=== PATIENT | female | born 1935 | race Caucasian/White ===

== ENCOUNTER 2016-05-13 09:21 | Emergency (ER) | payer MEDICARE ==
[~2016-05-13] VITALS: Ht 157.5 cm; Wt 62.6 kg
[~2016-05-13 09:21] MED LIST: ASP81CT PO; ASPI-906 PO; CARV3.12 PO; CARV6.252; CARV6.252 PO; CLOP75TA PO; CPR250T PO; CPR500T PO; CRV6.25T PO; ENAL10TA PO; GBPN100C PO; HYDR1TAB8 OP; LOSA100T7 PO; MULT-178 PO; OMEG1CAP51 PO; ONDA8TAB9 PO; ONDAN4ODT PO; OXYC5SOL19 PO; OXYC5TAB71 PO; PANT20TA2 PO; PHEN200T27 PO; PNT40TEC PO; TMSL.4C PO; [UNRECOGNIZED DRUG - REMARK]
--- NOTE | 2016-05-13 10:56 | ED General ---
General Chief Complaint: General Problems/Pain Stated Complaint: ABD PAIN Nursing Triage Note: pt reports congestion for several days. Pt reports malaise, lightheadedness/weakness, and abdominal pain starting this am. Pt also reports red swollen area near vagina. Pt states she has had MRSA there before. pt reports upon arrival to ed abdominal pain has resolved. Nursing Sepsis Screen: No Definite Risk Source of Information: Patient, Family Exam Limitations: No Limitations History of Present Illness Time Seen by Provider: 10:50 Initial Comments This 81-year-old female presents with cough and congestion that began last 24 hours. Patient is 1 and recommendation for a codeine containing cough syrup. Patient's had no associated shortness of breath, productive cough, chest discomfort, history of recurrent pneumonia, bronchitis, or asthma. Patient also is concerned that her urethral meatus may have MRSA. The patient has had MRSA in the right groin required an I&D in the past she fears that the urethral meatus which he has felt may have MRSA. Patient saw another physician for what sounds like atrophic vaginitis and used cream which is cause improvement in the patient's vaginal discomfort. Allergies and Home Medications Allergies Coded Allergies: duloxetine HCl (Verified Allergy, Intermediate, BLISTERS, 05/04/15) Penicillins (Verified Allergy, Mild, 04/03/11) Home Medications Carvedilol 6.25 Mg Tab, 6.25 MG PO BID, (Reported) Losartan Potassium 100 Mg Tablet, 100 MG PO DAILY, (Reported) Multivitamin 1 Each Tablet, 1 EACH PO DAILY, (Reported) Pantoprazole Sodium 20 Mg Tablet.dr, 40 MG PO DAILY, #90 Prescribed by: TERE CARVAJAL on 06/01/14 1246 Constitutional: No chills, No fever EENTM: No eye pain Respiratory: see HPI, cough, No phlegm, No short of breath Cardiovascular: No chest pain Gastrointestinal: No abdominal pain, No nausea, No vomiting Genitourinary: see HPI, No dysuria, No frequency : No Musculoskeletal: No back pain Skin: No rash Psychiatric/Neurological: No Symptoms Reported Hematologic/Lymphatic: No Symptoms Reported Immunological/Allergic: no symptoms reported Past Epfsnwn-Wkxmcr-Rbnwxq Hx Patient Social History Alcohol Use: Denies Use Recreational Drug Use: No Smoking Status: Never a Smoker Recent Foreign Travel: No Contact w/Someone Who Travel: No Recent Infectious Disease Expo: No Recent Hopitalizations: Yes Immunizations Up To Date Date of Pneumonia Vaccine: Jun 01, 2004 Surgeries HX Surgeries: Yes (KIDNEY STONE REMOVAL, ORAL SX, ANGIOPLASTY RIGHT RENAL ARTERY) Surgeries: Gallbladder, Hysterectomy, Thyroidectomy Respiratory Hx Respiratory Disorders: No Cardiovascular Hx Cardiac Disorders: Yes Neurological Hx Neurological Disorders: No Reproductive System Hx Reproductive Disorders: No Sexually Transmitted Disease: No HIV/AIDS: No 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 Genitourinary Hx Genitourinary Disorders: Yes Genitourinary Disorders: Kidney Stones Gastrointestinal Hx Gastrointestinal Disorders: Yes (HX HIATAL HERNIA) Gastrointestinal Disorders: Gastroesophageal Reflux, Diverticulosis Musculoskeletal Hx Musculoskeletal Disorders: Yes Musculoskeletal Disorders: Arthritis Endocrine Hx Endocrine Disorders: Yes (NODULE ON THYROID, BX ON 03/30/15) HEENT HX ENT Disorders: No (SMALL CATARACTS, FULL SET OF DENTURES) Hearing Impairment: Denies Cancer Hx Cancer: No Psychosocial Hx Psychiatric Problems: No Integumentary HX Skin/Integumentary Disorder: Yes (hx of mrsa) Blood Transfusions Hx Blood Disorders: No Adverse Reaction to a Blood Tr: No Reviewed Nursing Assessment Reviewed/Agree w Nursing PMH: Yes Family Medical History Family Medial History: Cardiovascular disease G8 SISTER Colon cancer G8 BROTHER FH: cancer 19 FATHER (lung) 19 MOTHER G8 SISTER (esophagus) Psychosocial problem 19 MOTHER Physical Exam Vital Signs Vital Sign - Last 12Hours 05/13/16 10:24 Temp 97.5 Pulse 63 Resp 18 B/P (MAP) 131/79 Pulse Ox 98 Capillary Refill : Less Than 3 Seconds General Appearance: No Apparent Distress, WD/WN Eyes: Bilateral Eye Normal Inspection HEENT: Normal ENT Inspection Neck: Normal Inspection Respiratory: Lungs Clear, Normal Breath Sounds Cardiovascular: No Edema Gastrointestinal: Normal Bowel Sounds, Non Tender, Soft Genital/Rectal: Normal Genital Exam, Other (the patient's urethral meatus appears to be normal and nontender. I reassured the patient.) Back: Normal Inspection Extremity: Normal Inspection, Normal Range of Motion Neurologic/Psychiatric: Alert, No Motor/Sensory Deficits, Normal Mood/Affect Skin: Normal Color, Warm/Dry Progress/Results/Core Measures Results/Orders Vital Signs/I&O Vital Sign - Last 12Hours 05/13/16 10:24 Temp 97.5 Pulse 63 Resp 18 B/P (MAP) 131/79 Pulse Ox 98 Blood Pressure Mean: 96 Progress Note : Time: 10:53 Progress Note The patient was content to be reassured that her urethral meatus was normal. She is planning on seeing a hand singer for the first time in her life and the near future. I encouraged her to follow through with this plan. I invited her to return to emergency department if any further problems or questions. 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 Departure Impression Impression: Primary Impression: Viral URI with cough Disposition: HOME, SELF-CARE Condition: Unchanged Departure-Patient Inst. Decision time for Depature: 10:55 Referrals: ARISTIDES CASTRO MD (PCP/Family) Primary Care Physician Add. Discharge Instructions: Complication with codeine of your choice. Return if you have any problems or questions. All discharge instructions reviewed with patient and/or family. Voiced understanding. VICKY RUIZ MD May 13, 2016 10:56
[2016-05-13 11:01] VITALS: BP 128/69
--- OUTSIDE RECORDS SUMMARY | 2016-06-16 05:55 | XMS REPORT | Continuity of Care Document ---
Author Author [facility] Organization [facility] Address Unknown Phone Unavailable Allergies Active Description Code Type Severity Reaction Onset Reported/Identified Relationship to Patient Clinical Status Yes Penicillins [id number] Drug Allergy Mild N/A 04/03/2011 Yes duloxetine HCl [id number] Drug Allergy Unknown N/A 06/01/2014 Yes duloxetine HCl [id number] Drug Allergy Moderate BLISTERS 05/04/2015 Medications Problems Date Dx Coded Attending Type Code Diagnosis Diagnosed By 06/07/2010 Ot 401.9 06/07/2010 Ot 780.4 06/07/2010 Ot 791.9 04/06/2011 Ot 272.4 HYPERLIPIDEMIA NEC/NOS 04/06/2011 Ot 276.8 HYPOPOTASSEMIA 04/06/2011 Ot 401.0 MALIGNANT HYPERTENSION 04/06/2011 Ot 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 [place] CORON 04/06/2011 Ot 440.0 AORTIC ATHEROSCLEROSIS 04/06/2011 Ot 440.1 RENAL ARTERY ATHEROSCLER 01/04/2012 Ot 355.8 MONONEURITIS LEG NOS 01/04/2012 Ot 729.5 PAIN IN LIMB 01/04/2012 Ot 782.0 SKIN SENSATION DISTURB 10/09/2012 RODRIGO PFEIFFER DO Ot 592.0 CALCULUS OF KIDNEY 10/09/2012 RODRIGO PFEIFFER DO Ot 796.2 ELEV BL PRES W/O HYPERTN 10/21/2012 JB MOHAMUD MD Ot 596.51 HYPERTONICITY OF BLADDER 10/21/2012 JB MOHAMUD MD Ot 618.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 10/21/2012 JB MOHAMUD MD Ot 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) 01/18/2014 EDGAR STRAUSS Ot 272.4 01/19/2014 Ot 272.4 01/19/2014 Ot 272.4 01/19/2014 Ot 397.0 01/19/2014 Ot 401.9 01/19/2014 Ot 424.0 01/19/2014 Ot 272.4 01/19/2014 Ot 401.9 01/19/2014 Ot 244.9 01/19/2014 Ot 272.4 01/19/2014 Ot 401.9 01/19/2014 Ot 272.4 01/19/2014 Ot 272.4 01/19/2014 Ot 272.4 01/19/2014 Ot 401.0 01/19/2014 Ot 440.1 01/19/2014 Ot 599.70 01/19/2014 Ot 788.30 01/19/2014 Ot 272.4 01/19/2014 Ot 553.3 01/19/2014 Ot 789.09 01/19/2014 Ot 793.19 01/19/2014 Ot 793.19 01/19/2014 Ot 793.11 01/19/2014 Ot 355.9 01/19/2014 Ot 729.5 01/19/2014 Ot 780.79 01/19/2014 Ot 272.4 01/19/2014 ROZINA HUMMEL, EDIE Knutson Ot 401.0 01/19/2014 ROZINA HUMMEL, EDIE Knutson Ot 424.0 01/19/2014 ROZINA HUMMEL, EDIE Knutson Ot 440.1 01/19/2014 ONEIDA HUMMEL, JB Horton Ot 592.0 01/19/2014 ONEIDA HUMMEL, JB Horton Ot V58.66 01/19/2014 ONEIDA HUMMEL, JB A Ot V72.63 01/19/2014 ONEIDA HUMMEL, JB A Ot 592.9 01/19/2014 EDIE HANDY MD Ot 272.4 01/19/2014 EDIE HANDY MD Ot 401.9 01/19/2014 ROZINA HUMMEL, EDIE Knutson Ot 414.00 01/19/2014 MATTHEW HUMMEL, ARISTIDES R Ot 715.31 01/19/2014 MATTHEW HUMMEL, ARISTIDES R Ot V74.8 01/19/2014 ONEIDA HUMMEL, JB Horton Ot 562.10 01/19/2014 ONEIDA HUMMEL, JB A Ot 592.0 01/19/2014 MATTHEW HUMMEL, ARISTIDES R Ot 790.99 01/19/2014 EDGAR STRAUSS Ot 396.3 01/19/2014 EDGAR STRAUSS Ot 397.0 01/19/2014 SUKH CAPPS EDGAR Lomax Ot 401.9 01/19/2014 SUKH CAPPS, EDGAR Lomax Ot 414.00 01/19/2014 SUKH CAPPS, EDGAR Lomax Ot 496 01/19/2014 SUKH CAPPS, EDGAR Lomax Ot 272.4 02/14/2014 MATTHEW HUMMEL, ARISTIDES R Ot 780.79 02/14/2014 ARISTIDES CASTRO MD R Ot 786.2 05/31/2014 TERE CARVAJAL MD, Ot V72.84 06/01/2014 TERE CARVAJAL MD Ot 455.0 INT HEMORRHOID W/O COMPL 06/01/2014 TERE CARVAJAL MD, Ot 455.3 EXT HEMORRHOID W/O COMPL 06/01/2014 TERE CARVAJAL MD Ot 530.11 REFLUX ESOPHAGITIS 06/01/2014 TERE CARVAJAL MD Ot 535.50 UNSP GASTRITIS GASTRODUODENITIS W/O ME 06/01/2014 TERE CARVAJAL MD Ot 553.3 DIAPHRAGMATIC HERNIA 06/01/2014 TERE CARVAJAL MD, Ot 562.10 DIVERTICULOSIS COLON (W/O MENT OF HEMORR 12/14/2014 ROZINA HUMMEL, EDIE Knutson Ot E78.5 12/14/2014 EDIE HANDY MD Ot I10 12/14/2014 EDIE HANDY MD Ot I25.9 12/14/2014 EDIE HANDY MD Ot J44.9 12/14/2014 EDIE HANDY MD Ot R07.9 03/29/2015 NATHANIEL CASANOVA MD Ot E04.2 03/30/2015 NATHANIEL CASANOVA MD Ot E04.2 04/07/2015 TERE CARVAJAL MD Ot I10 ESSENTIAL (PRIMARY) HYPERTENSION 04/07/2015 TERE CARVAJAL MD, Ot J44.9 CHRONIC OBSTRUCTIVE PULMONARY DISEASE, U 04/07/2015 TERE CARVAJAL MD, Ot K21.9 GASTRO-ESOPHAGEAL REFLUX DISEASE WITHOUT 04/07/2015 TERE CARVAJAL MD, Ot K44.9 DIAPHRAGMATIC HERNIA WITHOUT OBSTRUCTION 04/07/2015 TERE CARVAJAL MD, Ot Z79.899 OTHER SKILLED NURSING (CURRENT) DRUG THERAPY 04/24/2015 RITIKA CARVAJAL MDKI Ot K44.9 04/24/2015 WEI HUMMEL, TAKAAKI Ot Z01.812 05/04/2015 EDILBERTO HUMMEL, NATHANIEL P Ot E07.9 DISORDER OF THYROID, UNSPECIFIED 05/04/2015 EDILBERTO HUMMEL, NATHANIEL P Ot Z01.810 ENCOUNTER FOR PREPROCEDURAL CARDIOVASCUL 05/04/2015 EDILBERTO HUMMEL, NATHANIEL P Ot Z01.811 ENCOUNTER FOR PREPROCEDURAL RESPIRATORY 05/04/2015 EDILBERTO HUMMEL, NATHANIEL P Ot Z01.812 ENCOUNTER FOR PREPROCEDURAL LABORATORY E 05/04/2015 EDILBERTO HUMMEL, NATHANIEL P Ot Z11.2 ENCOUNTER FOR SCREENING FOR OTHER BACTER 05/04/2015 EDILBERTO HUMMEL, NATHANIEL P Ot E04.1 05/05/2015 EDILBERTO HUMMEL, NATHANIEL P Ot E07.9 05/05/2015 EDILBERTO HUMMEL, NATHANIEL P Ot Z01.810 05/05/2015 EDILBERTO HUMMEL, NATHANIEL P Ot Z01.811 05/05/2015 EDILBERTO HUMMEL, NATHANIEL P Ot Z01.812 05/05/2015 EDILBERTO HUMMEL, NATHANIEL P Ot Z11.2 05/10/2015 EDILBERTO HUMMEL, NATHANIEL P Ot E04.1 05/12/2015 EDILBERTO HUMMEL, NATHANIEL P Ot E04.2 NONTOXIC MULTINODULAR GOITER 07/20/2015 EDGAR STRAUSS Ot I25.10 ATHSCL HEART DISEASE OF [place] CORONARY 07/21/2015 EDGAR STRAUSS Ot I25.10 ATHSCL HEART DISEASE OF [place] CORONARY 07/26/2015 EDGAR STRAUSS Ot E78.2 MIXED HYPERLIPIDEMIA 07/26/2015 EDGAR STRAUSS Ot I10 ESSENTIAL (PRIMARY) HYPERTENSION 07/26/2015 EDGAR STRAUSS Ot I25.10 ATHSCL HEART DISEASE OF [place] CORONARY 07/26/2015 EDGAR STRAUSS Ot I65.23 OCCLUSION AND STENOSIS OF [place] 08/08/2015 EDGAR STRAUSS Ot E78.2 MIXED HYPERLIPIDEMIA 08/08/2015 EDGAR STRAUSS Ot I10 ESSENTIAL (PRIMARY) HYPERTENSION 08/08/2015 EDGAR STRAUSS Ot I25.10 ATHSCL HEART DISEASE OF [place] CORONARY 08/08/2015 EDGAR STRAUSS Ot I65.23 OCCLUSION AND STENOSIS OF [place]ILATERAL [place] 08/21/2015 EDGAR STRAUSS Ot E78.2 MIXED HYPERLIPIDEMIA 08/21/2015 EDGAR STRAUSS Ot I10 ESSENTIAL (PRIMARY) HYPERTENSION 08/21/2015 EDGAR STRAUSS Ot I25.10 ATHSCL HEART DISEASE OF [place] CORONARY 08/21/2015 EDGAR STRAUSS Ot I65.23 OCCLUSION AND STENOSIS OF BILATERAL [place] 05/13/2016 SARA HUMMEL, VICKY De La Paz Ot J06.9 ACUTE UPPER RESPIRATORY INFECTION, UNSPE 05/13/2016 SARA HUMMEL, VICKY De La [place]az Ot R05 COUGH 05/13/2016 SARA HUMMEL, VICKY De [place]az Ot Z79.899 OTHER SKILLED NURSING (CURRENT) DRUG THERAPY 05/15/2016 SARA HUMMEL, VICKY [place] Ot J06.9 ACUTE UPPER RESPIRATORY INFECTION, UNSPE 05/15/2016 SARA HUMMEL, VICKY De [place]az Ot R05 COUGH 05/15/2016 SARA HUMMEL, VICKY De [place]az Ot Z79.899 OTHER SKILLED NURSING (CURRENT) DRUG THERAPY 05/17/2016 Ot 272.4 HYPERLIPIDEMIA NEC/NOS 05/17/2016 Ot 401.0 MALIGNANT HYPERTENSION 05/17/2016 Ot 440.1 RENAL ARTERY ATHEROSCLER 05/17/2016 Ot 599.70 HEMATURIA, UNSPECIFIED 05/17/2016 Ot 788.30 UNSPECIFIED URINARY INCONTINENCE 05/17/2016 Ot 272.4 HYPERLIPIDEMIA NEC/NOS 05/17/2016 Ot 553.3 DIAPHRAGMATIC HERNIA 05/17/2016 Ot 789.09 ABDOMINAL PAIN, OTHER SPECIFIED SITE 05/17/2016 Ot 793.19 OTHER NONSPECIFIC ABNORMAL FINDING OF TAM[place] 05/17/2016 Ot 793.19 OTHER NONSPECIFIC ABNORMAL FINDING OF TAM[place] 05/17/2016 Ot 793.11 SOLITARY PULMONARY NODULE 05/17/2016 Ot 355.9 MONONEURITIS NOS 05/17/2016 Ot 729.5 PAIN IN LIMB 05/17/2016 Ot 780.79 OTH MALAISE FATIGUE 05/17/2016 Ot 272.4 HYPERLIPIDEMIA NEC/NOS 05/17/2016 EDIE HANDY MD Ot 401.0 MALIGNANT HYPERTENSION 05/17/2016 EDIE HANDY MD Ot 424.0 MITRAL VALVE DISORDER 05/17/2016 EDIE HANDY MD Ot 440.1 RENAL ARTERY ATHEROSCLER 05/17/2016 JB MOHAMUD MD Ot 592.0 CALCULUS OF KIDNEY 05/17/2016 JB MOHAMUD MD, Ot V58.66 LONG-TERM (CURRENT) USE OF ASPIRIN 05/17/2016 JB MOHAMUD MD, Ot V72.63 PRE-PROCEDURAL LABORATORY EXAMINATION 05/17/2016 JB MOHAMUD MD Ot 592.9 URINARY CALCULUS NOS 05/17/2016 EDIE HANDY MD Ot 272.4 HYPERLIPIDEMIA NEC/NOS 05/17/2016 EDIE HANDY MD Ot 401.9 HYPERTENSION NOS 05/17/2016 EDIE HANDY MD Ot 414.00 CORON ATHEROSCLER NOS TYPE VESSEL, NATIV 05/17/2016 ARISTIDES CASTRO MD R Ot 715.31 LOC OSTEOARTH NOS-SHLDER 05/17/2016 ARISTIDES CASTRO MD R Ot V74.8 SCREEN-BACTERIAL DIS NEC 05/17/2016 JB MOHAMUD MD Ot 562.10 DIVERTICULOSIS COLON (W/O MENT OF HEMORR 05/17/2016 JB MOHAMUD MD Ot 592.0 CALCULUS OF KIDNEY 05/17/2016 MATTHEW HUMMEL, ARISTIDES R Ot 790.99 BLOOD EXAM - OTH NONSPECIFIC FINDINGS 05/17/2016 EDGAR STRAUSS Ot 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 05/17/2016 EDGAR STRAUSS Ot 397.0 TRICUSPID VALVE DISEASE 05/17/2016 EDGAR STRAUSS Ot 401.9 HYPERTENSION NOS 05/17/2016 EDGAR STRAUSS Ot 414.00 CORON ATHEROSCLER NOS TYPE VESSEL, NATIV 05/17/2016 EDGAR STRAUSS Ot 496 CHR AIRWAY OBSTRUCT NEC 05/17/2016 EDGAR STRAUSS Ot 272.4 HYPERLIPIDEMIA NEC/NOS 05/17/2016 ARISTIDES CASTRO MD R Ot 780.79 OTH MALAISE FATIGUE 05/17/2016 ARISTIDES CASTRO MD R Ot 786.2 COUGH 05/17/2016 TERE CARVAJAL MD Ot V72.84 EXAM PRE-OPERATIVE NOS 05/17/2016 ROZINA HUMMEL, EDIE Knutsno Ot E78.5 HYPERLIPIDEMIA, UNSPECIFIED 05/17/2016 EDIE HANDY MD Ot I10 ESSENTIAL (PRIMARY) HYPERTENSION 05/17/2016 EDIE HANDY MD Ot I25.9 CHRONIC ISCHEMIC HEART DISEASE, UNSPECIF 05/17/2016 EDIE HANDY MD Ot J44.9 CHRONIC OBSTRUCTIVE PULMONARY DISEASE, U 05/17/2016 EDIE HANDY MD Ot R07.9 CHEST PAIN, UNSPECIFIED 05/17/2016 EDILBERTO HUMMEL, NATHANIEL Fan Ot E04.2 NONTOXIC MULTINODULAR GOITER 05/17/2016 NATHANIEL CASANOVA MD Ot E04.9 NONTOXIC GOITER, UNSPECIFIED 05/17/2016 TERE CARVAJAL MD, Ot K44.9 DIAPHRAGMATIC HERNIA WITHOUT OBSTRUCTION 05/17/2016 TERE CARVAJAL MD Ot Z01.812 ENCOUNTER FOR PREPROCEDURAL LABORATORY E 05/17/2016 NATHANIEL CASANOVA MD Ot E04.1 NONTOXIC SINGLE THYROID NODULE 05/17/2016 EDGAR STRAUSS Ot E78.2 MIXED HYPERLIPIDEMIA 05/17/2016 EDGAR STRAUSS Ot I10 ESSENTIAL (PRIMARY) HYPERTENSION 05/17/2016 EDGAR STRAUSS Ot I25.10 ATHSCL HEART DISEASE OF [place] CORONARY 05/17/2016 EDGAR STRAUSS Ot I65.23 OCCLUSION AND STENOSIS OF [place]ILATERAL [place] 05/17/2016 Ot 272.4 HYPERLIPIDEMIA NEC/NOS 05/17/2016 Ot 401.0 MALIGNANT HYPERTENSION 05/17/2016 Ot 440.1 RENAL ARTERY ATHEROSCLER 05/17/2016 Ot 599.70 HEMATURIA, UNSPECIFIED 05/17/2016 Ot 788.30 UNSPECIFIED URINARY INCONTINENCE 05/17/2016 Ot 272.4 HYPERLIPIDEMIA NEC/NOS 05/17/2016 Ot 553.3 DIAPHRAGMATIC HERNIA 05/17/2016 Ot 789.09 ABDOMINAL PAIN, OTHER SPECIFIED SITE 05/17/2016 Ot 793.19 OTHER NONSPECIFIC ABNORMAL FINDING OF [place] 05/17/2016 Ot 793.19 OTHER NONSPECIFIC ABNORMAL FINDING OF [place] 05/17/2016 Ot 793.11 SOLITARY PULMONARY NODULE 05/17/2016 Ot 355.9 MONONEURITIS NOS 05/17/2016 Ot 729.5 PAIN IN LIMB 05/17/2016 Ot 780.79 OTH MALAISE FATIGUE 05/17/2016 Ot 272.4 HYPERLIPIDEMIA NEC/NOS 05/17/2016 EDIE HANDY MD Ot 401.0 MALIGNANT HYPERTENSION 05/17/2016 EDIE HANDY MD Ot 424.0 MITRAL VALVE DISORDER 05/17/2016 EDIE HANDY MD Ot 440.1 RENAL ARTERY ATHEROSCLER 05/17/2016 JB MOHAMUD MD Ot 592.0 CALCULUS OF KIDNEY 05/17/2016 JB MOHAMUD MD Ot V58.66 LONG-TERM (CURRENT) USE OF ASPIRIN 05/17/2016 JB MOHAMUD MD Ot V72.63 PRE-PROCEDURAL LABORATORY EXAMINATION 05/17/2016 JB MOHAMUD MD Ot 592.9 URINARY CALCULUS NOS 05/17/2016 EDIE HANDY MD Ot 272.4 HYPERLIPIDEMIA NEC/NOS 05/17/2016 EDIE HANDY MD Ot 401.9 HYPERTENSION NOS 05/17/2016 EDIE HANDY MD Ot 414.00 CORON ATHEROSCLER NOS TYPE VESSEL, NATIV 05/17/2016 MATTHEW HUMMEL, ARISTIDES R Ot 715.31 LOC OSTEOARTH NOS-SHLDER 05/17/2016 MATTHEW HUMMEL, ARISTIDES R Ot V74.8 SCREEN-BACTERIAL DIS NEC 05/17/2016 JB MOHAMUD MD Ot 562.10 DIVERTICULOSIS COLON (W/O MENT OF HEMORR 05/17/2016 JB MOHAMUD MD Ot 592.0 CALCULUS OF KIDNEY 05/17/2016 ARISTIDES CASTRO MD R Ot 790.99 BLOOD EXAM - OTH NONSPECIFIC FINDINGS 05/17/2016 EDGAR STRAUSS Ot 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 05/17/2016 EDGAR STRAUSS Ot 397.0 TRICUSPID VALVE DISEASE 05/17/2016 EDGAR STRAUSS Ot 401.9 HYPERTENSION NOS 05/17/2016 EDGAR STRAUSS Ot 414.00 CORON ATHEROSCLER NOS TYPE VESSEL, NATIV 05/17/2016 EDGAR STRAUSS Ot 496 CHR AIRWAY OBSTRUCT NEC 05/17/2016 EDGAR STRAUSS Ot 272.4 HYPERLIPIDEMIA NEC/NOS 05/17/2016 ARISTIDES CASTRO MD Ot 780.79 OTH MALAISE FATIGUE 05/17/2016 ARISTIDES CASTRO MD Ot 786.2 COUGH 05/17/2016 TERE CARVAJAL MD, Ot V72.84 EXAM PRE-OPERATIVE NOS 05/17/2016 EDIE HANDY MD, Ot E78.5 HYPERLIPIDEMIA, UNSPECIFIED 05/17/2016 EDIE HANDY MD, Ot I10 ESSENTIAL (PRIMARY) HYPERTENSION 05/17/2016 EDIE HANDY MD Ot I25.9 CHRONIC ISCHEMIC HEART DISEASE, UNSPECIF 05/17/2016 EDIE HANDY MD, Ot J44.9 CHRONIC OBSTRUCTIVE PULMONARY DISEASE, U 05/17/2016 EDIE HANDY MD Ot R07.9 CHEST PAIN, UNSPECIFIED 05/17/2016 NATHANIEL CASANOVA MD Ot E04.2 NONTOXIC MULTINODULAR GOITER 05/17/2016 NATHANIEL CASANOVA MD Ot E04.9 NONTOXIC GOITER, UNSPECIFIED 05/17/2016 TERE CARVAJAL MD, Ot K44.9 DIAPHRAGMATIC HERNIA WITHOUT OBSTRUCTION 05/17/2016 TERE CARVAJAL MD Ot Z01.812 ENCOUNTER FOR PREPROCEDURAL LABORATORY E 05/17/2016 EDILBERTO HUMMEL, NATHANIEL Fan Ot E04.1 NONTOXIC SINGLE THYROID NODULE 05/17/2016 EDGAR STRAUSS Ot E78.2 MIXED HYPERLIPIDEMIA 05/17/2016 EDGAR STRAUSS Ot I10 ESSENTIAL (PRIMARY) HYPERTENSION 05/17/2016 EDGAR STRAUSS Ot I25.10 ATHSCL HEART DISEASE OF [place] CORONARY 05/17/2016 EDGAR STRAUSS Ot I65.23 OCCLUSION AND STENOSIS OF BILATERAL [place] 05/20/2016 ARISTIDES CASTRO MD Ot R06.02 SHORTNESS OF BREATH 05/21/2016 VICKY ROSALES MD Ot E89.0 POSTPROCEDURAL HYPOTHYROIDISM 05/21/2016 VICKY ROSALES MD Ot J20.8 ACUTE BRONCHITIS DUE TO OTHER SPECIFIED 05/21/2016 VICKY ROSALES MD, Ot J44.0 CHRONIC OBSTRUCTIVE PULMON DISEASE W ACU 05/21/2016 VICKY ROSALES MD Ot J44.1 CHRONIC OBSTRUCTIVE PULMONARY DISEASE W 05/21/2016 VICKY ROSALES MD, Ot J45.909 UNSPECIFIED ASTHMA, UNCOMPLICATED 05/21/2016 VICKY ROSALES MD, Ot K21.9 GASTRO-ESOPHAGEAL REFLUX DISEASE WITHOUT 05/21/2016 VICKY ROSALES MD, Ot M19.91 PRIMARY OSTEOARTHRITIS, UNSPECIFIED SITE 05/21/2016 VICKY ROSALES MD, Ot R09.02 HYPOXEMIA Procedures Code Description Performed By Performed On 37.22 LEFT HEART CARDIAC CATH 04/03/2011 88.42 CONTRAST AORTOGRAM 04/03/2011 88.45 CONTRAST RENAL ARTERIOGR 04/03/2011 88.53 LT HEART ANGIOCARDIOGRAM 04/03/2011 88.56 CORONAR ARTERIOGR-2 CATH 04/03/2011 00.40 PROCEDURE ON SINGLE VESSEL 04/05/2011 39.50 ANGIOPLASTY OF OTHER NON-CORONARY VESSEL 04/05/2011 Results Test Result Range Complete blood count (CBC) with automated white blood cell (WBC) differential - 05/17/16 11:35 Blood leukocytes automated count (number/volume) 3.8 10*3/ uL 4.3-11.0 Blood erythrocytes automated count (number/volume) 4.65 10*6 /uL 4.35-5.85 Venous blood hemoglobin measurement (mass/volume) 14.3 g/dL 11.5-16.0 Blood hematocrit (volume fraction) 42 % 35-52 Automated erythrocyte mean corpuscular volume 91 [foz_us] 80-99 Automated erythrocyte mean corpuscular hemoglobin (mass per erythrocyte) 31 pg 25-34 Automated erythrocyte mean corpuscular hemoglobin concentration measurement ( mass/volume) 34 g/dL 32-36 Automated erythrocyte distribution width ratio 13.9 % 10.0-14.5 Automated blood platelet count (count/volume) 169 10*3/uL 130-400 Automated blood platelet mean volume measurement 9.8 [foz_us ] 7.4-10.4 Automated blood neutrophils/100 leukocytes 51 % 42-75 Automated blood lymphocytes/100 leukocytes 28 % 12-44 Blood monocytes/100 leukocytes 20 % 0-12 Automated blood eosinophils/100 leukocytes 1 % 0-10 Automated blood basophils/100 leukocytes 0 % 0-10 Blood neutrophils automated count (number/volume) 1.9 10*3 1.8-7.8 Blood lymphocytes automated count (number/volume) 1.1 10*3 1.0-4.0 Blood monocytes automated count (number/volume) 0.7 10*3 0.0-1.0 Automated eosinophil count 0.0 10*3/uL 0.0-0.3 Automated blood basophil count (count/volume) 0.0 10*3/uL 0.0-0.1 Blood manual differential performed detection - 05/17/16 11:35 Blood monocytes/100 leukocytes 17 % NRG Manual blood segmented neutrophils/100 leukocytes 55 % NRG Blood band neutrophils/100 leukocytes 2 % NRG Manual blood lymphocytes/100 leukocytes 23 % NRG Manual eosinophils/100 leukocytes in nose 2 % NRG Manual blood basophils/100 leukocytes 0 % NRG Blood lymphocytes variant/100 leukocytes 1 % NRG Blood ovalocytes detection by light microscopy [facility] Comprehensive metabolic panel - 05/17/16 11:35 Serum or plasma sodium measurement (moles/volume) 141 mmol/ L 135-145 Serum or plasma potassium measurement (moles/volume) 3.5 mmol/L 3.6-5.0 Serum or plasma chloride measurement (moles/volume) 103 mmol /L 98-107 Carbon dioxide 28 mmol/L 21-32 Serum or plasma anion gap determination (moles/volume) 10 mmol/L 5-14 Serum or plasma urea nitrogen measurement (mass/volume) 17 mg/dL 7-18 Serum or plasma creatinine measurement (mass/volume) 0.84 mg /dL 0.60-1.30 Serum or plasma urea nitrogen/creatinine mass ratio 20 NRG Serum or plasma creatinine measurement with calculation of estimated glomerular filtration rate > NRG Serum or plasma glucose measurement (mass/volume) 95 mg/dL 70-105 Serum or plasma calcium measurement (mass/volume) 8.6 mg/dL 8.5-10.1 Serum or plasma total bilirubin measurement (mass/volume) 0.5 mg/dL 0.1-1.0 Serum or plasma alkaline phosphatase measurement (enzymatic activity/volume) 61 U/L 40-136 Serum or plasma aspartate aminotransferase measurement (enzymatic activity/ volume) 26 U/L 5-34 Serum or plasma alanine aminotransferase measurement (enzymatic activity/volume ) 17 U/L 0-55 Serum or plasma protein measurement (mass/volume) 6.3 g/dL 6.4-8.2 Serum or plasma albumin measurement (mass/volume) 3.5 g/dL 3.2-4.5 Serum or plasma troponin i.cardiac measurement (mass/volume) - 05/17/16 11:35 Serum or plasma troponin i.cardiac measurement (mass/volume) < ng/mL <0.30 Serum or plasma lithium measurement (moles/volume) - 05/17/16 11:35 BNP level 34.9 pg/mL <100.0 Sputum Gram stain - 05/17/16 14:50 GRAM STAIN SPUTUM AND MIXED BACTERIAL TAVON NRG Bacterial sputum culture - 05/17/16 14:50 FREE TEXT EXTERNAL PLUS NORMAL TAVON NRG QUANTITY OF GROWTH Moderate Growth NRG Bacterial sputum culture [id number] NR Bacterial susceptibility panel - 05/17/16 14:50 Gentamicin susceptibility test by minimum inhibitory concentration <= NRG Tobramycin susceptibility test by minimum inhibitory concentration <= NRG Piperacillin/tazobactam susceptibility test by minimum inhibitory concentration 8 NRG Ciprofloxacin susceptibility test by minimum inhibitory concentration <= NRG Meropenem susceptibility test by minimum inhibitory concentration <= NRG Cefepime susceptibility test by minimum inhibitory concentration 2 NRG Encounters ACCT No. Visit Date/Time Discharge Status Pt. Type Provider Facility Loc./Unit Complaint [id number] 05/17/2016 12:45:00 2016 17:56:00 DIS Inpatient BOBBY HUMMEL, VICKY Russell [facility] 4TH COPD EXACERBATION [id number] 05/13/2016 09:24:00 2016 11:00:00 DIS Emergency VICKY RUIZ MD [facility] ER ABD PAIN [id number] 05/04/2015 08:37:00 2015 09:39:00 DIS Outpatient NATHANIEL CASAONVA MD [facility] PREOP FNA SUSP. PAPILLARY CA THYROID [id number] 04/06/2015 06:00:00 2015 09:45:00 DIS Outpatient TERE CARVAJAL MD [facility] SDC HIATAL HERNIA [id number] 11/24/2014 07:46:00 2014 23:59:59 CLS Outpatient EDIE HANDY MD [facility] LAB HYPERLIPIDEMIA,CAD,COPD,HTN,CHEST PAIN [id number] 07/04/2014 09:59:00 2014 23:59:59 CLS Outpatient POPEYE PASCAL [facility] QUICK [id number] 06/01/2014 08:14:00 2014 13:45:00 DIS Outpatient TERE CARVAJAL MD [facility] SDC POSITIVE OCCULT BLOOD [id number] 05/30/2014 06:14:00 2014 23:59:59 CLS Outpatient TERE CARVAJAL MD [facility] PREOP POSITIVE OCCULT BLOOD [id number] 01/19/2014 16:30:00 2013 23:59:59 CLS Outpatient ARISTIDES CASTRO MD [facility] LAB INCHING,STINGING [id number] 12/03/2013 08:27:00 2013 23:59:59 CLS Outpatient EDGAR STRAUSS [facility] LAB HYPERLIPIDEMIA [id number] 11/10/2013 10:34:00 2013 23:59:59 CLS Outpatient EDGAR STRAUSS [facility] CARD CAD,COPD,CAROTID ARTERY STENOSIS,HTN [id number] 05/04/2013 08:26:00 2013 23:59:59 CLS Outpatient ARISTIDES CASTRO MD [facility] LAB HX LOW ALB,LOW PROT [id number] 03/04/2013 11:36:00 2013 23:59:59 CLS Outpatient JB MOHAMUD MD [facility] RAD RUQ PAIN,STONES,HEMATURIA [id number] 02/02/2013 10:01:00 2012 23:59:59 CLS Outpatient ARISTIDES CASTRO MD [facility] LAB MRSA [id number] 12/10/2012 10:32:00 2012 23:59:59 CLS Outpatient ARISTIDES CASTRO MD [facility] RAD PAIN IN RT SHOULDER [id number] 12/02/2012 07:51:00 2012 23:59:59 CLS Outpatient EDIE HANDY MD [facility] LAB HLP,HTN,CAD [id number] 10/21/2012 05:55:00 2012 10:38:00 DIS Outpatient JB MOHAMUD MD [facility] RIGHT RENAL STONE [id number] 10/20/2012 11:44:00 2012 23:59:59 CLS Outpatient JB MHOAMUD MD [facility] PREOP RIGHT URETERAL STONE [id number] 10/20/2012 08:34:00 2012 23:59:59 CLS Outpatient JB MOHAMUD MD [facility] RAD STONE [id number] 10/09/2012 18:03:00 2012 21:28:00 DIS Emergency MARGARETTE DO, RODRIGO Lomax [facility] ER ELEVATED BP [id number] 06/19/2012 06:50:00 2012 23:59:59 CLS Outpatient ROZINA HUMMEL, EDIE Knutson [facility] RAD RENAL ART STENOSIS,MR,MALIGNANT HTN [id number] 05/17/2016 09:28:00 ACT Outpatient MATTHEW HUMMEL, ARISTIDES Toure [facility] RAD SOB [id number] 07/20/2015 08:20:00 ACT Outpatient EDGAR SANCHEZ [facility] CARD CAD,CAROTID ARTERY STENOSIS,HTN,HLP [id number] 05/11/2015 07:30:00 PEN Outpatient NATHANIEL CASANOVA MD [facility] FINE NEEDLE CHANGES, SUSP OF PAPILLARY CA THYROID [id number] 04/13/2015 10:56:00 ACT Outpatient NATHANIEL CASANOVA MD [facility] RAD GOITER, LEFT NODULE [id number] 03/30/2015 10:25:00 ACT Outpatient NATHANIEL CASANOVA MD [facility] RAD GOITER LT NODULE [id number] 03/28/2015 12:57:00 ACT Outpatient TERE CARVAJAL MD [facility] PREOP HIATAL HERNIA [id number] 03/01/2015 07:09:00 ACT Outpatient NATHANIEL CASANOVA MD [facility] RAD GOITER [id number] 05/29/2012 07:48:00 Document Registration [id number] 01/29/2012 06:44:00 Document Registration [id number] 01/23/2012 09:23:00 Document Registration [id number] 01/23/2012 09:12:00 Document Registration [id number] 01/04/2012 09:15:00 Document Registration [id number] 12/16/2011 09:35:00 Document Registration [id number] 11/07/2011 07:43:00 Document Registration [id number] 08/28/2011 08:08:00 Document Registration [id number] 08/22/2011 08:23:00 Document Registration [id number] 04/09/2011 08:12:00 Document Registration [id number] 04/06/2011 09:00:00 Document Registration [id number] 09/21/2010 08:04:00 Document Registration [id number] 06/07/2010 10:14:00 Document Registration [id number] 04/06/2010 08:00:00 Document Registration [id number] 09/06/2009 10:31:00 Document Registration [id number] 04/25/2009 10:42:00 Document Registration [id number] 04/13/2009 08:37:00 Document Registration [id number] 01/10/2009 07:21:00 Document Registration
== END 2016-05-13 11:00 | disposition home or self-care (01) ==
LOC: EDUNIT# 09:21 → ER 09:24
DX: J06.9 Acute upper respiratory infection, unspecified (principal); Z79.899 Other long term (current) drug therapy

== ENCOUNTER 2016-05-17 10:36 | Inpatient (IN) | payer MEDICARE ==
[~2016-05-17] VITALS: Ht 157.5 cm; Wt 56.3 kg
[~2016-05-17 10:36] MED LIST changes: -ASPI-983 PO; -GUAI118L16 PO; -LEVO50TA6 PO; -OMEG-160 PO; -PANT40TA2 PO
--- NOTE | 2016-05-17 11:22 | ED Cough/URI ---
General Chief Complaint: Cough/Cold/Flu Symptoms Stated Complaint: CHEST CONGESTION/COUGH Nursing Triage Note: PT STATES SHE JUST HAD A CXR AND WAS SENT TO THE ER FROM THE [facility] WITH CC OF CHEST CONGESTION. Source: patient Exam Limitations: no limitations History of Present Illness Time seen by provider: 11:20 Initial Comments To ER from urgent care with reports of hypoxia. Patient was seen here on May 13 diagnosed with viral URI. Patient then presented to urgent care today with persistent cough that is nonproductive and shortness of breath. X-ray was done in urgent care (and is on file here) which did not show any cause and she was referred to the emergency room. She denies fevers. She states that she was diagnosed with COPD in the remote past but states "I know I don't have it tho". Timing/Duration: constant Severity/Quality: dry cough Associated Symptoms: cough, shortness of breath, wheezing Allergies and Home Medications Allergies Coded Allergies: duloxetine HCl (Verified Allergy, Intermediate, BLISTERS, 05/04/15) Penicillins (Verified Allergy, Mild, 04/03/11) Home Medications Carvedilol 6.25 Mg Tab, 6.25 MG PO BID, (Reported) Losartan Potassium 100 Mg Tablet, 100 MG PO DAILY, (Reported) Multivitamin 1 Each Tablet, 1 EACH PO DAILY, (Reported) Pantoprazole Sodium 20 Mg Tablet.dr, 40 MG PO DAILY, #90 Prescribed by: TERE CARVAJAL on 06/01/14 1246 Constitutional: see HPI, No chills, No fever Respiratory: see HPI, cough, short of breath, wheezing Cardiovascular: no symptoms reported Genitourinary: no symptoms reported Musculoskeletal: no symptoms reported Skin: no symptoms reported Psychiatric/Neurological: No Symptoms Reported Past Qmtiwyw-Dmiagm-Toijkt Hx Patient Social History Alcohol Use: Denies Use Recreational Drug Use: No Smoking Status: Never a Smoker Recent Foreign Travel: No Contact w/Someone Who Travel: No Recent Infectious Disease Expo: No Recent Hopitalizations: No Immunizations Up To Date Date of Pneumonia Vaccine: Jun 01, 2004 Seasonal Allergies Seasonal Allergies: No Surgeries HX Surgeries: Yes (KIDNEY STONE REMOVAL, ORAL SX, ANGIOPLASTY RIGHT RENAL ARTERY) Surgeries: Gallbladder, Hysterectomy, Thyroidectomy Respiratory Hx Respiratory Disorders: Yes Respiratory Disorders: Pneumonia, COPD Cardiovascular Hx Cardiac Disorders: Yes Cardiac Disorders: Hypertension Neurological Hx Neurological Disorders: No Reproductive System Hx Reproductive Disorders: No Sexually Transmitted Disease: No HIV/AIDS: No 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 Genitourinary Hx Genitourinary Disorders: Yes Genitourinary Disorders: Kidney Stones Gastrointestinal Hx Gastrointestinal Disorders: Yes (HX HIATAL HERNIA) Gastrointestinal Disorders: Gastroesophageal Reflux, Diverticulosis Musculoskeletal Hx Musculoskeletal Disorders: Yes Musculoskeletal Disorders: Arthritis Endocrine Hx Endocrine Disorders: Yes (NODULE ON THYROID, BX ON 03/30/15) HEENT HX ENT Disorders: No (SMALL CATARACTS, FULL SET OF DENTURES) Hearing Impairment: Denies Cancer Hx Cancer: No Psychosocial Hx Psychiatric Problems: No Integumentary HX Skin/Integumentary Disorder: Yes (hx of mrsa) Blood Transfusions Hx Blood Disorders: No Adverse Reaction to a Blood Tr: No Family Medical History Family Medial History: Cardiovascular disease G8 SISTER Colon cancer G8 BROTHER FH: cancer 19 FATHER (lung) 19 MOTHER G8 SISTER (esophagus) Psychosocial problem 19 MOTHER Physical Exam Vital Signs Vital Sign - Last 12Hours 05/17/16 10:57 Temp 97.6 Pulse 69 Resp 20 B/P (MAP) 133/71 Pulse Ox 96 O2 Delivery Nasal Cannula O2 Flow Rate 2.00 Capillary Refill : Less Than 3 Seconds General Appearance: WD/WN, no apparent distress Eyes: Bilateral Eye EOMI, Bilateral Eye Normal Inspection, Bilateral Eye PERRL HEENT: PERRL/EOMI, normal ENT inspection Neck: non-tender, full range of motion Respiratory: no respiratory distress, no accessory muscle use, decreased breath sounds, wheezing Cardiovascular: regular rate, rhythm, no murmur Gastrointestinal: normal bowel sounds, non tender, soft Extremities: normal range of motion, non-tender Neurologic/Psychiatric: alert, normal mood/affect, oriented x 3 Skin: normal color, warm/dry Progress/Results/Core Measures Results/Orders Lab Results Laboratory Tests Test 05/17/16 11:35 Range/Units White Blood Count 3.8 L 4.3-11.0 10^3/uL Red Blood Count 4.65 4.35-5.85 10^6/uL Hemoglobin 14.3 11.5-16.0 G/DL Hematocrit 42 35-52 % Mean Corpuscular Volume 91 80-99 FL Mean Corpuscular Hemoglobin 31 25-34 PG Mean Corpuscular Hemoglobin Concent 34 32-36 G/DL Red Cell Distribution Width 13.9 10.0-14.5 % Platelet Count 169 130-400 10^3/uL Mean Platelet Volume 9.8 7.4-10.4 FL Neutrophils (%) (Auto) 51 42-75 % Lymphocytes (%) (Auto) 28 12-44 % Monocytes (%) (Auto) 20 H 0-12 % Eosinophils (%) (Auto) 1 0-10 % Basophils (%) (Auto) 0 0-10 % Neutrophils # (Auto) 1.9 1.8-7.8 X 10^3 Lymphocytes # (Auto) 1.1 1.0-4.0 X 10^3 Monocytes # (Auto) 0.7 0.0-1.0 X 10^3 Eosinophils # (Auto) 0.0 0.0-0.3 10^3/uL Basophils # (Auto) 0.0 0.0-0.1 10^3/uL Neutrophils % (Manual) 55 % Lymphocytes % (Manual) 23 % Monocytes % (Manual) 17 % Eosinophils % (Manual) 2 % Basophils % (Manual) 0 % Band Neutrophils 2 % Reactive Lymphocytes 1 % Elliptocytes SLIGHT Sodium Level 141 135-145 MMOL/L Potassium Level 3.5 L 3.6-5.0 MMOL/L Chloride Level 103 98-107 MMOL/L Carbon Dioxide Level 28 21-32 MMOL/L Anion Gap 10 5-14 MMOL/L Blood Urea Nitrogen 17 7-18 MG/DL Creatinine 0.84 0.60-1.30 MG/DL Estimat Glomerular Filtration Rate > 60 BUN/Creatinine Ratio 20 Glucose Level 95 70-105 MG/DL Calcium Level 8.6 8.5-10.1 MG/DL Total Bilirubin 0.5 0.1-1.0 MG/DL Aspartate Amino Transf (AST/SGOT) 26 5-34 U/L Alanine Aminotransferase (ALT/SGPT) 17 0-55 U/L Alkaline Phosphatase 61 40-136 U/L Troponin I < 0.30 <0.30 NG/ML B-Type Natriuretic Peptide 34.9 <100.0 PG/ML Total Protein 6.3 L 6.4-8.2 G/DL Albumin 3.5 3.2-4.5 G/DL My Orders Orders - ROBBIE MELISSA [employer] Cbc With Automated Diff (05/17/16 11:08) BNP (05/17/16 11:08) Comprehensive Metabolic Panel (05/17/16 11:08) Ekg Tracing (05/17/16 11:08) Troponin I (05/17/16 11:08) Saline Lock/Iv-Start (05/17/16 11:19) Methylprednisolone Sod Succ (Solu-Medrol (05/17/16 11:30) Albuterol/Ipra Inhalation Soln (Duoneb I (05/17/16 11:30) Svn Sm Volume Nebulizer Rt-Rfs (05/17/16 11:19) Manual Differential (05/17/16 11:35) Medications Given in ED Current Medications Medications Dose Ordered Sig/Leif Route Start Time Stop Time Status Last Admin Dose Admin Albuterol/ Ipratropium 3 ml ONCE ONCE INH 05/17/16 11:30 05/17/16 11:31 DC 05/17/16 11:25 3 ML Methylprednisolone Sodium Succinate 125 mg ONCE ONCE IVP 05/17/16 11:30 05/17/16 11:31 DC 05/17/16 12:06 125 MG Vital Signs/I&O Vital Sign - Last 12Hours 05/17/16 05/17/16 10:57 11:26 Temp 97.6 Pulse 69 Resp 20 B/P (MAP) 133/71 Pulse Ox 96 97 O2 Delivery Nasal Cannula O2 Flow Rate 2.00 2.00 Blood Pressure Mean: 91 Departure Communication Time/Spoke to Admitting Phy: 12:43 Communication Patient is 86 percent on room air after turning the oxygen off after the breathing treatment. With this in mind we will admit the patient since she does not wear oxygen at home. Impression Impression: Primary Impression: COPD exacerbation Disposition: ADMITTED INPATIENT Condition: Stable Decision to Admit Reason: Admit from ER (General) Decision to Admit/Date: May 17, 2016 Time/Decision to Admit Time: 12:43 Departure-Patient Inst. Referrals: ARISTIDES CASTRO MD (PCP/Family) Primary Care Physician ROBBIE MELISSA APRN May 17, 2016 11:21
[2016-05-17] MEDS ORDERED: methylPREDNISolone 125 MG (Solu-MEDROL) VIAL IVP ONE (11:30)
[2016-05-17] MEDS ORDERED: RT-ALBUTEROL/IPRATROPIUM 3 ML (DUONEB) VIAL INH ONE (11:30)
[2016-05-17 11:45] LABS: BASOPHILS % (AUTO) 0 % (0-10); EOSINOPHILS % (AUTO) 1 % (0-10); LYMPHOCYTES # (AUTO) 1.1 X 10^3 (1.0-4.0); LYMPHOCYTES % (AUTO) 28 % (12-44); MEAN CORPUSCULAR HEMOGLOBIN 31 PG (25-34); MEAN CORPUSCULAR HGB CONC 34 G/DL (32-36); MEAN CORPUSCULAR VOLUME 91 FL (80-99); MEAN PLATELET VOLUME 9.8 FL (7.4-10.4); MONOCYTES # (AUTO) 0.7 X 10^3 (0.0-1.0); MONOCYTES % (AUTO) 20 % (0-12); NEUTROPHILS # (AUTO) 1.9 X 10^3 (1.8-7.8); NEUTROPHILS % (AUTO) 51 % (42-75); PLATELET COUNT 169 10^3/uL (130-400); RED BLOOD COUNT 4.65 10^6/uL (4.35-5.85); RED CELL DISTRIBUTION WIDTH 13.9 % (10.0-14.5); WHITE BLOOD COUNT 3.8 10^3/uL (4.3-11.0)
[2016-05-17 12:04] LABS: BAND NEUTROPHILS 2 %; BASOPHILS % (MANUAL) 0 %; EOSINOPHILS % (MANUAL) 2 %; LYMPHOCYTES % (MANUAL) 23 %; NEUTROPHILS % (MANUAL) 55 %; REACTIVE LYMPHOCYTES 1 %
[2016-05-17 12:08] LABS: ALANINE AMINOTRANSFERASE 17 U/L (0-55); ALBUMIN 3.5 G/DL (3.2-4.5); ANION GAP 10 MMOL/L (5-14); ASPARTATE AMINO TRANSFERASE 26 U/L (5-34); BILIRUBIN,TOTAL 0.5 MG/DL (0.1-1.0); BLOOD UREA NITROGEN 17 MG/DL (7-18); BUN/CREATININE RATIO 20; CALCIUM 8.6 MG/DL (8.5-10.1); CARBON DIOXIDE 28 MMOL/L (21-32); CHLORIDE 103 MMOL/L (98-107); CREATININE SERUM 0.84 MG/DL (0.60-1.30); GFR ESTIMATED > 60; GLUCOSE 95 MG/DL (70-105); POTASSIUM 3.5 MMOL/L (3.6-5.0); SODIUM 141 MMOL/L (135-145); TOTAL PROTEIN 6.3 G/DL (6.4-8.2)
[2016-05-17 12:14] LABS: TROPONIN I < 0.30 NG/ML (<0.30)
[2016-05-17] MEDS ORDERED: RT-ALBUTEROL/IPRATROPIUM 3 ML (DUONEB) VIAL ONE (13:34)
[2016-05-17 13:40] VITALS: BP 146/67
[2016-05-17] MEDS: RT-ALBUTEROL/IPRATROPIUM 3 ML (DUONEB) VIAL INH SCH ×2 (13:58→18:45)
[2016-05-17] MEDS ORDERED: AZITHROMYCIN 250 MG TAB (ZITHROMAX) PO NR (14:00)
[2016-05-17] MEDS ORDERED: RT-ALBUTEROL/IPRATROPIUM 3 ML (DUONEB) VIAL INH PRN (14:00)
[2016-05-17] MEDS ORDERED: CATHETER FLUSH 10 ML SYR IV PRN (14:00)
[2016-05-17] MEDS: CATHETER FLUSH 10 ML SYR IV SCH ×2 (14:53→21:47)
[2016-05-17] MEDS ORDERED: PANT40TA2 PO (15:04)
[2016-05-17] MEDS ORDERED: LEVO50TA6 PO (15:04)
[2016-05-17] MEDS ORDERED: ASPI-983 PO (15:04)
[2016-05-17] MEDS ORDERED: OMEG-160 PO (15:06)
[2016-05-17] MEDS ORDERED: GUAI118L16 PO (15:06)
[2016-05-17 15:55] VITALS: BP 144/63
[2016-05-17 19:30] VITALS: BP 132/81
[2016-05-17] MEDS: methylPREDNISolone 125 MG (Solu-MEDROL) VIAL IV SCH (21:47)
[2016-05-17 23:30] VITALS: BP 127/60
[2016-05-18 04:00] VITALS: BP 118/55
[2016-05-18] MEDS: methylPREDNISolone 125 MG (Solu-MEDROL) VIAL IV SCH ×3 (06:33→21:31)
[2016-05-18] MEDS: CATHETER FLUSH 10 ML SYR IV SCH ×3 (06:33→21:31)
[2016-05-18] MEDS: RT-ALBUTEROL/IPRATROPIUM 3 ML (DUONEB) VIAL INH SCH ×4 (07:14→18:47)
[2016-05-18 08:00] VITALS: BP 154/67
[2016-05-18] MEDS: AZITHROMYCIN 250 MG TAB (ZITHROMAX) PO SCH (08:33)
--- NOTE | 2016-05-18 10:18 | History & Physical-Hospitalist ---
HPI History of Present Illness: HPI/Chief Complaint Mrs. Mckeon is a 81-year-old white female who is feeling well up until Friday when she developed rather abrupt onset of diffuse myalgia with dry cough she presented emergency room where she was given a cough suppressant after chest x- ray revealed no evidence for pneumonia. She reported that she felt so bad that day she prayed to . Her and daughter were sick with similar illness. She continued to feel quite weak with myalgia and an intermittent chills with nonproductive cough with wheezing and shortness of breath throughout the week. She wasn't feeling any better she presented approximately' s office who sent her to the emergency room due to low oxygen level. There she was noted to have oxygen level in the mid 80s with wheezing. Chest x-ray again revealed no evidence for pneumonia she has significant wheezing which only partially improved with breathing treatment. She continued to be hypoxic and quite weak and was admitted for aggressive pulmonary toilet and anti- inflammatory therapy. She reports from either her cough is been nonproductive. She states she did not receive a flu shot this year. She reports no past smoking history. She has had several bouts of pneumonia in the past. She has had some pulmonary nodules that have been monitored with CT scanning and have been reportedly stable in [place]. She has no past history of radiation therapy. She does have a history of thyroid nodule with partial thyroidectomy which turned out to be benign. Date Seen 05/18/16 Attending Physician Vicky Rosales MD PCP Brian Andrade MD Referring Physician Date of Admission May 17, 2016 at 12:45 Home Medications & Allergies Home Medications Reviewed patient Home Medication Reconciliation Form Allergies Allergies Coded Allergies duloxetine HCl (Verified Allergy, Intermediate, BLISTERS, 05/04/15) Penicillins (Verified Allergy, Mild, 04/03/11) Past Dhmbzup-Ipvjik-Uhqsin Hx Patient Social History Alcohol Use: Denies Use Recreational Drug Use: No Smoking Status: Never a Smoker Physical Abuse Screen: No Sexual Abuse: No Recent Foreign Travel: No Contact w/other who traveled: No Recent Hopitalizations: No Recent Infectious Disease Expo: No Immunizations Up To Date Date of Pneumonia Vaccine: Jun 01, 2004 Seasonal Allergies Seasonal Allergies: No Surgeries HX Surgeries: Yes (KIDNEY STONE REMOVAL, ORAL SX, ANGIOPLASTY RIGHT RENAL ARTERY) Surgeries: Gallbladder, Hysterectomy, Thyroidectomy Respiratory Hx Respiratory Disorders: Yes Cardiovascular Hx Cardiovascular Disorders: Yes Cardiac Disorders: Hypertension Neurological Hx Neurological Disorders: No Reproductive System Hx Reproductive Disorders: No Sexually Transmitted Disease: No HIV/AIDS: No Female Reproductive Disorders: Denies Genitourinary Hx Genitourinary Disorders: Yes Genitourinary Disorders: Kidney Stones Gastrointestinal Hx Gastrointestinal Disorders: Yes (HX HIATAL HERNIA) Gastrointestinal Disorders: Gastroesophageal Reflux, Diverticulosis Musculoskeletal Hx Musculoskeletal Disorders: Yes Musculoskeletal Disorders: Arthritis Endocrine Hx Endocrine Disorders: Yes (NODULE ON THYROID, BX ON 03/30/15) HEENT HX ENT Disorders: No (SMALL CATARACTS, FULL SET OF DENTURES) Hearing Impairment: Denies Cancer Hx Cancer: No Psychosocial Hx Psychiatric Problems: No Integumentary HX Skin/Integumentary Disorder: Yes (hx of mrsa) Blood Transfusions Hx Blood Disorders: No Adverse Reaction to a Blood Tr: No Family Medical History Family Hx: Cardiovascular disease G8 SISTER Colon cancer G8 BROTHER FH: cancer 19 FATHER (lung) 19 MOTHER G8 SISTER (esophagus) Psychosocial problem 19 MOTHER Review of Systems Constitutional: chills, diaphoresis, fever, malaise, weakness Respiratory: see HPI, cough, dyspnea on exertion, No hemoptysis, No orthopnea, No phlegm, short of breath, No stridor, wheezing Cardiovascular: No chest pain, No edema, No Hx of Intervention, No palpitations , No syncope, No vascular heart diseas Physical Exam Physical Exam Vital Signs Vital Sign - Last 12Hours 05/17/16 10:57 Temp 97.6 Pulse 69 Resp 20 B/P (MAP) 133/71 Pulse Ox 96 O2 Delivery Nasal Cannula O2 Flow Rate 2.00 Capillary Refill : Less Than 3 Seconds General Appearance: Mild Distress Respiratory: No Accessory Muscle Use, No Respiratory Distress, Other ( scattered rhonchi with inspiratory squeaks noted anteriorly and posteriorly. There is expiratory wheezing with cough nonproductive.) Cardiovascular: Regular Rate, Rhythm (with occasional prematurity), No Edema, No Gallop, No JVD, No Murmur, Normal Peripheral Pulses Gastrointestinal: Normal Bowel Sounds, No Organomegaly, No Pulsatile Mass, Non Tender, Soft Extremity: Normal Capillary Refill, Normal Inspection, Normal Range of Motion, Non Tender, No Calf Tenderness, No Pedal Edema Neurologic/Psychiatric: Alert, Oriented x3, Normal Mood/Affect Skin: Warm/Dry, Other (mild pallor no rash noted. No ecchymoses or petechia noted.) Lymphatic: No Adenopathy Results Results/Procedures Lab Laboratory Tests 05/17/16 11:35 Assessment/Plan Admission Diagnosis 1. Viral syndrome with bronchitis reactive airways and secondary hypoxia. Symptoms are suspicious for influenza. I will need to see whether or not a swab was done in the emergency room. Patient is past the point of deriving benefit from antiviral therapy. We'll continue anti-inflammatory therapy and bronchodilator therapy. Expect slow recovery. Doubt at this point that she is likely to be contagious. VICKY ROSALES MD May 18, 2016 10:18
[2016-05-18] MEDS ORDERED: ACETAMINOPHEN 500 MG TAB (TYLENOL) PO PRN (10:30)
[2016-05-18] MEDS ORDERED: guaiFENesin/DM (ROBITUSSIN DM) 10 ML UDC PO PRN (10:30)
[2016-05-18] MEDS: CARVEDILOL 6.25 MG (COREG) TAB PO SCH ×2 (10:51→21:31)
[2016-05-18] MEDS: LOSARTAN 50 MG (COZAAR) TAB PO SCH (10:51)
[2016-05-18] MEDS: LEVOTHYROXINE 50 MCG (LEVOTHROID) TAB PO SCH (10:51)
[2016-05-18] MEDS: PANTOPRAZOLE 40 MG (PROTONIX) TAB PO SCH (10:51)
[2016-05-18 12:00] VITALS: BP 129/58
[2016-05-18 15:40] VITALS: BP 111/56
[2016-05-18 19:25] VITALS: BP 138/62
[2016-05-18] MEDS: ASPIRIN E.C. 81 MG (ECOTRIN) TAB PO SCH (21:31)
[2016-05-18 22:40] VITALS: BP 122/67
[2016-05-19 04:00] VITALS: BP 110/59
[2016-05-19] MEDS: PANTOPRAZOLE 40 MG (PROTONIX) TAB PO SCH (06:27)
[2016-05-19] MEDS: CATHETER FLUSH 10 ML SYR IV SCH ×3 (06:27→21:33)
[2016-05-19] MEDS: LEVOTHYROXINE 50 MCG (LEVOTHROID) TAB PO SCH (06:27)
[2016-05-19] MEDS: methylPREDNISolone 125 MG (Solu-MEDROL) VIAL IV SCH ×3 (06:27→21:32)
[2016-05-19] MEDS: RT-ALBUTEROL/IPRATROPIUM 3 ML (DUONEB) VIAL INH SCH ×4 (07:01→18:54)
[2016-05-19 07:45] VITALS: BP 141/63
[2016-05-19] MEDS: AZITHROMYCIN 250 MG TAB (ZITHROMAX) PO SCH (08:23)
[2016-05-19] MEDS: CARVEDILOL 6.25 MG (COREG) TAB PO SCH ×2 (08:24→21:32)
[2016-05-19 11:30] VITALS: BP 121/71
[2016-05-19] MEDS: LOSARTAN 50 MG (COZAAR) TAB PO SCH (11:35)
--- NOTE | 2016-05-19 12:12 | Progress Note-Hospitalist ---
Subjective HPI/CC On Admission Mrs. Mckeon is a 81-year-old white female who is feeling well up until Friday when she developed rather abrupt onset of diffuse myalgia with dry cough she presented emergency room where she was given a cough suppressant after chest x- ray revealed no evidence for pneumonia. She reported that she felt so bad that day she prayed to . Her and daughter were sick with similar illness. She continued to feel quite weak with myalgia and an intermittent chills with nonproductive cough with wheezing and shortness of breath throughout the week. She wasn't feeling any better she presented approximately' s office who sent her to the emergency room due to low oxygen level. There she was noted to have oxygen level in the mid 80s with wheezing. Chest x-ray again revealed no evidence for pneumonia she has significant wheezing which only partially improved with breathing treatment. She continued to be hypoxic and quite weak and was admitted for aggressive pulmonary toilet and anti- inflammatory therapy. She reports from either her cough is been nonproductive. She states she did not receive a flu shot this year. She reports no past smoking history. She has had several bouts of pneumonia in the past. She has had some pulmonary nodules that have been monitored with CT scanning and have been reportedly stable in [place]. She has no past history of radiation therapy. She does have a history of thyroid nodule with partial thyroidectomy which turned out to be benign. Date Seen 05/19/16 Subjective/Events-last exam Pt. reports feeling better slept well last night. She's had no chills fever or sputum production. She denies chest pain or shortness of breath at rest. Objective Exam Vital Signs Vital Sign - Last 12Hours 05/17/16 10:57 Temp 97.6 Pulse 69 Resp 20 B/P (MAP) 133/71 Pulse Ox 96 O2 Delivery Nasal Cannula O2 Flow Rate 2.00 Capillary Refill : Less Than 3 SecondsLess Than 3 Seconds General Appearance: No Apparent Distress Respiratory: Chest Non Tender, No Accessory Muscle Use, No Respiratory Distress , Other (there is increased air movement noted. Mild inspiratory wheezing is noted posteriorly of the anterior chest is clear.) Cardiovascular: Regular Rate, Rhythm, No Edema, No Gallop, No JVD, No Murmur, Normal Peripheral Pulses Gastrointestinal: Normal Bowel Sounds, No Organomegaly, No Pulsatile Mass, Non Tender, Soft Extremity: Normal Capillary Refill, Normal Inspection, Normal Range of Motion, Non Tender, No Calf Tenderness, No Pedal Edema Assessment/Plan Assessment and Plan Assess & Plan/Chief Complaint 1. While sputum cultures are growing a scant amount of probable Pseudomonas this is likely a colonization and not a true infection. There is no sputum production purulent or otherwise and white count was low with low neutrophil count and no left shift. We'll continue to monitor not treat for Pseudomonas at this time. She also is clinically responding to anti-inflammatory and bronchodilator therapy. We'll continue. VICKY ROSALES MD May 19, 2016 12:12
[2016-05-19 16:00] VITALS: BP 164/82
[2016-05-19 20:10] VITALS: BP 126/75
[2016-05-19] MEDS: ASPIRIN E.C. 81 MG (ECOTRIN) TAB PO SCH (21:32)
[2016-05-20] VITALS: BP 142/75
[2016-05-20] MEDS: CATHETER FLUSH 10 ML SYR IV SCH ×3 (06:07→21:32)
[2016-05-20] MEDS: LEVOTHYROXINE 50 MCG (LEVOTHROID) TAB PO SCH (06:07)
[2016-05-20] MEDS: methylPREDNISolone 125 MG (Solu-MEDROL) VIAL IV SCH ×3 (06:07→21:32)
[2016-05-20] MEDS: PANTOPRAZOLE 40 MG (PROTONIX) TAB PO SCH (06:07)
[2016-05-20] MEDS: RT-ALBUTEROL/IPRATROPIUM 3 ML (DUONEB) VIAL INH SCH ×4 (06:21→21:34)
[2016-05-20 08:00] VITALS: BP 133/65
[2016-05-20] MEDS: CARVEDILOL 6.25 MG (COREG) TAB PO SCH ×2 (08:23→19:57)
[2016-05-20] MEDS: AZITHROMYCIN 250 MG TAB (ZITHROMAX) PO SCH (08:23)
--- NOTE | 2016-05-20 11:32 | Progress Note-Hospitalist ---
Standard Progress Note Progress Notes/Assess & Plan Date Seen 05/20/16 Diagnosis 1. Viral syndrome with bronchitis reactive airways and secondary hypoxia. Symptoms are suspicious for influenza. I will need to see whether or not a swab was done in the emergency room. Patient is past the point of deriving benefit from antiviral therapy. We'll continue anti-inflammatory therapy and bronchodilator therapy. Expect slow recovery. Doubt at this point that she is likely to be contagious. Assess & Plan/Chief Complaint The patient is a 81-year-old white female who was admitted from the emergency room on Wednesday 05/17. She had flu shot symptoms for about 5 days at that point in time. She had been seen immediately prior to the ER by the [facility]. They had observed that she was hypoxic and sent her for chest x-ray which was negative. She was advised to check into the emergency room because of the hypoxia. This was indeed the case. She had no past history of smoking or lung disease. She appears to have responded rather nicely to pulmonary toilet and steroids. She states that she is feeling considerably better at this time. Physical exam: The patient is a slender 81-year-old white female who appears her stated age. Respiratory rate is normal. Rhonchi are noted in the right upper chest area and clear with a requested cough and throat clearing. CV was regular. Extremities showed no pedal edema Impression: Apparent viral-induced reactive airway secondary hypoxia Plan: Continue steroids and nebulizer treatment. Discontinue O2 and attempt to mobilize. KYRIE JULES MD May 20, 2016 11:32
[2016-05-20] MEDS: LOSARTAN 50 MG (COZAAR) TAB PO SCH (12:06)
[2016-05-20 16:33] VITALS: BP 127/62
[2016-05-20] MEDS: ASPIRIN E.C. 81 MG (ECOTRIN) TAB PO SCH (19:57)
[2016-05-21 00:01] VITALS: BP 130/68
[2016-05-21] MEDS: PANTOPRAZOLE 40 MG (PROTONIX) TAB PO SCH (05:39)
[2016-05-21] MEDS: methylPREDNISolone 125 MG (Solu-MEDROL) VIAL IV SCH ×2 (05:39→16:41)
[2016-05-21] MEDS: CATHETER FLUSH 10 ML SYR IV SCH ×2 (05:39→16:41)
[2016-05-21] MEDS: LEVOTHYROXINE 50 MCG (LEVOTHROID) TAB PO SCH (05:39)
[2016-05-21] MEDS: RT-ALBUTEROL/IPRATROPIUM 3 ML (DUONEB) VIAL INH SCH ×3 (07:25→14:42)
[2016-05-21 08:00] VITALS: BP_SYST 149; BP_SYST 177; BP_DIAS 69; BP_DIAS 83
[2016-05-21] MEDS: AZITHROMYCIN 250 MG TAB (ZITHROMAX) PO SCH (10:35)
[2016-05-21] MEDS: CARVEDILOL 6.25 MG (COREG) TAB PO SCH (10:35)
[2016-05-21] MEDS: LOSARTAN 50 MG (COZAAR) TAB PO SCH (12:47)
--- NOTE | 2016-05-21 14:02 | Progress Note-Hospitalist ---
Standard Progress Note Progress Notes/Assess & Plan Date Seen 05/21/16 the patient reports that she is much better. She is still coughing. The mucus is minimum and clear. She is afebrile and her vital signs are normal. She was evaluated for the need for home O2 and does not require this. Physical exam: She is alert and vivacious. Lungs still show an occasional rough sound. These are movable with cough and throat clearing. CV is regular. Abdomen is soft. Ankles show no edema. Impression: COPD/acute bronchitis Plan: Discharge today. Diagnosis 1. Viral syndrome with bronchitis reactive airways and secondary hypoxia. Symptoms are suspicious for influenza. I will need to see whether or not a swab was done in the emergency room. Patient is past the point of deriving benefit from antiviral therapy. We'll continue anti-inflammatory therapy and bronchodilator therapy. Expect slow recovery. Doubt at this point that she is likely to be contagious. KYRIE JULES MD May 21, 2016 14:02
--- NOTE | 2016-05-21 14:05 | Discharge Inst-Simple/Standard ---
Discharge Inst-Standard Patient Instructions/Follow Up Plan of Care/Instructions/FU: Medications as on discharge list. Mucinex twice daily until sputum clears Activity as Tolerated: Yes Goal: Return to previous home status Discharge Diet: No Restrictions Return to The Hospital For: Declining condition KYRIE JULES MD May 21, 2016 14:05
[2016-05-21 16:27] VITALS: BP 127/77
[2016-05-21 17:56] VITALS: BP 127/77
--- NOTE | 2016-06-12 14:15 | Discharge Summary-Hospitalist ---
Diagnosis/Chief Complaint Date of Admission May 17, 2016 at 12:45 Date of Discharge May 21, 2016 at 17:56 Discharge Date: May 21, 2016 Admission Diagnosis 1. Viral syndrome with bronchitis reactive airways and secondary hypoxia. Symptoms are suspicious for influenza. I will need to see whether or not a swab was done in the emergency room. Patient is past the point of deriving benefit from antiviral therapy. We'll continue anti-inflammatory therapy and bronchodilator therapy. Expect slow recovery. Doubt at this point that she is likely to be contagious. Discharge Diagnosis 1.viral syndrome with bronchitis, reactive airways, and secondary hypoxemia Reason Hospital Visit/Course Mrs. Mckeon is a 81-year-old white female who is feeling well up until Friday when she developed rather abrupt onset of diffuse myalgia with dry cough she presented emergency room where she was given a cough suppressant after chest x- ray revealed no evidence for pneumonia. She reported that she felt so bad that day she prayed to . Her and daughter were sick with similar illness. She continued to feel quite weak with myalgia and an intermittent chills with nonproductive cough with wheezing and shortness of breath throughout the week. She wasn't feeling any better she presented approximately' s office who sent her to the emergency room due to low oxygen level. There she was noted to have oxygen level in the mid 80s with wheezing. Chest x-ray again revealed no evidence for pneumonia she has significant wheezing which only partially improved with breathing treatment. She continued to be hypoxic and quite weak and was admitted for aggressive pulmonary toilet and anti- inflammatory therapy. She reports from either her cough is been nonproductive. She states she did not receive a flu shot this year. She reports no past smoking history. She has had several bouts of pneumonia in the past. She has had some pulmonary nodules that have been monitored with CT scanning and have been reportedly stable in [place]. She has no past history of radiation therapy. She does have a history of thyroid nodule with partial thyroidectomy which turned out to be benign. Hospital course: The patient reported that she had been well until May 11. She then had a rather abrupt onset of a symptom complex including diffuse muscle aches dry cough and general malaise. She was seen in the emergency room and given a cough suppressant after chest x-ray showed no pneumonia. She then was discharged for symptomatic therapy and continued to get worse. On reexamination she was found to have an SaO2 in the mid 80s with wheezing. Repeat chest x-ray showed no abnormalities. She was only partially relieved by a albuterol nebulizer. She was then admitted for supportive therapy. Aggressive pulmonary toilet plus IV fluids and anti-pyretics was employed. She steadily gotten better and was capable of discharge in improved condition on 05/21. Discharge Summary Discharge Physical Examination Allergies: Coded Allergies: duloxetine HCl (Verified Allergy, Intermediate, BLISTERS, 05/04/15) Penicillins (Verified Allergy, Mild, 04/03/11) Hospital Course Labs (last 24 hrs) Microbiology 05/17/16 Gram Stain - Final, Complete 05/17/16 Sputum Culture - Final, Complete Pseudomonas Aeruginosa Haemophilus Not Influenzae Discharge Home Medications: Active Scripts Active Reported Fish Oil 1,000 mg Softgel ([place]-3/Dha/Epa/Fish Oil) 1 Each Capsule 1,000 Mg PO DAILY Cheratussin AC Syrup (Guaifenesin/Codeine Phosphate) 118 Ml Liquid 5 Ml PO EVERY 4-6 HOURS PRN Aspirin EC (Aspirin) 81 Mg Tablet.dr 81 Mg PO HS Protonix (Pantoprazole Sodium) 40 Mg Tablet.dr 40 Mg PO DAILY Levothyroxine Sodium 50 Mcg Tablet 50 Mcg PO DAILY Multiple Vitamins (Multivitamin) 1 Each Tablet 1 Tab PO DAILY Coreg Tablet (Carvedilol) 6.25 Mg Tab 6.25 Mg PO BID Losartan Potassium 100 Mg Tablet 100 Mg PO 1200 Instructions to patient/family Please see electonic discharge instructions given to patient. Copy Copies To 1: ARISTIDES CASTRO MD, RODNEY K MD June 12, 2016 14:15
--- OUTSIDE RECORDS SUMMARY | 2016-06-20 21:43 | XMS REPORT | Continuity of Care Document ---
Author Author [facility] Organization [facility] Address Unknown Phone Unavailable Allergies Active Description Code Type Severity Reaction Onset Reported/Identified Relationship to Patient Clinical Status Yes Penicillins [id number] Drug Allergy Mild N/A 04/03/2011 Yes duloxetine HCl [id number] Drug Allergy Unknown N/A 06/01/2014 Yes duloxetine HCl [id number] Drug Allergy Moderate BLISTERS 05/04/2015 Medications Problems Date Dx Coded Attending Type Code Diagnosis Diagnosed By 06/07/2010 Ot 401.9 06/07/2010 Ot 780.4 06/07/2010 Ot 791.9 04/06/2011 Ot 272.4 HYPERLIPIDEMIA NEC/NOS 04/06/2011 Ot 276.8 HYPOPOTASSEMIA 04/06/2011 Ot 401.0 MALIGNANT HYPERTENSION 04/06/2011 Ot 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 [place] CORON 04/06/2011 Ot 440.0 AORTIC ATHEROSCLEROSIS 04/06/2011 [...] 04/07/2015 TERE CARVAJAL MD, Ot Z79.899 OTHER [facility] (CURRENT) DRUG THERAPY 04/24/2015 RITIKA CARVAJAL MDKI [...] STRAUSS Ot I25.10 ATHSCL HEART DISEASE OF [place] CORONARY 07/21/2015 EDGAR STRAUSS Ot I25.10 ATHSCL HEART DISEASE OF [place] CORONARY 07/26/2015 EDGAR STRAUSS Ot E78.2 MIXED HYPERLIPIDEMIA 07/26/2015 EDGAR STRAUSS Ot I10 ESSENTIAL (PRIMARY) HYPERTENSION 07/26/2015 EDGAR STRAUSS Ot I25.10 ATHSCL HEART DISEASE OF [place] CORONARY 07/26/2015 EDGAR STRAUSS Ot I65.23 OCCLUSION AND STENOSIS OF [place] 08/08/2015 EDGAR STRAUSS Ot E78.2 MIXED HYPERLIPIDEMIA 08/08/2015 EDGAR STRAUSS Ot I10 ESSENTIAL (PRIMARY) HYPERTENSION 08/08/2015 EDGAR STRAUSS Ot I25.10 ATHSCL HEART DISEASE OF [place] CORONARY 08/08/2015 EDGAR STRAUSS Ot I65.23 OCCLUSION AND STENOSIS OF [place] 08/21/2015 EDGAR STRAUSS Ot E78.2 MIXED HYPERLIPIDEMIA 08/21/2015 EDGAR STRAUSS Ot I10 ESSENTIAL (PRIMARY) HYPERTENSION 08/21/2015 EDGAR STRAUSS Ot I25.10 ATHSCL HEART DISEASE OF [place] CORONARY 08/21/2015 EDGAR STRAUSS Ot I65.23 OCCLUSION AND STENOSIS OF [place] 05/13/2016 SARA HUMMEL, VICKY De La Paz Ot J06.9 ACUTE UPPER RESPIRATORY INFECTION, UNSPE 05/13/2016 SARA HUMMEL, VICKY De La Paz Ot R05 COUGH 05/13/2016 SARA HUMMEL, VICKY De La Paz Ot Z79.899 OTHER [facility] (CURRENT) DRUG THERAPY 05/15/2016 SARA HUMMEL, VICKY De La Paz Ot J06.9 ACUTE UPPER RESPIRATORY INFECTION, UNSPE 05/15/2016 SARA HUMMEL, VICKY De La Paz Ot R05 COUGH 05/15/2016 SARA HUMMEL, VICKY De La Paz Ot Z79.899 OTHER [facility] (CURRENT) DRUG THERAPY 05/17/2016 Ot 272.4 HYPERLIPIDEMIA [...] EXAM PRE-OPERATIVE NOS 05/17/2016 ROZINA HUMMEL, EDIE Knutson Ot E78.5 HYPERLIPIDEMIA, UNSPECIFIED 05/17/2016 EDIE HANDY [...] STRAUSS Ot I25.10 ATHSCL HEART DISEASE OF [place] CORONARY 05/17/2016 EDGAR STRAUSS Ot I65.23 OCCLUSION [...] STRAUSS Ot I25.10 ATHSCL HEART DISEASE OF [place] CORONARY 05/17/2016 EDGAR STRAUSS Ot I65.23 OCCLUSION [...] PRIMARY OSTEOARTHRITIS, UNSPECIFIED SITE 05/21/2016 VICKY ROSALES MD Ot R09.02 HYPOXEMIA 06/18/2016 MATTHEW HUMMEL, ARISTIDES Toure Ot R06.02 SHORTNESS OF BREATH Procedures Code Description Performed By Performed On [...] 05/17/16 11:35 Blood monocytes/100 leukocytes 17 % NR Manual blood segmented neutrophils/100 leukocytes 55 % NRG Blood band neutrophils/100 leukocytes 2 % NRG Manual blood lymphocytes/100 leukocytes 23 % NRG Manual eosinophils/100 leukocytes in nose 2 % NR Manual blood basophils/100 leukocytes 0 % NRG Blood lymphocytes variant/100 leukocytes 1 % NR Blood ovalocytes detection by light microscopy [facility] Comprehensive metabolic panel - 05/17/16 11:35 Serum [...] GROWTH Moderate Growth NRG Bacterial sputum culture [id number] NRG Bacterial susceptibility panel - 05/17/16 14:50 Gentamicin [...] Status Pt. Type Provider Facility Loc./Unit Complaint [id number] 05/17/2016 12:45:00 2016 17:56:00 DIS Inpatient BOBBY HUMMEL, VICKY Russell [facility] 4TH COPD EXACERBATION [id number] 05/13/2016 09:24:00 2016 11:00:00 DIS Emergency VICKY RUIZ MD [facility] ER ABD PAIN [id number] 05/04/2015 08:37:00 2015 09:39:00 DIS Outpatient NATHANIEL CASANOVA MD [facility] PREOP FNA SUSP. PAPILLARY CA THYROID [id number] 04/06/2015 06:00:00 2015 09:45:00 DIS Outpatient TERE CARVAJAL MD [facility] SDC HIATAL HERNIA [id number] 11/24/2014 07:46:00 2014 23:59:59 CLS Outpatient EDIE HANDY MD [facility] LAB HYPERLIPIDEMIA,CAD,COPD,HTN,CHEST PAIN [id number] 07/04/2014 09:59:00 2014 23:59:59 CLS Outpatient POPEYE PASCAL [facility] QUICK [id number] 06/01/2014 08:14:00 2014 13:45:00 DIS Outpatient TERE CARVAJAL MD [facility] SDC POSITIVE OCCULT BLOOD [id number] 05/30/2014 06:14:00 2014 23:59:59 CLS Outpatient TERE CARVAJAL MD [facility] PREOP POSITIVE OCCULT BLOOD [id number] 01/19/2014 16:30:00 2013 23:59:59 CLS Outpatient ARISTIDES CASTRO MD [facility] LAB INCHING,STINGING [id number] 12/03/2013 08:27:00 2013 23:59:59 CLS Outpatient EDGAR STRAUSS [facility] LAB HYPERLIPIDEMIA [id number] 11/10/2013 10:34:00 2013 23:59:59 CLS Outpatient EDGAR STRAUSS [facility] CARD CAD,COPD,CAROTID ARTERY STENOSIS,HTN [id number] 05/04/2013 08:26:00 2013 23:59:59 CLS Outpatient ARISTIDES CASTRO MD [facility] LAB HX LOW ALB,LOW PROT [id number] 03/04/2013 11:36:00 2013 23:59:59 CLS Outpatient JB MOHAMUD MD [facility] RAD RUQ PAIN,STONES,HEMATURIA [id number] 02/02/2013 10:01:00 2012 23:59:59 CLS Outpatient ARISTIDES CASTRO MD [facility] LAB MRSA [id number] 12/10/2012 10:32:00 2012 23:59:59 CLS Outpatient ARISTIDES CASTRO MD [facility] RAD PAIN IN RT SHOULDER [id number] 12/02/2012 07:51:00 2012 23:59:59 CLS Outpatient EDIE HANDY MD [facility] LAB HLP,HTN,CAD [id number] 10/21/2012 05:55:00 2012 10:38:00 DIS Outpatient JB MOHAMUD MD [facility] RIGHT RENAL STONE [id number] 10/20/2012 11:44:00 2012 23:59:59 CLS Outpatient JB MOHAMUD MD [facility] PREOP RIGHT URETERAL STONE [id number] 10/20/2012 08:34:00 2012 23:59:59 CLS Outpatient JB MOHAMUD MD [facility] RAD STONE [id number] 10/09/2012 18:03:00 2012 21:28:00 DIS Emergency RODRIGO PFEIFFER DO [facility] ER ELEVATED BP [id number] 06/19/2012 06:50:00 2012 23:59:59 CLS Outpatient EDIE HANDY MD [facility] RAD RENAL ART STENOSIS,MR,MALIGNANT HTN [id number] 05/17/2016 09:28:00 ACT Outpatient MATTHEW HUMMEL, ARISTIDES Toure [facility] RAD SOB [id number] 07/20/2015 08:20:00 ACT Outpatient EDGAR SANCHEZ [facility] CARD CAD,CAROTID ARTERY STENOSIS,HTN,HLP [id number] 05/11/2015 07:30:00 PEN Outpatient NATHANIEL CASANOVA MD [facility] FINE NEEDLE CHANGES, SUSP OF PAPILLARY CA THYROID [id number] 04/13/2015 10:56:00 ACT Outpatient NATHANIEL CASANOVA MD [facility] RAD GOITER, LEFT NODULE [id number] 03/30/2015 10:25:00 ACT Outpatient NATHANIEL CASANOVA MD [facility] RAD GOITER LT NODULE [id number] 03/28/2015 12:57:00 ACT Outpatient TERE CARVAJAL MD [facility] PREOP HIATAL HERNIA [id number] 03/01/2015 07:09:00 ACT Outpatient EDILBERTO HUMMEL NATHANIEL Lopez [facility] RAD GOITER [id number] 05/29/2012 07:48:00 Document Registration [id number] 01/29/2012 06:44:00 Document Registration [id number] 01/23/2012 09:23:00 Document Registration [id number] 01/23/2012 09:12:00 Document Registration [id number] 01/04/2012 09:15:00 Document Registration [id number] 12/16/2011 09:35:00 Document Registration [id number] 11/07/2011 07:43:00 Document Registration [id number] 08/28/2011 08:08:00 Document Registration [id number] 08/22/2011 08:23:00 Document Registration [id number] 04/09/2011 08:12:00 Document Registration [id number] 04/06/2011 09:00:00 Document Registration [id number] 09/21/2010 08:04:00 Document Registration [id number] 06/07/2010 10:14:00 Document Registration [id number] 04/06/2010 08:00:00 Document Registration [id number] 09/06/2009 10:31:00 Document Registration [id number] 04/25/2009 10:42:00 Document Registration [id number] 04/13/2009 08:37:00 Document Registration [id number] 01/10/2009 07:21:00 Document Registration
--- OUTSIDE RECORDS SUMMARY | 2016-06-20 22:02 | XMS REPORT | Continuity of Care Document ---
Author Author [facility] Organization [facility] Address Unknown Phone Unavailable Allergies Active Description Code Type Severity Reaction Onset Reported/Identified Relationship to Patient Clinical Status Yes Penicillins [id number] Drug Allergy Mild N/A 04/03/2011 Yes duloxetine HCl [id number] Drug Allergy Unknown N/A 06/01/2014 Yes duloxetine HCl [id number] Drug Allergy Moderate BLISTERS 05/04/2015 Medications Problems Date Dx Coded Attending Type Code Diagnosis Diagnosed By 06/07/2010 Ot 401.9 06/07/2010 Ot 780.4 06/07/2010 Ot 791.9 04/06/2011 Ot 272.4 HYPERLIPIDEMIA NEC/NOS 04/06/2011 Ot 276.8 HYPOPOTASSEMIA 04/06/2011 Ot 401.0 MALIGNANT HYPERTENSION 04/06/2011 Ot 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 [place] CORON 04/06/2011 Ot 440.0 AORTIC ATHEROSCLEROSIS 04/06/2011 [...] EDIE Knutson Ot 424.0 01/19/2014 ROZINA HUMMEL, DEIE Knutson Ot 440.1 01/19/2014 ONEIDA HUMMEL, JB [...] 04/07/2015 TERE CARVAJAL MD, Ot Z79.899 OTHER ASSISTED (CURRENT) DRUG THERAPY 04/24/2015 RITIKA CARVAJAL MDKI [...] STRAUSS Ot I25.10 ATHSCL HEART DISEASE OF [place] CORONARY 07/21/2015 EDGAR STRAUSS Ot I25.10 ATHSCL HEART DISEASE OF [place] CORONARY 07/26/2015 EDGAR STRAUSS Ot E78.2 MIXED HYPERLIPIDEMIA 07/26/2015 EDGAR STRAUSS Ot I10 ESSENTIAL (PRIMARY) HYPERTENSION 07/26/2015 EDGAR STRAUSS Ot I25.10 ATHSCL HEART DISEASE OF [place] CORONARY 07/26/2015 EDGAR STRAUSS Ot I65.23 OCCLUSION AND STENOSIS OF [place] 08/08/2015 EDGAR STRAUSS Ot E78.2 MIXED HYPERLIPIDEMIA 08/08/2015 EDGAR STRAUSS Ot I10 ESSENTIAL (PRIMARY) HYPERTENSION 08/08/2015 EDGAR STRAUSS Ot I25.10 ATHSCL HEART DISEASE OF [place] CORONARY 08/08/2015 EDGAR STRAUSS Ot I65.23 OCCLUSION AND STENOSIS OF [place] 08/21/2015 EDGAR STRAUSS Ot E78.2 MIXED HYPERLIPIDEMIA 08/21/2015 EDGAR STRAUSS Ot I10 ESSENTIAL (PRIMARY) HYPERTENSION 08/21/2015 EDGAR STRAUSS Ot I25.10 ATHSCL HEART DISEASE OF [place] CORONARY 08/21/2015 EDGAR STRAUSS Ot I65.23 OCCLUSION AND STENOSIS OF [place] 05/13/2016 SARA HUMMEL, VICKY De La Paz Ot J06.9 ACUTE UPPER RESPIRATORY INFECTION, UNSPE 05/13/2016 SARA HUMMEL, VICKY De La Paz Ot R05 COUGH 05/13/2016 SARA HUMMEL, VICKY De La Paz Ot Z79.899 OTHER ASSISTED (CURRENT) DRUG THERAPY 05/15/2016 SARA HUMMEL, VICKY De La Paz Ot J06.9 ACUTE UPPER RESPIRATORY INFECTION, UNSPE 05/15/2016 SARA HUMMEL, VICKY De La Paz Ot R05 COUGH 05/15/2016 SARA HUMMEL, VICKY De La Paz Ot Z79.899 OTHER ASSISTED (CURRENT) DRUG THERAPY 05/17/2016 Ot 272.4 HYPERLIPIDEMIA [...] Ot V72.84 EXAM PRE-OPERATIVE NOS 05/17/2016 ROZINA HUMEML, EDIE Knutson Ot E78.5 HYPERLIPIDEMIA, UNSPECIFIED 05/17/2016 [...] STRAUSS Ot I25.10 ATHSCL HEART DISEASE OF [place] CORONARY 05/17/2016 EDGAR STRAUSS Ot I65.23 OCCLUSION AND STENOSIS OF [place] 05/17/2016 Ot 272.4 HYPERLIPIDEMIA NEC/NOS 05/17/2016 Ot [...] Ot R07.9 CHEST PAIN, UNSPECIFIED 05/17/2016 NATHANIEL CASANOAV MD Ot E04.2 NONTOXIC MULTINODULAR GOITER 05/17/2016 [...] STRAUSS Ot I25.10 ATHSCL HEART DISEASE OF [place] CORONARY 05/17/2016 EDGAR STRAUSS Ot I65.23 OCCLUSION [...] Blood ovalocytes detection by light microscopy [facility] Comprehensive metabolic panel - 05/17/16 [...] GROWTH Moderate Growth NRG Bacterial sputum culture [id number] NRG Bacterial susceptibility panel - 05/17/16 14:50 [...] Status Pt. Type Provider Facility Loc./Unit Complaint [id number] 05/17/2016 12:45:00 2016 17:56:00 DIS Inpatient BOBBY HUMMEL, VICKY Russell [facility] 4TH COPD EXACERBATION [id number] 05/13/2016 09:24:00 2016 11:00:00 DIS Emergency VICKY RUIZ MD [facility] ER ABD PAIN [id number] 05/04/2015 08:37:00 2015 09:39:00 DIS Outpatient NATHANIEL CASANOVA MD [facility] PREOP FNA SUSP. PAPILLARY CA THYROID [id number] 04/06/2015 06:00:00 2015 09:45:00 DIS Outpatient TERE CARVAJAL MD [facility] SDC HIATAL HERNIA [id number] 11/24/2014 07:46:00 2014 23:59:59 CLS Outpatient EDIE HANDY MD [facility] LAB HYPERLIPIDEMIA,CAD,COPD,HTN,CHEST PAIN [id number] 07/04/2014 09:59:00 2014 23:59:59 CLS Outpatient POPEYE PASCAL [facility] QUICK [id number] 06/01/2014 08:14:00 2014 13:45:00 DIS Outpatient TERE CARVAJAL MD [facility] SDC POSITIVE OCCULT BLOOD [id number] 05/30/2014 06:14:00 2014 23:59:59 CLS Outpatient TERE CARVAJAL MD [facility] PREOP POSITIVE OCCULT BLOOD [id number] 01/19/2014 16:30:00 2013 23:59:59 CLS Outpatient ARISTIDES CASTRO MD [facility] LAB INCHING,STINGING [id number] 12/03/2013 08:27:00 2013 23:59:59 CLS Outpatient EDGAR STRAUSS [facility] LAB HYPERLIPIDEMIA [id number] 11/10/2013 10:34:00 2013 23:59:59 CLS Outpatient EDGAR STRAUSS [facility] CARD CAD,COPD,CAROTID ARTERY STENOSIS,HTN [id number] 05/04/2013 08:26:00 2013 23:59:59 CLS Outpatient ARISTIDES CASTRO MD [facility] LAB HX LOW ALB,LOW PROT [id number] 03/04/2013 11:36:00 2013 23:59:59 CLS Outpatient JB MOHAMUD MD [facility] RAD RUQ PAIN,STONES,HEMATURIA [id number] 02/02/2013 10:01:00 2012 23:59:59 CLS Outpatient ARISTIDES CASTRO MD [facility] LAB MRSA [id number] 12/10/2012 10:32:00 2012 23:59:59 CLS Outpatient ARISTIDES CASTRO MD [facility] RAD PAIN IN RT SHOULDER [id number] 12/02/2012 07:51:00 2012 23:59:59 CLS Outpatient EDIE HANDY MD [facility] LAB HLP,HTN,CAD [id number] 10/21/2012 05:55:00 2012 10:38:00 DIS Outpatient JB MOHAMUD MD [facility] RIGHT RENAL STONE [id number] 10/20/2012 11:44:00 2012 23:59:59 CLS Outpatient JB MOHAMUD MD [facility] PREOP RIGHT URETERAL STONE [id number] 10/20/2012 08:34:00 2012 23:59:59 CLS Outpatient JB MOHAMUD MD [facility] RAD STONE [id number] 10/09/2012 18:03:00 2012 21:28:00 DIS Emergency RODRIGO PFEIFFER DO [facility] ER ELEVATED BP [id number] 06/19/2012 06:50:00 2012 23:59:59 CLS Outpatient EDIE HANDY MD [facility] RAD RENAL ART STENOSIS,MR,MALIGNANT HTN [id number] 05/17/2016 09:28:00 ACT Outpatient MATTHEW HUMMEL, ARISTIDES Toure [facility] RAD SOB [id number] 07/20/2015 08:20:00 ACT Outpatient EDGAR SANCHEZ [facility] CARD CAD,CAROTID ARTERY STENOSIS,HTN,HLP [id number] 05/11/2015 07:30:00 PEN Outpatient NATHANIEL CASANOVA MD [facility] FINE NEEDLE CHANGES, SUSP OF PAPILLARY CA THYROID [id number] 04/13/2015 10:56:00 ACT Outpatient NATHANIEL CASANOVA MD [facility] RAD GOITER, LEFT NODULE [id number] 03/30/2015 10:25:00 ACT Outpatient NATHANIEL CASANOVA MD [facility] RAD GOITER LT NODULE [id number] 03/28/2015 12:57:00 ACT Outpatient TERE CARVAJAL MD [facility] PREOP HIATAL HERNIA [id number] 03/01/2015 07:09:00 ACT Outpatient EDILBERTO HUMMEL NATHANIEL Lopez [facility] RAD GOITER [id number] 05/29/2012 07:48:00 Document Registration [id number] 01/29/2012 06:44:00 Document Registration [id number] 01/23/2012 09:23:00 Document Registration [id number] 01/23/2012 09:12:00 Document Registration [id number] 01/04/2012 09:15:00 Document Registration [id number] 12/16/2011 09:35:00 Document Registration [id number] 11/07/2011 07:43:00 Document Registration [id number] 08/28/2011 08:08:00 Document Registration [id number] 08/22/2011 08:23:00 Document Registration [id number] 04/09/2011 08:12:00 Document Registration [id number] 04/06/2011 09:00:00 Document Registration [id number] 09/21/2010 08:04:00 Document Registration [id number] 06/07/2010 10:14:00 Document Registration [id number] 04/06/2010 08:00:00 Document Registration [id number] 09/06/2009 10:31:00 Document Registration [id number] 04/25/2009 10:42:00 Document Registration [id number] 04/13/2009 08:37:00 Document Registration [id number] 01/10/2009 07:21:00 Document Registration
== END 2016-05-21 17:56 | disposition home or self-care (01) | DRG 192 ==
LOC: EDUNIT# 10:36 → ER 10:38 → 4TH 12:45
PROVIDERS: ADMIT Internal Medicine; ATTEND Internal Medicine
DX: J44.0 Chronic obstructive pulmonary disease with (acute) lower respiratory infection (principal); J20.8 Acute bronchitis due to other specified organisms; J44.1 Chronic obstructive pulmonary disease with (acute) exacerbation; J45.909 Unspecified asthma, uncomplicated; R09.02 Hypoxemia; K21.9 Gastro-esophageal reflux disease without esophagitis; M19.91 Primary osteoarthritis, unspecified site; E89.0 Postprocedural hypothyroidism
CPT/HCPCS: 36415; 71020; 80053; 83880; 84484; 85007; 85025; 85027; 87070; 87077; 87186; 87205; 93005; 94640; 94664; 94760; 94761; 96374

== ENCOUNTER → 2016-05-17 | Outpatient (CLI) | payer MEDICARE ==
[~2016-05-17] MED LIST changes: +ASPI-983 PO; +GUAI118L16 PO; +LEVO50TA6 PO; +OMEG-160 PO; +PANT40TA2 PO
--- NOTE | 2016-05-17 10:29 | Diagnostic Imaging Report ---
EXAMINATION: PA and lateral views of the chest. INDICATION: Cough and shortness of breath. COMPARISON: 05/04/15. FINDINGS: There is bibasilar opacities seen similar to 04/14/2015 exam compatible with scarring. No new infiltrates. No effusion or pneumothorax. The heart size is at the upper limits of normal. Mediastinum and didier appear unremarkable. IMPRESSION: Bibasilar scarring. No acute process. Dictated by: Dictated on workstation # [id number]
== END ==
LOC: RAD 09:28
PROVIDERS: ATTEND Family Medicine
DX: R06.02 Shortness of breath (principal)
CPT/HCPCS: 71020

== ENCOUNTER → 2016-10-10 | Outpatient (CLI) | payer MEDICARE ==
[~2016-10-10] MED LIST changes: +ASPI-983 PO; +GUAI118L16 PO; +LEVO50TA6 PO; +OMEG-160 PO; +PANT40TA2 PO
== END ==
LOC: CARD 12:42
PROVIDERS: ATTEND Internal Medicine Cardiovascular Disease
DX: I65.23 Occlusion and stenosis of bilateral carotid arteries (principal); R07.89 Other chest pain; I11.0 Hypertensive heart disease with heart failure; E78.2 Mixed hyperlipidemia; I51.7 Cardiomegaly; G47.62 Sleep related leg cramps
CPT/HCPCS: 93306

== ENCOUNTER 2016-10-15 00:25 | Observation (INO) | payer MEDICARE ==
[2016-10-15] VITALS (10 sets, daily range): BP systolic 103–170; BP diastolic 64–102
[~2016-10-15] VITALS: Ht 157.5 cm; Wt 59.0 kg
[~2016-10-15 00:25] MED LIST changes: +OXYC-529 PO; -OXYC5TAB71 PO
[2016-10-15] MEDS ORDERED: NITROGLYCERIN 2% OINT 1 GM UNIT DOSE PACKET ONE (00:36)
[2016-10-15] MEDS ORDERED: NITROGLYCERIN 2% OINT 1 GM UNIT DOSE PACKET TOP ONE (00:45)
[2016-10-15] MEDS ORDERED: RX-NITROGLYCERIN 0.4 MG TAB BTL 25'S SL PRN (00:45)
[2016-10-15] MEDS ORDERED: ASPIRIN 81 MG CHEW (CHILDREN'S ASA) PO ONE (00:45)
[2016-10-15 00:47] LABS: BASOPHILS % (AUTO) 1 % (0-10); EOSINOPHILS # (AUTO) 0.2 10^3/uL (0.0-0.3); EOSINOPHILS % (AUTO) 4 % (0-10); LYMPHOCYTES # (AUTO) 2.7 X 10^3 (1.0-4.0); LYMPHOCYTES % (AUTO) 39 % (12-44); MEAN CORPUSCULAR HEMOGLOBIN 30 PG (25-34); MEAN CORPUSCULAR HGB CONC 33 G/DL (32-36); MEAN CORPUSCULAR VOLUME 91 FL (80-99); MEAN PLATELET VOLUME 10.3 FL (7.4-10.4); MONOCYTES # (AUTO) 0.8 X 10^3 (0.0-1.0); MONOCYTES % (AUTO) 11 % (0-12); NEUTROPHILS # (AUTO) 3.1 X 10^3 (1.8-7.8); NEUTROPHILS % (AUTO) 45 % (42-75); PLATELET COUNT 217 10^3/uL (130-400); RED BLOOD COUNT 4.47 10^6/uL (4.35-5.85); RED CELL DISTRIBUTION WIDTH 14.4 % (10.0-14.5); WHITE BLOOD COUNT 6.8 10^3/uL (4.3-11.0)
[2016-10-15 01:01] LABS: PROTHROMBIN TIME PATIENT 12.9 SEC (12.2-14.7)
[2016-10-15 01:15] LABS: ALANINE AMINOTRANSFERASE 12 U/L (0-55); AMYLASE 41 U/L (25-125); ANION GAP 10 MMOL/L (5-14); ASPARTATE AMINO TRANSFERASE 20 U/L (5-34); BILIRUBIN,TOTAL 0.7 MG/DL (0.1-1.0); BLOOD UREA NITROGEN 15 MG/DL (7-18); BUN/CREATININE RATIO 19; CARBON DIOXIDE 24 MMOL/L (21-32); CHLORIDE 108 MMOL/L (98-107); CREATINE KINASE 67 U/L (29-168); CREATININE SERUM 0.81 MG/DL (0.60-1.30); GFR ESTIMATED > 60; GLUCOSE 113 MG/DL (70-105); LIPASE 30 U/L (8-78); MAGNESIUM 2.3 MG/DL (1.8-2.4); POTASSIUM 3.7 MMOL/L (3.6-5.0); SODIUM 142 MMOL/L (135-145); TOTAL PROTEIN 6.8 GM/DL (6.4-8.2)
[2016-10-15 01:26] LABS: TROPONIN I < 0.30 NG/ML (<0.30)
[2016-10-15] MEDS ORDERED: morphine INJ 10 MG/ML 1ML (SYR OR VIAL) IVP STA (02:11)
[2016-10-15] MEDS ORDERED: ENOXAPARIN 60 MG/0.6 ML (LOVENOX) SYR SC ONE (02:15)
[2016-10-15] MEDS ORDERED: meTOproloL SUCCINATE 50 MG (TOPROL XL) TAB PO SCH (02:15)
--- NOTE | 2016-10-15 02:23 | ED Chest Pain ---
General Chief Complaint: Chest Pain Stated Complaint: DIZZY,BP 141/85,SLIGHT CHEST PAIN Nursing Triage Note: PT TO ED 7 W/ C/O CHEST PAIN ET WEAKNESS ONSET 1999. ALSO REPORTS SOME INCREASED SOB W/ ONSET. NO OTHER C/O VOICED Nursing Sepsis Screen: No Definite Risk Source: patient (SOMEWHAT LIMITED HISTORIAN ABOUT PMH), old records History of Present Illness Time seen by provider: 00:30 Initial Comments PT ARRIVES VIA POV FROM HOME C/O MID CHEST PAIN SINCE 1999 TONIGHT PAIN BEGAN WHILE SITTING C/O DIZZINESS AND FELT LIKE SHE WAS GOING TO PASS OUT C/O SHORTNESS OF BREATH C/O SLIGHT NAUSEA,NO VOMITING NO SWEATS NO SWELLING IN LEGS/ FEET, BUT HAS BEEN HAVING INTERMITTENT RIGHT LEG CRAMPS FOR SOME TIME. NO HISTORY OF SIMILAR PT HAS NO HISTORY OF CARDIAC DISEASE, BUT HAS HAD RIGHT RENAL ANGIOPLASTY FOR RENAL ARTERY STENOSIS BY DR. HANDY PT HAD ECHOCARDIOGRAM DONE 10/10/16 AND IS SCHEDULED TO HAVE A STRESS TEST DONE 10/16/[address] HANDY. ECHO SHOWED EF 60-65%, WITH MILD GRADE 2 DIASTOLIC DYSFUNCTION AND MILD AORTIC AND TRICUSPID VALVE REGURG, WITH MODERATED MITRAL VALVE REGURG PCP: DR. CASTRO GENERAL SCIENCE TEACHER: DR. HANDY PAYROLL TAX ANALYST: DR. BROWNE Allergies and Home Medications Allergies Coded Allergies: duloxetine HCl (Verified Allergy, Intermediate, BLISTERS, 05/04/15) Penicillins (Verified Allergy, Mild, 04/03/11) Home Medications Aspirin 81 Mg Tablet., 81 MG PO HS, (Reported) Carvedilol 6.25 Mg Tab, 6.25 MG PO BID, (Reported) Guaifenesin/Codeine Phosphate 118 Ml Liquid, 5 ML PO EVERY 4-6 HOURS PRN for COUGH, (Reported) Levothyroxine Sodium 50 Mcg Tablet, 50 MCG PO DAILY, (Reported) Losartan Potassium 100 Mg Tablet, 100 MG PO 1200, (Reported) Multivitamin 1 Each Tablet, 1 TAB PO DAILY, (Reported) [place]-3/Dha/Epa/Fish Oil 1 Each Capsule, 1,000 MG PO DAILY, (Reported) Pantoprazole Sodium 40 Mg Tablet., 40 MG PO DAILY, (Reported) Review of Systems Constitutional: see HPI, dizziness, weakness EENTM: No Symptoms Reported Respiratory: See HPI, Shortness of Air Cardiovascular: See HPI, Chest Pain Gastrointestinal: See HPI, Denies Abdominal Pain, Nausea, Denies Vomiting Genitourinary: No Symptoms Reported Musculoskeletal: no symptoms reported, No back pain Skin: no symptoms reported Psychiatric/Neurological: No Symptoms Reported Endocrine: No Symptoms Reported Hematologic/Lymphatic: No Symptoms Reported Past Dafidmy-Gtbrbe-Mkieeu Hx Patient Social History Alcohol Use: Denies Use Recreational Drug Use: No Smoking Status: Never a Smoker Recent Foreign Travel: No Contact w/Someone Who Travel: No Recent Infectious Disease Expo: No Recent Hopitalizations: No Physical Abuse: No Sexual Abuse: No Mistreated: No Fear: No Immunizations Up To Date Tetanus Booster (TDap): Unknown PED Vaccines UTD: Yes Date of Pneumonia Vaccine: Jun 01, 2004 Seasonal Allergies Seasonal Allergies: No Surgeries History of Surgeries: Yes (KIDNEY STONE REMOVAL 1991;CYSTOSCOPY; EGD/ COLONOSCOPY;HYST/OVARIES INTACT 1971;SERGIO 2007; ORAL SX, ANGIOPLASTY RIGHT RENAL ARTERY AND CARDIAC CATH 2011; THYROIDECTOMY; LAP NISEEN FUNDOPLICATION/ HIATAL HERNIA REPAIR; LEFT WRIST FX/ ORIF) Surgeries: Abdominal, Cardiac, Gallbladder, Hysterectomy, Orthopedic, Renal, Thyroidectomy Respiratory History of Respiratory Disorde: Yes Respiratory Disorders: Pneumonia, COPD Currently Using CPAP: No Currently Using BIPAP: No Cardiovascular History of Cardiac Disorders: Yes (CAROTID DISEASE; RIGHT RENAL ARTERY STENOSIS --S/P ANGIOPLASTY 2011) Cardiac Disorders: Coronary Artery Disease, High Cholesterol, Hypertension, Irregular Heartbeat, Valvular Heart Disease Neurological History of Neurological Disord: No Reproductive System Hx Reproductive Disorders: No Sexually Transmitted Disease: No HIV/AIDS: No Female Reproductive Disorders: Denies 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 History: Hysterectomy, Menopausal Genitourinary History of Genitourinary Disor: Yes (OVERACTIVE BLADDER; INCONTINENCE) Genitourinary Disorders: Kidney Stones Gastrointestinal History of Gastrointestinal Di: Yes (S/P HIATAL HERNIA REPAIR) Gastrointestinal Disorders: Gastroesophageal Reflux, Diverticulosis, Hiatal Hernia Musculoskeletal History of Musculoskeletal Dis: Yes (CHRONIC LEG PAIN ) Musculoskeletal Disorders: Arthritis Endocrine History of Endocrine Disorders: Yes (BENIGN NODULE ON THYROID, BX ON 03/30/15; THYROIDECTOMY 05/2015--GOITER) Endocrine Disorders: Hypothyroidsim HEENT History of HEENT Disorders: Yes HEENT Disorders: Cataract Hearing Impairment: Denies Cancer History of Cancer: No Psychosocial History of Psychiatric Problem: No Suicide Risk Score: 0 Integumentary History of Skin or Integumenta: Yes (hx of mrsa) Blood Transfusions History of Blood Disorders: No Adverse Reaction to a Blood Tr: No Family Medical History Family Medial History: Cardiovascular disease G8 SISTER Colon cancer G8 BROTHER FH: cancer 19 FATHER (lung) 19 MOTHER G8 SISTER (esophagus) Psychosocial problem 19 MOTHER Physical Exam Vital Signs Vital Sign - Last 12Hours 10/15/16 00:41 Temp 97.8 Pulse 70 Resp 18 B/P (MAP) 199/109 Pulse Ox 96 O2 Delivery Room Air Capillary Refill : Less Than 3 Seconds General Appearance: No Apparent Distress, WD/WN, Anxious HEENT: PERRL/EOMI Neck: Full Range of Motion, Normal Inspection, Non Tender, Supple, No Carotid Bruit, No JVD Respiratory: Chest Non Tender, Normal Breath Sounds, No Accessory Muscle Use, No Respiratory Distress Cardiovascular: Regular Rate, Rhythm, No Edema, No JVD, Normal Peripheral Pulses, Systolic Murmur (02/15), Other (FREQUENT ECTOPY--MAJORITY BEING PAC'S WITH RARE PVC'S) Gastrointestinal: Normal Bowel Sounds, No Organomegaly, No Pulsatile Mass, Non Tender, Soft Extremity: Normal Capillary Refill, Normal Inspection, Normal Range of Motion, Non Tender, No Calf Tenderness, No Pedal Edema Neurologic/Psychiatric: Alert, Oriented x3, No Motor/Sensory Deficits, histological illustrator II- XII Norm as Tested, Other (MILDLY ANXIOUS) Skin: Normal Color Progress/Results/Core Measures Results/Orders Lab Results Laboratory Tests Test 10/15/16 00:39 Range/Units White Blood Count 6.8 4.3-11.0 10^3/uL Red Blood Count 4.47 4.35-5.85 10^6/uL Hemoglobin 13.6 11.5-16.0 G/DL Hematocrit 41 35-52 % Mean Corpuscular Volume 91 80-99 FL Mean Corpuscular Hemoglobin 30 25-34 PG Mean Corpuscular Hemoglobin Concent 33 32-36 G/DL Red Cell Distribution Width 14.4 10.0-14.5 % Platelet Count 217 130-400 10^3/uL Mean Platelet Volume 10.3 7.4-10.4 FL Neutrophils (%) (Auto) 45 42-75 % Lymphocytes (%) (Auto) 39 12-44 % Monocytes (%) (Auto) 11 0-12 % Eosinophils (%) (Auto) 4 0-10 % Basophils (%) (Auto) 1 0-10 % Neutrophils # (Auto) 3.1 1.8-7.8 X 10^3 Lymphocytes # (Auto) 2.7 1.0-4.0 X 10^3 Monocytes # (Auto) 0.8 0.0-1.0 X 10^3 Eosinophils # (Auto) 0.2 0.0-0.3 10^3/uL Basophils # (Auto) 0.0 0.0-0.1 10^3/uL Prothrombin Time 12.9 12.2-14.7 SEC INR Comment 1.0 0.8-1.4 Activated Partial Thromboplast Time 28 24-35 SEC Sodium Level 142 135-145 MMOL/L Potassium Level 3.7 3.6-5.0 MMOL/L Chloride Level 108 H 98-107 MMOL/L Carbon Dioxide Level 24 21-32 MMOL/L Anion Gap 10 5-14 MMOL/L Blood Urea Nitrogen 15 7-18 MG/DL Creatinine 0.81 0.60-1.30 MG/DL Estimat Glomerular Filtration Rate > 60 BUN/Creatinine Ratio 19 Glucose Level 113 H 70-105 MG/DL Calcium Level 9.0 8.5-10.1 MG/DL Magnesium Level 2.3 1.8-2.4 MG/DL Total Bilirubin 0.7 0.1-1.0 MG/DL Aspartate Amino Transf (AST/SGOT) 20 5-34 U/L Alanine Aminotransferase (ALT/SGPT) 12 0-55 U/L Alkaline Phosphatase 69 40-136 U/L Total Creatine Kinase 67 29-168 U/L Creatine Kinase MB 1.2 <6.6 NG/ML Troponin I < 0.30 <0.30 NG/ML B-Type Natriuretic Peptide 86.3 <100.0 PG/ML Total Protein 6.8 6.4-8.2 GM/DL Albumin 4.0 3.2-4.5 GM/DL Amylase Level 41 25-125 U/L Lipase 30 8-78 U/L My Orders Orders - RODRIGO PFEIFFER DO Amylase (10/15/16 00:32) Cbc With Automated Diff (10/15/16 00:32) Comprehensive Metabolic Panel (10/15/16 00:32) Creatine Kinase (10/15/16 00:32) Creatine Kinase Mb (10/15/16 00:32) Lipase (10/15/16 00:32) Partial Thromboplastin Time (10/15/16 00:32) Protime With Inr (10/15/16 00:32) Troponin I (10/15/16 00:32) Chest 1 View, Ap/Pa Only (10/15/16 00:32) O2 (10/15/16 00:32) Ekg Tracing (10/15/16 00:32) Aspirin Chewable Tablet (Baby Aspirin Ch (10/15/16 00:45) Rx-Nitroglycerin Sl Tabs (Rx-Nitrostat S (10/15/16 00:45) BNP (10/15/16 00:32) Monitor-Rhythm Ecg Trace Only (10/15/16 00:32) Magnesium (10/15/16 00:32) Nitroglycerin Ointment (Nitrobid Ointme (10/15/16 00:45) Nitroglycerin Ointment (Nitrobid Ointme (10/15/16 00:36) Enoxaparin Injection (Lovenox Injection) (10/15/16 02:15) Metoprolol Succinate (Xl) Tab (Toprol Xl (10/15/16 02:15) Morphine Injection (Morphine Injection (10/15/16 02:11) Medications Given in ED Current Medications Medications Dose Ordered Sig/Leif Route Start Time Stop Time Status Last Admin Dose Admin Aspirin 324 mg ONCE ONCE PO 10/15/16 00:45 10/15/16 00:46 DC 10/15/16 00:45 324 MG Nitroglycerin 0.4 mg UD PRN SL 10/15/16 00:45 10/15/16 00:46 0.4 MG Nitroglycerin 0.5 inch ONCE ONCE TOP 10/15/16 00:45 10/15/16 00:46 DC 10/15/16 00:46 0.5 INCH Vital Signs/I&O Vital Sign - Last 12Hours 10/15/16 00:41 Temp 97.8 Pulse 70 Resp 18 B/P (MAP) 199/109 Pulse Ox 96 O2 Delivery Room Air Blood Pressure Mean: 139 Progress Note : Progress Note PT HAD MODERATE RELIEF OF PAIN WITH NITROPASTE AND BP DOWN TO 140'S /90'S PAIN BRIEFLY NEAR-COMPLETELY SUBSIDED, THEN WOULD HAVE BRIEF EPISODES OF INCREASED PAIN, WITH PAIN INTO JAW AND DOWN LEFT ARM AND INTO HAND. GIVEN LOVENOX, METOPROLOL AND MORPHINE. WITH RELIEF OF SYMPTOMS ECG Initial ECG Impression Time: 00:33 Initial ECG Rate: 77 Initial ECG Rhythm: Normal Sinus (WITH MULTIPLE PAC'S ) Initial ECG Comparisson: No Previous ECG Available Diagnostic Imaging Comments CXR--NO ACUTE PROCESS, CHRONIC CHANGES IN RIGHT BASE--PENDING RADIOLOGIST REVIEW Reviewed: Reviewed by Me Departure Communication (Admissions) Progress Notes 0157--SPOKE WITH DR. JULES, ACCEPTS PT FOR ADMIT. ADVISES METOPROLOL 50 MG BID. WILL CONSULT DR. HANDY/CARDIOLOGY IN AM Impression Impression: Primary Impression: Chest pain Additional Impressions: SUSPCTED UNSTABLE ANGINA HTN (hypertension) Hx of renal artery stenosis Disposition: ADMITTED INPATIENT Condition: Improved Admissions Decision to Admit Reason: Admit from ER (General) Decision to Admit/Date: Oct 15, 2016 Time/Decision to Admit Time: 02:00 Departure-Patient Inst. Referrals: ARISTIDES CASTRO MD (PCP/Family) Primary Care Physician RODRIGO PFEIFFER DO Oct 15, 2016 02:22
[2016-10-15] MEDS ORDERED: NITROGLYCERIN SUBLINGUAL 0.4 MG TAB (NITROSTAT) SL PRN (03:30)
[2016-10-15] MEDS ORDERED: morphine INJ 4 MG/ML 1 ML (VIAL/SYRINGE) IV PRN (03:30)
[2016-10-15 06:35] LABS: CHOLESTEROL 153 MG/DL (< 200); CREATINE KINASE 63 U/L (29-168); DIRECT LDL 89 MG/DL (1-129); TRIGLYCERIDES 41 MG/DL (<150); VLDL CHOLESTEROL 8 MG/DL (5-40)
[2016-10-15 06:43] LABS: MYOGLOBIN SERUM 45.2 NG/ML (10.0-92.0); TROPONIN I < 0.30 NG/ML (<0.30)
--- NOTE | 2016-10-15 07:58 | Diagnostic Imaging Report ---
INDICATION: Chest pain and weakness. Portable upright view of the chest is obtained with comparison made study of 05/17/2016. FINDINGS: Heart size and pulmonary vascularity are within normal limits, and the lungs are clear, bilaterally. IMPRESSION: Unremarkable chest. Dictated by: Dictated on workstation # [id number]
[2016-10-15] MEDS ORDERED: ASPIRIN E.C. 325 MG (ECOTRIN) TABLET PO SCH (09:00)
[2016-10-15] MEDS ORDERED: meTOprolol TARTRATE 50 MG (LOPRESSOR) TAB PO SCH (09:00)
[2016-10-15] MEDS ORDERED: PATIENT MAY USE OWN MEDS, ALL MC SCH (11:45)
[2016-10-15] MEDS ORDERED: CATHETER FLUSH 10 ML SYR IV PRN (11:45)
--- NOTE | 2016-10-15 11:45 | Consultation-Cardiology ---
HPI-Cardiology Cardiology Consultation Date of Consultation 10/15/16 Date of Admission Time Seen by Provider: 08:20 Indication: Chest pain HPI 81 years old lady with history of hypertension, hyperlipidemia, came in for an episode of feeling lightheaded and foggy, felt some discomfort in her chest. Denied any syncope or near syncopal episodes. Denied any palpitation, upper my evaluation she was still having mild headache and feeling pressure in her head, denied any chest pain, patient was scheduled for stress test as an outpatient for tomorrow. We discussed the management plan I recommended doing the test today. Home Medications & Allergies Allergies: Coded Allergies: duloxetine HCl (Verified Allergy, Intermediate, BLISTERS, 05/04/15) Penicillins (Verified Allergy, Mild, 04/03/11) Home Medication List Reviewed: Yes YSA-Sbzxsn-Ajwqxy Hx Patient Social History Marital Status: Employed/Student: retired Alcohol Use: Denies Use Recreational Drug Use: No Smoking Status: Never a Smoker Recent Foreign Travel: No Recent Infectious Disease Expo: No Recent Hopitalizations: No Physical Abuse Screen: No Sexual Abuse: No Immunizations Up To Date Tetanus Booster (TDap): Unknown Date of Pneumonia Vaccine: Jun 01, 2004 Past Medical History past medical history as discussed below Family Medical History Family History: 19 FATHER FH: cancer (lung) 19 MOTHER FH: cancer Psychosocial problem G8 BROTHER Colon cancer G8 SISTER FH: cancer (esophagus) Cardiovascular disease Constitutional: see HPI, malaise, weakness EENTM: see HPI Respiratory: see HPI Cardiovascular: see HPI, chest pain Gastrointestinal: see HPI Genitourinary: see HPI Musculoskeletal: see HPI Skin: see HPI Psychiatric/Neurological: No Symptoms Reported, See HPI Reviewed Test Results Reviewed Test Results Lab Laboratory Tests Test 10/15/16 00:39 10/15/16 05:00 Range/Units White Blood Count 6.8 4.3-11.0 10^3/uL Red Blood Count 4.47 4.35-5.85 10^6/uL Hemoglobin 13.6 11.5-16.0 G/DL Hematocrit 41 35-52 % Mean Corpuscular Volume 91 80-99 FL Mean Corpuscular Hemoglobin 30 25-34 PG Mean Corpuscular Hemoglobin Concent 33 32-36 G/DL Red Cell Distribution Width 14.4 10.0-14.5 % Platelet Count 217 130-400 10^3/uL Mean Platelet Volume 10.3 7.4-10.4 FL Neutrophils (%) (Auto) 45 42-75 % Lymphocytes (%) (Auto) 39 12-44 % Monocytes (%) (Auto) 11 0-12 % Eosinophils (%) (Auto) 4 0-10 % Basophils (%) (Auto) 1 0-10 % Neutrophils # (Auto) 3.1 1.8-7.8 X 10^3 Lymphocytes # (Auto) 2.7 1.0-4.0 X 10^3 Monocytes # (Auto) 0.8 0.0-1.0 X 10^3 Eosinophils # (Auto) 0.2 0.0-0.3 10^3/uL Basophils # (Auto) 0.0 0.0-0.1 10^3/uL Prothrombin Time 12.9 12.2-14.7 SEC INR Comment 1.0 0.8-1.4 Activated Partial Thromboplast Time 28 24-35 SEC Sodium Level 142 135-145 MMOL/L Potassium Level 3.7 3.6-5.0 MMOL/L Chloride Level 108 H 98-107 MMOL/L Carbon Dioxide Level 24 21-32 MMOL/L Anion Gap 10 5-14 MMOL/L Blood Urea Nitrogen 15 7-18 MG/DL Creatinine 0.81 0.60-1.30 MG/DL Estimat Glomerular Filtration Rate > 60 BUN/Creatinine Ratio 19 Glucose Level 113 H 70-105 MG/DL Calcium Level 9.0 8.5-10.1 MG/DL Magnesium Level 2.3 1.8-2.4 MG/DL Total Bilirubin 0.7 0.1-1.0 MG/DL Aspartate Amino Transf (AST/SGOT) 20 5-34 U/L Alanine Aminotransferase (ALT/SGPT) 12 0-55 U/L Alkaline Phosphatase 69 40-136 U/L Total Creatine Kinase 67 63 29-168 U/L Creatine Kinase MB 1.2 <6.6 NG/ML Troponin I < 0.30 < 0.30 <0.30 NG/ML B-Type Natriuretic Peptide 86.3 <100.0 PG/ML Total Protein 6.8 6.4-8.2 GM/DL Albumin 4.0 3.2-4.5 GM/DL Amylase Level 41 25-125 U/L Lipase 30 8-78 U/L Myoglobin 45.2 10.0-92.0 NG/ML Triglycerides Level 41 <150 MG/DL Cholesterol Level 153 < 200 MG/DL LDL Cholesterol Direct 89 1-129 MG/DL VLDL Cholesterol 8 5-40 MG/DL HDL Cholesterol 64 H 40-60 MG/DL Physical Exam Vital Signs Vital Sign - Last 12Hours 10/15/16 10/15/16 00:41 02:50 Temp 97.8 Pulse 70 Resp 18 B/P (MAP) 199/109 Pulse Ox 96 O2 Delivery Room Air O2 Flow Rate 2.00 Capillary Refill : Less Than 3 Seconds General Appearance: No Apparent Distress, WD/WN Eyes: Bilateral Eye Normal Inspection, Bilateral Eye PERRL, Bilateral Eye EOMI HEENT: PERRL/EOMI, TMs Normal, Normal ENT Inspection, Pharynx Normal Neck: Full Range of Motion, Normal Inspection, Non Tender, Supple, Carotid Bruit Respiratory: Chest Non Tender, Lungs Clear, Normal Breath Sounds, No Accessory Muscle Use, No Respiratory Distress Cardiovascular: Regular Rate, Rhythm, No Edema, No Gallop, No JVD, No Murmur, Normal Peripheral Pulses Gastrointestinal: Normal Bowel Sounds, No Organomegaly, No Pulsatile Mass, Non Tender, Soft Back: Normal Inspection, No CVA Tenderness, No Vertebral Tenderness Extremity: Normal Capillary Refill, Normal Inspection, Normal Range of Motion, Non Tender, No Calf Tenderness, No Pedal Edema Neurologic/Psychiatric: Alert, Oriented x3, No Motor/Sensory Deficits, Normal Mood/Affect Skin: Normal Color, Warm/Dry Lymphatic: No Adenopathy A/P-Cardiology Admission Diagnosis Chest pain nonspecific etiology Dizziness and lightheadedness Hypertension hyperlipidemia Assessment/Plan Chest pain nonspecific etiology, atypical in presentation, EKG did not show any acute abnormality. Planning to evaluate stress test Dizziness and lightheadedness, episode of labile blood pressure, currently blood pressure is well controlled. Continue to monitor blood pressure Mild nonobstructive coronary artery disease per cardiac catheterization March 2011, increasing dyspnea on exertion, last cardiac workup was done in 2015, having chest pain, planning to evaluate stress test Hypertensive heart disease, last echocardiogram was done in last month showing left ventricular hypertrophy with diastolic dysfunction, pulmonary artery pressure of 35 mmHg. Continue to monitor Malignant hypertension, blood pressure is better controlled while in the hospital. Continue to monitor blood pressure. Hyperlipidemia, lipid profile was done in November 2015 showing total cholesterol 176 HDL 61, triglyceride 84, LDL 98. Continue current medications and monitor. Renal artery stenosis status post renal artery angioplasty March 2011, currently asymptomatic. Mild bilateral nonobstructive carotid artery stenosis per carotid duplex June 2015, I will evaluate carotid ultrasound Lower extremities cramp and pain, continue to monitor. No changes are recommended. Clinical Quality Measures AMI/AHF: ASA po Prior to arrival: No DVT/VTE Risk/Contraindication: Risk Factor Score Per Nursin RFS Level Per Nursing on Admit: 2=Moderate EDIE HANDY MD Oct 15, 2016 11:45
[2016-10-15] MEDS ORDERED: REGADENOSON 0.4 MG/5 ML SYR (LEXISCAN) IV ONE ×2 (12:01→12:15)
[2016-10-15] MEDS ORDERED: CARVEDILOL 6.25 MG (COREG) TAB ONE (14:59)
[2016-10-15] MEDS ORDERED: CARVEDILOL 6.25 MG (COREG) TAB PO NR (15:00)
[2016-10-15] MEDS ORDERED: CARV12.52 PO (15:00)
[2016-10-15] MEDS ORDERED: meTOprolol 5 MG/5 ML (LOPRESSOR) VIAL IV NR (15:00)
[2016-10-15] MEDS ORDERED: LOSARTAN 50 MG (COZAAR) TAB PO NR (15:00)
[2016-10-15] MEDS ORDERED: POTASSIUM/MAGNESIUM PO (15:08)
--- NOTE | 2016-10-15 15:41 | Short Stay Summary-Hospitalist ---
HPI History of Present Illness: HPI/Chief Complaint CC: Chest heaviness HPI: Pt is a 81yoCF with a PMH of HTN, hypothyroidism who presented to the ER for chest heaviness. Her symptoms started the evening of admission while she went from sitting to standing. She felt a heaviness in her chest and head. She felt it radiated to her left arm down in to her hand along with down in her her right knee. She tried to go to bed but the heaviness persisted so she presented to the Er for evaluation. She denies any nausea, diaphoresis, or chest pain. Her complaint today is heaviness in her head. She denies any history of heart disease or similar episodes. She does follow with Dr. Mcgraw as an outpatient and was scheduled for a stress test for tomorrow. Source: patient Exam Limitations: no limitations Date Seen 10/15/16 Time Seen by Provider: 07:45 Attending Physician Seymour Snyder MD PCP Brian Andrade MD Referring Physician Date of Admission Oct 15, 2016 at 02:00 Home Medications & Allergies Home Medications Reviewed patient Home Medication Reconciliation Form Allergies Allergies Coded Allergies duloxetine HCl (Verified Allergy, Intermediate, BLISTERS, 05/04/15) Penicillins (Verified Allergy, Mild, 04/03/11) Past Tntmdjd-Bxwhcq-Orphdt Hx Patient Social History Marrital Status: Employed/Student: retired Alcohol Use: Denies Use Recreational Drug Use: No Smoking Status: Never a Smoker Physical Abuse Screen: No Sexual Abuse: No Recent Foreign Travel: No Contact w/other who traveled: No Recent Hopitalizations: No Recent Infectious Disease Expo: No Immunizations Up To Date Tetanus Booster (TDap): Unknown Pediatric: Yes Date of Pneumonia Vaccine: Jun 01, 2004 Seasonal Allergies Seasonal Allergies: No Surgeries Yes Abdominal, Gallbladder, Hysterectomy, Orthopedic, Renal, Thyroidectomy Respiratory Yes Currently Using CPAP: No Currently Using BIPAP: No Cardiovascular Yes (CAROTID DISEASE; RIGHT RENAL ARTERY STENOSIS--S/P ANGIOPLASTY 2011) Coronary Artery Disease, High Cholesterol, Hypertension, Irregular Heartbeat, Valvular Heart Disease Neurological No Reproductive System Hx Reproductive Disorders: No Sexually Transmitted Disease: No HIV/AIDS: No Female Reproductive Disorders: Denies 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, 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 Genitourinary Yes (OVERACTIVE BLADDER; INCONTINENCE) Kidney Stones Gastrointestinal Yes (S/P HIATAL HERNIA REPAIR) Gastroesophageal Reflux, Diverticulosis, Hiatal Hernia Musculoskeletal Yes (CHRONIC LEG PAIN ) Arthritis Endocrine History of Endocrine Disorders: Yes (BENIGN NODULE ON THYROID, BX ON 03/30/15; THYROIDECTOMY 05/2015--GOITER) Endocrine Disorders: Hypothyroidsim HEENT History of HEENT Disorders: Yes HEENT Disorders: Cataract Hearing Impairment: Denies Cancer No Psychosocial History of Psychiatric Problem: No Integumentary History of Skin or Integumenta: Yes (hx of mrsa) Blood Transfusions History of Blood Disorders: No Adverse Reaction to a Blood Tr: No Family Medical History Family Hx: Cardiovascular disease G8 SISTER Colon cancer G8 BROTHER FH: cancer 19 FATHER (lung) 19 MOTHER G8 SISTER (esophagus) Psychosocial problem 19 MOTHER Review of Systems Constitutional: No chills, No fever, No weakness EENTM: No blurred vision, No double vision Respiratory: No cough, dyspnea on exertion, short of breath Cardiovascular: chest pain, No edema, No palpitations, No syncope Gastrointestinal: No abdominal pain, No constipation, No diarrhea, No nausea, No vomiting Genitourinary: No dysuria, No frequency Musculoskeletal: joint pain, No muscle pain Skin: No dryness, No rash Psychiatric/Neurological: Denies Anxiety, Denies Headache Physical Exam Physical Exam Vital Signs Vital Sign - Last 12Hours 10/15/16 10/15/16 00:41 02:50 Temp 97.8 Pulse 70 Resp 18 B/P (MAP) 199/109 Pulse Ox 96 O2 Delivery Room Air O2 Flow Rate 2.00 Capillary Refill : Less Than 3 Seconds General Appearance: No Apparent Distress, WD/WN HEENT: PERRL/EOMI, No Scleral Icterus (L), No Scleral Icterus (R) Neck: Non Tender, Supple Respiratory: Lungs Clear, Normal Breath Sounds, No Respiratory Distress Cardiovascular: Regular Rate, Rhythm, No Edema, No JVD, No Murmur Gastrointestinal: Normal Bowel Sounds, Non Tender, Soft Rectal: Deferred Extremity: Normal Capillary Refill, Non Tender, No Calf Tenderness, No Pedal Edema Neurologic/Psychiatric: Alert, Oriented x3, Normal Mood/Affect Skin: Normal Color, Warm/Dry Results Results/Procedures Lab Laboratory Tests 10/15/16 00:39 Short Stay Diagnosis Discharge Diagnosis-Short Stay Admission Diagnosis Chest pain Final Discharge Diagnosis Atypical chest pain Conclusion Plan Atypical chest pain - She was seen in consultation by Dr. Mcgraw who facilitated her getting a stress test done today which was read as low risk. I discussed plan with him and he was ok with discharge today. She is to follow up with him in 2 weeks. HTN - BP mildly elevated but having some dizziness so deferred any increase in her BP meds at this time. Dispo: Will DC home today. To follow up with Dr. Andrade and Dr. Mcgraw as an outpatient. Copy Copies To 1: BRIAN ANDRADE MD Copies To 2: EDIE MCGRAW MD Clinical Quality Measures AMI/AHF: ASA po Prior to arrival: No DVT/VTE Risk/Contraindication: Risk Factor Score Per Nursin RFS Level Per Nursing on Admit: 2=Moderate LAURI SMALLS MD Oct 15, 2016 15:41
[2016-10-15 17:24] LABS: BILIRUBIN,URINE NEGATIVE (NEGATIVE); KETONES,URINE NEGATIVE (NEGATIVE); LEUKOCYTE ESTERASE ,URINE NEGATIVE (NEGATIVE); NITRITE,URINE NEGATIVE (NEGATIVE); PH,URINE 8 (5-9); PROTEIN,URINE NEGATIVE (NEGATIVE); UROBILINOGEN,URINE NORMAL (NORMAL)
[2016-10-15 17:34] LABS: WBC,URINE RARE /HPF
--- NOTE | 2016-10-16 12:21 | STRESS TEST ---
DATE OF SERVICE: 10/15/2016 LEXISCAN MYOVIEW STRESS TEST Baseline heart rate is 62. Baseline blood pressure is 154/75. Baseline EKG is sinus rhythm with frequent APCs. In summary, the patient was injected with 10.33 mCi of Technetium-99 Myoview and the resting images were obtained. Then, the patient received 0.4 mg of Lexiscan followed by 32.4 mCi of Technetium-99 Myoview. Throughout the test, there were no EKG changes. The resting and stress images were reviewed and compared in the short axis, horizontal long axis and vertical long axis views. Review of the images showed small left ventricle with good radiotracer uptake, typical female pattern, no significant ischemia or infarction. SSS is 3, SDS 2, TID value is 1.07. On the gated images, the left ventricle appeared to be normal size with normal contractility, calculated ejection fraction of 71%. CONCLUSION: 1. The patient tolerated Lexiscan well. 2. Frequent atrial premature contractions noted throughout the test. 3. Typical female pattern with no significant ischemia or infarction on SPECT images. 4. Small left ventricle with normal contractility, calculated ejection fraction is 71%. Job ID: [id number] DocumentID: [id number] Dictated Date: 10/15/2016 15:14:18 Snack Steward Date: 10/15/2016 17:07:49 Dictated By: EDIE HANDY MD
== END 2016-10-15 16:55 | disposition home or self-care (01) ==
LOC: EDUNIT# 00:25 → ER 00:28 → ICU 02:00 → UNDOADMOB 02:00 → ICU 02:50 → UNDODISOB 17:50
PROVIDERS: ADMIT Internal Medicine; ATTEND Internal Medicine
DX: R07.89 Other chest pain (principal); I10 Essential (primary) hypertension; I25.10 Atherosclerotic heart disease of native coronary artery without angina pectoris; I34.0 Nonrheumatic mitral (valve) insufficiency; E78.5 Hyperlipidemia, unspecified; E03.9 Hypothyroidism, unspecified; K21.9 Gastro-esophageal reflux disease without esophagitis; K44.9 Diaphragmatic hernia without obstruction or gangrene; K57.30 Diverticulosis of large intestine without perforation or abscess without bleeding; Z79.82 Long term (current) use of aspirin; Z79.899 Other long term (current) drug therapy; Z87.442 Personal history of urinary calculi
CPT/HCPCS: 36415; 71010; 78452; 80053; 80061; 81000; 82150; 82550; 82553; 83690; 83735; 83874; 83880; 84484; 85025; 85610; 85730; 93005; 93017; 93041; 96372; 96374

== ENCOUNTER 2016-11-06 06:38 | Day surgery (SDC) | payer MEDICARE ==
[~2016-11-06] VITALS: Ht 157.5 cm; Wt 59.0 kg
[2016-11-06] VITALS (13 sets, daily range): BP systolic 104–167; BP diastolic 47–102
[~2016-11-06 06:38] MED LIST changes: +CARV12.52 PO; -OXYC-529 PO; +OXYC5TAB71 PO; +POTASSIUM/MAGNESIUM PO
[2016-11-06] MEDS ORDERED: NS IV 1000 ML 1,000 ML ONE (06:43)
[2016-11-06] MEDS ORDERED: HEParin (CATH LAB) 2,000 ML IV ONE (06:43)
[2016-11-06 07:12] LABS: BILIRUBIN,URINE NEGATIVE (NEGATIVE); KETONES,URINE NEGATIVE (NEGATIVE); LEUKOCYTE ESTERASE ,URINE NEGATIVE (NEGATIVE); NITRITE,URINE NEGATIVE (NEGATIVE); PH,URINE 8 (5-9); PROTEIN,URINE NEGATIVE (NEGATIVE); UROBILINOGEN,URINE NORMAL (NORMAL)
[2016-11-06 07:13] LABS: MEAN PLATELET VOLUME 9.5 FL (7.4-10.4); RED BLOOD COUNT 4.53 10^6/uL (4.35-5.85); RED CELL DISTRIBUTION WIDTH 13.8 % (10.0-14.5); WHITE BLOOD COUNT 5.7 10^3/uL (4.3-11.0)
[2016-11-06] MEDS ORDERED: AMLO10TA2 PO (07:22)
[2016-11-06 07:26] LABS: INR 0.9 (0.8-1.4); PROTHROMBIN TIME PATIENT 12.7 SEC (12.2-14.7)
[2016-11-06] MEDS ORDERED: NS IV 1000 ML 1,000 ML IV SCH ×3 (07:30→08:20)
[2016-11-06 07:34] LABS: ALANINE AMINOTRANSFERASE 14 U/L (0-55); ALBUMIN 4.1 GM/DL (3.2-4.5); ANION GAP 8 MMOL/L (5-14); ASPARTATE AMINO TRANSFERASE 21 U/L (5-34); BILIRUBIN,TOTAL 1.1 MG/DL (0.1-1.0); BLOOD UREA NITROGEN 12 MG/DL (7-18); BUN/CREATININE RATIO 16; CALCIUM 9.3 MG/DL (8.5-10.1); CARBON DIOXIDE 29 MMOL/L (21-32); CHLORIDE 106 MMOL/L (98-107); CHOLESTEROL 186 MG/DL (< 200); CREATININE SERUM 0.74 MG/DL (0.60-1.30); DIRECT LDL 108 MG/DL (1-129); GFR ESTIMATED > 60; GLUCOSE 96 MG/DL (70-105); POTASSIUM 3.6 MMOL/L (3.6-5.0); SODIUM 143 MMOL/L (135-145); TOTAL PROTEIN 7.2 GM/DL (6.4-8.2); TRIGLYCERIDES 70 MG/DL (<150); VLDL CHOLESTEROL 14 MG/DL (5-40)
[2016-11-06] MEDS ORDERED: MIDAZOLAM 5 MG/5 ML (VERSED) VIAL ONE (07:35)
[2016-11-06] MEDS ORDERED: fentaNYL INJECTION 100 MCG/2 ML AMP ONE (07:35)
[2016-11-06] MEDS ORDERED: PATIENT MAY USE OWN MEDS, ALL PO SCH (08:30)
== END 2016-11-06 13:17 | disposition home or self-care (01) ==
LOC: CATH 06:38 → SURG 08:40 → CATH 13:17
PROVIDERS: ATTEND Internal Medicine Cardiovascular Disease
DX: I11.9 Hypertensive heart disease without heart failure (principal); I70.1 Atherosclerosis of renal artery; E78.5 Hyperlipidemia, unspecified; F41.9 Anxiety disorder, unspecified; I34.0 Nonrheumatic mitral (valve) insufficiency; R07.89 Other chest pain; Z79.899 Other long term (current) drug therapy
CPT/HCPCS: 36251; 36415; 71010; 80053; 80061; 81000; 85027; 85610; 85730; 87081

== ENCOUNTER → 2017-02-12 | Outpatient (CLI) | payer MEDICARE ==
[~2017-02-12] MED LIST changes: +AMLO10TA2 PO; +OXYC-529 PO; -OXYC5TAB71 PO
[2017-02-12 10:29] LABS: BASOPHILS % (AUTO) 1 % (0-10); EOSINOPHILS # (AUTO) 0.2 10^3/uL (0.0-0.3); EOSINOPHILS % (AUTO) 4 % (0-10); HEMATOCRIT 39 % (35-52); HEMOGLOBIN 13.2 G/DL (11.5-16.0); LYMPHOCYTES # (AUTO) 1.4 X 10^3 (1.0-4.0); LYMPHOCYTES % (AUTO) 27 % (12-44); MEAN CORPUSCULAR HEMOGLOBIN 31 PG (25-34); MEAN CORPUSCULAR HGB CONC 34 G/DL (32-36); MEAN CORPUSCULAR VOLUME 92 FL (80-99); MEAN PLATELET VOLUME 9.4 FL (7.4-10.4); MONOCYTES # (AUTO) 0.5 X 10^3 (0.0-1.0); MONOCYTES % (AUTO) 9 % (0-12); NEUTROPHILS # (AUTO) 3.1 X 10^3 (1.8-7.8); NEUTROPHILS % (AUTO) 60 % (42-75); PLATELET COUNT 206 10^3/uL (130-400); RED BLOOD COUNT 4.21 10^6/uL (4.35-5.85); RED CELL DISTRIBUTION WIDTH 13.1 % (10.0-14.5); WHITE BLOOD COUNT 5.2 10^3/uL (4.3-11.0)
[2017-02-12 10:53] LABS: ALANINE AMINOTRANSFERASE 12 U/L (0-55); ALBUMIN 3.6 GM/DL (3.2-4.5); ALKALINE PHOSPHATASE 63 U/L (40-136); BILIRUBIN,TOTAL 0.6 MG/DL (0.1-1.0); BUN/CREATININE RATIO 12; CALCIUM 8.7 MG/DL (8.5-10.1); CARBON DIOXIDE 28 MMOL/L (21-32); CHLORIDE 109 MMOL/L (98-107); CREATININE SERUM 0.67 MG/DL (0.60-1.30); GFR ESTIMATED > 60; GLUCOSE 86 MG/DL (70-105); SODIUM 144 MMOL/L (135-145); TOTAL PROTEIN 6.3 GM/DL (6.4-8.2)
== END ==
LOC: LAB 10:01
PROVIDERS: ATTEND Family Medicine
DX: R06.02 Shortness of breath (principal)
CPT/HCPCS: 36415; 80053; 85025

== ENCOUNTER → 2017-02-13 | Outpatient (CLI) | payer MEDICARE ==
--- NOTE | 2017-02-13 11:23 | Diagnostic Imaging Report ---
CLINICAL INDICATION: Patient with right flank pain. EXAM: Ultrasound of both kidneys. COMPARISON: CT scan of abdomen and pelvis performed without contrast dated 03/04/2013. FINDINGS: Both kidneys are normal in size, shape, echogenicity and cortical thickness without hydronephrosis, stones, or focal lesions with the right and left kidneys measuring 11.1 cm and 11.3 cm in their craniocaudal dimensions, respectively. The bladder is partially fluid distended with no gross abnormality seen. The bilateral ureteral jets are not visualized on this exam. IMPRESSION: Unremarkable bilateral renal ultrasound. Dictated by: Dictated on workstation # [id number]
== END ==
LOC: RAD 10:29
PROVIDERS: ATTEND Nurse Practitioner Family
DX: R10.9 Unspecified abdominal pain (principal); Z98.890 Other specified postprocedural states
CPT/HCPCS: 76770

== ENCOUNTER 2017-03-07 05:34 | Outpatient (CLI) | payer MEDICARE ==
[~2017-03-07] VITALS: Ht 157.5 cm; Wt 59.0 kg
[2017-03-07] MEDS ORDERED: LOSA100T28 PO (09:35)
== END 2017-03-07 09:37 ==
LOC: PREOP 05:34
PROVIDERS: ATTEND Surgery
DX: Z01.818 Encounter for other preprocedural examination (principal); R13.10 Dysphagia, unspecified

== ENCOUNTER 2017-03-12 11:09 | Day surgery (SDC) | payer MEDICARE ==
[~2017-03-12] VITALS: Ht 157.5 cm; Wt 59.0 kg
[~2017-03-12 11:09] MED LIST changes: +LOSA100T28 PO
--- OUTSIDE RECORDS SUMMARY | 2017-03-12 11:14 | XMS REPORT | Continuity of Care Document ---
Author Author [facility] Organization [facility] Address Unknown Phone Unavailable Allergies Active Description Code Type Severity Reaction Onset Reported/Identified Relationship to Patient Clinical Status Yes Penicillins [id number] Drug Allergy Mild N/A 04/03/2011 Yes duloxetine HCl [id number] Drug Allergy Unknown N/A 06/01/2014 Yes duloxetine HCl [id number] Drug Allergy Moderate BLISTERS 05/04/2015 Medications There is no data. Problems Date Dx Coded Attending Type Code Diagnosis Diagnosed By 06/07/2010 Ot 401.9 06/07/2010 Ot 780.4 06/07/2010 Ot 791.9 04/06/2011 Ot 272.4 HYPERLIPIDEMIA NEC/NOS 04/06/2011 Ot 276.8 HYPOPOTASSEMIA 04/06/2011 Ot 401.0 MALIGNANT HYPERTENSION 04/06/2011 Ot 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 [place] CORON 04/06/2011 Ot 440.0 AORTIC ATHEROSCLEROSIS 04/06/2011 [...] 01/19/2014 EDIE HANDY MD Ot 401.9 01/19/2014 EDIE HANDY MD Ot 414.00 01/19/2014 MATTHEW HUMMEL, ARISTIDES R Ot 715.31 01/19/2014 MATTHEW HUMMEL, ARISTIDES R Ot V74.8 01/19/2014 ONEIDA HUMMEL, JB Horton Ot 562.10 01/19/2014 ONEIDA HUMMEL, JB A Ot 592.0 01/19/2014 MATTHEW HUMMEL, ARISTIDES R Ot 790.99 01/19/2014 EDGAR STRAUSS Ot 396.3 01/19/2014 EDGAR STRAUSS Ot 397.0 01/19/2014 SUKH CAPPS, EDGAR Lomax Ot 401.9 01/19/2014 SUKH CAPPS, EDGAR Lomax Ot 414.00 01/19/2014 SUKH CAPPS, EDGAR Lomax Ot 496 01/19/2014 SUKH CAPPS, EDGAR Lomax Ot 272.4 02/14/2014 MATTHEW HUMMEL, ARISTIDES R Ot 780.79 02/14/2014 ARISTIDES CASTRO MD R Ot 786.2 05/31/2014 TERE CARVAJAL MD, Ot V72.84 06/01/2014 TERE CARVAJAL MD Ot 455.0 INT HEMORRHOID W/O COMPL 06/01/2014 TERE CARVAJAL MD Ot 455.3 EXT HEMORRHOID W/O COMPL 06/01/2014 TERE CARVAJAL MD Ot 530.11 REFLUX ESOPHAGITIS 06/01/2014 TERE CARVAJAL MD Ot 535.50 UNSP GASTRITIS GASTRODUODENITIS W/O ME 06/01/2014 TERE CARVAJAL MD Ot 553.3 DIAPHRAGMATIC HERNIA 06/01/2014 TERE CARVAJAL MD Ot 562.10 DIVERTICULOSIS COLON (W/O MENT OF HEMORR 12/14/2014 ROZINA HUMMEL, EDIE Knutson Ot E78.5 12/14/2014 EDIE HANDY MD Ot I10 12/14/2014 EDIE HANDY MD Ot I25.9 12/14/2014 EDIE HANDY MD Ot J44.9 12/14/2014 EDIE HANDY MD Ot R07.9 03/29/2015 NATHANIEL CASANOVA MD Ot E04.2 03/30/2015 NATHANIEL CASANOVA MD Ot E04.2 04/07/2015 TERE CARVAAJL MD Ot I10 ESSENTIAL (PRIMARY) HYPERTENSION 04/07/2015 TERE CARVAJAL MD, Ot J44.9 CHRONIC OBSTRUCTIVE PULMONARY DISEASE, U 04/07/2015 TERE CARVAJAL MD, Ot K21.9 GASTRO-ESOPHAGEAL REFLUX DISEASE WITHOUT 04/07/2015 TERE CARVAJAL MD Ot K44.9 DIAPHRAGMATIC HERNIA WITHOUT OBSTRUCTION 04/07/2015 TERE CARVAJAL MD, Ot Z79.899 OTHER HELMET HAT BRIM CUTTER (CURRENT) DRUG THERAPY 04/24/2015 WEI HUMMEL, TERE Ot K44.9 04/24/2015 WEI HUMMEL, TAKAAJERONIMO Ot Z01.812 05/04/2015 EDILBERTO HUMMEL, NATHANIEL P [...] STRAUSS Ot I25.10 ATHSCL HEART DISEASE OF [place] CORONARY 07/21/2015 EDGAR STRAUSS Ot I25.10 ATHSCL HEART DISEASE OF [place] CORONARY 07/26/2015 EDGAR STRAUSS Ot E78.2 MIXED HYPERLIPIDEMIA 07/26/2015 EDGAR STRAUSS Ot I10 ESSENTIAL (PRIMARY) HYPERTENSION 07/26/2015 EDGAR STRAUSS Ot I25.10 ATHSCL HEART DISEASE OF [place] CORONARY 07/26/2015 EDGAR STRAUSS Ot I65.23 OCCLUSION AND STENOSIS OF BILATERAL ORTIZ 08/08/2015 EDGAR STRAUSS Ot E78.2 MIXED HYPERLIPIDEMIA 08/08/2015 EDGAR STRAUSS Ot I10 ESSENTIAL (PRIMARY) HYPERTENSION 08/08/2015 EDGAR STRAUSS Ot I25.10 ATHSCL HEART DISEASE OF [place] CORONARY 08/08/2015 EDGAR STRAUSS Ot I65.23 OCCLUSION AND STENOSIS OF BILATERAL ORTIZ 08/21/2015 EDGAR STRAUSS Ot E78.2 MIXED HYPERLIPIDEMIA 08/21/2015 EDGAR STRAUSS Ot I10 ESSENTIAL (PRIMARY) HYPERTENSION 08/21/2015 EDGAR STRAUSS Ot I25.10 ATHSCL HEART DISEASE OF [place] CORONARY 08/21/2015 EDGAR STRAUSS Ot I65.23 OCCLUSION AND STENOSIS OF BILATERAL ORTIZ 05/13/2016 SARA HUMMEL, VICKY De La Paz Ot J06.9 ACUTE UPPER RESPIRATORY INFECTION, UNSPE 05/13/2016 SARA HUMMEL, VICKY De La Paz Ot R05 COUGH 05/13/2016 SARA HUMMEL, VICKY De La Paz Ot Z79.899 OTHER PENITENTIARY (CURRENT) DRUG THERAPY 05/15/2016 SARA HUMMEL, VICKY De La Paz Ot J06.9 ACUTE UPPER RESPIRATORY INFECTION, UNSPE 05/15/2016 SARA HUMMEL, VICKY De La Paz Ot R05 COUGH 05/15/2016 SARA HUMMEL, VICKY De La Paz Ot Z79.899 OTHER HELMET HAT BRIM CUTTER (CURRENT) DRUG THERAPY 05/17/2016 Ot 272.4 HYPERLIPIDEMIA [...] TYPE VESSEL, NATIV 05/17/2016 ARISTIDES CASTRO MD Ot 715.31 LOC OSTEOARTH NOS-SHLDER 05/17/2016 ARISTIDES CASTRO MD Ot V74.8 SCREEN-BACTERIAL DIS NEC 05/17/2016 JB MOHAMUD MD Ot 562.10 DIVERTICULOSIS COLON (W/O MENT OF HEMORR 05/17/2016 JB MOHAMUD MD Ot 592.0 CALCULUS OF KIDNEY 05/17/2016 ARISTIDES CASTRO MD Ot 790.99 BLOOD EXAM - OTH NONSPECIFIC FINDINGS 05/17/2016 EDGAR STRAUSS Ot 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 05/17/2016 EDGAR STRAUSS Ot 397.0 TRICUSPID VALVE DISEASE 05/17/2016 EDGAR STRAUSS Ot 401.9 HYPERTENSION NOS 05/17/2016 EDGAR STRAUSS Ot 414.00 CORON ATHEROSCLER NOS TYPE VESSEL, NATIV 05/17/2016 EGDAR STRAUSS Ot 496 CHR AIRWAY OBSTRUCT NEC 05/17/2016 EDGAR STRAUSS Ot 272.4 HYPERLIPIDEMIA NEC/NOS 05/17/2016 ARISTIDES CASTRO MD Ot 780.79 OTH MALAISE FATIGUE 05/17/2016 ARISTIDES CASTRO MD R Ot 786.2 COUGH 05/17/2016 TERE CARVAJAL MD Ot V72.84 EXAM PRE-OPERATIVE NOS 05/17/2016 EDIE HANDY MD Ot E78.5 HYPERLIPIDEMIA, UNSPECIFIED 05/17/2016 EDIE HANDY [...] DIAPHRAGMATIC HERNIA WITHOUT OBSTRUCTION 05/17/2016 TERE CARVAJAL MD, Ot Z01.812 ENCOUNTER FOR PREPROCEDURAL LABORATORY E 05/17/2016 NATHANIEL CASANOVA MD, Ot E04.1 NONTOXIC SINGLE THYROID NODULE 05/17/2016 EDGAR STRAUSS Ot E78.2 MIXED HYPERLIPIDEMIA 05/17/2016 EDGAR STRAUSS Ot I10 ESSENTIAL (PRIMARY) HYPERTENSION 05/17/2016 EDGAR STRAUSS Ot I25.10 ATHSCL HEART DISEASE OF [place] CORONARY 05/17/2016 EDGAR STRAUSS Ot I65.23 OCCLUSION [...] Ot 592.9 URINARY CALCULUS NOS 05/17/2016 EDIE HANYD MD Ot 272.4 HYPERLIPIDEMIA NEC/NOS 05/17/2016 EDIE [...] V72.84 EXAM PRE-OPERATIVE NOS 05/17/2016 EDIE HANDY MD Ot E78.5 HYPERLIPIDEMIA, UNSPECIFIED 05/17/2016 EDIE HANDY [...] E04.9 NONTOXIC GOITER, UNSPECIFIED 05/17/2016 TERE CARVAJAL MD Ot K44.9 DIAPHRAGMATIC HERNIA WITHOUT OBSTRUCTION 05/17/2016 TERE CARVAJAL MD Ot Z01.812 ENCOUNTER FOR PREPROCEDURAL LABORATORY E 05/17/2016 EDILBERTO HUMMEL, NATHANIEL Fan Ot E04.1 NONTOXIC SINGLE THYROID NODULE 05/17/2016 EDGAR STRAUSS Ot E78.2 MIXED HYPERLIPIDEMIA 05/17/2016 EDGAR STRAUSS Ot I10 ESSENTIAL (PRIMARY) HYPERTENSION 05/17/2016 EDGAR STRAUSS Ot I25.10 ATHSCL HEART DISEASE OF [place] CORONARY 05/17/2016 EDGAR STRAUSS Ot I65.23 OCCLUSION AND STENOSIS OF BILATERAL [place]TIZ 05/20/2016 ARISTIDES CASTRO MD Ot R06.02 SHORTNESS OF BREATH 05/21/2016 VICKY ROSALES MD Ot E89.0 POSTPROCEDURAL HYPOTHYROIDISM 05/21/2016 VICKY ROSALES MD Ot J20.8 ACUTE BRONCHITIS DUE TO OTHER SPECIFIED 05/21/2016 VICKY ROSALES MD Ot J44.0 CHRONIC OBSTRUCTIVE PULMON DISEASE W ACU 05/21/2016 VICKY ROSALES MD, Ot J44.1 CHRONIC OBSTRUCTIVE PULMONARY DISEASE W 05/21/2016 BOBBY HUMMEL, VICKY Russell Ot J45.909 UNSPECIFIED ASTHMA, UNCOMPLICATED 05/21/2016 VICKY ROSALES MD Ot K21.9 GASTRO-ESOPHAGEAL REFLUX DISEASE WITHOUT 05/21/2016 VICKY ROSALES MD Ot M19.91 PRIMARY OSTEOARTHRITIS, UNSPECIFIED SITE 05/21/2016 BOBBY HUMMEL, VICKY Russell Ot R09.02 HYPOXEMIA 06/18/2016 ARISTIDES CASTRO MD Ot R06.02 SHORTNESS OF BREATH 06/27/2016 ARISTIDES CASTRO MD Ot R06.02 SHORTNESS OF BREATH 10/12/2016 EDIE HANDY MD Ot E78.2 MIXED HYPERLIPIDEMIA 10/12/2016 EDIE HANDY MD Ot G47.62 SLEEP RELATED LEG CRAMPS 10/12/2016 EDIE HANDY MD Ot I11.0 HYPERTENSIVE HEART DISEASE WITH HEART FA 10/12/2016 EDIE HANDY MD Ot 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 10/12/2016 EDIE HANDY MD Ot I65.23 OCCLUSION AND STENOSIS OF BILATERAL [place]TI[place] 10/12/2016 EDIE HANDY MD Ot R07.89 OTHER CHEST PAIN 10/15/2016 KYRIE JULES MD Ot E03.9 HYPOTHYROIDISM, UNSPECIFIED 10/15/2016 KYRIE JULES MD, Ot E78.5 HYPERLIPIDEMIA, UNSPECIFIED 10/15/2016 KYRIE JULES MD Ot I10 ESSENTIAL (PRIMARY) HYPERTENSION 10/15/2016 KYRIE JULES MD Ot I25.10 ATHSCL HEART DISEASE OF [place] CORONARY 10/15/2016 KYRIE JULES MD Ot I34.0 NONRHEUMATIC MITRAL (VALVE) INSUFFICIENC 10/15/2016 KYRIE JULES MD, Ot K21.9 GASTRO-ESOPHAGEAL REFLUX DISEASE WITHOUT 10/15/2016 KYRIE JULES MD Ot K44.9 DIAPHRAGMATIC HERNIA WITHOUT OBSTRUCTION 10/15/2016 KYRIE JULES MD Ot K57.30 DVRTCLOS OF LG INT W/O PERFORATION OR AB 10/15/2016 KYRIE JULES MD Ot R07.89 OTHER CHEST PAIN 10/15/2016 KYRIE JULES MD Ot Z79.82 PENITENTIARY (CURRENT) USE OF ASPIRIN 10/15/2016 KYRIE JULES MD Ot Z79.899 OTHER PENITENTIARY (CURRENT) DRUG THERAPY 10/15/2016 KYRIE JULES MD Ot Z87.442 PERSONAL HISTORY OF URINARY CALCULI 10/15/2016 KYRIE JULES MD Ot E03.9 HYPOTHYROIDISM, UNSPECIFIED 10/15/2016 KYRIE JULES MD Ot E78.5 HYPERLIPIDEMIA, UNSPECIFIED 10/15/2016 KYRIE JULES MD Ot I10 ESSENTIAL (PRIMARY) HYPERTENSION 10/15/2016 KYRIE JULES MD Ot I25.10 ATHSCL HEART DISEASE OF [place] CORONARY 10/15/2016 KYRIE JULES MD Ot I34.0 NONRHEUMATIC MITRAL (VALVE) INSUFFICIENC 10/15/2016 KYRIE JULES MD Ot K21.9 GASTRO-ESOPHAGEAL REFLUX DISEASE WITHOUT 10/15/2016 KYRIE JULES MD Ot K44.9 DIAPHRAGMATIC HERNIA WITHOUT OBSTRUCTION 10/15/2016 KYRIE JULES MD Ot K57.30 DVRTCLOS OF LG INT W/O PERFORATION OR AB 10/15/2016 KYRIE JULES MD Ot R07.89 OTHER CHEST PAIN 10/15/2016 KYRIE JULES MD Ot Z79.82 PENITENTIARY (CURRENT) USE OF ASPIRIN 10/15/2016 KYRIE JULES MD Ot Z79.899 OTHER PENITENTIARY (CURRENT) DRUG THERAPY 10/15/2016 KYRIE JULES MD Ot Z87.442 PERSONAL HISTORY OF URINARY CALCULI 10/16/2016 EDIE HANDY MD Ot E78.2 MIXED HYPERLIPIDEMIA 10/16/2016 EDIE HANDY MD Ot G47.62 SLEEP RELATED LEG CRAMPS 10/16/2016 EDIE HANDY MD Ot I11.0 HYPERTENSIVE HEART DISEASE WITH HEART FA 10/16/2016 EDIE HANDY MD Ot 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 10/16/2016 EDIE HANDY MD Ot I65.23 OCCLUSION AND STENOSIS OF BILATERAL [place]TI[place] 10/16/2016 EDIE HANDY MD Ot R07.89 OTHER CHEST PAIN 10/16/2016 KYRIE JULES MD Ot E03.9 HYPOTHYROIDISM, UNSPECIFIED 10/16/2016 KYRIE JULES MD Ot E78.5 HYPERLIPIDEMIA, UNSPECIFIED 10/16/2016 KYRIE JULES MD Ot I10 ESSENTIAL (PRIMARY) HYPERTENSION 10/16/2016 KYRIE JULES MD, Ot I25.10 ATHSCL HEART DISEASE OF [place] CORONARY 10/16/2016 KYRIE JULES MD, Ot I34.0 NONRHEUMATIC MITRAL (VALVE) INSUFFICIENC 10/16/2016 KYRIE JULES MD Ot K21.9 GASTRO-ESOPHAGEAL REFLUX DISEASE WITHOUT 10/16/2016 KYRIE JULES MD Ot K44.9 DIAPHRAGMATIC HERNIA WITHOUT OBSTRUCTION 10/16/2016 KYRIE JULES MD, Ot K57.30 DVRTCLOS OF LG INT W/O PERFORATION OR AB 10/16/2016 KYRIE JULES MD, Ot R07.89 OTHER CHEST PAIN 10/16/2016 KYRIE JULES MD Ot Z79.82 PENITENTIARY (CURRENT) USE OF ASPIRIN 10/16/2016 KYRIE JULES MD, Ot Z79.899 OTHER HELMET HAT BRIM CUTTER (CURRENT) DRUG THERAPY 10/16/2016 KYRIE JULES MD, Ot Z87.442 PERSONAL HISTORY OF URINARY CALCULI 11/01/2016 EDIE HANDY MD Ot E78.2 MIXED HYPERLIPIDEMIA 11/01/2016 EDIE HANDY MD Ot G47.62 SLEEP RELATED LEG CRAMPS 11/01/2016 EDIE HANDY MD Ot I11.0 HYPERTENSIVE HEART DISEASE WITH HEART FA 11/01/2016 EDIE HANDY MD Ot 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 11/01/2016 EDIE HANDY MD Ot I65.23 OCCLUSION AND STENOSIS OF BILATERAL [place]TI[place] 11/01/2016 EDIE HANDY MD Ot R07.89 OTHER CHEST PAIN 11/06/2016 EDIE HANDY MD Ot E78.5 HYPERLIPIDEMIA, UNSPECIFIED 11/06/2016 EDIE HANDY MD Ot F41.9 ANXIETY DISORDER, UNSPECIFIED 11/06/2016 EDIE HANDY MD Ot I11.9 HYPERTENSIVE HEART DISEASE WITHOUT HEART 11/06/2016 EDIE HANDY MD Ot I34.0 NONRHEUMATIC MITRAL (VALVE) INSUFFICIENC 11/06/2016 EDIE HANDY MD Ot I70.1 ATHEROSCLEROSIS OF RENAL ARTERY 11/06/2016 EDIE HANDY MD Ot R07.89 OTHER CHEST PAIN 11/06/2016 EDIE HANDY MD, Ot Z79.899 OTHER HELMET HAT BRIM CUTTER (CURRENT) DRUG THERAPY 11/06/2016 EDIE HANDY MD Ot E78.2 MIXED HYPERLIPIDEMIA 11/06/2016 EDIE HANDY MD, Ot G47.62 SLEEP RELATED LEG CRAMPS 11/06/2016 EDIE HANDY MD Ot I11.0 HYPERTENSIVE HEART DISEASE WITH HEART FA 11/06/2016 EDIE HANDY MD Ot 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 11/06/2016 EDIE HANDY MD, Ot I65.23 OCCLUSION AND STENOSIS OF BILATERAL [place]TIZ 11/06/2016 EDIE HANDY MD, Ot R07.89 OTHER CHEST PAIN 02/13/2017 MATTHEW HUMMEL, ARISTIDES Toure Ot R06.02 SHORTNESS OF BREATH Procedures Code Description Performed By Performed On 37.22 LEFT HEART CARDIAC CATH 04/03/2011 88.42 CONTRAST AORTOGRAM 04/03/2011 88.45 CONTRAST RENAL ARTERIOGR 04/03/2011 88.53 LT HEART ANGIOCARDIOGRAM 04/03/2011 88.56 CORONAR ARTERIOGR-2 CATH 04/03/2011 00.40 PROCEDURE ON SINGLE VESSEL 04/05/2011 39.50 ANGIOPLASTY OF OTHER NON- CORONARY VESSEL 04/05/2011 Results Test Result Range Complete blood count (CBC) with automated white blood cell (WBC) differential - 05/17/16 11:35 Blood leukocytes automated count (number/volume) 3.8 10*3/uL 4.3-11.0 Blood erythrocytes automated count (number/volume) 4.65 10*6/uL 4.35-5.85 Venous blood hemoglobin measurement (mass/volume) 14.3 [...] Automated blood platelet mean volume measurement 9.8 [foz_us] 7.4-10.4 Automated blood neutrophils/100 leukocytes 51 % [...] Serum or plasma sodium measurement (moles/volume) 141 mmol/L 135-145 Serum or plasma potassium measurement (moles/volume) 3.5 mmol/L 3.6-5.0 Serum or plasma chloride measurement (moles/volume) 103 mmol/L 98-107 Carbon dioxide 28 mmol/L 21-32 Serum or plasma anion gap determination (moles/volume) 10 mmol/L 5-14 Serum or plasma urea nitrogen measurement (mass/volume) 17 mg/dL 7-18 Serum or plasma creatinine measurement (mass/volume) 0.84 mg/dL 0.60-1.30 Serum or plasma urea nitrogen/creatinine mass [...] or plasma troponin i.cardiac measurement (mass/volume) < ng/ mL <0.30 Serum or plasma lithium measurement (moles/volume) - 05/17/16 11:35 BNP level 34.9 pg/mL <100.0 Sputum Gram stain - 05/17/16 14:50 GRAM STAIN SPUTUM AND MIXED BACTERIAL TAVON NRG Bacterial sputum culture - 05/17/16 14:50 FREE TEXT EXTERNAL PLUS NORMAL TAVON NRG QUANTITY OF GROWTH Moderate Growth NR Bacterial sputum culture [id number] [facility] Bacterial susceptibility panel - 05/17/16 14:50 Gentamicin susceptibility test by minimum inhibitory concentration < = NRG Tobramycin susceptibility test by minimum inhibitory concentration < = NRG Piperacillin/tazobactam susceptibility test by minimum inhibitory concentration 8 NRG Ciprofloxacin susceptibility test by minimum inhibitory concentration <= NRG Meropenem susceptibility test by minimum inhibitory concentration < = NRG Cefepime susceptibility test by minimum inhibitory concentration 2 NRG Complete blood count (CBC) with automated white blood cell (WBC) differential - 10/15/16 00:39 Blood leukocytes automated count (number/volume) 6.8 10*3/uL 4.3-11.0 Blood erythrocytes automated count (number/volume) 4.47 10*6/uL 4.35-5.85 Venous blood hemoglobin measurement (mass/volume) 13.6 g/dL 11.5-16.0 Blood hematocrit (volume fraction) 41 % 35-52 Automated erythrocyte mean corpuscular volume 91 [foz_us] 80-99 Automated erythrocyte mean corpuscular hemoglobin (mass per erythrocyte) 30 pg 25-34 Automated erythrocyte mean corpuscular hemoglobin concentration measurement ( mass/volume) 33 g/dL 32-36 Automated erythrocyte distribution width ratio 14.4 % 10.0-14.5 Automated blood platelet count (count/volume) 217 10*3/uL 130-400 Automated blood platelet mean volume measurement 10.3 [foz_us] 7.4-10.4 Automated blood neutrophils/100 leukocytes 45 % 42-75 Automated blood lymphocytes/100 leukocytes 39 % 12-44 Blood monocytes/100 leukocytes 11 % 0-12 Automated blood eosinophils/100 leukocytes 4 % 0-10 Automated blood basophils/100 leukocytes 1 % 0-10 Blood neutrophils automated count (number/volume) 3.1 10*3 1.8-7.8 Blood lymphocytes automated count (number/volume) 2.7 10*3 1.0-4.0 Blood monocytes automated count (number/volume) 0.8 10*3 0.0-1.0 Automated eosinophil count 0.2 10*3/uL 0.0-0.3 Automated blood basophil count (count/volume) 0.0 10*3/uL 0.0-0.1 PT panel in platelet poor plasma by coagulation assay - 10/15/16 00:39 Prothrombin time (PT) in platelet poor plasma by coagulation assay 12.9 s 12.2-14.7 INR in platelet poor plasma or blood by coagulation assay 1.0 0.8-1.4 Activated partial thromboplastin time (aPTT) in platelet poor plasma bycoagulation assay - 10/15/16 00:39 Activated partial thromboplastin time (aPTT) in platelet poor plasma bycoagulation assay 28 s 24-35 Comprehensive metabolic panel - 10/15/16 00:39 Serum or plasma sodium measurement (moles/volume) 142 mmol/L 135-145 Serum or plasma potassium measurement (moles/volume) 3.7 mmol/L 3.6-5.0 Serum or plasma chloride measurement (moles/volume) 108 mmol/L 98-107 Carbon dioxide 24 mmol/L 21-32 Serum or plasma anion gap determination (moles/volume) 10 mmol/L 5-14 Serum or plasma urea nitrogen measurement (mass/volume) 15 mg/dL 7-18 Serum or plasma creatinine measurement (mass/volume) 0.81 mg/dL 0.60-1.30 Serum or plasma urea nitrogen/creatinine mass ratio 19 NRG Serum or plasma creatinine measurement with calculation of estimated glomerular filtration rate > NRG Serum or plasma glucose measurement (mass/volume) 113 mg/dL 70-105 Serum or plasma calcium measurement (mass/volume) 9.0 mg/dL 8.5-10.1 Serum or plasma total bilirubin measurement (mass/volume) 0.7 mg/dL 0.1-1.0 Serum or plasma alkaline phosphatase measurement (enzymatic activity/volume) 69 U/L 40-136 Serum or plasma aspartate aminotransferase measurement (enzymatic activity/ volume) 20 U/L 5-34 Serum or plasma alanine aminotransferase measurement (enzymatic activity/volume ) 12 U/L 0-55 Serum or plasma protein measurement (mass/volume) 6.8 g/dL 6.4-8.2 Serum or plasma albumin measurement (mass/volume) 4.0 g/dL 3.2-4.5 Magnesium - 10/15/16 00:39 Magnesium 2.3 mg/dL 1.8-2.4 Serum or plasma creatine kinase measurement (enzymatic activity/volume) - 10/15 00:39 Serum or plasma creatine kinase measurement (enzymatic activity/volume) 67 U/L 29-168 Serum or plasma creatine kinase MB measurement (enzymatic activity/volume) - 00:39 Serum or plasma creatine kinase MB measurement (enzymatic activity/volume) 1.2 ng/mL <6.6 Serum or plasma troponin i.cardiac measurement (mass/volume) - 10/15/16 00:39 Serum or plasma troponin i.cardiac measurement (mass/volume) < ng/ mL <0.30 Serum or plasma lithium measurement (moles/volume) - 10/15/16 00:39 BNP level 86.3 pg/mL <100.0 Serum or plasma amylase measurement (enzymatic activity/volume) - 10/15/16 00: 39 Serum or plasma amylase measurement (enzymatic activity/volume) 41 U /L 25-125 Lipase - 10/15/16 00:39 Lipase 30 U/L 8-78 Serum or plasma creatine kinase measurement (enzymatic activity/volume) - 10/15 05:00 Serum or plasma creatine kinase measurement (enzymatic activity/volume) 63 U/L 29-168 Serum or plasma troponin i.cardiac measurement (mass/volume) - 10/15/16 05:00 Serum or plasma troponin i.cardiac measurement (mass/volume) < ng/ mL <0.30 Myoglobin, serum - 10/15/16 05:00 Myoglobin, serum 45.2 ng/mL 10.0-92.0 Lipid 1996 panel - 10/15/16 05:00 Serum or plasma triglyceride measurement (mass/volume) 41 mg/dL <150 Serum or plasma cholesterol measurement (mass/volume) 153 mg/dL < 200 Serum or plasma cholesterol in HDL measurement (mass/volume) 64 mg/ dL 40-60 Cholesterol in LDL [mass/volume] in serum or plasma by direct assay 89 mg/dL 1-129 Serum or plasma cholesterol in VLDL measurement (mass/volume) 8 mg/ dL 5-40 Complete urinalysis with reflex to culture - 10/15/16 16:40 Urine color determination YELLOW NRG Urine clarity determination CLEAR NRG Urine pH measurement by test strip 8 5-9 Specific gravity of urine by test strip 1.015 1.016- 1.022 Urine protein assay by test strip, semi-quantitative NEGATIVE NEGATIVE Urine glucose detection by automated test strip NEGATIVE NEGATIVE Erythrocytes detection in urine sediment by light microscopy 2+ NEGATIVE Urine ketones detection by automated test strip NEGATIVE NEGATIVE Urine nitrite detection by test strip NEGATIVE NEGATIVE Urine total bilirubin detection by test strip NEGATIVE NEGATIVE Urine urobilinogen measurement by automated test strip (mass/volume) NORMAL NORMAL Urine leukocyte esterase detection by dipstick NEGATIVE NEGATIVE Automated urine sediment erythrocyte count by microscopy (number/high power field) [HPF] NRG Automated urine sediment leukocyte count by microscopy (number/high power field ) RARE NRG Bacteria detection in urine sediment by light microscopy NEGATIVE NRG Squamous epithelial cells detection in urine sediment by light microscopy 5-10 NRG Crystals detection in urine sediment by light microscopy NONE NRG Casts detection in urine sediment by light microscopy NONE NRG Mucus detection in urine sediment by light microscopy NEGATIVE NRG Complete urinalysis with reflex to culture NO NRG Automated blood complete blood count (hemogram) panel - 11/06/16 07:04 Blood leukocytes automated count (number/volume) 5.7 10*3/uL 4.3-11.0 Blood erythrocytes automated count (number/volume) 4.53 10*6/uL 4.35-5.85 Venous blood hemoglobin measurement (mass/volume) 14.0 g/dL 11.5-16.0 Blood hematocrit (volume fraction) 42 % 35-52 Automated erythrocyte mean corpuscular volume 93 [foz_us] 80-99 Automated erythrocyte mean corpuscular hemoglobin (mass per erythrocyte) 31 pg 25-34 Automated erythrocyte mean corpuscular hemoglobin concentration measurement ( mass/volume) 33 g/dL 32-36 Automated erythrocyte distribution width ratio 13.8 % 10.0-14.5 Automated blood platelet count (count/volume) 228 10*3/uL 130-400 Automated blood platelet mean volume measurement 9.5 [foz_us] 7.4-10.4 Complete urinalysis with reflex to culture - 11/06/16 07:04 Urine color determination YELLOW NRG Urine clarity determination CLEAR NRG Urine pH measurement by test strip 8 5-9 Specific gravity of urine by test strip 1.010 1.016- 1.022 Urine protein assay by test strip, semi-quantitative NEGATIVE NEGATIVE Urine glucose detection by automated test strip NEGATIVE NEGATIVE Erythrocytes detection in urine sediment by light microscopy 2+ NEGATIVE Urine ketones detection by automated test strip NEGATIVE NEGATIVE Urine nitrite detection by test strip NEGATIVE NEGATIVE Urine total bilirubin detection by test strip NEGATIVE NEGATIVE Urine urobilinogen measurement by automated test strip (mass/volume) NORMAL NORMAL Urine leukocyte esterase detection by dipstick NEGATIVE NEGATIVE Automated urine sediment erythrocyte count by microscopy (number/high power field) [HPF] NRG Automated urine sediment leukocyte count by microscopy (number/high power field ) NONE NRG Bacteria detection in urine sediment by light microscopy NEGATIVE NRG Squamous epithelial cells detection in urine sediment by light microscopy 5-10 NRG Crystals detection in urine sediment by light microscopy NONE NRG Casts detection in urine sediment by light microscopy NONE NRG Mucus detection in urine sediment by light microscopy NEGATIVE NRG Complete urinalysis with reflex to culture NO NRG PT panel in platelet poor plasma by coagulation assay - 11/06/16 07:04 Prothrombin time (PT) in platelet poor plasma by coagulation assay 12.7 s 12.2-14.7 INR in platelet poor plasma or blood by coagulation assay 0.9 0.8-1.4 Activated partial thromboplastin time (aPTT) in platelet poor plasma bycoagulation assay - 11/06/16 07:04 Activated partial thromboplastin time (aPTT) in platelet poor plasma bycoagulation assay 29 s 24-35 Comprehensive metabolic panel - 11/06/16 07:04 Serum or plasma sodium measurement (moles/volume) 143 mmol/L 135-145 Serum or plasma potassium measurement (moles/volume) 3.6 mmol/L 3.6-5.0 Serum or plasma chloride measurement (moles/volume) 106 mmol/L 98-107 Carbon dioxide 29 mmol/L 21-32 Serum or plasma anion gap determination (moles/volume) 8 mmol/L 5-14 Serum or plasma urea nitrogen measurement (mass/volume) 12 mg/dL 7-18 Serum or plasma creatinine measurement (mass/volume) 0.74 mg/dL 0.60-1.30 Serum or plasma urea nitrogen/creatinine mass ratio 16 NRG Serum or plasma creatinine measurement with calculation of estimated glomerular filtration rate > NRG Serum or plasma glucose measurement (mass/volume) 96 mg/dL 70-105 Serum or plasma calcium measurement (mass/volume) 9.3 mg/dL 8.5-10.1 Serum or plasma total bilirubin measurement (mass/volume) 1.1 mg/dL 0.1-1.0 Serum or plasma alkaline phosphatase measurement (enzymatic activity/volume) 72 U/L 40-136 Serum or plasma aspartate aminotransferase measurement (enzymatic activity/ volume) 21 U/L 5-34 Serum or plasma alanine aminotransferase measurement (enzymatic activity/volume ) 14 U/L 0-55 Serum or plasma protein measurement (mass/volume) 7.2 g/dL 6.4-8.2 Serum or plasma albumin measurement (mass/volume) 4.1 g/dL 3.2-4.5 Lipid 1996 panel - 11/06/16 07:04 Serum or plasma triglyceride measurement (mass/volume) 70 mg/dL <150 Serum or plasma cholesterol measurement (mass/volume) 186 mg/dL < 200 Serum or plasma cholesterol in HDL measurement (mass/volume) 74 mg/ dL 40-60 Cholesterol in LDL [mass/volume] in serum or plasma by direct assay 108 mg/dL 1-129 Serum or plasma cholesterol in VLDL measurement (mass/volume) 14 mg/ dL 5-40 Methicillin resistant Staphylococcus aureus (MRSA) screening culture - 07:04 Methicillin resistant Staphylococcus aureus (MRSA) screening culture NEG NRG Complete blood count (CBC) with automated white blood cell (WBC) differential - 02/12/17 10:20 Blood leukocytes automated count (number/volume) 5.2 10*3/uL 4.3-11.0 Blood erythrocytes automated count (number/volume) 4.21 10*6/uL 4.35-5.85 Venous blood hemoglobin measurement (mass/volume) 13.2 g/dL 11.5-16.0 Blood hematocrit (volume fraction) 39 % 35-52 Automated erythrocyte mean corpuscular volume 92 [foz_us] 80-99 Automated erythrocyte mean corpuscular hemoglobin (mass per erythrocyte) 31 pg 25-34 Automated erythrocyte mean corpuscular hemoglobin concentration measurement ( mass/volume) 34 g/dL 32-36 Automated erythrocyte distribution width ratio 13.1 % 10.0-14.5 Automated blood platelet count (count/volume) 206 10*3/uL 130-400 Automated blood platelet mean volume measurement 9.4 [foz_us] 7.4-10.4 Automated blood neutrophils/100 leukocytes 60 % 42-75 Automated blood lymphocytes/100 leukocytes 27 % 12-44 Blood monocytes/100 leukocytes 9 % 0-12 Automated blood eosinophils/100 leukocytes 4 % 0-10 Automated blood basophils/100 leukocytes 1 % 0-10 Blood neutrophils automated count (number/volume) 3.1 10*3 1.8-7.8 Blood lymphocytes automated count (number/volume) 1.4 10*3 1.0-4.0 Blood monocytes automated count (number/volume) 0.5 10*3 0.0-1.0 Automated eosinophil count 0.2 10*3/uL 0.0-0.3 Automated blood basophil count (count/volume) 0.0 10*3/uL 0.0-0.1 Comprehensive metabolic panel - 02/12/17 10:20 Serum or plasma sodium measurement (moles/volume) 144 mmol/L 135-145 Serum or plasma potassium measurement (moles/volume) 4.0 mmol/L 3.6-5.0 Serum or plasma chloride measurement (moles/volume) 109 mmol/L 98-107 Carbon dioxide 28 mmol/L 21-32 Serum or plasma anion gap determination (moles/volume) 7 mmol/L 5-14 Serum or plasma urea nitrogen measurement (mass/volume) 8 mg/dL 7-18 Serum or plasma creatinine measurement (mass/volume) 0.67 mg/dL 0.60-1.30 Serum or plasma urea nitrogen/creatinine mass ratio 12 NRG Serum or plasma creatinine measurement with calculation of estimated glomerular filtration rate > NRG Serum or plasma glucose measurement (mass/volume) 86 mg/dL 70-105 Serum or plasma calcium measurement (mass/volume) 8.7 mg/dL 8.5-10.1 Serum or plasma total bilirubin measurement (mass/volume) 0.6 mg/dL 0.1-1.0 Serum or plasma alkaline phosphatase measurement (enzymatic activity/volume) 63 U/L 40-136 Serum or plasma aspartate aminotransferase measurement (enzymatic activity/ volume) 17 U/L 5-34 Serum or plasma alanine aminotransferase measurement (enzymatic activity/volume ) 12 U/L 0-55 Serum or plasma protein measurement (mass/volume) 6.3 g/dL 6.4-8.2 Serum or plasma albumin measurement (mass/volume) 3.6 g/dL 3.2-4.5 Encounters ACCT No. Visit Date/Time Discharge Status Pt. Type Provider Facility Loc./Unit Complaint [id number] 03/07/2017 05:34:00 03/07/2017 09:37:00 DIS Outpatient TERE CARVAJAL MD [facility] PREOP EGD [id number] 02/13/2017 10:29:00 02/13/2017 23:59:59 CLS Outpatient FRANCISCO DAMON APRN [facility] RAD R10.9 [id number] 02/12/2017 10:01:00 02/12/2017 23:59:59 CLS Outpatient MATTHEW HUMMEL, ARISTIDES Toure [facility] LAB R06.02 [id number] 11/06/2016 06:38:00 11/06/2016 13:17:00 DIS Outpatient EDIE HANDY MD [facility] CATH HTN,RENAL ATERY STENOSIS ,HLP [id number] 10/15/2016 02:50:00 10/15/2016 17:50:00 DIS Inpatient KYRIE JULES MD [facility] ICU CHEST PAIN;HTN [id number] 10/10/2016 12:42:00 10/10/2016 23:59:59 CLS Outpatient EDIE HANDY MD [facility] CARD CHEST PAIN SYNDROME R07.89 [id number] 09/26/2016 12:23:00 09/26/2016 23:59:59 CLS Preadmit EDIE HANDY MD [facility] CARD CHEST PAIN SYNDROME R07.89 [id number] 05/17/2016 12:45:00 05/21/2016 17:56:00 DIS Inpatient BOBBY HUMMEL, VICKY Russell [facility] 4TH COPD EXACERBATION [id number] 05/17/2016 09:28:00 05/17/2016 23:59:59 CLS Outpatient ARISTIDES CASTRO MD [facility] RAD SOB [id number] 05/13/2016 09:24:00 05/13/2016 11:00:00 DIS Emergency VICKY RUIZ MD [facility] ER ABD PAIN [id number] 07/20/2015 08:20:00 07/20/2015 23:59:59 CLS Outpatient EDGAR STRAUSS [facility] CARD CAD,CAROTID ARTERY STENOSIS,HTN,HLP [id number] 05/11/2015 07:30:00 05/11/2015 23:59:59 CLS Outpatient NATHANIEL CASANOVA MD [facility] FINE NEEDLE CHANGES, SUSP OF PAPILLARY CA THYROID [id number] 05/04/2015 08:37:00 05/04/2015 09:39:00 DIS Outpatient NATHANIEL CASANOVA MD [facility] PREOP FNA SUSP. PAPILLARY CA THYROID [id number] 04/13/2015 10:56:00 04/13/2015 23:59:59 CLS Outpatient NATHANIEL CASANOVA MD [facility] RAD GOITER, LEFT NODULE [id number] 04/06/2015 06:00:00 04/07/2015 09:45:00 DIS Out[facility] [id number] 03/30/2015 10:25:00 03/30/2015 23:59:59 CLS Outpatient NATHANIEL CASANOVA MD [facility] RAD GOITER LT NODULE [id number] 03/28/2015 12:57:00 03/28/2015 23:59:59 CLS Outpatient TERE CARVAJAL MD [facility] PREOP HIATAL HERNIA [id number] 03/01/2015 07:09:00 03/01/2015 23:59:59 CLS Outpatient NATHANIEL CASANOVA MD [facility] RAD GOITER [id number] 11/24/2014 07:46:00 11/24/2014 23:59:59 CLS Outpatient ROZINA HUMMEL, EDIE Knutson [facility] LAB HYPERLIPIDEMIA,CAD,COPD, HTN,CHEST PAIN [id number] 07/04/2014 09:59:00 07/04/2014 23:59:59 CLS Outpatient POPEYE PASCAL [facility] QUICK [id number] 06/01/2014 08:14:00 06/01/2014 13:45:00 DIS Outpatient TERE CARVAJAL MD [facility] SDC POSITIVE OCCULT BLOOD [id number] 05/30/2014 06:14:00 05/30/2014 23:59:59 CLS Outpatient TERE CARVAJAL MD [facility] PREOP POSITIVE OCCULT BLOOD [id number] 01/19/2014 16:30:00 01/19/2014 23:59:59 CLS Outpatient ARISTIDES CASTRO MD [facility] LAB INCHING,STINGING [id number] 12/03/2013 08:27:00 12/03/2013 23:59:59 CLS Outpatient EDGAR STRAUSS [facility] LAB HYPERLIPIDEMIA [id number] 11/10/2013 10:34:00 11/10/2013 23:59:59 CLS Outpatient EDGAR STRAUSS [facility] CARD CAD,COPD, CAROTID ARTERY STENOSIS,HTN [id number] 05/04/2013 08:26:00 05/04/2013 23:59:59 CLS Outpatient ARISTIDES CASTRO MD [facility] LAB HX LOW ALB,LOW PROT [id number] 03/04/2013 11:36:00 03/04/2013 23:59:59 CLS Outpatient JB MOHAMUD MD [facility] RAD RUQ PAIN,STONES, HEMATURIA [id number] 02/02/2013 10:01:00 02/02/2013 23:59:59 CLS Outpatient ARISTIDES CASTRO MD [facility] LAB MRSA [id number] 12/10/2012 10:32:00 12/10/2012 23:59:59 CLS Outpatient ARISTIDES CASTRO MD [facility] RAD PAIN IN RT SHOULDER [id number] 12/02/2012 07:51:00 12/02/2012 23:59:59 CLS Outpatient EDIE HANDY MD [facility] LAB HLP,HTN,CAD [id number] 10/21/2012 05:55:00 10/21/2012 10:38:00 DIS Outpatient JB MOHAMUD MD [facility] SDC RIGHT RENAL STONE [id number] 10/20/2012 11:44:00 10/20/2012 23:59:59 CLS Outpatient JB MOHAMUD MD [facility] PREOP RIGHT URETERAL STONE [id number] 10/20/2012 08:34:00 10/20/2012 23:59:59 CLS Outpatient JB MOHAMUD MD [facility] RAD STONE [id number] 10/09/2012 18:03:00 10/09/2012 21:28:00 DIS Emergency MARGARETTE DO, RODRIGO K [facility] ER ELEVATED BP [id number] 06/19/2012 06:50:00 06/19/2012 23:59:59 CLS Outpatient EDIE HANDY MD [facility] RAD RENAL ART STENOSIS,MR, MALIGNANT HTN [id number] 03/12/2017 12:30:00 PEN Preadmit TERE CARVAJAL MD [facility] ENDO DYSPHAGIA [id number] 05/29/2012 07:48:00 Document Registration [id number] 01/29/2012 06:44:00 Document Registration [id number] 01/23/2012 09:23:00 Document Registration [id number] 01/23/2012 09:12:00 Document Registration [id number] 01/04/2012 09:15:00 Document Registration [id number] 12/16/2011 09:35:00 Document Registration [id number] 11/07/2011 07:43:00 Document Registration [id number] 08/28/2011 08:08:00 Document Registration [id number] 08/22/2011 08:23:00 Document Registration [id number] 04/09/2011 08:12:00 Document Registration [id number] 04/06/2011 09:00:00 Document Registration [id number] 09/21/2010 08:04:00 Document Registration [id number] 06/07/2010 10:14:00 Document Registration [id number] 04/06/2010 08:00:00 Document Registration [id number] 09/06/2009 10:31:00 Document Registration [id number] 04/25/2009 10:42:00 Document Registration [id number] 04/13/2009 08:37:00 Document Registration [id number] 01/10/2009 07:21:00 Document Registration
[2017-03-12 11:25] VITALS: BP 137/85
--- NOTE | 2017-03-12 11:32 | Conscious Sedation/ASA ---
Conscious Sedation Pre-Proced Time Reviewed: 11:30 ASA Class: 2 Airway Mallampati Classification: ([place] appropriate class) I. II. III, IV Lungs Heart ASA score ASA 1: a normal healthy patient ASA 2: a patient with a mild systemic disease (mid diabetes, controlled hypertension, obesity ASA 3: a patient with a severe systemic disease that limits activity (angina , COPD, prior Myocardial infarction) ASA 4: a patient with an incapacitating disease that is a constant threat to life (CHF, renal failure) ASA 5: a moribund patient not expected to survive 24 hrs. (ruptured aneurysm) ASA 6: a declared brain patient whose organs are being harvested. For emergent operations, add the letter E after the classification Grade 2 Sedation Plan: Analgesia, Amnesia, Plan communicated to team members, Discussed options with patient/fam, Discussed risks with patient/fam Note The patient is an appropriate candidate to undergo the planned procedure, sedation, and anesthesia. The patient immediately re-assessed prior to indication. TERE CARVAJAL MD Mar 12, 2017 11:32 am
--- NOTE | 2017-03-12 11:33 | Progress Note-Pre Operative ---
Pre-Operative Progress Note H&P Reviewed The H&P was reviewed, patient examined and no changes noted. Date Seen by Provider: Mar 12, 2017 Time Seen by Provider: 11:30 Date H&P Reviewed: Mar 12, 2017 Time H&P Reviewed: :30 Pre-Operative Diagnosis: dysphagia TERE CARVAJAL MD Mar 12, 2017 11:33 am
[2017-03-12] MEDS ORDERED: NS IV 500 ML 500 ML IV PRN (11:45)
[2017-03-12] MEDS ORDERED: ONDANSETRON 4 MG/2 ML (SDV) Z0FRAN IV PRN (11:45)
[2017-03-12] MEDS ORDERED: ACETAMINOPHEN 325 MG TABLET/CAPLET (TYLENOL) PO PRN (11:45)
[2017-03-12] MEDS ORDERED: HYDROcodone/APAP 5 MG/325 MG (LORTAB) TAB PO PRN (11:45)
[2017-03-12] MEDS ORDERED: LIDOCAINE JELLY 2% (XYLOCAINE) 5 ML TUBE MM PRN (11:45)
[2017-03-12] MEDS ORDERED: HURRICAINE EXT TUBE (BENZOCAINE) XX PRN (11:45)
[2017-03-12] MEDS ORDERED: morphine INJ 10 MG/ML 1ML (SYR OR VIAL) IV PRN (11:45)
[2017-03-12] MEDS ORDERED: NS IV 500 ML 500 ML ONE (12:10)
[2017-03-12] MEDS ORDERED: fentaNYL INJECTION 100 MCG/2 ML AMP ONE (13:22)
[2017-03-12] MEDS ORDERED: LIDOCAINE JELLY 2% (XYLOCAINE) 5 ML TUBE ONE (13:22)
[2017-03-12] MEDS ORDERED: HURRICAINE EXT TUBE (BENZOCAINE) ONE (13:22)
[2017-03-12] MEDS ORDERED: MIDAZOLAM 2 MG/2 ML (VERSED) VIAL ONE ×2 (13:22)
[2017-03-12] MEDS: fentaNYL INJECTION 100 MCG/2 ML AMP IVP PRN ×4 (13:40→14:05)
[2017-03-12] MEDS: MIDAZOLAM 2 MG/2 ML (VERSED) VIAL IVP PRN ×4 (13:42→14:07)
--- NOTE | 2017-03-12 14:24 | Progress Note-Post Operative ---
Post-Operative Progess Note Surgeon (s)/Radar Signal Processing Engineer (s) Surgeon TERE CARVAJAL MD Radar Signal Processing Engineer: none Pre-Operative Diagnosis dysphagia Post-Operative Diagnosis reflux esophagitis(class B), mild distal esophageal stricture, mild gastritis. Procedure & Operative Findings Date of Procedure 03/12/17 Procedure Performed/Findings EGD with bx and balloon dilatation. Anesthesia Type CS Estimated Blood Loss Estimated blood loss (mL): minimal Specimens/Packing Specimens Removed GE jxn, antrum. TERE CARVAJAL MD Mar 12, 2017 2:24 pm
--- NOTE | 2017-03-12 14:26 | Discharge Inst-Surgical ---
D/C Lap Instructions-WEI Follow Up PRN Activity as tolerated soft foods next few days then advance as tolerated. Avoid Alcohol, Caffeine, Spicy [place] and Acid foods. Drink 64 fluid oz or more of fluids per day. Symptoms to Report: Fever over 101 degree F, Nausea/Vomiting If any problems/questions: Contact your physician or go to Emergency Room TERE CARVAJAL MD Mar 12, 2017 2:26 pm
[2017-03-12 14:55] VITALS: BP 141/69
[2017-03-12 15:15] VITALS: BP 137/70
[2017-03-12 15:20] VITALS: BP 137/70
--- NOTE | 2017-03-13 00:07 | OPERATIVE REPORT ---
DATE OF SERVICE: 03/12/2017 ATTENDING PRIMARY CARE PHYSICIAN: Dr. Maycol Andrade. PREOPERATIVE DIAGNOSIS: Dysphagia. POSTOPERATIVE DIAGNOSES: Intact previous hiatal hernia repair and Emeka fundoplication with a mild distal esophageal stricture. Mild gastritis. PROCEDURE: EGD with biopsy and dilatation. SURGEON: Dr. Carvajal. ANESTHESIA: Conscious sedation. ESTIMATED BLOOD LOSS: Minimal. FINDINGS: Intact hiatal hernia repair and Emeka fundoplication with a mild distal esophageal stricture secondary to scar tissue formation. Mild gastritis. Pylorus and duodenum appeared normal with no distal obstructions. DISPOSITION: The patient tolerated the procedure well. INDICATIONS: The patient is a 81-year-old female with a longstanding history of gastroesophageal reflux disease. She was having severe reflux and regurgitation and did undergo an EGD and was found to have a significant sized hiatal hernia approximately 3 cm in size. Despite maximum medical therapy, she continued to have symptoms and underwent a hiatal hernia repair as well as a Emeka fundoplication. She states that she did well for the past few years; however, the past two months has had dysphagia with a feeling of epigastric pressure sensation while trying take in a food bolus. DESCRIPTION OF PROCEDURE: The patient was brought to the endoscopy suite, laid in the left lateral decubitus position. After adequate IV pain and sedative medications and conscious sedation anesthesia, the mouthpiece was applied. The endoscope was then gently intubated in the esophageal opening and esophagus insufflated. The endoscope was then advanced to the first, second and third portions of the esophagus. At the level of the GE junction, reflux esophagitis class B identified. There were no ulcerations identified in this region. A biopsy was taken with forceps with visualization of good hemostasis. Air pressure was left in place and the wrap appeared to be intact with a mild stricture from her previous Emeka fundoplication as well as scar tissue formation identified. The endoscope was then advanced in the stomach and the endoscope retroflexed again visualizing an intact previous hiatal hernia repair as well as Emeka fundoplication. There was mild severity of gastritis. There were no ulcers, polyps or any neoplasms identified. The endoscope was then advanced to the pylorus and the first and second portions of the duodenum with no distal obstructions. A biopsy was also taken of the antrum for H. pylori. We then proceeded with dilatation of the distal esophageal stricture. A CRE fixed guidewire balloon was placed into the stomach and pulled back to the area of the stricture. The balloon was then dilated first with 3 atmospheres of pressure with mild resistance. We then proceeded to 4.5 atmospheres of pressure or 19 mm circumferential diameter with moderate resistance and left this in place for approximately 60 seconds. The balloon was then desufflated and removed. There were no mucosal tears identified as well as no bleeding. The endoscope was slowly withdrawn taking a second look and suctioning residual air with no additional findings. The patient tolerated the procedure well. We will have her start a soft diet and advance as tolerated. If she has recurrent symptoms, she will need a repeat esophageal dilatation. Job ID: [id number] DocumentID: [id number] Dictated Date: 03/12/2017 14:21:46 General Utility Maintenance Repairer Date: 03/13/2017 00:06:17 Dictated By: TERE CARVAJAL MD
== END 2017-03-12 15:25 | disposition home or self-care (01) ==
LOC: ENDO 11:09
PROVIDERS: ATTEND Surgery
DX: K22.2 Esophageal obstruction (principal); K29.70 Gastritis, unspecified, without bleeding; K21.9 Gastro-esophageal reflux disease without esophagitis; I10 Essential (primary) hypertension; E78.00 Pure hypercholesterolemia, unspecified; I73.9 Peripheral vascular disease, unspecified; J44.9 Chronic obstructive pulmonary disease, unspecified; Z79.82 Long term (current) use of aspirin; Z79.899 Other long term (current) drug therapy

== ENCOUNTER 2017-11-24 10:44 | Outpatient (RCR) | payer MEDICARE ==
[~2017-11-24 10:44] MED LIST changes: -AMLO10TA2 PO; +AMLO10TA6 PO; -LOSA100T28 PO; +LOSA100T8 PO
== END 2018-02-22 | disposition home or self-care (01) ==
LOC: CARD 10:44
PROVIDERS: ATTEND Physician Assistant
DX: I25.10 Atherosclerotic heart disease of native coronary artery without angina pectoris (principal); R07.89 Other chest pain; I10 Essential (primary) hypertension; E78.5 Hyperlipidemia, unspecified; I08.3 Combined rheumatic disorders of mitral, aortic and tricuspid valves
CPT/HCPCS: 93225; 93226; 93306

== ENCOUNTER → 2018-01-29 | Outpatient (CLI) | payer MEDICARE ==
[2018-01-29 11:56] LABS: ALANINE AMINOTRANSFERASE 15 U/L (0-55); ALKALINE PHOSPHATASE 63 U/L (40-136); BILIRUBIN,TOTAL 0.6 MG/DL (0.1-1.0); BUN/CREATININE RATIO 17; CARBON DIOXIDE 27 MMOL/L (21-32); CHLORIDE 108 MMOL/L (98-107); CREATININE SERUM 0.78 MG/DL (0.60-1.30); GFR ESTIMATED > 60; GLUCOSE 76 MG/DL (70-105); POTASSIUM 4.4 MMOL/L (3.6-5.0); SODIUM 143 MMOL/L (135-145)
== END ==
LOC: LAB 11:21
PROVIDERS: ATTEND Internal Medicine Cardiovascular Disease
DX: I65.29 Occlusion and stenosis of unspecified carotid artery (principal); R07.89 Other chest pain; J44.9 Chronic obstructive pulmonary disease, unspecified; I25.10 Atherosclerotic heart disease of native coronary artery without angina pectoris; I10 Essential (primary) hypertension; E78.5 Hyperlipidemia, unspecified; I27.20 Pulmonary hypertension, unspecified
CPT/HCPCS: 36415; 80053

== ENCOUNTER 2018-03-04 13:18 | Emergency (ER) | payer MEDICARE ==
[~2018-03-04] VITALS: Ht 157.5 cm; Wt 58.1 kg
[~2018-03-04 13:18] MED LIST changes: -AMLO10TA6 PO; +AMLO10TA7 PO; +LOSA100T57 PO; -LOSA100T8 PO
[2018-03-04 13:56] LABS: BASOPHILS % (AUTO) 0 % (0-10); EOSINOPHILS # (AUTO) 0.2 10^3/uL (0.0-0.3); EOSINOPHILS % (AUTO) 3 % (0-10); HEMATOCRIT 36 % (35-52); HEMOGLOBIN 11.6 G/DL (11.5-16.0); LYMPHOCYTES # (AUTO) 1.1 X 10^3 (1.0-4.0); LYMPHOCYTES % (AUTO) 17 % (12-44); MEAN CORPUSCULAR HEMOGLOBIN 31 PG (25-34); MEAN CORPUSCULAR HGB CONC 33 G/DL (32-36); MEAN CORPUSCULAR VOLUME 94 FL (80-99); MEAN PLATELET VOLUME 9.7 FL (7.4-10.4); MONOCYTES # (AUTO) 0.9 X 10^3 (0.0-1.0); MONOCYTES % (AUTO) 14 % (0-12); NEUTROPHILS # (AUTO) 4.1 X 10^3 (1.8-7.8); NEUTROPHILS % (AUTO) 66 % (42-75); PLATELET COUNT 190 10^3/uL (130-400); RED BLOOD COUNT 3.78 10^6/uL (4.35-5.85); RED CELL DISTRIBUTION WIDTH 13.8 % (10.0-14.5); WHITE BLOOD COUNT 6.2 10^3/uL (4.3-11.0)
--- NOTE | 2018-03-04 14:04 | ED General ---
General Chief Complaint: General Problems/Pain Stated Complaint: LIGHT HEADED Nursing Triage Note: PT REPORTS NOT FEELING WELL AND BEING VERY TIRED. PT WENT TO WALK IN CLINIC ON FRIDAY FOR CONGESTION AND WAS GIVEN ANTIBIOTICS. Nursing Sepsis Screen: No Definite Risk Source of Information: Patient Exam Limitations: No Limitations History of Present Illness Date Seen by Provider: Mar 04, 2018 Time Seen by Provider: 14:02 Initial Comments To ER per EMS from home with reports of general malaise and a productive cough. She states that she was unusually fatigued the last week and spent most of the day sleeping and reading she went to an urgent care yesterday and was prescribed an antibiotic or cough. She awakened this morning feeling even worse and warned down yesterday. She still has a productive cough, maybe slightly improved but not significantly. She does have nasal congestion. No fevers. No pain. Timing/Duration: 1 Week, Getting Worse Severity: Moderate Associated Systoms: Cough, Malaise, Weakness Allergies and Home Medications Allergies Coded Allergies: duloxetine HCl (Verified Allergy, Intermediate, BLISTERS, 05/04/15) Penicillins (Verified Allergy, Mild, 04/03/11) Home Medications Aspirin 81 Mg Tablet.dr, 81 MG PO HS, (Reported) Carvedilol 12.5 Mg Tablet, 12.5 MG PO BID, (Reported) Levothyroxine Sodium 50 Mcg Tablet, 50 MCG PO DAILY, (Reported) Losartan Potassium 100 Mg Tablet, 100 MG PO DAILY, (Reported) Multivitamin 1 Each Tablet, 1 TAB PO DAILY, (Reported) Brooker-3/Dha/Epa/Fish Oil 1 Each Capsule, 1,000 MG PO 0800,1200, (Reported) Pantoprazole Sodium 40 Mg Tablet.dr, 40 MG PO DAILY, (Reported) Patient Home Medication List Home Medication List Reviewed: Yes Review of Systems Review of Systems Constitutional: see HPI, malaise, weakness EENTM: see HPI Respiratory: see HPI, cough Cardiovascular: no symptoms reported Genitourinary: no symptoms reported Musculoskeletal: no symptoms reported Skin: no symptoms reported Psychiatric/Neurological: No Symptoms Reported Hematologic/Lymphatic: No Symptoms Reported Past Qvnrecv-Ppdnkf-Sjhcfo Hx Patient Social History Alcohol Use: Denies Use Recreational Drug Use: No Smoking Status: Never a Smoker Recent Foreign Travel: No Contact w/Someone Who Travel: No Recent Infectious Disease Expo: No Recent Hopitalizations: No Physical Abuse: No Sexual Abuse: No Immunizations Up To Date Tetanus Booster (TDap): Unknown PED Vaccines UTD: Yes Date of Pneumonia Vaccine: Jun 01, 2004 Seasonal Allergies Seasonal Allergies: No Past Medical History Surgeries: Yes (KIDNEY STONE REMOVAL, ORAL SX, ANGIOPLASTY RIGHT RENAL ARTERY) Abdominal, Gallbladder, Hysterectomy, Orthopedic, Renal, Thyroidectomy Respiratory: Yes (lung nodules) COPD Currently Using CPAP: No Currently Using BIPAP: No Cardiac: Yes (CAROTID DISEASE; RIGHT RENAL ARTERY STENOSIS--S/P ANGIOPLASTY 2011) Coronary Artery Disease, High Cholesterol, Hypertension, Irregular Heartbeat, Valvular Heart Disease Neurological: No Reproductive Disorders: No 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, 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 Sexually Transmitted Disease: No HIV/AIDS: No Genitourinary: Yes (OVERACTIVE BLADDER; INCONTINENCE) Kidney Stones Gastrointestinal: Yes (S/P HIATAL HERNIA REPAIR, DYSPHAGIA) Gastroesophageal Reflux, Diverticulosis, Hiatal Hernia Musculoskeletal: Yes (CHRONIC LEG PAIN ) Arthritis Endocrine: Yes (BENIGN NODULE ON THYROID, BX ON 03/30/15; THYROIDECTOMY 05/2015- -GOITER) Hypothyroidsim HEENT: Yes Cataract Hearing Impairment: Denies Cancer: No Psychosocial: No Integumentary: Yes (hx of mrsa) Blood Disorders: No Adverse Reaction/Blood Tranf: No Family Medical History Cardiovascular disease G8 SISTER Colon cancer G8 BROTHER FH: cancer 19 FATHER (lung) 19 MOTHER G8 SISTER (esophagus) Psychosocial problem 19 MOTHER Physical Exam Vital Signs Vital Signs - First Documented 03/04/18 13:19 Temp 97.9 Pulse 63 Resp 28 B/P (MAP) 139/92 (108) Pulse Ox 97 Capillary Refill : Less Than 3 Seconds Height, Weight, BMI Height: 5'2.00" Weight: 128lbs. 0.0oz. [id number]; 23.8 BMI Method:Stated General Appearance: No Apparent Distress, WD/WN Eyes: Bilateral Eye Normal Inspection, Bilateral Eye PERRL, Bilateral Eye EOMI HEENT: PERRL/EOMI, TMs Normal Neck: Full Range of Motion, Normal Inspection Respiratory: Lungs Clear, Normal Breath Sounds, No Accessory Muscle Use, No Respiratory Distress Cardiovascular: Regular Rate, Rhythm, Normal Peripheral Pulses Gastrointestinal: Normal Bowel Sounds, Non Tender, Soft Extremity: Normal Capillary Refill, Normal Inspection Neurologic/Psychiatric: Alert, Oriented x3, No Motor/Sensory Deficits Skin: Normal Color, Warm/Dry Progress/Results/Core Measures Suspected Sepsis Recent Fever Within 48 Hours: No Infection Criteria Present: None New/Unexplained Altered Menta: No Sepsis Screen: No Definite Risk SIRS Temperature:97.9 Pulse: 63 Respiratory Rate: 28 Laboratory Tests 03/04/18 13:31: White Blood Count 6.2 Blood Pressure 139 /92 Mean: 108 Laboratory Tests 03/04/18 13:31: Creatinine 0.72, Platelet Count 190, Total Bilirubin 0.4 Results/Orders Lab Results Laboratory Tests Test 03/04/18 13:31 Range/Units White Blood Count 6.2 4.3-11.0 10^3/uL Red Blood Count 3.78 L 4.35-5.85 10^6/uL Hemoglobin 11.6 11.5-16.0 G/DL Hematocrit 36 35-52 % Mean Corpuscular Volume 94 80-99 FL Mean Corpuscular Hemoglobin 31 25-34 PG Mean Corpuscular Hemoglobin Concent 33 32-36 G/DL Red Cell Distribution Width 13.8 10.0-14.5 % Platelet Count 190 130-400 10^3/uL Mean Platelet Volume 9.7 7.4-10.4 FL Neutrophils (%) (Auto) 66 42-75 % Lymphocytes (%) (Auto) 17 12-44 % Monocytes (%) (Auto) 14 H 0-12 % Eosinophils (%) (Auto) 3 0-10 % Basophils (%) (Auto) 0 0-10 % Neutrophils # (Auto) 4.1 1.8-7.8 X 10^3 Lymphocytes # (Auto) 1.1 1.0-4.0 X 10^3 Monocytes # (Auto) 0.9 0.0-1.0 X 10^3 Eosinophils # (Auto) 0.2 0.0-0.3 10^3/uL Basophils # (Auto) 0.0 0.0-0.1 10^3/uL Sodium Level 140 135-145 MMOL/L Potassium Level 4.2 3.6-5.0 MMOL/L Chloride Level 108 H 98-107 MMOL/L Carbon Dioxide Level 27 21-32 MMOL/L Anion Gap 5 5-14 MMOL/L Blood Urea Nitrogen 20 H 7-18 MG/DL Creatinine 0.72 0.60-1.30 MG/DL Estimat Glomerular Filtration Rate > 60 BUN/Creatinine Ratio 28 Glucose Level 73 70-105 MG/DL Calcium Level 8.3 L 8.5-10.1 MG/DL Corrected Calcium 8.8 8.5-10.1 MG/DL Magnesium Level 2.3 1.8-2.4 MG/DL Total Bilirubin 0.4 0.1-1.0 MG/DL Aspartate Amino Transf (AST/SGOT) 24 5-34 U/L Alanine Aminotransferase (ALT/SGPT) 12 0-55 U/L Alkaline Phosphatase 59 40-136 U/L Troponin I < 0.028 <0.028 NG/ML B-Type Natriuretic Peptide 158.6 H <100.0 PG/ML Total Protein 6.2 L 6.4-8.2 GM/DL Albumin 3.4 3.2-4.5 GM/DL Thyroid Stimulating Hormone (TSH) 2.47 0.35-4.94 UIU/ML My Orders Orders - ROBBIE MELISSA APRN Cbc With Automated Diff (03/04/18 13:48) Comprehensive Metabolic Panel (03/04/18 13:48) Ua Culture If Indicated (03/04/18 13:48) Influenza A And B Antigens (03/04/18 13:48) BNP (03/04/18 13:49) Troponin I (03/04/18 13:49) Thyroid Stimulating Hormone (03/04/18 13:49) Magnesium (03/04/18 13:49) Ekg Tracing (03/04/18 13:49) Chest Pa/Lat (2 View) (03/04/18 13:52) General/Regular (03/04/18 Lunch) Vital Signs/I&O 03/04/18 13:19 Temp 97.9 Pulse 63 Resp 28 B/P (MAP) 139/92 (108) Pulse Ox 97 Capillary Refill : Less Than 3 Seconds Blood Pressure Mean: 108 Diagnostic Imaging Diagonstic Imaging: Xray Plain Films/CT/US/NM/MRI: chest Comments NAME: LEONA IRVINClifford Moulton MED REC#: [id number] PT STATUS: REG ER : 1935 PHYSICIAN: ROBBIE MELISSA APRN ADMIT DATE: 03/04/18/ER Draft Date of Exam:03/04/18 CHEST PA/LAT (2 VIEW) CLINICAL INDICATION: Patient reports not feeling well and being very tired. Patient has congestion. EXAM: Chest x-ray, PA and lateral views. COMPARISONS: Chest x-ray dated 11/06/2016. FINDINGS: Lungs/pleura: Stable mild increased lung markings throughout both lungs which may represent atelectasis versus scarring. There is no interval lung infiltrate. There is no pneumothorax. There is no pleural effusion. Mediastinum: Unremarkable. Pulmonary vasculature: Unremarkable. Heart: Stable mild cardiomegaly Bones/extrathoracic soft tissue: There are mildly hypertrophic spurs involving the thoracic spine. Again seen dextroscoliosis of the thoracolumbar spine. Surgical clips are seen overlying the right upper quadrant which could be related to cholecystectomy changes. IMPRESSION: Stable chest x-ray exam with no interval radiographic evidence of acute cardiopulmonary process. Dictated on workstation # [id number] Dict: 03/04/18 1412 Trans: 03/04/18 1425 [id number] Interpreted by: WADE FRANK MD Electronically signed by: Departure Communication (Admissions) Patient states she would like to try some cough medication with codeine to quell her cough, as this has worked well for her in the past. Impression Primary Impression: Bronchitis Additional Impression: Weakness generalized Disposition: 01 HOME, SELF-CARE Condition: Stable Departure-Patient Inst. Decision time for Depature: 14:28 Referrals: ARISTIDES CASTRO MD (PCP/Family) Primary Care Physician Patient Instructions: Acute Bronchitis in Adults, Generalized Weakness Add. Discharge Instructions: 1. Continue the antibiotics 2. Cough medication as directed 3. Return to ER for any concerns. Follow-up with her doctor within 48 hours for recheck. All discharge instructions reviewed with patient and/or family. Voiced understanding. Scripts Acetaminophen with Codeine (Tylenol with Codeine #3 Tablet) 1 Each Tablet 1 EACH PO Q6H PRN for COUGH, #10 TAB Prov: ROBBIE MELISSA BAR TURNER 03/04/18 ROBBIE MELISSA APRN Mar 04, 2018 14:04
[2018-03-04 14:08] LABS: ALANINE AMINOTRANSFERASE 12 U/L (0-55); ALBUMIN 3.4 GM/DL (3.2-4.5); ALKALINE PHOSPHATASE 59 U/L (40-136); BILIRUBIN,TOTAL 0.4 MG/DL (0.1-1.0); BUN/CREATININE RATIO 28; CALCIUM 8.3 MG/DL (8.5-10.1); CARBON DIOXIDE 27 MMOL/L (21-32); CHLORIDE 108 MMOL/L (98-107); CREATININE SERUM 0.72 MG/DL (0.60-1.30); GFR ESTIMATED > 60; GLUCOSE 73 MG/DL (70-105); MAGNESIUM 2.3 MG/DL (1.8-2.4); POTASSIUM 4.2 MMOL/L (3.6-5.0); SODIUM 140 MMOL/L (135-145); TOTAL PROTEIN 6.2 GM/DL (6.4-8.2)
--- NOTE | 2018-03-04 14:25 | Diagnostic Imaging Report ---
CLINICAL INDICATION: Patient reports not feeling well and being very tired. Patient has congestion. EXAM: Chest x-ray, PA and lateral views. COMPARISONS: Chest x-ray dated 11/06/2016. FINDINGS: Lungs/pleura: Stable mild increased lung markings throughout both lungs which may represent atelectasis versus scarring. There is no interval lung infiltrate. There is no pneumothorax. There is no pleural effusion. Mediastinum: Unremarkable. Pulmonary vasculature: Unremarkable. Heart: Stable mild cardiomegaly Bones/extrathoracic soft tissue: There are mildly hypertrophic spurs involving the thoracic spine. Again seen dextroscoliosis of the thoracolumbar spine. Surgical clips are seen overlying the right upper quadrant which could be related to cholecystectomy changes. IMPRESSION: Stable chest x-ray exam with no interval radiographic evidence of acute cardiopulmonary process. Dictated by: Dictated on workstation # [id number]
[2018-03-04] MEDS ORDERED: ACET-789 PO (14:32)
[2018-03-04 15:30] LABS: BILIRUBIN,URINE NEGATIVE (NEGATIVE); CLARITY,URINE CLEAR; COLOR,URINE YELLOW; GLUCOSE, URINE (UA) NEGATIVE (NEGATIVE); KETONES,URINE NEGATIVE (NEGATIVE); LEUKOCYTE ESTERASE ,URINE 1+ (NEGATIVE); NITRITE,URINE NEGATIVE (NEGATIVE); PH,URINE 6.5 (5-9); PROTEIN,URINE NEGATIVE (NEGATIVE); UROBILINOGEN,URINE 1 MG/DL (NORMAL)
[2018-03-04 15:38] LABS: BACTERIA,URINE TRACE /HPF; WBC,URINE 0-2 /HPF
[2018-03-04 16:15] VITALS: BP 153/77
--- OUTSIDE RECORDS SUMMARY | 2018-03-04 17:30 | XMS REPORT | Continuity of Care Document ---
Author Author [facility] Organization [facility] Address Unknown Phone Unavailable Allergies Active Description Code Type Severity Reaction Onset Reported/Identified Relationship to Patient Clinical Status Yes Penicillins [id number] Drug Allergy Mild N/A 04/03/2011 Yes duloxetine HCl [id number] Drug Allergy Unknown N/A 06/01/2014 Yes duloxetine HCl [id number] Drug Allergy Moderate BLISTERS 05/04/2015 Medications There is no data. Problems Date Dx Coded Attending Type Code Diagnosis Diagnosed By 06/07/2010 Ot 401.9 06/07/2010 Ot 780.4 06/07/2010 Ot 791.9 04/06/2011 Ot 272.4 HYPERLIPIDEMIA NEC/NOS 04/06/2011 Ot 276.8 HYPOPOTASSEMIA 04/06/2011 Ot 401.0 MALIGNANT HYPERTENSION 04/06/2011 Ot 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 [place] CORON 04/06/2011 Ot 440.0 AORTIC ATHEROSCLEROSIS 04/06/2011 [...] Ot 780.79 01/19/2014 Ot 272.4 01/19/2014 ROZINA HUMMLE, EDIE Knutson Ot 401.0 01/19/2014 ROZINA HUMMEL, [...] 04/07/2015 TERE CARVAJAL MD, Ot Z79.899 OTHER BILINGUAL MEDICAL RECEPTIONIST (CURRENT) DRUG THERAPY 04/24/2015 WEI HUMMEL, TERE [...] STRAUSS Ot I25.10 ATHSCL HEART DISEASE OF [place] CORONARY 07/21/2015 EDGAR STRAUSS Ot I25.10 ATHSCL HEART DISEASE OF [place] CORONARY 07/26/2015 EDGAR STRAUSS Ot E78.2 MIXED HYPERLIPIDEMIA 07/26/2015 EDGAR STRAUSS Ot I10 ESSENTIAL (PRIMARY) HYPERTENSION 07/26/2015 EDGAR STRAUSS Ot I25.10 ATHSCL HEART DISEASE OF [place] CORONARY 07/26/2015 EDGAR STRAUSS Ot I65.23 OCCLUSION AND STENOSIS OF BILATERAL [place] 08/08/2015 EDGAR STRAUSS Ot E78.2 MIXED HYPERLIPIDEMIA 08/08/2015 EDGAR STRAUSS Ot I10 ESSENTIAL (PRIMARY) HYPERTENSION 08/08/2015 EDGAR STRAUSS Ot I25.10 ATHSCL HEART DISEASE OF [place] CORONARY 08/08/2015 EDGAR STRAUSS Ot I65.23 OCCLUSION AND STENOSIS OF BILATERAL [place] 08/21/2015 EDGAR STRAUSS Ot E78.2 MIXED HYPERLIPIDEMIA 08/21/2015 EDGAR STRAUSS Ot I10 ESSENTIAL (PRIMARY) HYPERTENSION 08/21/2015 EDGAR STRAUSS Ot I25.10 ATHSCL HEART DISEASE OF [place] CORONARY 08/21/2015 EDGAR STRAUSS Ot I65.23 OCCLUSION AND STENOSIS OF BILATERAL [place] 05/13/2016 SARA HUMMEL, VICKY De La Paz Ot J06.9 ACUTE UPPER RESPIRATORY INFECTION, UNSPE 05/13/2016 SARA HUMMEL, VICKY De La Paz Ot R05 COUGH 05/13/2016 SARA HUMMEL, VICKY De La Paz Ot Z79.899 OTHER PRISON (CURRENT) DRUG THERAPY 05/15/2016 SARA HUMMEL, VICKY De La Paz Ot J06.9 ACUTE UPPER RESPIRATORY INFECTION, UNSPE 05/15/2016 SARA HUMMEL, VICKY De La Paz Ot R05 COUGH 05/15/2016 SARA HUMMEL, VICKY De La Paz Ot Z79.899 OTHER BILINGUAL MEDICAL RECEPTIONIST (CURRENT) DRUG THERAPY 05/17/2016 Ot 272.4 HYPERLIPIDEMIA [...] STRAUSS Ot I25.10 ATHSCL HEART DISEASE OF [place] CORONARY 05/17/2016 EDGAR STRAUSS Ot I65.23 OCCLUSION [...] STRAUSS Ot I25.10 ATHSCL HEART DISEASE OF [place] CORONARY 05/17/2016 EDGAR STRAUSS Ot I65.23 OCCLUSION [...] MD Ot I25.10 ATHSCL HEART DISEASE OF [place] CORONARY 10/15/2016 KYRIE JULES MD Ot I34.0 NONRHEUMATIC MITRAL (VALVE) INSUFFICIENC 10/15/2016 KYRIE JULES MD, Ot K21.9 GASTRO-ESOPHAGEAL REFLUX DISEASE WITHOUT 10/15/2016 KYRIE JULES MD Ot K44.9 DIAPHRAGMATIC HERNIA WITHOUT OBSTRUCTION 10/15/2016 KYRIE JULES MD Ot K57.30 DVRTCLOS OF LG INT W/O PERFORATION OR AB 10/15/2016 KYRIE JULES MD Ot R07.89 OTHER CHEST PAIN 10/15/2016 KYRIE JULES MD Ot Z79.82 PRISON (CURRENT) USE OF ASPIRIN 10/15/2016 KYRIE JULES MD Ot Z79.899 OTHER PRISON (CURRENT) DRUG THERAPY 10/15/2016 KYRIE JULES MD Ot Z87.442 PERSONAL HISTORY OF URINARY CALCULI 10/15/2016 KYRIE JULES MD Ot E03.9 HYPOTHYROIDISM, UNSPECIFIED 10/15/2016 KYRIE JULES MD Ot E78.5 HYPERLIPIDEMIA, UNSPECIFIED 10/15/2016 KYRIE JULES MD Ot I10 ESSENTIAL (PRIMARY) HYPERTENSION 10/15/2016 KYRIE JULES MD Ot I25.10 ATHSCL HEART DISEASE OF [place] CORONARY 10/15/2016 KYRIE JULES MD Ot I34.0 NONRHEUMATIC MITRAL (VALVE) INSUFFICIENC 10/15/2016 KYRIE JULES MD Ot K21.9 GASTRO-ESOPHAGEAL REFLUX DISEASE WITHOUT 10/15/2016 KYRIE JULES MD Ot K44.9 DIAPHRAGMATIC HERNIA WITHOUT OBSTRUCTION 10/15/2016 KYRIE JULES MD Ot K57.30 DVRTCLOS OF LG INT W/O PERFORATION OR AB 10/15/2016 KYRIE JULES MD Ot R07.89 OTHER CHEST PAIN 10/15/2016 KYRIE JULES MD Ot Z79.82 PRISON (CURRENT) USE OF ASPIRIN 10/15/2016 KYRIE JULES MD Ot Z79.899 OTHER PRISON (CURRENT) DRUG THERAPY 10/15/2016 KYRIE JULES MD [...] MD, Ot I25.10 ATHSCL HEART DISEASE OF [place] CORONARY 10/16/2016 KYRIE JULES MD, Ot I34.0 NONRHEUMATIC MITRAL (VALVE) INSUFFICIENC 10/16/2016 KYRIE JULES MD Ot K21.9 GASTRO-ESOPHAGEAL REFLUX DISEASE WITHOUT 10/16/2016 KYRIE JULES MD Ot K44.9 DIAPHRAGMATIC HERNIA WITHOUT OBSTRUCTION 10/16/2016 KYRIE JULES MD, Ot K57.30 DVRTCLOS OF LG INT W/O PERFORATION OR AB 10/16/2016 KYRIE JULES MD, Ot R07.89 OTHER CHEST PAIN 10/16/2016 KYRIE JULES MD Ot Z79.82 PRISON (CURRENT) USE OF ASPIRIN 10/16/2016 KYRIE JULES MD, Ot Z79.899 OTHER BILINGUAL MEDICAL RECEPTIONIST (CURRENT) DRUG THERAPY 10/16/2016 KYRIE JULES MD, [...] Ot R07.89 OTHER CHEST PAIN 11/06/2016 EDIE HADNY MD Ot Z79.899 OTHER BILINGUAL MEDICAL RECEPTIONIST (CURRENT) DRUG THERAPY 11/06/2016 EDIE HANDY MD Ot E78.2 MIXED HYPERLIPIDEMIA 11/06/2016 EDIE HANDY MD Ot G47.62 SLEEP RELATED LEG CRAMPS 11/06/2016 EDIE HANDY MD Ot I11.0 HYPERTENSIVE HEART DISEASE WITH HEART FA 11/06/2016 EDIE HANDY MD Ot 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 11/06/2016 EDIE HANDY MD, Ot I65.23 OCCLUSION AND STENOSIS OF BILATERAL [place]TI[place] 11/06/2016 EDIE HANDY MD Ot R07.89 OTHER CHEST PAIN 02/13/2017 MATTHEW HUMMEL, ARISTIDES R Ot R06.02 SHORTNESS OF BREATH 03/07/2017 TERE CARVAJAL MD Ot R13.10 DYSPHAGIA, UNSPECIFIED 03/07/2017 TERE CARVAJAL MD Ot Z01.818 ENCOUNTER FOR OTHER PREPROCEDURAL EXAMIN 03/10/2017 ARISTIDES CASTRO MD R Ot R06.02 SHORTNESS OF BREATH 03/10/2017 TERE CARVAJAL MD Ot R13.10 DYSPHAGIA, UNSPECIFIED 03/10/2017 TERE CARVAJAL MD Ot Z01.818 ENCOUNTER FOR OTHER PREPROCEDURAL EXAMIN 03/10/2017 TERE CARVAJAL MD Ot R13.10 DYSPHAGIA, UNSPECIFIED 03/10/2017 TERE CARVAJAL MD Ot Z01.818 ENCOUNTER FOR OTHER PREPROCEDURAL EXAMIN 03/12/2017 TERE CARVAJAL MD Ot E78.00 PURE HYPERCHOLESTEROLEMIA, UNSPECIFIED 03/12/2017 TERE CARVAJAL MD Ot I10 ESSENTIAL (PRIMARY) HYPERTENSION 03/12/2017 TERE CARVAJAL MD Ot I73.9 PERIPHERAL VASCULAR DISEASE, UNSPECIFIED 03/12/2017 TERE CARVAJAL MD, Ot J44.9 CHRONIC OBSTRUCTIVE PULMONARY DISEASE, U 03/12/2017 TERE CARVAJAL MD, Ot K21.9 GASTRO-ESOPHAGEAL REFLUX DISEASE WITHOUT 03/12/2017 TERE CARVAJAL MD Ot K22.2 ESOPHAGEAL OBSTRUCTION 03/12/2017 TERE CARVAJAL MD Ot K29.70 GASTRITIS, UNSPECIFIED, WITHOUT BLEEDING 03/12/2017 TERE CARVAJAL MD Ot Z79.82 BILINGUAL MEDICAL RECEPTIONIST (CURRENT) USE OF ASPIRIN 03/12/2017 TERE CARVAJAL MD Ot Z79.899 OTHER BILINGUAL MEDICAL RECEPTIONIST (CURRENT) DRUG THERAPY 03/13/2017 TERE CARVAJAL MD, Ot R13.10 DYSPHAGIA, UNSPECIFIED 03/13/2017 TERE CARVAJAL MD, Ot Z01.818 ENCOUNTER FOR OTHER PREPROCEDURAL EXAMIN 03/13/2017 TERE CARVAJAL MD Ot E78.00 PURE HYPERCHOLESTEROLEMIA, UNSPECIFIED 03/13/2017 TERE CARVAJAL MD Ot I10 ESSENTIAL (PRIMARY) HYPERTENSION 03/13/2017 TERE CARVAJAL MD Ot I73.9 PERIPHERAL VASCULAR DISEASE, UNSPECIFIED 03/13/2017 TERE CARVAJAL MD, Ot J44.9 CHRONIC OBSTRUCTIVE PULMONARY DISEASE, U 03/13/2017 TERE CARVAJAL MD Ot K21.9 GASTRO-ESOPHAGEAL REFLUX DISEASE WITHOUT 03/13/2017 TERE CARVAJAL MD Ot K22.2 ESOPHAGEAL OBSTRUCTION 03/13/2017 TERE CARVAJAL MD Ot K29.70 GASTRITIS, UNSPECIFIED, WITHOUT BLEEDING 03/13/2017 TERE CARVAJAL MD Ot Z79.82 PRISON (CURRENT) USE OF ASPIRIN 03/13/2017 TERE CARVAJAL MD Ot Z79.899 OTHER PRISON (CURRENT) DRUG THERAPY 03/14/2017 TERE CARVAJAL MD, Ot E78.00 PURE HYPERCHOLESTEROLEMIA, UNSPECIFIED 03/14/2017 TERE CARVAJAL MD Ot I10 ESSENTIAL (PRIMARY) HYPERTENSION 03/14/2017 TERE CARVAJAL MD Ot I73.9 PERIPHERAL VASCULAR DISEASE, UNSPECIFIED 03/14/2017 TERE CARVAJAL MD Ot J44.9 CHRONIC OBSTRUCTIVE PULMONARY DISEASE, U 03/14/2017 TERE CARVAJAL MD Ot K21.9 GASTRO-ESOPHAGEAL REFLUX DISEASE WITHOUT 03/14/2017 TERE CARVAJAL MD Ot K22.2 ESOPHAGEAL OBSTRUCTION 03/14/2017 TERE CARVAJAL MD Ot K29.70 GASTRITIS, UNSPECIFIED, WITHOUT BLEEDING 03/14/2017 TERE CARVAJAL MD Ot Z79.82 PRISON (CURRENT) USE OF ASPIRIN 03/14/2017 TERE CARVAJAL MD Ot Z79.899 OTHER BILINGUAL MEDICAL RECEPTIONIST (CURRENT) DRUG THERAPY 03/14/2017 FRANCISCO DAMON VICE PRESIDENT OF CONTRACTS Ot R10.9 UNSPECIFIED ABDOMINAL PAIN 03/14/2017 FRANCISCO DAMON VICE PRESIDENT OF CONTRACTS Ot Z98.890 OTHER SPECIFIED POSTPROCEDURAL STATES 03/18/2017 TERE CARVAJAL MD, Ot E78.00 PURE HYPERCHOLESTEROLEMIA, UNSPECIFIED 03/18/2017 TERE CARVAJAL MD Ot I10 ESSENTIAL (PRIMARY) HYPERTENSION 03/18/2017 TERE CARVAJAL MD Ot I73.9 PERIPHERAL VASCULAR DISEASE, UNSPECIFIED 03/18/2017 TERE CARVAJAL MD, Ot J44.9 CHRONIC OBSTRUCTIVE PULMONARY DISEASE, U 03/18/2017 TERE CARVAJAL MD, Ot K21.9 GASTRO-ESOPHAGEAL REFLUX DISEASE WITHOUT 03/18/2017 TERE CARVAJAL MD, Ot K22.2 ESOPHAGEAL OBSTRUCTION 03/18/2017 TERE CARVAJAL MD, Ot K29.70 GASTRITIS, UNSPECIFIED, WITHOUT BLEEDING 03/18/2017 TERE CARVAJAL MD Ot Z79.82 BILINGUAL MEDICAL RECEPTIONIST (CURRENT) USE OF ASPIRIN 03/18/2017 TERE CARVAJAL MD Ot Z79.899 OTHER PRISON (CURRENT) DRUG THERAPY 2017 FRANCISCO DAMON APRN Ot R10.9 UNSPECIFIED ABDOMINAL PAIN 2017 FRANCISCO DAMON VICE PRESIDENT OF CONTRACTS Ot Z98.890 OTHER SPECIFIED POSTPROCEDURAL STATES 08/08/2017 MAE TAFOYA MD Ot R91.8 OTHER NONSPECIFIC ABNORMAL FINDING OF TAM[place] 08/08/2017 MAE TAFOYA MD Ot Z79.2 BILINGUAL MEDICAL RECEPTIONIST (CURRENT) USE OF ANTIBIOTICS 08/13/2017 MAE TAFOYA MD Ot R91.8 OTHER NONSPECIFIC ABNORMAL FINDING OF [place]AM[place] 08/13/2017 MAE TAFOYA MD Ot Z79.2 PRISON (CURRENT) USE OF ANTIBIOTICS 08/28/2017 MAE TAFOYA MD Ot R91.8 OTHER NONSPECIFIC ABNORMAL FINDING OF [place]AM[place] 08/28/2017 MAE TAFOYA MD Ot Z79.2 BILINGUAL MEDICAL RECEPTIONIST (CURRENT) USE OF ANTIBIOTICS 09/03/2017 MAE TAFOYA MD Ot R91.8 OTHER NONSPECIFIC ABNORMAL FINDING OF [place]AM[place] 09/03/2017 MAE TAFOYA MD Ot Z79.2 BILINGUAL MEDICAL RECEPTIONIST (CURRENT) USE OF ANTIBIOTICS 11/19/2017 EDIE HANDY MD Ot 401.0 MALIGNANT HYPERTENSION 11/19/2017 EDIE HANDY MD Ot 424.0 MITRAL VALVE DISORDER 11/19/2017 EDIE HANDY MD Ot 440.1 RENAL ARTERY ATHEROSCLER 11/19/2017 JB MOHAMUD MD Ot 592.0 CALCULUS OF KIDNEY 11/19/2017 JB MOHAMUD MD Ot V58.66 LONG-TERM (CURRENT) USE OF ASPIRIN 11/19/2017 JB MOHAMUD MD Ot V72.63 PRE-PROCEDURAL LABORATORY EXAMINATION 11/19/2017 JB MOHAMUD MD Ot 592.9 URINARY CALCULUS NOS 11/19/2017 EDIE HANDY MD Ot 272.4 HYPERLIPIDEMIA NEC/NOS 11/19/2017 EDIE HANDY MD Ot 401.9 HYPERTENSION NOS 11/19/2017 EDIE HANDY MD Ot 414.00 CORON ATHEROSCLER NOS TYPE VESSEL, NATIV 11/19/2017 ARISTIDES CASTRO MD R Ot 715.31 LOC OSTEOARTH NOS-SHLDER 11/19/2017 MATTHEW HUMMEL ARISTIDES R Ot V74.8 SCREEN-BACTERIAL DIS NEC 11/19/2017 JB MOHAMUD MD Ot 562.10 DIVERTICULOSIS COLON (W/O MENT OF HEMORR 11/19/2017 JB MOHAMUD MD Ot 592.0 CALCULUS OF KIDNEY 11/19/2017 MATTHEW HUMMEL ARISTIDES R Ot 790.99 BLOOD EXAM - OTH NONSPECIFIC FINDINGS 11/19/2017 EDGAR STRAUSS Ot 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 11/19/2017 EDGAR STRAUSS Ot 397.0 TRICUSPID VALVE DISEASE 11/19/2017 EDGAR STRAUSS Ot 401.9 HYPERTENSION NOS 11/19/2017 EDGAR STRAUSS Ot 414.00 CORON ATHEROSCLER NOS TYPE VESSEL, NATIV 11/19/2017 EDGAR STRAUSS Ot 496 CHR AIRWAY OBSTRUCT NEC 11/19/2017 EDGAR STRAUSS Ot 272.4 HYPERLIPIDEMIA NEC/NOS 11/19/2017 MATTHEW HUMMEL ARISTIDES R Ot 780.79 OTH MALAISE FATIGUE 11/19/2017 MATTHEW HUMMEL, ARISTIDES R Ot 786.2 COUGH 11/19/2017 TERE CARVAJAL MD Ot V72.84 EXAM PRE-OPERATIVE NOS 11/19/2017 EDIE HANDY MD Ot E78.5 HYPERLIPIDEMIA, UNSPECIFIED 11/19/2017 EDIE HANDY MD Ot I10 ESSENTIAL (PRIMARY) HYPERTENSION 11/19/2017 EDIE HANDY MD, Ot I25.9 CHRONIC ISCHEMIC HEART DISEASE, UNSPECIF 11/19/2017 EDIE HANDY MD, Ot J44.9 CHRONIC OBSTRUCTIVE PULMONARY DISEASE, U 11/19/2017 EDIE HANDY MD Ot R07.9 CHEST PAIN, UNSPECIFIED 11/19/2017 NATHANIEL CASANOVA MD Ot E04.2 NONTOXIC MULTINODULAR GOITER 11/19/2017 NATHANIEL CASANOVA MD Ot E04.9 NONTOXIC GOITER, UNSPECIFIED 11/19/2017 TERE CARVAJAL MD Ot K44.9 DIAPHRAGMATIC HERNIA WITHOUT OBSTRUCTION 11/19/2017 TERE CARVAJAL MD Ot Z01.812 ENCOUNTER FOR PREPROCEDURAL LABORATORY E 11/19/2017 NATHANIEL CASANOVA MD Ot E04.1 NONTOXIC SINGLE THYROID NODULE 11/19/2017 EDGAR STRAUSS Ot E78.2 MIXED HYPERLIPIDEMIA 11/19/2017 EDGAR STRAUSS Ot I10 ESSENTIAL (PRIMARY) HYPERTENSION 11/19/2017 EDGAR STRAUSS Ot I25.10 ATHSCL HEART DISEASE OF [place] CORONARY 11/19/2017 EDGAR STRAUSS Ot I65.23 OCCLUSION AND STENOSIS OF BILATERAL [place] 11/19/2017 ARISTIDES CASTRO MD Ot R06.02 SHORTNESS OF BREATH 11/19/2017 EDIE HANDY MD Ot E78.2 MIXED HYPERLIPIDEMIA 11/19/2017 EDIE HANDY MD Ot G47.62 SLEEP RELATED LEG CRAMPS 11/19/2017 EDIE HANDY MD Ot I11.0 HYPERTENSIVE HEART DISEASE WITH HEART FA 11/19/2017 EDIE HANDY MD Ot 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 11/19/2017 EDIE HANDY MD Ot I65.23 OCCLUSION AND STENOSIS OF BILATERAL [place] 11/19/2017 ROZINA HUMMEL, EDIE Knutson Ot R07.89 OTHER CHEST PAIN 11/19/2017 MATTHEW HUMMEL, ARISTIDES Toure Ot R06.02 SHORTNESS OF BREATH 11/19/2017 FRANCISCO DAMON APRN Ot R10.9 UNSPECIFIED ABDOMINAL PAIN 11/19/2017 FRANCISCO DAMON APRN Ot Z98.890 OTHER SPECIFIED POSTPROCEDURAL STATES 11/19/2017 MAE TAFOYA MD Ot R91.8 OTHER NONSPECIFIC ABNORMAL FINDING OF TAM[place] 11/19/2017 MAE TAFOYA MD Ot Z79.2 BILINGUAL MEDICAL RECEPTIONIST (CURRENT) USE OF ANTIBIOTICS 01/05/2018 EDGAR STRASUS Ot E78.5 HYPERLIPIDEMIA, UNSPECIFIED 01/05/2018 EDGAR STRAUSS Ot I08.3 COMB RHEUMATIC DISORD OF MITRAL, AORTIC 01/05/2018 EDGAR STRAUSS Ot I10 ESSENTIAL (PRIMARY) HYPERTENSION 01/05/2018 EDGAR STRAUSS Ot I25.10 ATHSCL HEART DISEASE OF [place] CORONARY 01/05/2018 EDGAR STRAUSS Ot R07.89 OTHER CHEST PAIN 01/29/2018 JB MOHAMUD MD Ot 592.0 CALCULUS OF KIDNEY 01/29/2018 JB MOHAMUD MD Ot V58.66 LONG-TERM (CURRENT) USE OF ASPIRIN 01/29/2018 JB MOHAMUD MD Ot V72.63 PRE-PROCEDURAL LABORATORY EXAMINATION 01/29/2018 JB MOHAMUD MD Ot 592.9 URINARY CALCULUS NOS 01/29/2018 EDIE HANDY MD Ot 272.4 HYPERLIPIDEMIA NEC/NOS 01/29/2018 EDIE HANDY MD Ot 401.9 HYPERTENSION NOS 01/29/2018 EDIE HANDY MD Ot 414.00 CORON ATHEROSCLER NOS TYPE VESSEL, NATIV 01/29/2018 ARISTIDES CASTRO MD Ot 715.31 LOC OSTEOARTH NOS-SHLDER 01/29/2018 ARISTIDES CASTRO MD Ot V74.8 SCREEN-BACTERIAL DIS NEC 01/29/2018 JB MOHAMUD MD Ot 562.10 DIVERTICULOSIS COLON (W/O MENT OF HEMORR 01/29/2018 ONEIDA HUMMEL, JB Horton Ot 592.0 CALCULUS OF KIDNEY 01/29/2018 MATTHEW HUMMEL, ARISTIDES R Ot 790.99 BLOOD EXAM - OTH NONSPECIFIC FINDINGS 01/29/2018 EDGAR STRAUSS Ot 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 01/29/2018 EDGAR STRAUSS Ot 397.0 TRICUSPID VALVE DISEASE 01/29/2018 EDGAR STRAUSS Ot 401.9 HYPERTENSION NOS 01/29/2018 EDGAR STRAUSS Ot 414.00 CORON ATHEROSCLER NOS TYPE VESSEL, NATIV 01/29/2018 EDGAR STRAUSS Ot 496 CHR AIRWAY OBSTRUCT NEC 01/29/2018 EDGAR STRAUSS Ot 272.4 HYPERLIPIDEMIA NEC/NOS 01/29/2018 MATTHEW HUMMEL, ARISTIDES R Ot 780.79 OTH MALAISE FATIGUE 01/29/2018 MATTHEW HUMMEL, ARISTIDES R Ot 786.2 COUGH 01/29/2018 TERE CARVAJAL MD Ot V72.84 EXAM PRE-OPERATIVE NOS 01/29/2018 ROZINA HUMMEL, EDIE Knutson Ot E78.5 HYPERLIPIDEMIA, UNSPECIFIED 01/29/2018 ROZINA HUMMEL, EDIE Knutson Ot I10 ESSENTIAL (PRIMARY) HYPERTENSION 01/29/2018 EDIE HADNY MD Ot I25.9 CHRONIC ISCHEMIC HEART DISEASE, UNSPECIF 01/29/2018 EDIE HANDY MD Ot J44.9 CHRONIC OBSTRUCTIVE PULMONARY DISEASE, U 01/29/2018 EDIE HANDY MD Ot R07.9 CHEST PAIN, UNSPECIFIED 01/29/2018 NATHANIEL CASANOVA MD Ot E04.2 NONTOXIC MULTINODULAR GOITER 01/29/2018 NATHANIEL CASANOVA MD Ot E04.9 NONTOXIC GOITER, UNSPECIFIED 01/29/2018 TERE CARVAJAL MD Ot K44.9 DIAPHRAGMATIC HERNIA WITHOUT OBSTRUCTION 01/29/2018 TERE CARVAJAL MD Ot Z01.812 ENCOUNTER FOR PREPROCEDURAL LABORATORY E 01/29/2018 NATHANIEL CASANOVA MD Ot E04.1 NONTOXIC SINGLE THYROID NODULE 01/29/2018 EDGAR STRAUSS Ot E78.2 MIXED HYPERLIPIDEMIA 01/29/2018 EDGAR STRAUSS Ot I10 ESSENTIAL (PRIMARY) HYPERTENSION 01/29/2018 EDGAR STRAUSS Ot I25.10 ATHSCL HEART DISEASE OF [place] CORONARY 01/29/2018 EDGAR STRAUSS Ot I65.23 OCCLUSION AND STENOSIS OF BILATERAL [place]TI[place] 01/29/2018 MATTHEW HUMMEL, ARISTIDES R Ot R06.02 SHORTNESS OF BREATH 01/29/2018 EDIE HANDY MD Ot E78.2 MIXED HYPERLIPIDEMIA 01/29/2018 EDIE HANDY MD Ot G47.62 SLEEP RELATED LEG CRAMPS 01/29/2018 EDIE HANDY MD Ot I11.0 HYPERTENSIVE HEART DISEASE WITH HEART FA 01/29/2018 EDIE HANDY MD Ot 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 01/29/2018 EDIE HANDY MD, Ot I65.23 OCCLUSION AND STENOSIS OF BILATERAL [place]TI[place] 01/29/2018 EDIE HANDY MD Ot R07.89 OTHER CHEST PAIN 01/29/2018 MATTHEW HUMMEL, ARISTIDES R Ot R06.02 SHORTNESS OF BREATH 01/29/2018 FRANCISCO DAMON VICE PRESIDENT OF CONTRACTS Ot R10.9 UNSPECIFIED ABDOMINAL PAIN 01/29/2018 FRANCISCO DAMON VICE PRESIDENT OF CONTRACTS Ot Z98.890 OTHER SPECIFIED POSTPROCEDURAL STATES 01/29/2018 MAE TAFOYA MD Ot R91.8 OTHER NONSPECIFIC ABNORMAL FINDING OF TAMMY 01/29/2018 MAE TAFOYA MD Ot Z79.2 BILINGUAL MEDICAL RECEPTIONIST (CURRENT) USE OF ANTIBIOTICS 01/29/2018 EDGAR STRAUSS Ot E78.5 HYPERLIPIDEMIA, UNSPECIFIED 01/29/2018 EDGAR STRAUSS Ot I08.3 COMB RHEUMATIC DISORD OF MITRAL, AORTIC 01/29/2018 EDGAR STRAUSS Ot I10 ESSENTIAL (PRIMARY) HYPERTENSION 01/29/2018 EDGAR STRAUSS Ot I25.10 ATHSCL HEART DISEASE OF [place] CORONARY 01/29/2018 EDGAR STRAUSS Ot R07.89 OTHER CHEST PAIN 02/04/2018 EDIE HANDY MD Ot E78.5 HYPERLIPIDEMIA, UNSPECIFIED 02/04/2018 ROZINA MD, BASHAR J Ot I10 ESSENTIAL (PRIMARY) HYPERTENSION 02/04/2018 EDIE HANDY MD Ot I25.10 ATHSCL HEART DISEASE OF [place] CORONARY 02/04/2018 EDIE HANDY MD Ot I27.20 PULMONARY HYPERTENSION, UNSPECIFIED 02/04/2018 EDIE HANDY MD Ot I65.29 OCCLUSION AND STENOSIS OF UNSPECIFIED CA 02/04/2018 EDIE HANDY MD Ot J44.9 CHRONIC OBSTRUCTIVE PULMONARY DISEASE, U 02/04/2018 EDIE HANDY MD Ot R07.89 OTHER CHEST PAIN 02/22/2018 SUKH CAPPS, EDGAR K Ot E78.5 HYPERLIPIDEMIA, UNSPECIFIED 02/22/2018 SUKH CAPPS, EDGAR K Ot I08.3 COMB RHEUMATIC DISORD OF MITRAL, AORTIC 02/22/2018 SUKH CAPPS, EDGAR K Ot I10 ESSENTIAL (PRIMARY) HYPERTENSION 02/22/2018 SUKH CAPPS, EDGAR K Ot I25.10 ATHSCL HEART DISEASE OF [place] CORONARY 02/22/2018 SUKH CAPPS, EDGAR K Ot R07.89 OTHER CHEST PAIN 02/23/2018 SUKH CAPPS, EDGAR K Ot E78.5 HYPERLIPIDEMIA, UNSPECIFIED 02/23/2018 SUKH CAPPS, EGDAR K Ot I08.3 COMB RHEUMATIC DISORD OF MITRAL, AORTIC 02/23/2018 SUKH CAPPS, EDGAR K Ot I10 ESSENTIAL (PRIMARY) HYPERTENSION 02/23/2018 SUKH CAPPS, EDGAR K Ot I25.10 ATHSCL HEART DISEASE OF [place] CORONARY 02/23/2018 SUKH CAPPS, EDGAR K Ot R07.89 OTHER CHEST PAIN 02/26/2018 EDIE HANDY MD Ot E78.5 HYPERLIPIDEMIA, UNSPECIFIED 02/26/2018 EDIE HANDY MD Ot I10 ESSENTIAL (PRIMARY) HYPERTENSION 02/26/2018 EDIE HANDY MD Ot I25.10 ATHSCL HEART DISEASE OF [place] CORONARY 02/26/2018 EDIE HANDY MD Ot I27.20 PULMONARY HYPERTENSION, UNSPECIFIED 02/26/2018 EDIE HANDY MD Ot I65.29 OCCLUSION AND STENOSIS OF UNSPECIFIED CA 02/26/2018 EDIE HANDY MD Ot J44.9 CHRONIC OBSTRUCTIVE PULMONARY DISEASE, U 02/26/2018 ROZINA HUMMEL, EDIE Knutson Ot R07.89 OTHER CHEST PAIN Procedures Code Description Performed By Performed On [...] Blood ovalocytes detection by light microscopy SLIGHT NRG Comprehensive metabolic panel - 05/17/16 11:35 Serum [...] GROWTH Moderate Growth NRG Bacterial sputum culture [id number] [facility] [place] Bacterial susceptibility panel - 05/17/16 14:50 Gentamicin [...] plasma albumin measurement (mass/volume) 3.6 g/dL 3.2-4.5 Comprehensive metabolic panel - 01/29/18 11:30 Serum or plasma sodium measurement (moles/volume) 143 mmol/L 135-145 Serum or plasma potassium measurement (moles/volume) 4.4 mmol/L 3.6-5.0 Serum or plasma chloride measurement (moles/volume) 108 mmol/L 98-107 Carbon dioxide 27 mmol/L 21-32 Serum or plasma anion gap determination (moles/volume) 8 mmol/L 5-14 Serum or plasma urea nitrogen measurement (mass/volume) 13 mg/dL 7-18 Serum or plasma creatinine measurement (mass/volume) 0.78 mg/dL 0.60-1.30 Serum or plasma urea nitrogen/creatinine mass ratio 17 NRG Serum or plasma creatinine measurement with calculation of estimated glomerular filtration rate > NRG Serum or plasma glucose measurement (mass/volume) 76 mg/dL 70-105 Serum or plasma calcium measurement (mass/volume) 9.0 mg/dL 8.5-10.1 Serum or plasma total bilirubin measurement (mass/volume) 0.6 mg/dL 0.1-1.0 Serum or plasma alkaline phosphatase measurement (enzymatic activity/volume) 63 U/L 40-136 Serum or plasma aspartate aminotransferase measurement (enzymatic activity/ volume) 21 U/L 5-34 Serum or plasma alanine aminotransferase measurement (enzymatic activity/volume ) 15 U/L 0-55 Serum or plasma protein measurement (mass/volume) 7.0 g/dL 6.4-8.2 Serum or plasma albumin measurement (mass/volume) 4.0 g/dL 3.2-4.5 CALCIUM CORRECTED 9.0 mg/dL 8.5-10.1 Encounters ACCT No. Visit Date/Time Discharge Status Pt. Type Provider Facility Loc./Unit Complaint [id number] 02/23/2018 00:12:00 02/23/2018 23:59:59 CLS Preadmit EDGAR STRAUSS Via [facility] CARD CAD [id number] 11/24/2017 10:44:00 02/22/2018 00:01:00 DIS Outpatient EDGAR STRAUSS [facility] CARD CAD [id number] 01/29/2018 11:21:00 01/29/2018 23:59:59 CLS Outpatient EDIE HANDY MD [facility] LAB CAD,HTN [id number] 10/28/2017 14:16:00 10/28/2017 23:59:59 CLS Preadmit EDGAR STRAUSS [facility] CARD CAD [id number] 08/07/2017 13:08:00 08/07/2017 23:59:59 CLS Outpatient MAE TAFOYA MD [facility] CARD PULMONARY GOOD, PULMONARY NODULES [id number] 03/12/2017 11:09:00 03/12/2017 15:25:00 DIS Outpatient TERE CARVAJAL MD [facility] ENDO DYSPHAGIA [id number] 03/07/2017 05:34:00 03/07/2017 09:37:00 DIS Outpatient TERE CARVAJAL MD [facility] PREOP EGD [id number] 02/13/2017 10:29:00 02/13/2017 23:59:59 CLS Outpatient FRANCISCO DAMON APRN [facility] RAD R10.9 [id number] 02/12/2017 10:01:00 02/12/2017 23:59:59 CLS Outpatient ARISTIDES CASTRO MD [facility] LAB R06.02 [id number] 11/06/2016 06:38:00 11/06/2016 13:17:00 DIS Outpatient EDIE HANDY MD [facility] CATH HTN,RENAL ATERY STENOSIS ,HLP [id number] 10/15/2016 02:50:00 10/15/2016 17:50:00 DIS Inpatient KYRIE JULES MD [facility] ICU CHEST PAIN;HTN [id number] 10/10/2016 12:42:00 10/10/2016 23:59:59 CLS Outpatient EDIE HANDY MD [facility] CARD CHEST PAIN SYNDROME R07.89 [id number] 09/26/2016 12:23:00 09/26/2016 23:59:59 CLS Preadmit EDIE HANDY MD [facility] CARD CHEST PAIN SYNDROME R07.89 [id number] 05/17/2016 12:45:00 05/21/2016 17:56:00 DIS Inpatient BOBBY HUMMEL, VICKY Russell [facility] 4TH COPD EXACERBATION [id number] 05/17/2016 09:28:00 05/17/2016 23:59:59 CLS Outpatient MATTEHW HUMMEL, ARISTIDES Toure [facility] RAD SOB [id number] 05/13/2016 09:24:00 05/13/2016 11:00:00 DIS Emergency SARA HUMMEL, VICKY De La Paz [facility] ER ABD PAIN [id number] 07/20/2015 08:20:00 07/20/2015 23:59:59 CLS Outpatient EDGAR STRAUSS [facility] CARD CAD,CAROTID ARTERY STENOSIS,HTN,HLP [id number] 05/11/2015 07:30:00 05/11/2015 23:59:59 CLS Outpatient NATHANIEL CASANOVA MD [facility] FINE NEEDLE CHANGES, SUSP OF PAPILLARY CA THYROID [id number] 05/04/2015 08:37:00 05/04/2015 09:39:00 DIS Outpatient NATHANIEL CASANOVA MD [facility] PREOP FNA SUSP. PAPILLARY CA THYROID [id number] 04/13/2015 10:56:00 04/13/2015 23:59:59 CLS Outpatient NATHANIEL CASANOVA MD [facility] RAD GOITER, LEFT NODULE [id number] 04/06/2015 06:00:00 04/07/2015 09:45:00 DIS Outpatient TERE CARVAJAL MD [facility] HIATAL HERNIA [id number] 03/30/2015 10:25:00 03/30/2015 23:59:59 CLS Outpatient NATHANIEL CASANOVA MD [facility] RAD GOITER LT NODULE [id number] 03/28/2015 12:57:00 03/28/2015 23:59:59 CLS Outpatient TERE CARVAJAL MD [facility] [facility] PREOP HIATAL HERNIA [id number] 03/01/2015 07:09:00 03/01/2015 23:59:59 CLS Outpatient NATHANIEL CASANOVA MD Via [facility] RAD GOITER [id number] 11/24/2014 07:46:00 11/24/2014 23:59:59 CLS Outpatient EDIE HANDY MD [facility] LAB HYPERLIPIDEMIA,CAD,COPD, HTN,CHEST PAIN [id number] 07/04/2014 09:59:00 07/04/2014 23:59:59 CLS Outpatient POPEYE PASCAL [facility] QUICK [id number] 06/01/2014 08:14:00 06/01/2014 13:45:00 DIS Outpatient TERE CARVAJAL MD [facility] SDC POSITIVE OCCULT BLOOD [id number] 05/30/2014 06:14:00 05/30/2014 23:59:59 CLS Outpatient TERE CARVAJAL MD [facility] PREOP POSITIVE OCCULT BLOOD [id number] 01/19/2014 16:30:00 01/19/2014 23:59:59 CLS Outpatient ARISTIDES CASTRO MD [facility] LAB INCHING,STINGING [id number] 12/03/2013 08:27:00 12/03/2013 23:59:59 CLS Outpatient EDGAR STRAUSS [facility] LAB HYPERLIPIDEMIA [id number] 11/10/2013 10:34:00 11/10/2013 23:59:59 CLS Outpatient EDGAR STRAUSS [facility] CARD CAD,COPD, CAROTID ARTERY STENOSIS,HTN [id number] 05/04/2013 08:26:00 05/04/2013 23:59:59 CLS Outpatient ARISTIDES CASTRO MD [facility] LAB HX LOW ALB,LOW PROT [id number] 03/04/2013 11:36:00 03/04/2013 23:59:59 CLS Outpatient JB MOHAMUD MD [facility] RAD RUQ PAIN,STONES, HEMATURIA [id number] 02/02/2013 10:01:00 02/02/2013 23:59:59 CLS Outpatient ARISTIDES CASTRO MD [facility] LAB MRSA [id number] 12/10/2012 10:32:00 12/10/2012 23:59:59 CLS Outpatient ARISTIDES CASTRO MD [facility] RAD PAIN IN RT SHOULDER [id number] 12/02/2012 07:51:00 12/02/2012 23:59:59 CLS Outpatient EDIE HANDY MD [facility] LAB HLP,HTN,CAD [id number] 10/21/2012 05:55:00 10/21/2012 10:38:00 DIS Outpatient JB MOHAMUD MD [facility] SDC RIGHT RENAL STONE [id number] 10/20/2012 11:44:00 10/20/2012 23:59:59 CLS Outpatient JB MOHAMUD MD [facility] PREOP RIGHT URETERAL STONE [id number] 10/20/2012 08:34:00 10/20/2012 23:59:59 CLS Outpatient JB MOHAMUD MD [facility] RAD STONE [id number] 10/09/2012 18:03:00 10/09/2012 21:28:00 DIS Emergency MARGARETTE DORODRIGO [facility] ER ELEVATED BP [id number] 06/19/2012 06:50:00 06/19/2012 23:59:59 CLS Outpatient EDIE HANDY MD [facility] RAD RENAL ART STENOSIS,MR, MALIGNANT HTN [id number] 05/29/2012 07:48:00 Document Registration [id number] 01/29/2012 06:44:00 Document Registration [id number] 01/23/2012 09:23:00 Document Registration [id number] 01/23/2012 09:12:00 Document Registration [id number] 01/04/2012 09:15:00 Document Registration [id number] 12/16/2011 09:35:00 Document Registration [id number] 11/07/2011 07:43:00 Document Registration [id number] 08/28/2011 08:08:00 Document Registration [id number] 08/22/2011 08:23:00 Document Registration [id number] 04/09/2011 08:12:00 Document Registration [id number] 04/06/2011 09:00:00 Document Registration [id number] 09/21/2010 08:04:00 Document Registration [id number] 06/07/2010 10:14:00 Document Registration [id number] 04/06/2010 08:00:00 Document Registration [id number] 09/06/2009 10:31:00 Document Registration [id number] 04/25/2009 10:42:00 Document Registration [id number] 04/13/2009 08:37:00 Document Registration [id number] 01/10/2009 07:21:00 Document Registration
== END 2018-03-04 16:08 | disposition home or self-care (01) ==
LOC: EDUNIT# 13:18 → ER 13:19
DX: J44.9 Chronic obstructive pulmonary disease, unspecified (principal); R53.1 Weakness; K21.9 Gastro-esophageal reflux disease without esophagitis; E03.9 Hypothyroidism, unspecified; I25.10 Atherosclerotic heart disease of native coronary artery without angina pectoris; E78.00 Pure hypercholesterolemia, unspecified; I10 Essential (primary) hypertension; Z90.710 Acquired absence of both cervix and uterus; Z90.89 Acquired absence of other organs; Z86.14 Personal history of Methicillin resistant Staphylococcus aureus infection; Z80.1 Family history of malignant neoplasm of trachea, bronchus and lung; Z80.0 Family history of malignant neoplasm of digestive organs; Z82.49 Family history of ischemic heart disease and other diseases of the circulatory system; Z87.448 Personal history of other diseases of urinary system; Z98.61 Coronary angioplasty status; Z88.2 Allergy status to sulfonamides; Z88.8 Allergy status to other drugs, medicaments and biological substances; Z79.82 Long term (current) use of aspirin; Z87.442 Personal history of urinary calculi; Z98.890 Other specified postprocedural states
CPT/HCPCS: 36415; 71046; 80053; 81000; 83735; 83880; 84443; 84484; 85025; 87804; 93005

== ENCOUNTER 2018-08-08 08:19 | Emergency (ER) | payer MEDICARE ==
[~2018-08-08] VITALS: Ht 157.5 cm; Wt 55.3 kg
[~2018-08-08 08:19] MED LIST changes: +ACET-789 PO
--- OUTSIDE RECORDS SUMMARY | 2018-08-08 08:26 | XMS REPORT | Continuity of Care Document ---
Author Organization Unknown Address Unknown Allergies Active Description Code Type Severity Reaction Onset Reported/Identified Relationship to Patient Clinical Status Yes Penicillins [id number] Drug Allergy Mild N/A 04/03/2011 Yes duloxetine HCl [id number] Drug Allergy Unknown N/A 06/01/2014 Yes duloxetine HCl [id number] Drug Allergy Moderate BLISTERS 05/04/2015 Medications There is no data. Problems Date Dx Coded Attending Type Code Diagnosis Diagnosed By 06/07/2010 Ot 401.9 06/07/2010 Ot 780.4 06/07/2010 Ot 791.9 04/06/2011 Ot 272.4 HYPERLIPIDEMIA NEC/NOS 04/06/2011 Ot 276.8 HYPOPOTASSEMIA 04/06/2011 Ot 401.0 MALIGNANT HYPERTENSION 04/06/2011 Ot 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 [place] CORON 04/06/2011 Ot 440.0 AORTIC ATHEROSCLEROSIS 04/06/2011 [...] ONEIDA HUMMEL, JB A Ot 592.9 01/19/2014 ROZINA HUMMEL, EDIE Knutson Ot 272.4 01/19/2014 ROZINA HUMMEL, EDIE Knutson Ot 401.9 01/19/2014 ROZINA HUMMEL, EDIE Knutson Ot 414.00 01/19/2014 MATTHEW HUMMEL, ARISTIDES R Ot 715.31 01/19/2014 MATTHEW HUMMEL, ARISTIDES R Ot V74.8 01/19/2014 JB MOHAMUD MD Ot 562.10 01/19/2014 ONEIDA HUMMEL, JB A Ot 592.0 01/19/2014 MATTHEW HUMMEL, ARISTIDES R Ot 790.99 01/19/2014 EDGAR STRAUSS Ot 396.3 01/19/2014 EDGAR STRAUSS Ot 397.0 01/19/2014 SUKH CAPPS EDGAR K Ot 401.9 01/19/2014 SUKH CAPPS EDGAR K Ot 414.00 01/19/2014 SUKH CAPPS EDGAR K Ot 496 01/19/2014 SUKH CAPPS EDGAR K Ot 272.4 02/14/2014 MATTHEW HUMMEL, ARISTIDES R Ot 780.79 02/14/2014 MATTHEW HUMMEL, ARISTIDES R Ot 786.2 05/31/2014 TERE CARVAJAL MD, Ot V72.84 06/01/2014 TERE CARVAJAL MD, Ot 455.0 INT HEMORRHOID W/O COMPL 06/01/2014 [...] 04/07/2015 TERE CARVAJAL MD, Ot Z79.899 OTHER MANAGER WEB (CURRENT) DRUG THERAPY 04/24/2015 TERE CARVAJAL MD, Ot K44.9 04/24/2015 WEI HUMMEL, TAKAAKI Ot [...] STRAUSS Ot I25.10 ATHSCL HEART DISEASE OF [place] CORONARY 07/21/2015 EDGAR STRAUSS Ot I25.10 ATHSCL HEART DISEASE OF [place] CORONARY 07/26/2015 EDGAR STRAUSS Ot E78.2 MIXED HYPERLIPIDEMIA 07/26/2015 EDGAR STRAUSS Ot I10 ESSENTIAL (PRIMARY) HYPERTENSION 07/26/2015 EDGAR STRAUSS Ot I25.10 ATHSCL HEART DISEASE OF [place] CORONARY 07/26/2015 EDGAR STRAUSS Ot I65.23 OCCLUSION AND STENOSIS OF [place]ILATERAL [place] 08/08/2015 EDGAR STRAUSS Ot E78.2 MIXED HYPERLIPIDEMIA 08/08/2015 EDGAR STRAUSS Ot I10 ESSENTIAL (PRIMARY) HYPERTENSION 08/08/2015 EDGAR STRAUSS Ot I25.10 ATHSCL HEART DISEASE OF [place] CORONARY 08/08/2015 EDGAR STRAUSS Ot I65.23 OCCLUSION AND STENOSIS OF [place] 08/21/2015 EDGAR STRAUSS Ot E78.2 MIXED HYPERLIPIDEMIA 08/21/2015 EDGAR STRAUSS Ot I10 ESSENTIAL (PRIMARY) HYPERTENSION 08/21/2015 EDGAR STRAUSS Ot I25.10 ATHSCL HEART DISEASE OF [place] CORONARY 08/21/2015 EDGAR STRAUSS Ot I65.23 OCCLUSION AND STENOSIS OF [place] 05/13/2016 SARA HUMMEL, VICKY De La Paz Ot J06.9 ACUTE UPPER RESPIRATORY INFECTION, UNSPE 05/13/2016 SARA HUMMEL, VICKY De La Paz Ot R05 COUGH 05/13/2016 SARA HUMMEL, VICKY De La Paz Ot Z79.899 OTHER MANAGER WEB (CURRENT) DRUG THERAPY 05/15/2016 SARA HUMMEL, VICKY De La Paz Ot J06.9 ACUTE UPPER RESPIRATORY INFECTION, UNSPE 05/15/2016 SARA HUMMEL, VICKY De La Paz Ot R05 COUGH 05/15/2016 SARA HUMMEL, VICKY De La Paz Ot Z79.899 OTHER RETIREMENT (CURRENT) DRUG THERAPY 05/17/2016 Ot 272.4 HYPERLIPIDEMIA [...] STRAUSS Ot I25.10 ATHSCL HEART DISEASE OF [place] CORONARY 05/17/2016 EDGAR STRAUSS Ot I65.23 OCCLUSION [...] EDGAR STRAUSS Ot 272.4 HYPERLIPIDEMIA NEC/NOS 05/17/2016 MATTHEW HUMMEL, ARISTIDES R Ot 780.79 OTH MALAISE FATIGUE 05/17/2016 MATTHEW HUMMEL, ARISTIDES Toure Ot 786.2 COUGH 05/17/2016 TERE CARVAJAL MD, Ot V72.84 EXAM PRE-OPERATIVE NOS 05/17/2016 EDIE HANDY MD, Ot E78.5 HYPERLIPIDEMIA, UNSPECIFIED 05/17/2016 EDIE HANDY MD, Ot I10 ESSENTIAL (PRIMARY) HYPERTENSION 05/17/2016 EDIE HANDY MD, Ot I25.9 CHRONIC ISCHEMIC HEART DISEASE, UNSPECIF 05/17/2016 EDIE HANDY MD, Ot J44.9 CHRONIC OBSTRUCTIVE PULMONARY DISEASE, U 05/17/2016 EDIE HANDY MD, Ot R07.9 CHEST PAIN, UNSPECIFIED 05/17/2016 EDILBERTO [...] STRAUSS Ot I25.10 ATHSCL HEART DISEASE OF [place] CORONARY 05/17/2016 EDGAR STRAUSS Ot I65.23 OCCLUSION AND STENOSIS OF [place]ATERAL [place] 05/20/2016 MATTHEW HUMMEL, ARISTIDES Toure Ot R06.02 SHORTNESS OF BREATH 05/21/2016 VICKY ROSALES MD Ot E89.0 POSTPROCEDURAL HYPOTHYROIDISM 05/21/2016 VICKY ROSALES MD Ot J20.8 ACUTE BRONCHITIS DUE TO OTHER SPECIFIED 05/21/2016 VICKY ROSALES MD, Ot J44.0 CHRONIC OBSTRUCTIVE PULMON DISEASE W ACU 05/21/2016 VICKY ROSALES MD, Ot J44.1 CHRONIC OBSTRUCTIVE PULMONARY DISEASE W 05/21/2016 VICKY ROSALES MD Ot J45.909 UNSPECIFIED ASTHMA, UNCOMPLICATED 05/21/2016 VICKY ROSALES MD Ot K21.9 GASTRO-ESOPHAGEAL REFLUX DISEASE WITHOUT 05/21/2016 VICKY ROSALES MD Ot M19.91 PRIMARY OSTEOARTHRITIS, UNSPECIFIED SITE 05/21/2016 VICKY ROSALES MD Ot R09.02 HYPOXEMIA 06/18/2016 ARISTIDES CASTRO MD [...] MD Ot I25.10 ATHSCL HEART DISEASE OF [place] CORONARY 10/15/2016 KYRIE JULES MD Ot I34.0 NONRHEUMATIC MITRAL (VALVE) INSUFFICIENC 10/15/2016 KYRIE JULES MD, Ot K21.9 GASTRO-ESOPHAGEAL REFLUX DISEASE WITHOUT 10/15/2016 KYRIE JULES MD Ot K44.9 DIAPHRAGMATIC HERNIA WITHOUT OBSTRUCTION 10/15/2016 KYRIE JULES MD Ot K57.30 DVRTCLOS OF LG INT W/O PERFORATION OR AB 10/15/2016 KYRIE JULES MD Ot R07.89 OTHER CHEST PAIN 10/15/2016 KYRIE JULES MD Ot Z79.82 RETIREMENT (CURRENT) USE OF ASPIRIN 10/15/2016 KYRIE JULES MD, Ot Z79.899 OTHER RETIREMENT (CURRENT) DRUG THERAPY 10/15/2016 KYRIE JULES MD Ot Z87.442 PERSONAL HISTORY OF URINARY CALCULI 10/15/2016 KYRIE JULES MD Ot E03.9 HYPOTHYROIDISM, UNSPECIFIED 10/15/2016 KYRIE JULES MD Ot E78.5 HYPERLIPIDEMIA, UNSPECIFIED 10/15/2016 KYRIE JULES MD Ot I10 ESSENTIAL (PRIMARY) HYPERTENSION 10/15/2016 KYRIE JULES MD Ot I25.10 ATHSCL HEART DISEASE OF [place] CORONARY 10/15/2016 KYRIE JULES MD Ot I34.0 NONRHEUMATIC MITRAL (VALVE) INSUFFICIENC 10/15/2016 KYRIE JULES MD Ot K21.9 GASTRO-ESOPHAGEAL REFLUX DISEASE WITHOUT 10/15/2016 KYRIE JULES MD Ot K44.9 DIAPHRAGMATIC HERNIA WITHOUT OBSTRUCTION 10/15/2016 KYRIE JULES MD Ot K57.30 DVRTCLOS OF LG INT W/O PERFORATION OR AB 10/15/2016 KYRIE JULES MD Ot R07.89 OTHER CHEST PAIN 10/15/2016 KYRIE JULES MD Ot Z79.82 MANAGER WEB (CURRENT) USE OF ASPIRIN 10/15/2016 KYRIE JULES MD, Ot Z79.899 OTHER RETIREMENT (CURRENT) DRUG THERAPY 10/15/2016 KYRIE JULES MD [...] I10 ESSENTIAL (PRIMARY) HYPERTENSION 10/16/2016 KYRIE JULES MD Ot I25.10 ATHSCL HEART DISEASE OF [place] CORONARY 10/16/2016 KYRIE JULES MD Ot I34.0 NONRHEUMATIC MITRAL (VALVE) INSUFFICIENC 10/16/2016 KYRIE JULES MD Ot K21.9 GASTRO-ESOPHAGEAL REFLUX DISEASE WITHOUT 10/16/2016 KYRIE JULES MD Ot K44.9 DIAPHRAGMATIC HERNIA WITHOUT OBSTRUCTION 10/16/2016 KYRIE JULES MD Ot K57.30 DVRTCLOS OF LG INT W/O PERFORATION OR AB 10/16/2016 KYRIE JULES MD Ot R07.89 OTHER CHEST PAIN 10/16/2016 KYRIE JULES MD Ot Z79.82 MANAGER WEB (CURRENT) USE OF ASPIRIN 10/16/2016 KYRIE JULES MD, Ot Z79.899 OTHER RETIREMENT (CURRENT) DRUG THERAPY 10/16/2016 KYRIE JULES MD, [...] CHEST PAIN 11/06/2016 EDIE HANDY MD Ot Z79.899 OTHER MANAGER WEB (CURRENT) DRUG THERAPY 11/06/2016 EDIE HANDY MD [...] OBSTRUCTIVE PULMONARY DISEASE, U 03/12/2017 TERE CARVAJAL MD Ot K21.9 GASTRO-ESOPHAGEAL REFLUX DISEASE WITHOUT 03/12/2017 TERE CARVAJAL MD Ot K22.2 ESOPHAGEAL OBSTRUCTION 03/12/2017 TERE CARVAJAL MD Ot K29.70 GASTRITIS, UNSPECIFIED, WITHOUT BLEEDING 03/12/2017 TERE CARVAJAL MD, Ot Z79.82 RETIREMENT (CURRENT) USE OF ASPIRIN 03/12/2017 TERE CARVAJAL MD Ot Z79.899 OTHER RETIREMENT (CURRENT) DRUG THERAPY 03/13/2017 TERE CARVAJAL MD, Ot R13.10 DYSPHAGIA, UNSPECIFIED 03/13/2017 TERE CARVAJAL MD, Ot Z01.818 ENCOUNTER FOR OTHER PREPROCEDURAL EXAMIN 03/13/2017 TERE CARVAJAL MD, Ot E78.00 PURE HYPERCHOLESTEROLEMIA, UNSPECIFIED 03/13/2017 TERE [...] BLEEDING 03/13/2017 TERE CARVAJAL MD Ot Z79.82 RETIREMENT (CURRENT) USE OF ASPIRIN 03/13/2017 TERE CARVAJAL MD Ot Z79.899 OTHER MANAGER WEB (CURRENT) DRUG THERAPY 03/14/2017 TERE CARVAJAL MD Ot E78.00 PURE HYPERCHOLESTEROLEMIA, UNSPECIFIED 03/14/2017 TERE CARVAJAL MD Ot I10 ESSENTIAL (PRIMARY) HYPERTENSION 03/14/2017 TERE CARVAJAL MD Ot I73.9 PERIPHERAL VASCULAR DISEASE, UNSPECIFIED 03/14/2017 TERE CARVAJAL MD, Ot J44.9 CHRONIC OBSTRUCTIVE PULMONARY DISEASE, U 03/14/2017 TERE CARVAJAL MD Ot K21.9 GASTRO-ESOPHAGEAL REFLUX DISEASE WITHOUT 03/14/2017 TERE CARVAJAL MD Ot K22.2 ESOPHAGEAL OBSTRUCTION 03/14/2017 TERE CARVAJAL MD Ot K29.70 GASTRITIS, UNSPECIFIED, WITHOUT BLEEDING 03/14/2017 TERE CARVAJAL MD Ot Z79.82 MANAGER WEB (CURRENT) USE OF ASPIRIN 03/14/2017 TERE CARVAJAL MD Ot Z79.899 OTHER RETIREMENT (CURRENT) DRUG THERAPY 03/14/2017 FRANCISCO DAMON DIRECTOR OF CARDIAC REHABILITATION Ot R10.9 UNSPECIFIED ABDOMINAL PAIN 03/14/2017 FRANCISCO DAMON DIRECTOR OF CARDIAC REHABILITATION Ot Z98.890 OTHER SPECIFIED POSTPROCEDURAL STATES 03/18/2017 TERE CARVAJAL MD Ot E78.00 PURE HYPERCHOLESTEROLEMIA, UNSPECIFIED 03/18/2017 TERE CARVAJAL MD Ot I10 ESSENTIAL (PRIMARY) HYPERTENSION 03/18/2017 TERE CARVAJAL MD, Ot I73.9 PERIPHERAL VASCULAR DISEASE, UNSPECIFIED 03/18/2017 TERE CARVAJAL MD, Ot J44.9 CHRONIC OBSTRUCTIVE PULMONARY DISEASE, U 03/18/2017 TERE CARVAJAL MD, Ot K21.9 GASTRO-ESOPHAGEAL REFLUX DISEASE WITHOUT 03/18/2017 TERE CARVAJAL MD, Ot K22.2 ESOPHAGEAL OBSTRUCTION 03/18/2017 TERE CARVAJAL MD, Ot K29.70 GASTRITIS, UNSPECIFIED, WITHOUT BLEEDING 03/18/2017 TERE CARVAJAL MD Ot Z79.82 MANAGER WEB (CURRENT) USE OF ASPIRIN 03/18/2017 TERE CARVAJAL MD Ot Z79.899 OTHER MANAGER WEB (CURRENT) DRUG THERAPY 2017 FRANCISCO DAMON DIRECTOR OF CARDIAC REHABILITATION Ot R10.9 UNSPECIFIED ABDOMINAL PAIN 2017 FRANCISCO DAMON DIRECTOR OF CARDIAC REHABILITATION Ot Z98.890 OTHER SPECIFIED POSTPROCEDURAL STATES 08/08/2017 MAE TAFOYA MD Ot R91.8 OTHER NONSPECIFIC ABNORMAL FINDING OF TAMMY 08/08/2017 MAE TAFOYA MD, Ot Z79.2 RETIREMENT (CURRENT) USE OF ANTIBIOTICS 08/13/2017 MAE TAFOYA MD Ot R91.8 OTHER NONSPECIFIC ABNORMAL FINDING OF [place]AM[place] 08/13/2017 MAE TAFOYA MD Ot Z79.2 RETIREMENT (CURRENT) USE OF ANTIBIOTICS 08/28/2017 MAE TAFOYA MD Ot R91.8 OTHER NONSPECIFIC ABNORMAL FINDING OF [place] 08/28/2017 MAE TAFOYA MD Ot Z79.2 RETIREMENT (CURRENT) USE OF ANTIBIOTICS 09/03/2017 MAE TAFOYA MD Ot R91.8 OTHER NONSPECIFIC ABNORMAL FINDING OF [place]AM[place] 09/03/2017 MAE TAFOYA MD, Ot Z79.2 RETIREMENT (CURRENT) USE OF ANTIBIOTICS 11/19/2017 EDIE HANDY [...] CORON ATHEROSCLER NOS TYPE VESSEL, NATIV 11/19/2017 MATTHEW HUMMEL, ARISTIDES R Ot 715.31 LOC OSTEOARTH NOS-SHLDER 11/19/2017 MATTHEW HUMMEL ARISTIDES R Ot V74.8 SCREEN-BACTERIAL DIS NEC 11/19/2017 JB MOHAMUD MD Ot 562.10 DIVERTICULOSIS COLON (W/O MENT OF HEMORR 11/19/2017 JB MOHAMUD MD Ot 592.0 CALCULUS OF KIDNEY 11/19/2017 MATTHEW HUMMEL, ARISTIDES R Ot 790.99 BLOOD [...] HUMMEL, ARISTIDES R Ot 786.2 COUGH 11/19/2017 WEI HUMMEL, TERE Ot V72.84 EXAM PRE-OPERATIVE NOS 11/19/2017 EDIE HANDY MD Ot E78.5 HYPERLIPIDEMIA, UNSPECIFIED 11/19/2017 EDIE HANDY MD Ot I10 ESSENTIAL (PRIMARY) HYPERTENSION 11/19/2017 EDIE HANDY MD Ot I25.9 CHRONIC ISCHEMIC HEART DISEASE, UNSPECIF 11/19/2017 EDIE HANDY MD, Ot J44.9 CHRONIC OBSTRUCTIVE PULMONARY DISEASE, U 11/19/2017 EDIE HANDY MD Ot R07.9 CHEST PAIN, UNSPECIFIED 11/19/2017 EDILBERTO HUMMEL, NATHANIEL Fna Ot E04.2 NONTOXIC MULTINODULAR GOITER 11/19/2017 NATHANIEL [...] STRAUSS Ot I25.10 ATHSCL HEART DISEASE OF [place] CORONARY 11/19/2017 EDGAR STRAUSS Ot I65.23 OCCLUSION AND STENOSIS OF [place] 11/19/2017 MATTHEW HUMMEL, ARISTIDES Toure Ot R06.02 SHORTNESS OF BREATH 11/19/2017 EDIE HANDY MD Ot E78.2 MIXED HYPERLIPIDEMIA 11/19/2017 EDIE HANDY MD Ot G47.62 SLEEP RELATED LEG CRAMPS 11/19/2017 EDIE HANDY MD Ot I11.0 HYPERTENSIVE HEART DISEASE WITH HEART FA 11/19/2017 EDIE HANDY MD Ot 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 11/19/2017 EDIE HANDY MD Ot I65.23 OCCLUSION AND STENOSIS OF [place] 11/19/2017 EDIE HANDY MD Ot R07.89 OTHER CHEST PAIN 11/19/2017 MATTHEW HUMMEL, ARISTIDES R Ot R06.02 SHORTNESS OF BREATH 11/19/2017 FRANCISCO DAMON DIRECTOR OF CARDIAC REHABILITATION Ot R10.9 UNSPECIFIED ABDOMINAL PAIN 11/19/2017 FRANCISCO DAMON DIRECTOR OF CARDIAC REHABILITATION Ot Z98.890 OTHER SPECIFIED POSTPROCEDURAL STATES 11/19/2017 MAE TAFOYA MD Ot R91.8 OTHER NONSPECIFIC ABNORMAL FINDING OF TAMMY 11/19/2017 MAE TAFOYA MD Ot Z79.2 RETIREMENT (CURRENT) USE OF ANTIBIOTICS 01/05/2018 EDGAR STRAUSS Ot E78.5 HYPERLIPIDEMIA, UNSPECIFIED 01/05/2018 EDGAR STRAUSS Ot I08.3 COMB RHEUMATIC DISORD OF MITRAL, AORTIC 01/05/2018 EDGAR STRAUSS Ot I10 ESSENTIAL (PRIMARY) HYPERTENSION 01/05/2018 EDGAR STRAUSS Ot I25.10 ATHSCL HEART DISEASE OF [place] CORONARY 01/05/2018 EDGAR STRAUSS Ot R07.89 OTHER [...] TYPE VESSEL, NATIV 01/29/2018 ARISTIDES CASTRO MD R Ot 715.31 LOC OSTEOARTH NOS-SHLDER 01/29/2018 ARISTIDES CASTRO MD R Ot V74.8 SCREEN-BACTERIAL DIS NEC 01/29/2018 JB MOHAMUD MD Ot 562.10 DIVERTICULOSIS COLON (W/O MENT OF HEMORR 01/29/2018 ONEIDA MD, JB A Ot 592.0 CALCULUS OF KIDNEY 01/29/2018 MATTHEW [...] MD Ot V72.84 EXAM PRE-OPERATIVE NOS 01/29/2018 EDIE HANDY MD Ot E78.5 HYPERLIPIDEMIA, UNSPECIFIED 01/29/2018 EDIE HANDY MD Ot I10 ESSENTIAL (PRIMARY) HYPERTENSION 01/29/2018 EDIE HANDY MD Ot I25.9 CHRONIC ISCHEMIC [...] STRAUSS Ot I25.10 ATHSCL HEART DISEASE OF [place] CORONARY 01/29/2018 EDGAR STRAUSS Ot I65.23 OCCLUSION AND STENOSIS OF [place] 01/29/2018 MATTHEW HUMMEL, ARISTIDES R Ot R06.02 SHORTNESS OF BREATH 01/29/2018 EDIE HANDY MD Ot E78.2 MIXED HYPERLIPIDEMIA 01/29/2018 EDIE HANDY MD Ot G47.62 SLEEP RELATED LEG CRAMPS 01/29/2018 EDIE HANDY MD Ot I11.0 HYPERTENSIVE HEART DISEASE WITH HEART FA 01/29/2018 EDIE HANDY MD Ot 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 01/29/2018 EDIE HANDY MD Ot I65.23 OCCLUSION AND STENOSIS OF [place] 01/29/2018 EDIE HANDY MD Ot R07.89 OTHER CHEST PAIN 01/29/2018 MATTHEW HUMMEL, ARISTIDES R Ot R06.02 SHORTNESS OF BREATH 01/29/2018 FRANCISCO DAMON DIRECTOR OF CARDIAC REHABILITATION Ot R10.9 UNSPECIFIED ABDOMINAL PAIN 01/29/2018 FRANCISCO DAMON DIRECTOR OF CARDIAC REHABILITATION Ot Z98.890 OTHER SPECIFIED POSTPROCEDURAL STATES 01/29/2018 MAE TAFOYA MD Ot R91.8 OTHER NONSPECIFIC ABNORMAL FINDING OF TAMMY 01/29/2018 MAE TAFOYA MD Ot Z79.2 MANAGER WEB (CURRENT) USE OF ANTIBIOTICS 01/29/2018 EDGAR STRAUSS Ot E78.5 HYPERLIPIDEMIA, UNSPECIFIED 01/29/2018 EDGAR STRAUSS Ot I08.3 COMB RHEUMATIC DISORD OF MITRAL, AORTIC 01/29/2018 EDGAR STRAUSS Ot I10 ESSENTIAL (PRIMARY) HYPERTENSION 01/29/2018 EDGAR STRAUSS Ot I25.10 ATHSCL HEART DISEASE OF [place] CORONARY 01/29/2018 EDGAR STRAUSS Ot R07.89 OTHER CHEST PAIN 02/04/2018 EDIE HANDY MD Ot E78.5 HYPERLIPIDEMIA, UNSPECIFIED 02/04/2018 EDIE HANDY MD Ot I10 ESSENTIAL (PRIMARY) HYPERTENSION 02/04/2018 EDIE HANDY MD Ot I25.10 ATHSCL HEART DISEASE OF [place] CORONARY 02/04/2018 EDIE HANDY MD Ot I27.20 [...] RHEUMATIC DISORD OF MITRAL, AORTIC 02/22/2018 SUKH CAPPS EDGAR K Ot I10 ESSENTIAL (PRIMARY) HYPERTENSION 02/22/2018 SUKH CAPPS, EDGAR K Ot I25.10 ATHSCL HEART DISEASE OF [place] CORONARY 02/22/2018 SUKH CAPPS, EDGAR K Ot R07.89 OTHER CHEST PAIN 02/23/2018 SUKH CAPPS, EDGAR K Ot E78.5 HYPERLIPIDEMIA, UNSPECIFIED 02/23/2018 SUKH CAPPS, EDGAR K Ot I08.3 COMB RHEUMATIC DISORD OF MITRAL, AORTIC 02/23/2018 SUKH CAPPS, EDGAR K Ot I10 ESSENTIAL (PRIMARY) HYPERTENSION 02/23/2018 SUKH CAPPS, EDGAR K Ot I25.10 ATHSCL HEART DISEASE OF [place] CORONARY 02/23/2018 SUKH CAPPS EDGAR K Ot R07.89 OTHER CHEST PAIN 02/26/2018 EDIE HANDY MD Ot E78.5 HYPERLIPIDEMIA, UNSPECIFIED 02/26/2018 EDIE HANDY MD Ot I10 ESSENTIAL (PRIMARY) HYPERTENSION 02/26/2018 EDIE HANDY MD Ot I25.10 ATHSCL HEART DISEASE OF [place] CORONARY 02/26/2018 EDIE HANDY MD Ot I27.20 PULMONARY HYPERTENSION, UNSPECIFIED 02/26/2018 EDIE HANDY MD Ot I65.29 OCCLUSION AND STENOSIS OF UNSPECIFIED CA 02/26/2018 EDIE HANDY MD Ot J44.9 CHRONIC OBSTRUCTIVE PULMONARY DISEASE, U 02/26/2018 ROZINA HUMMEL, EDIE Knutson Ot R07.89 OTHER CHEST PAIN 03/04/2018 ROBBIE MELISSA APRN Ot E03.9 HYPOTHYROIDISM, UNSPECIFIED 03/04/2018 ROBBIE MELISSA APRN Ot E78.00 PURE HYPERCHOLESTEROLEMIA, UNSPECIFIED 03/04/2018 ROBBIE MELISSA APRN Ot I10 ESSENTIAL (PRIMARY) HYPERTENSION 03/04/2018 ROBBIE MELISSA APRN Ot I25.10 ATHSCL HEART DISEASE OF [place] CORONARY 03/04/2018 ROBBIE MELISSA APRN Ot J44.9 CHRONIC OBSTRUCTIVE PULMONARY DISEASE, U 03/04/2018 ROBBIE MELISSA APRN Ot K21.9 GASTRO-ESOPHAGEAL REFLUX DISEASE WITHOUT 03/04/2018 ROBBIE MELISSA APRN Ot R42 DIZZINESS AND GIDDINESS 03/04/2018 ROBBIE MELISSA APRN Ot R53.1 WEAKNESS 03/04/2018 ROBBIE MELISSA APRN Ot Z79.82 MANAGER WEB (CURRENT) USE OF ASPIRIN 03/04/2018 ROBBIE MELISSA APRN Ot Z80.0 FAMILY HISTORY OF MALIGNANT NEOPLASM OF 03/04/2018 ROBBIE MELISSA APRN Ot Z80.1 FAMILY HISTORY OF MALIG NEOPLASM OF TRAC 03/04/2018 ROBBIE MELISSA APRN Ot Z82.49 FAMILY HX OF ISCHEM HEART DIS AND OTH DI 03/04/2018 ROBBIE MELISSA APRN Ot Z86.14 PERSONAL HISTORY OF METHICILLIN RESIS ST 03/04/2018 ROBBIE MELISSA APRN Ot Z87.442 PERSONAL HISTORY OF URINARY CALCULI 03/04/2018 ROBBIE MELISSA APRN Ot Z87.448 PERSONAL HISTORY OF OTHER DISEASES OF UR 03/04/2018 ROBBIE MELISSA APRN Ot Z88.2 ALLERGY STATUS TO SULFONAMIDES STATUS 03/04/2018 ROBBIE MELISSA APRN Ot Z88.8 ALLERGY STATUS TO OTH DRUG/MEDS/BIOL SUB 03/04/2018 ROBBIE MELISSA APRN Ot Z90.710 ACQUIRED ABSENCE OF BOTH CERVIX AND UTER 03/04/2018 ROBBIE MELISSA APRN Ot Z90.89 ACQUIRED ABSENCE OF OTHER ORGANS 03/04/2018 ROBBIE MELISSA APRN Ot Z98.61 CORONARY ANGIOPLASTY STATUS 03/04/2018 ROBBIE MELISSA APRN Ot Z98.890 OTHER SPECIFIED POSTPROCEDURAL STATES Procedures Code Description Performed By Performed On [...] Automated erythrocyte mean corpuscular hemoglobin concentration measurement (mass/volume) 34 g/dL 32-36 Automated erythrocyte distribution width ratio 13.9 % 10.0- 14.5 Automated blood platelet count (count/volume) 169 10*3/uL [...] Blood monocytes automated count (number/volume) 0.7 10*3 0.0- 1.0 Automated eosinophil count 0.0 10*3/uL 0.0-0.3 Automated [...] Serum or plasma aspartate aminotransferase measurement (enzymatic activity/volume) 26 U/L 5-34 Serum or plasma alanine aminotransferase measurement (enzymatic activity/volume) 17 U/L 0-55 Serum or plasma protein [...] GROWTH Moderate Growth NR Bacterial sputum culture [id number] [facility] Bacterial susceptibility panel - 05/17/16 [...] Automated erythrocyte mean corpuscular hemoglobin concentration measurement (mass/volume) 33 g/dL 32-36 Automated erythrocyte distribution width ratio 14.4 % 10.0- 14.5 Automated blood platelet count (count/volume) 217 10*3/uL [...] Blood monocytes automated count (number/volume) 0.8 10*3 0.0- 1.0 Automated eosinophil count 0.2 10*3/uL 0.0-0.3 Automated [...] Serum or plasma aspartate aminotransferase measurement (enzymatic activity/volume) 20 U/L 5-34 Serum or plasma alanine aminotransferase measurement (enzymatic activity/volume) 12 U/L 0-55 Serum or plasma protein measurement (mass/volume) 6.8 g/dL 6.4-8.2 Serum or plasma albumin measurement (mass/volume) 4.0 g/dL 3.2-4.5 Magnesium - 10/15/16 00:39 Magnesium 2.3 mg/dL 1.8-2.4 Serum or plasma creatine kinase measurement (enzymatic activity/volume) - 10/15/16 00:39 Serum or plasma creatine kinase measurement (enzymatic activity/volume) 67 U/L 29-168 Serum or plasma creatine kinase MB measurement (enzymatic activity/volume) - 10/15/16 00:39 Serum or plasma creatine kinase MB measurement (enzymatic activity/volume) 1.2 ng/mL <6.6 Serum or plasma troponin i.cardiac measurement (mass/volume) - 10/15/16 00:39 Serum or plasma troponin i.cardiac measurement (mass/volume) < ng/mL <0.30 Serum or plasma lithium measurement (moles/volume) - 10/15/16 00:39 BNP level 86.3 pg/mL <100.0 Serum or plasma amylase measurement (enzymatic activity/volume) - 10/15/16 00:39 Serum or plasma amylase measurement (enzymatic activity/volume) 41 U/L 25-125 Lipase - 10/15/16 00:39 Lipase 30 U/L 8-78 Serum or plasma creatine kinase measurement (enzymatic activity/volume) - 10/15/16 05:00 Serum or plasma creatine kinase measurement (enzymatic activity/volume) 63 U/L 29-168 Serum or plasma troponin i.cardiac measurement (mass/volume) - 10/15/16 05:00 Serum or plasma troponin i.cardiac measurement (mass/volume) < ng/mL <0.30 Myoglobin, serum - 10/15/16 05:00 Myoglobin, serum 45.2 ng/mL 10.0-92.0 Lipid 1996 panel - 10/15/16 05:00 Serum or plasma triglyceride measurement (mass/volume) 41 mg/dL <150 Serum or plasma cholesterol measurement (mass/volume) 153 mg/dL < 200 Serum or plasma cholesterol in HDL measurement (mass/volume) 64 mg/dL 40-60 Cholesterol in LDL [mass/volume] in serum or plasma by direct assay 89 mg/dL 1-129 Serum or plasma cholesterol in VLDL measurement (mass/volume) 8 mg/dL 5-40 Complete urinalysis with reflex to culture - 10/15/16 16:40 Urine color determination YELLOW NRG Urine clarity determination CLEAR NRG Urine pH measurement by test strip 8 5-9 Specific gravity of urine by test strip 1.015 1.016-1.022 Urine protein assay by test strip, semi-quantitative [...] sediment leukocyte count by microscopy (number/high power field) RARE NRG Bacteria detection in urine sediment [...] Automated erythrocyte mean corpuscular hemoglobin concentration measurement (mass/volume) 33 g/dL 32-36 Automated erythrocyte distribution width ratio 13.8 % 10.0- 14.5 Automated blood platelet count (count/volume) 228 10*3/uL 130-400 Automated blood platelet mean volume measurement 9.5 [foz_us] 7.4-10.4 Complete urinalysis with reflex to culture - 11/06/16 07:04 Urine color determination YELLOW NRG Urine clarity determination CLEAR NRG Urine pH measurement by test strip 8 5-9 Specific gravity of urine by test strip 1.010 1.016-1.022 Urine protein assay by test strip, semi-quantitative [...] sediment leukocyte count by microscopy (number/high power field) NONE NRG Bacteria detection in urine sediment [...] Serum or plasma aspartate aminotransferase measurement (enzymatic activity/volume) 21 U/L 5-34 Serum or plasma alanine aminotransferase measurement (enzymatic activity/volume) 14 U/L 0-55 Serum or plasma protein measurement (mass/volume) 7.2 g/dL 6.4-8.2 Serum or plasma albumin measurement (mass/volume) 4.1 g/dL 3.2-4.5 Lipid 1996 panel - 11/06/16 07:04 Serum or plasma triglyceride measurement (mass/volume) 70 mg/dL <150 Serum or plasma cholesterol measurement (mass/volume) 186 mg/dL < 200 Serum or plasma cholesterol in HDL measurement (mass/volume) 74 mg/dL 40-60 Cholesterol in LDL [mass/volume] in serum or plasma by direct assay 108 mg/dL 1-129 Serum or plasma cholesterol in VLDL measurement (mass/volume) 14 mg/dL 5-40 Methicillin resistant Staphylococcus aureus (MRSA) screening culture - 11/06/16 07:04 Methicillin resistant Staphylococcus aureus (MRSA) screening [...] Automated erythrocyte mean corpuscular hemoglobin concentration measurement (mass/volume) 34 g/dL 32-36 Automated erythrocyte distribution width ratio 13.1 % 10.0- 14.5 Automated blood platelet count (count/volume) 206 10*3/uL [...] Blood monocytes automated count (number/volume) 0.5 10*3 0.0- 1.0 Automated eosinophil count 0.2 10*3/uL 0.0-0.3 Automated [...] Serum or plasma aspartate aminotransferase measurement (enzymatic activity/volume) 17 U/L 5-34 Serum or plasma alanine aminotransferase measurement (enzymatic activity/volume) 12 U/L 0-55 Serum or plasma protein [...] Serum or plasma aspartate aminotransferase measurement (enzymatic activity/volume) 21 U/L 5-34 Serum or plasma alanine aminotransferase measurement (enzymatic activity/volume) 15 U/L 0-55 Serum or plasma protein measurement (mass/volume) 7.0 g/dL 6.4-8.2 Serum or plasma albumin measurement (mass/volume) 4.0 g/dL 3.2-4.5 CALCIUM CORRECTED 9.0 mg/dL 8.5-10.1 Complete blood count (CBC) with automated white blood cell (WBC) differential - 03/04/18 13:31 Blood leukocytes automated count (number/volume) 6.2 10*3/uL 4.3-11.0 Blood erythrocytes automated count (number/volume) 3.78 10*6/uL 4.35-5.85 Venous blood hemoglobin measurement (mass/volume) 11.6 g/dL 11.5-16.0 Blood hematocrit (volume fraction) 36 % 35-52 Automated erythrocyte mean corpuscular volume 94 [foz_us] 80-99 Automated erythrocyte mean corpuscular hemoglobin (mass per erythrocyte) 31 pg 25-34 Automated erythrocyte mean corpuscular hemoglobin concentration measurement (mass/volume) 33 g/dL 32-36 Automated erythrocyte distribution width ratio 13.8 % 10.0- 14.5 Automated blood platelet count (count/volume) 190 10*3/uL 130-400 Automated blood platelet mean volume measurement 9.7 [foz_us] 7.4-10.4 Automated blood neutrophils/100 leukocytes 66 % 42-75 Automated blood lymphocytes/100 leukocytes 17 % 12-44 Blood monocytes/100 leukocytes 14 % 0-12 Automated blood eosinophils/100 leukocytes 3 % 0-10 Automated blood basophils/100 leukocytes 0 % 0-10 Blood neutrophils automated count (number/volume) 4.1 10*3 1.8-7.8 Blood lymphocytes automated count (number/volume) 1.1 10*3 1.0-4.0 Blood monocytes automated count (number/volume) 0.9 10*3 0.0- 1.0 Automated eosinophil count 0.2 10*3/uL 0.0-0.3 Automated blood basophil count (count/volume) 0.0 10*3/uL 0.0-0.1 Comprehensive metabolic panel - 03/04/18 13:31 Serum or plasma sodium measurement (moles/volume) 140 mmol/L 135-145 Serum or plasma potassium measurement (moles/volume) 4.2 mmol/L 3.6-5.0 Serum or plasma chloride measurement (moles/volume) 108 mmol/L 98-107 Carbon dioxide 27 mmol/L 21-32 Serum or plasma anion gap determination (moles/volume) 5 mmol/L 5-14 Serum or plasma urea nitrogen measurement (mass/volume) 20 mg/dL 7-18 Serum or plasma creatinine measurement (mass/volume) 0.72 mg/dL 0.60-1.30 Serum or plasma urea nitrogen/creatinine mass ratio 28 NRG Serum or plasma creatinine measurement with calculation of estimated glomerular filtration rate > NRG Serum or plasma glucose measurement (mass/volume) 73 mg/dL 70-105 Serum or plasma calcium measurement (mass/volume) 8.3 mg/dL 8.5-10.1 Serum or plasma total bilirubin measurement (mass/volume) 0.4 mg/dL 0.1-1.0 Serum or plasma alkaline phosphatase measurement (enzymatic activity/volume) 59 U/L 40-136 Serum or plasma aspartate aminotransferase measurement (enzymatic activity/volume) 24 U/L 5-34 Serum or plasma alanine aminotransferase measurement (enzymatic activity/volume) 12 U/L 0-55 Serum or plasma protein measurement (mass/volume) 6.2 g/dL 6.4-8.2 Serum or plasma albumin measurement (mass/volume) 3.4 g/dL 3.2-4.5 CALCIUM CORRECTED 8.8 mg/dL 8.5-10.1 Magnesium - 03/04/18 13:31 Magnesium 2.3 mg/dL 1.8-2.4 Serum or plasma troponin i.cardiac measurement (mass/volume) - 03/04/18 13:31 Serum or plasma troponin i.cardiac measurement (mass/volume) < ng/mL <0.028 THYROID STIMULATING HORMONE - 03/04/18 13:31 THYROID STIMULATING HORMONE 2.47 u[iU]/mL 0.35-4.94 Serum or plasma lithium measurement (moles/volume) - 03/04/18 13:31 BNP level 158.6 pg/mL <100.0 Influenza virus A and B antigen detection - 03/04/18 14:00 FLU RESULT NEGATIVE FOR INFLUENZA A AND B ANTIGENS BY IA NRG Complete urinalysis with reflex to culture - 03/04/18 15:21 Urine color determination YELLOW NRG Urine clarity determination CLEAR NRG Urine pH measurement by test strip 6.5 5-9 Specific gravity of urine by test strip 1.015 1.016-1.022 Urine protein assay by test strip, semi-quantitative NEGATIVE NEGATIVE Urine glucose detection by automated test strip NEGATIVE NEGATIVE Erythrocytes detection in urine sediment by light microscopy 4+ NEGATIVE Urine ketones detection by automated test strip NEGATIVE NEGATIVE Urine nitrite detection by test strip NEGATIVE NEGATIVE Urine total bilirubin detection by test strip NEGATIVE NEGATIVE Urine urobilinogen measurement by automated test strip (mass/volume) 1 mg/dL NORMAL Urine leukocyte esterase detection by dipstick 1+ NEGATIVE Automated urine sediment erythrocyte count by microscopy (number/high power field) [HPF] NRG Automated urine sediment leukocyte count by microscopy (number/high power field) [HPF] NRG Bacteria detection in urine sediment by light microscopy TRACE NRG Squamous epithelial cells detection in urine sediment by light microscopy 2-5 NRG Crystals detection in urine sediment by light microscopy NONE NRG Casts detection in urine sediment by light microscopy NONE NRG Mucus detection in urine sediment by light microscopy SMALL NRG Complete urinalysis with reflex to culture NO NRG Encounters ACCT No. Visit Date/Time Discharge Status Pt. Type Provider Facility Loc./Unit Complaint [id number] 03/04/2018 13:19:00 03/04/2018 16:08:00 DIS Emergency ROBBIE MELISSA APRN [facility] ER LIGHT HEADED [id number] 02/23/2018 00:12:00 02/23/2018 23:59:59 CLS Preadmit EDGAR STRAUSS [facility] CARD CAD [id number] 11/24/2017 10:44:00 02/22/2018 00:01:00 DIS Outpatient EDGAR STRAUSS [facility] CARD CAD [id number] 01/29/2018 11:21:00 01/29/2018 23:59:59 CLS Outpatient EDIE HANDY MD [facility] LAB CAD,HTN [id number] 10/28/2017 14:16:00 10/28/2017 23:59:59 CLS Preadmit EDGAR STRAUSS [facility] CARD CAD [id number] 08/07/2017 13:08:00 08/07/2017 23:59:59 CLS Outpatient MAE TAFOYA MD [facility] CARD PULMONARY GOOD,PULMONARY NODULES [id number] 03/12/2017 11:09:00 03/12/2017 15:25:00 DIS Outpatient TERE CARVAJAL MD [facility] ENDO DYSPHAGIA [id number] 03/07/2017 05:34:00 03/07/2017 09:37:00 DIS Outpatient TERE CARVAJAL MD [facility] PREOP EGD [id number] 02/13/2017 10:29:00 02/13/2017 23:59:59 CLS Outpatient FRANCISCO DAMON APRN [facility] RAD R10.9 [id number] 02/12/2017 10:01:00 02/12/2017 23:59:59 CLS Outpatient MATTHEW HUMMEL, ARISTIDES Toure [facility] LAB R06.02 [id number] 11/06/2016 06:38:00 11/06/2016 13:17:00 DIS Outpatient EDIE HANDY MD [facility] CATH HTN,RENAL ATERY STENOSIS,HLP [id number] 10/15/2016 02:50:00 10/15/2016 17:50:00 DIS Inpatient KYRIE JULES MD [facility] ICU CHEST PAIN;HTN [id number] 10/10/2016 12:42:00 10/10/2016 23:59:59 CLS Outpatient EDIE HANDY MD [facility] CARD CHEST PAIN SYNDROME R07.89 [id number] 09/26/2016 12:23:00 09/26/2016 23:59:59 CLS Preadmit EDIE HANDY MD [facility] CARD CHEST PAIN SYNDROME R07.89 [id number] 05/17/2016 12:45:00 05/21/2016 17:56:00 DIS Inpatient BOBBY HUMMEL, VICKY Russell [facility] 4TH COPD EXACERBATION [id number] 05/17/2016 09:28:00 05/17/2016 23:59:59 CLS Outpatient MATTHEW HUMMEL, ARISTIDES Toure [facility] RAD SOB [id number] 05/13/2016 09:24:00 05/13/2016 11:00:00 DIS Emergency SARA HUMMEL, VICKY De La Paz [facility] ER ABD PAIN [id number] 07/20/2015 08:20:00 07/20/2015 23:59:59 CLS Outpatient EDGAR STRAUSS [facility] CARD CAD,CAROTID ARTERY STENOSIS,HTN,HLP [id number] 05/11/2015 07:30:00 05/11/2015 23:59:59 CLS Outpatient NATHANIEL CASANOVA MD [facility] FINE NEEDLE CHANGES, SUSP OF PAPILLARY CA THYROID [id number] 05/04/2015 08:37:00 05/04/2015 09:39:00 DIS Outpatient NATHANIEL CASANOVA MD [facility] PREOP FNA SUSP. PAPILLARY CA THYROID [id number] 04/13/2015 10:56:00 04/13/2015 23:59:59 CLS Outpatient NATHANIEL CASANOVA MD [facility] RAD GOITER, LEFT NODULE [id number] 04/06/2015 06:00:00 04/07/2015 09:45:00 DIS Outpatient TERE CARVAJAL MD [facility] HIATAL HERNIA [id number] 03/30/2015 10:25:00 03/30/2015 23:59:59 CLS Outpatient NATHANIEL CASANOVA MD [facility] RAD GOITER LT NODULE [id number] 03/28/2015 12:57:00 03/28/2015 23:59:59 CLS Outpatient TERE CARVAJAL MD [facility] PREOP HIATAL HERNIA [id number] 03/01/2015 07:09:00 03/01/2015 23:59:59 CLS Outpatient NATHANIEL CASANOVA MD [facility] RAD GOITER [id number] 11/24/2014 07:46:00 11/24/2014 23:59:59 CLS Outpatient EDIE HANDY MD [facility] LAB HYPERLIPIDEMIA,CAD,COPD,HTN,CHEST PAIN [id number] 07/04/2014 09:59:00 07/04/2014 23:59:59 CLS Outpatient POPEYE PASCAL [facility] QUICK [id number] 06/01/2014 08:14:00 06/01/2014 13:45:00 DIS Outpatient TERE CARVAJAL MD [facility] SDC POSITIVE OCCULT BLOOD [id number] 05/30/2014 06:14:00 05/30/2014 23:59:59 CLS Outpatient TERE CARVAJAL MD [facility] PREOP POSITIVE OCCULT BLOOD [id number] 01/19/2014 16:30:00 01/19/2014 23:59:59 CLS Outpatient ARISTIDES CASTRO MD [facility] LAB INCHING,STINGING [id number] 12/03/2013 08:27:00 12/03/2013 23:59:59 CLS Outpatient EDGAR STRAUSS [facility] LAB HYPERLIPIDEMIA [id number] 11/10/2013 10:34:00 11/10/2013 23:59:59 CLS Outpatient EDGAR STRAUSS [facility] CARD CAD,COPD,CAROTID ARTERY STENOSIS,HTN [id number] 05/04/2013 08:26:00 05/04/2013 23:59:59 CLS Outpatient ARISTIDES CASTRO MD [facility] LAB HX LOW ALB,LOW PROT [id number] 03/04/2013 11:36:00 03/04/2013 23:59:59 CLS Outpatient JB MOHAMUD MD [facility] RAD RUQ PAIN,STONES,HEMATURIA [id number] 02/02/2013 10:01:00 02/02/2013 23:59:59 CLS Outpatient ARISTIDES CASTRO MD [facility] LAB MRSA [id number] 12/10/2012 10:32:00 12/10/2012 23:59:59 CLS Outpatient ARISTIDES CASTRO MD [facility] RAD PAIN IN RT SHOULDER [id number] 12/02/2012 07:51:00 12/02/2012 23:59:59 CLS Outpatient EDIE HANDY MD [facility] LAB HLP,HTN,CAD [id number] 10/21/2012 05:55:00 10/21/2012 10:38:00 DIS Outpatient JB MOHAMUD MD [facility] SDC RIGHT RENAL STONE [id number] 10/20/2012 11:44:00 10/20/2012 23:59:59 CLS Outpatient JB MOHAMUD MD [facility] PREOP RIGHT URETERAL STONE [id number] 10/20/2012 08:34:00 10/20/2012 23:59:59 CLS Outpatient JB MOHAMUD MD [facility] RAD STONE [id number] 10/09/2012 18:03:00 10/09/2012 21:28:00 DIS Emergency MARGARETTE DO, RODRIGO K [facility] ER ELEVATED BP [id number] 06/19/2012 06:50:00 06/19/2012 23:59:59 CLS Outpatient EDIE HANDY MD [facility] RAD RENAL ART STENOSIS,MR,MALIGNANT HTN [id number] 05/29/2012 07:48:00 Document Registration [id number] 01/29/2012 06:44:00 Document Registration [id number] 01/23/2012 09:23:00 Document Registration [id number] 01/23/2012 09:12:00 Document Registration [id number] 01/04/2012 09:15:00 Document Registration [id number] 12/16/2011 09:35:00 Document Registration [id number] 11/07/2011 07:43:00 Document Registration [id number] 08/28/2011 08:08:00 Document Registration [id number] 08/22/2011 08:23:00 Document Registration [id number] 04/09/2011 08:12:00 Document Registration [id number] 04/06/2011 09:00:00 Document Registration [id number] 09/21/2010 08:04:00 Document Registration [id number] 06/07/2010 10:14:00 Document Registration [id number] 04/06/2010 08:00:00 Document Registration [id number] 09/06/2009 10:31:00 Document Registration [id number] 04/25/2009 10:42:00 Document Registration [id number] 04/13/2009 08:37:00 Document Registration [id number] 01/10/2009 07:21:00 Document Registration
[2018-08-08] MEDS ORDERED: KETOROLAC 30 MG/ML VIAL IVP ONE (09:00)
--- NOTE | 2018-08-08 09:24 | Diagnostic Imaging Report ---
INDICATION: Left-sided chest pain and numbness. COMPARISON: 03/04/2018. FINDINGS: Frontal and lateral views of the chest demonstrate stable cardiac enlargement. Lungs are clear. There is no pneumothorax. Osseous structures are normal. IMPRESSION: Stable cardiac enlargement without pulmonary edema or infiltrate. Dictated by: Dictated on workstation # [id number]
[2018-08-08] MEDS ORDERED: Prednisone PO (09:38)
[2018-08-08] MEDS ORDERED: PRD20T PO (09:41)
--- NOTE | 2018-08-08 09:44 | ED Lower Extremity ---
General Chief Complaint: Lower Extremity Stated Complaint: R FOOT NUMBNESS Nursing Triage Note: PT AMB TO RM 8 WITH COMPLAINT OF RIGHT FOOT NUMBNESS. PT STATES WOKE UP THIS MORNING WITH NUMBNESS. PT STATES SHE ALSO HAD LEFT SIDED CHEST PAIN A FEW DAYS AGO. Nursing Sepsis Screen: No Definite Risk Source: patient, family Exam Limitations: no limitations History of Present Illness Date Seen by Provider: Aug 08, 2018 Time Seen by Provider: 08:35 Initial Comments Here with report of numbness to the right foot anterior portion as well as some pain and tingling to the lateral aspect of the right thigh. Noted that she was climbing a ladder yesterday and that's what her foot started hurting but has been moving multiple boxes over the last several days and that's what started the pain on the upper leg. Has had sciatica previously. Pain is a little better this morning. She was concerned because of the tingling. She has feeling but states that it's a little tingly. Onset: yesterday Severity: mild Pain/Injury Location: right other Method of Injury: other Modifying Factors: Improves With Movement Allergies and Home Medications Allergies Coded Allergies: duloxetine HCl (Verified Allergy, Intermediate, BLISTERS, 05/04/15) Penicillins (Verified Allergy, Mild, 04/03/11) Home Medications Acetaminophen with Codeine 1 Each Tablet, 1 EACH PO Q6H PRN for COUGH Prescribed by: ROBBIE MELISSA on 03/04/18 1432 Aspirin 81 Mg Tablet., 81 MG PO HS, (Reported) Carvedilol 12.5 Mg Tablet, 12.5 MG PO BID, (Reported) Levothyroxine Sodium 50 Mcg Tablet, 50 MCG PO DAILY, (Reported) Losartan Potassium 100 Mg Tablet, 100 MG PO DAILY, (Reported) Multivitamin 1 Each Tablet, 1 TAB PO DAILY, (Reported) [place]-3/Dha/Epa/Fish Oil 1 Each Capsule, 1,000 MG PO 0800,1200, (Reported) Pantoprazole Sodium 40 Mg Tablet., 40 MG PO DAILY, (Reported) Prednisone 20 Mg Tab, 40 MG PO DAILY Prescribed by: MALINDA NIETO on 08/08/18 0971 Patient Home Medication List Home Medication List Reviewed: Yes Review of Systems Constitutional: No chills, No fever, No weakness Respiratory: No cough, No dyspnea on exertion, No short of breath; other (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 No sequela from that currently per the patient.) Cardiovascular: chest pain (reports it is intermittent and lasting a few seconds over the last few days but none today. States that it was sharp and central.); No edema, No palpitations Gastrointestinal: No abdominal pain, No diarrhea, No heartburn Genitourinary: No dysuria, No hematuria Musculoskeletal: other (right buttock pain radiating down right leg) All Other Systems Reviewed Negative Unless Noted: Yes Past Tukapct-Fxhdtf-Pbaavb Hx Past Med/Social Hx: Reviewed Nursing Past Med/Soc Hx Patient Social History Alcohol Use: Denies Use Recreational Drug Use: No Smoking Status: Never a Smoker Recent Foreign Travel: No Contact w/Someone Who Travel: No Recent Infectious Disease Expo: No Recent Hopitalizations: No Immunizations Up To Date Tetanus Booster (TDap): Unknown PED Vaccines UTD: Yes Date of Pneumonia Vaccine: Jun 01, 2004 Seasonal Allergies Seasonal Allergies: No Past Medical History Surgeries: Yes (KIDNEY STONE REMOVAL, ORAL SX, ANGIOPLASTY RIGHT RENAL ARTERY) Abdominal, Gallbladder, Hysterectomy, Orthopedic, Renal, Thyroidectomy Respiratory: Yes (lung nodules, INFECTIOUS DISEASE DR FOR LUNG) COPD Currently Using CPAP: No Currently Using BIPAP: No Cardiac: Yes (CAROTID DISEASE; RIGHT RENAL ARTERY STENOSIS--S/P ANGIOPLASTY 2011) Coronary Artery Disease, High Cholesterol, Hypertension, Irregular Heartbeat, Valvular Heart Disease Neurological: No Reproductive Disorders: No Female Reproductive Disorders: Denies 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, 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 Sexually Transmitted Disease: No HIV/AIDS: No Genitourinary: Yes (OVERACTIVE BLADDER; INCONTINENCE) Kidney Stones Gastrointestinal: Yes (S/P HIATAL HERNIA REPAIR, DYSPHAGIA) Gastroesophageal Reflux, Diverticulosis, Hiatal Hernia Musculoskeletal: Yes (CHRONIC LEG PAIN ) Arthritis Endocrine: Yes (BENIGN NODULE ON THYROID, BX ON 03/30/15; THYROIDECTOMY 05/2015--GOITER) Hypothyroidsim HEENT: Yes Cataract Hearing Impairment: Denies Cancer: No Psychosocial: No Integumentary: Yes (hx of mrsa) Blood Disorders: No Adverse Reaction/Blood Tranf: No Family Medical History Reviewed Nursing Family Hx Cardiovascular disease G8 SISTER Colon cancer G8 BROTHER FH: cancer 19 FATHER (lung) 19 MOTHER G8 SISTER (esophagus) Psychosocial problem 19 MOTHER Physical Exam Vital Signs Vital Signs - First Documented 08/08/18 08:20 Temp 97.3 Pulse 73 Resp 20 B/P (MAP) 168/81 (110) Pulse Ox 95 O2 Delivery Room Air Capillary Refill : Less Than 3 Seconds Height, Weight, BMI Height: 5'2.00" Weight: 122lbs. 0.0oz. 55.980947qx; 23.8 BMI Method:Stated General Appearance: WD/WN, no apparent distress, mild distress HEENT: PERRL/EOMI Neck: full range of motion Cardiovascular: normal peripheral pulses, systolic murmur Respiratory: chest non-tender, lungs clear, normal breath sounds Gastrointestinal: non tender, soft Back: normal inspection, no CVA tenderness, no vertebral tenderness Hips: left hip non-tender, left hip normal inspection, left hip normal range of motion, left hip no evidence of injury; right hip pain (right buttock), right hip soft tissue tenderness (right buttock) Legs: bilateral leg non-tender, bilateral leg normal inspection, bilateral leg normal range of motion, bilateral leg no evidence of injury Ankles: bilateral ankle non-tender, bilateral ankle normal inspection, bilateral ankle normal range of motion, bilateral ankle no evidence of injury, bilateral ankle abrasions/lacerations; right ankle other (tingling) Feet: bilateral foot non-tender, bilateral foot normal inspection, bilateral foot normal range of motion, bilateral foot no evidence of injury, bilateral foot abrasions/lacerations, bilateral foot bone tenderness, bilateral foot deformity; right foot other (tingling) Neurologic/Tendon: normal sensation, normal motor functions, normal tendon functions, responds to pain Skin: normal color, warm/dry Lymphatic: no adenopathy Progress/Results/Core Measures Results/Orders Lab Results Laboratory Tests Test 08/08/18 08:34 Range/Units Troponin I < 0.028 <0.028 NG/ML My Orders Orders - MALINDA NIETO MD Ketorolac Injection (Toradol Injection) (08/08/18 09:00) Ekg-Prn For Chest Pain Or Rhyt (08/08/18 08:47) Chest Pa/Lat (2 View) (08/08/18 08:47) Troponin I (08/08/18 08:47) Medications Given in ED Current Medications Medications Dose Ordered Sig/Leif Route Start Time Stop Time Status Last Admin Dose Admin Ketorolac Tromethamine 15 mg ONCE ONCE IVP 08/08/18 09:00 08/08/18 09:01 DC 08/08/18 09:29 15 MG Vital Signs/I&O 08/08/18 08/08/18 08:20 09:57 Temp 97.3 Pulse 73 67 Resp 20 22 B/P (MAP) 168/81 (110) 131/57 (81) Pulse Ox 95 96 O2 Delivery Room Air Room Air Blood Pressure Mean: 110 Progress Progress Note : Progress Note Seen and evaluated the patient. Patient complained of chest pain over the last couple days that is been intermittent and very brief. Due to that we will check EKG, chest x-ray and troponin. Main complaint deals with the leg and foot. Toradol 15 mg IV given. Monitor patient. Overall improved. No acute findings on chest x-ray or EKG. Discharged home with return precautions. Patient verbalize understanding instructions and agreement with plan. Initial ECG Impression Date: Aug 08, 2018 Initial ECG Impression Time: 08:35 Initial ECG Rate: 69 Initial ECG Rhythm: Normal Sinus Comment Sinus rhythm with left atrial abnormality. Normal axis. No evidence of ST elevation [place]. Similar to previous of 03/04/18. Interpreted by me. Diagnostic Imaging Diagonstic Imaging: Xray Plain Films/CT/US/NM/MRI: chest Comments normal Time of Consult: 09:58 Departure Impression Primary Impression: Sciatica Qualified Codes: M54.31 - Sciatica, right side Disposition: 01 HOME, SELF-CARE Condition: Stable Departure-Patient Inst. Decision time for Depature: 09:43 Patient Instructions: Sciatica, Sciatica Exercises Add. Discharge Instructions: All discharge instructions reviewed with patient and/or family. Voiced understanding. Take medications as directed. Follow-up with your DrSuzanne in a few days for recheck. You may take ibuprofen 400 mg every 8 hours as needed for pain. You may take Tylenol/acetaminophen 650 mg every 8 hours as needed for pain. You may use bqeg-euo-plushia Icy Hot with lidocaine patches, Aspercreme with lidocaine patches, Salonpas with lidocaine patches for similar items to area of concern per package directions. Return for worse pain, swelling, weakness, numbness, rubs walking or going to the bathroom or other concerns as needed. Scripts Prednisone (Prednisone) 20 Mg Tab 40 MG PO DAILY for 5 Days, #10 TAB Prov: [place],MALINDA D MD 08/08/18 MALINDA NIETO MD Aug 08, 2018 09:44
[2018-08-08 09:57] VITALS: BP 131/57
== END 2018-08-08 09:57 | disposition home or self-care (01) ==
LOC: EDUNIT# 08:19 → ER 08:20
DX: M54.31 Sciatica, right side (principal); J44.9 Chronic obstructive pulmonary disease, unspecified; I10 Essential (primary) hypertension; E78.00 Pure hypercholesterolemia, unspecified; I25.10 Atherosclerotic heart disease of native coronary artery without angina pectoris; K21.9 Gastro-esophageal reflux disease without esophagitis; E89.0 Postprocedural hypothyroidism; Z80.0 Family history of malignant neoplasm of digestive organs; Z82.49 Family history of ischemic heart disease and other diseases of the circulatory system; Z87.442 Personal history of urinary calculi; Z88.0 Allergy status to penicillin; Z88.8 Allergy status to other drugs, medicaments and biological substances; Z79.82 Long term (current) use of aspirin; Z90.710 Acquired absence of both cervix and uterus
CPT/HCPCS: 36415; 71046; 84484

== ENCOUNTER → 2018-11-30 | Outpatient (CLI) | payer MEDICARE ==
[~2018-11-30] MED LIST changes: +PRD20T PO; +Prednisone PO
== END ==
LOC: CARD 13:40
PROVIDERS: ATTEND Internal Medicine Cardiovascular Disease
DX: I08.0 Rheumatic disorders of both mitral and aortic valves (principal); I49.3 Ventricular premature depolarization; I10 Essential (primary) hypertension; I25.10 Atherosclerotic heart disease of native coronary artery without angina pectoris; I65.23 Occlusion and stenosis of bilateral carotid arteries
CPT/HCPCS: 93306

== ENCOUNTER 2019-02-10 20:10 | Emergency (ER) | payer MEDICARE ==
[~2019-02-10] VITALS: Ht 157 cm; Wt 58.4 kg
[2019-02-10 21:47] LABS: BASOPHILS % (AUTO) 0 % (0-10); EOSINOPHILS # (AUTO) 0.2 10^3/uL (0.0-0.3); EOSINOPHILS % (AUTO) 2 % (0-10); HEMATOCRIT 38 % (35-52); HEMOGLOBIN 12.7 G/DL (11.5-16.0); LYMPHOCYTES # (AUTO) 1.3 X 10^3 (1.0-4.0); LYMPHOCYTES % (AUTO) 18 % (12-44); MEAN CORPUSCULAR HEMOGLOBIN 31 PG (25-34); MEAN CORPUSCULAR HGB CONC 33 G/DL (32-36); MEAN CORPUSCULAR VOLUME 94 FL (80-99); MEAN PLATELET VOLUME 9.5 FL (7.4-10.4); MONOCYTES # (AUTO) 0.7 X 10^3 (0.0-1.0); MONOCYTES % (AUTO) 9 % (0-12); NEUTROPHILS # (AUTO) 5.1 X 10^3 (1.8-7.8); NEUTROPHILS % (AUTO) 70 % (42-75); PLATELET COUNT 211 10^3/uL (130-400); RED CELL DISTRIBUTION WIDTH 14.2 % (10.0-14.5); WHITE BLOOD COUNT 7.3 10^3/uL (4.3-11.0)
[2019-02-10 22:01] LABS: ALANINE AMINOTRANSFERASE 14 U/L (0-55); ALBUMIN 4.1 GM/DL (3.2-4.5); ALKALINE PHOSPHATASE 78 U/L (40-136); BILIRUBIN,TOTAL 0.3 MG/DL (0.1-1.0); BUN/CREATININE RATIO 28; CALCIUM 8.9 MG/DL (8.5-10.1); CARBON DIOXIDE 20 MMOL/L (21-32); CHLORIDE 111 MMOL/L (98-107); CREATININE SERUM 0.81 MG/DL (0.60-1.30); GFR ESTIMATED > 60; GLUCOSE 75 MG/DL (70-105); SODIUM 143 MMOL/L (135-145); TOTAL PROTEIN 6.8 GM/DL (6.4-8.2)
--- NOTE | 2019-02-10 22:08 | ED General ---
General Chief Complaint: General Problems/Pain Stated Complaint: CRAMPING LEGS Nursing Triage Note: PATIENT STATES THAT SHE HAS BEEN HAVING TROUBLE WITH MUSCLE CRAMPS FOR A COUPLE WEEKS BUT TODAY HER LEGS SEEM TO BE CRAMPING MUCH WORSE. Nursing Sepsis Screen: No Definite Risk Source of Information: Patient, Spouse Exam Limitations: No Limitations History of Present Illness Date Seen by Provider: Feb 10, 2019 Time Seen by Provider: 22:08 Initial Comments 83-year-old female patient presents with complaints of bilateral lower extremity muscle cramping for the last 2 weeks. Reports today cramping has been much worse. Denies any numbness or tingling. Denies muscle weakness. Location Injury Occurred: denies known injury Timing/Duration: Intermittent, Other (reports today) Modifying Factors: worse with Movement (reports movement sets off the cramping) Allergies and Home Medications Allergies Coded Allergies: duloxetine HCl (Verified Allergy, Intermediate, BLISTERS, 05/04/15) Penicillins (Verified Allergy, Mild, 04/03/11) Home Medications Baclofen 10 Mg Tablet, 10 MG PO Q8H PRN for SPASMS Prescribed by: JIMMIE MORFIN on 02/10/19 2300 Carvedilol 12.5 Mg Tablet, 12.5 MG PO BID, (Reported) Levothyroxine Sodium 50 Mcg Tablet, 50 MCG PO DAILY, (Reported) Losartan Potassium 100 Mg Tablet, 100 MG PO DAILY, (Reported) Multivitamin 1 Each Tablet, 1 TAB PO DAILY, (Reported) Patient Home Medication List Home Medication List Reviewed: Yes Review of Systems Review of Systems Constitutional: No chills, No diaphoresis, No dizziness, No fever, No malaise, No weakness EENTM: no symptoms reported Respiratory: No cough, No dyspnea on exertion, No orthopnea, No short of breath, No stridor, No wheezing, No other (denies claudication) Cardiovascular: No chest pain, No edema, No palpitations, No syncope Gastrointestinal: no symptoms reported Genitourinary: no symptoms reported Musculoskeletal: No back pain, No joint pain, No joint swelling; muscle pain; No muscle stiffness; muscle cramps; No muscle weakness, No neck pain Skin: no symptoms reported Psychiatric/Neurological: Denies Headache, Denies Numbness, Denies Paresthesia, Denies Tingling, Denies Tremors, Denies Weakness All Other Systems Reviewed Negative Unless Noted: Yes (Negative excepted noted.) Past Uoxtalt-Cqkuuo-Juhjxk Hx Past Med/Social Hx: Reviewed Nursing Past Med/Soc Hx Patient Social History Alcohol Use: Denies Use Recreational Drug Use: No Smoking Status: Never a Smoker 2nd Hand Smoke Exposure: No Recent Foreign Travel: No Contact w/Someone Who Travel: No Recent Infectious Disease Expo: No Recent Hopitalizations: No Immunizations Up To Date Tetanus Booster (TDap): Unknown PED Vaccines UTD: Yes Date of Pneumonia Vaccine: Jun 01, 2004 Seasonal Allergies Seasonal Allergies: No Past Medical History Surgeries: Yes (KIDNEY STONE REMOVAL, ORAL SX, ANGIOPLASTY RIGHT RENAL ARTERY) Abdominal, Gallbladder, Hysterectomy, Orthopedic, Renal, Thyroidectomy Respiratory: Yes (lung nodules, INFECTIOUS DISEASE DR FOR LUNG) COPD Currently Using CPAP: No Currently Using BIPAP: No Cardiac: Yes (CAROTID DISEASE; RIGHT RENAL ARTERY STENOSIS--S/P ANGIOPLASTY 2011) Coronary Artery Disease, High Cholesterol, Hypertension, Irregular Heartbeat, Valvular Heart Disease Neurological: No Reproductive Disorders: No Female Reproductive Disorders: Denies 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, 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 Sexually Transmitted Disease: No HIV/AIDS: No Genitourinary: Yes (OVERACTIVE BLADDER; INCONTINENCE) Kidney Stones Gastrointestinal: Yes (S/P HIATAL HERNIA REPAIR, DYSPHAGIA) Gastroesophageal Reflux, Diverticulosis, Hiatal Hernia Musculoskeletal: Yes (CHRONIC LEG PAIN ) Arthritis Endocrine: Yes (BENIGN NODULE ON THYROID, BX ON 03/30/15; THYROIDECTOMY 05/2015--GOITER) Hypothyroidsim HEENT: Yes Cataract Hearing Impairment: Denies Cancer: No Psychosocial: No Integumentary: Yes (hx of mrsa) Blood Disorders: No Adverse Reaction/Blood Tranf: No Family Medical History Reviewed Nursing Family Hx Cardiovascular disease G8 SISTER Colon cancer G8 BROTHER FH: cancer 19 FATHER (lung) 19 MOTHER G8 SISTER (esophagus) Psychosocial problem 19 MOTHER No Pertinent Family Hx Physical Exam Vital Signs Vital Signs - First Documented 02/10/19 20:37 Temp 37.3 Pulse 85 Resp 18 B/P (MAP) 151/81 (104) Pulse Ox 94 Capillary Refill : Less Than 3 Seconds Height, Weight, BMI Height: 5'2.00" Weight: 122lbs. 0.0oz. [id number]; 23.00 BMI Method:Stated General Appearance: No Apparent Distress, WD/WN HEENT: PERRL/EOMI, Pharynx Normal Neck: Normal Inspection, Supple Respiratory: Lungs Clear, Normal Breath Sounds, No Accessory Muscle Use, No Respiratory Distress Cardiovascular: Regular Rate, Rhythm, No Edema, No Gallop, No JVD, No Murmur, Normal Peripheral Pulses Gastrointestinal: Normal Bowel Sounds, Non Tender, Soft Back: Normal Inspection; No Decreased Range of Motion Extremity: Normal Capillary Refill, Normal Inspection, Normal Range of Motion, No Calf Tenderness, No Pedal Edema, Other (patient noted to have cramping to the rt anterior thigh with active flexion of the hips. rt thight ttp at the time of the muscle spasm.) Neurologic/Psychiatric: Alert, Oriented x3, No Motor/Sensory Deficits, Normal Mood/Affect Skin: Normal Color, Warm/Dry Progress/Results/Core Measures Suspected Sepsis Recent Fever Within 48 Hours: No Infection Criteria Present: None New/Unexplained Altered Menta: No Sepsis Screen: No Definite Risk SIRS Temperature: Pulse: 85 Respiratory Rate: 18 Laboratory Tests 02/10/19 21:14: White Blood Count 7.3 Blood Pressure 151 /81 Mean: 104 Laboratory Tests 02/10/19 21:14: Creatinine 0.81, Platelet Count 211, Total Bilirubin 0.3 Results/Orders Lab Results Laboratory Tests Test 02/10/19 21:14 Range/Units White Blood Count 7.3 4.3-11.0 10^3/uL Red Blood Count 4.09 L 4.35-5.85 10^6/uL Hemoglobin 12.7 11.5-16.0 G/DL Hematocrit 38 35-52 % Mean Corpuscular Volume 94 80-99 FL Mean Corpuscular Hemoglobin 31 25-34 PG Mean Corpuscular Hemoglobin Concent 33 32-36 G/DL Red Cell Distribution Width 14.2 10.0-14.5 % Platelet Count 211 130-400 10^3/uL Mean Platelet Volume 9.5 7.4-10.4 FL Neutrophils (%) (Auto) 70 42-75 % Lymphocytes (%) (Auto) 18 12-44 % Monocytes (%) (Auto) 9 0-12 % Eosinophils (%) (Auto) 2 0-10 % Basophils (%) (Auto) 0 0-10 % Neutrophils # (Auto) 5.1 1.8-7.8 X 10^3 Lymphocytes # (Auto) 1.3 1.0-4.0 X 10^3 Monocytes # (Auto) 0.7 0.0-1.0 X 10^3 Eosinophils # (Auto) 0.2 0.0-0.3 10^3/uL Basophils # (Auto) 0.0 0.0-0.1 10^3/uL Sodium Level 143 135-145 MMOL/L Potassium Level 4.0 3.6-5.0 MMOL/L Chloride Level 111 H 98-107 MMOL/L Carbon Dioxide Level 20 L 21-32 MMOL/L Anion Gap 12 5-14 MMOL/L Blood Urea Nitrogen 23 H 7-18 MG/DL Creatinine 0.81 0.60-1.30 MG/DL Estimat Glomerular Filtration Rate > 60 BUN/Creatinine Ratio 28 Glucose Level 75 70-105 MG/DL Calcium Level 8.9 8.5-10.1 MG/DL Corrected Calcium 8.8 8.5-10.1 MG/DL Magnesium Level 2.0 1.6-2.4 MG/DL Total Bilirubin 0.3 0.1-1.0 MG/DL Aspartate Amino Transf (AST/SGOT) 20 5-34 U/L Alanine Aminotransferase (ALT/SGPT) 14 0-55 U/L Alkaline Phosphatase 78 40-136 U/L Total Protein 6.8 6.4-8.2 GM/DL Albumin 4.1 3.2-4.5 GM/DL My Orders Orders - JIMMIE MORFIN Ed Iv/Invasive Line Start (02/10/19 22:44) Ns Iv 500 Ml (Sodium Chloride 0.9%) (02/10/19 22:44) Baclofen Tablet (Lioresal Tablet) (02/10/19 22:45) Magnesium (02/10/19 23:01) Thyroid Analyzer (02/10/19 23:01) Creatine Kinase (02/10/19 23:02) Vital Signs/I&O 02/10/19 20:37 Temp 37.3 Pulse 85 Resp 18 B/P (MAP) 151/81 (104) Pulse Ox 94 Capillary Refill : Less Than 3 Seconds Blood Pressure Mean: 104 Departure Impression Primary Impression: Muscle cramping Disposition: 01 HOME, SELF-CARE Condition: Improved Departure-Patient Inst. Decision time for Depature: 22:58 Referrals: IVETT MONTANO MD Patient Instructions: Nocturnal (Nighttime) Leg Cramps (DC) Add. Discharge Instructions: All discharge instructions reviewed with patient and/or family. Voiced understanding. Medications as instructed. Vitamin B complex over the counter (containing vitamin B6) as directed by the fireworks inspector. Follow-up with Dr. Montano as an outpatient for recheck. Discuss medications that you're taking with him to see if any of these medications (ex: losartan) could be causing the muscle cramping. Call his office for appointment time. Return to the emergency department for worsened symptoms or any other concerns. Scripts Baclofen (Baclofen) 10 Mg Tablet 10 MG PO Q8H PRN for SPASMS, #14 TAB 0 Refills Prov: JIMMIE MORFIN 02/10/19 Copy Copies To 1: IVETT MONTANO MD Copies To 2: EDIE HANDY MD, GRETCHEN L PA Feb 10, 2019 22:08
[2019-02-10] MEDS ORDERED: NS IV 500 ML 500 ML IV ONE (22:44)
[2019-02-10] MEDS ORDERED: BACLOFEN 10 MG (LIORESAL) TAB PO ONE (22:45)
[2019-02-10] MEDS ORDERED: BACL10TA PO (23:00)
[2019-02-10 23:38] LABS: TSH (THYROID ANALYZER) 0.57 UIU/ML (0.35-4.94)
[2019-02-11 00:34] VITALS: BP 155/73
== END 2019-02-11 00:38 | disposition home or self-care (01) ==
LOC: EDUNIT# 20:10 → ER 20:11
DX: R25.2 Cramp and spasm (principal); J44.9 Chronic obstructive pulmonary disease, unspecified; I10 Essential (primary) hypertension; E78.00 Pure hypercholesterolemia, unspecified; I25.10 Atherosclerotic heart disease of native coronary artery without angina pectoris; K21.9 Gastro-esophageal reflux disease without esophagitis; E03.9 Hypothyroidism, unspecified; Z87.442 Personal history of urinary calculi; Z88.0 Allergy status to penicillin; Z88.8 Allergy status to other drugs, medicaments and biological substances; Z90.710 Acquired absence of both cervix and uterus; Z80.0 Family history of malignant neoplasm of digestive organs
CPT/HCPCS: 36415; 80053; 82550; 83735; 84443; 85025; 96360

== ENCOUNTER → 2020-04-24 | Outpatient (CLI) | payer MEDICARE ==
[~2020-04-24] MED LIST changes: +AMLO-251 PO; -AMLO10TA7 PO; +ASPI-1238 PO; -ASPI-983 PO; +BACL10TA PO; +OXC5T PO; -OXYC-529 PO
--- NOTE | 2020-04-24 15:21 | Diagnostic Imaging Report ---
PROCEDURE: CT abdomen without contrast. TECHNIQUE: Multiple contiguous axial images were obtained through the abdomen without the use of intravenous contrast. Auto Exposure Controls were utilized during the CT exam to meet ALARA standards for radiation dose reduction. INDICATION: Right abdominal pain. FINDINGS: There are several foci of interstitial lung disease in the lung bases which may reflect areas of chronic pneumonitis or scarring. Unenhanced images of the liver reveal no focal abnormality. There are surgical clips in the gallbladder fossa. There is no significant biliary ductal dilatation. No pancreatic or adrenal gland lesion is identified. There is mild hiatal hernia. No splenic abnormality is detected. There is no evidence of adrenal gland lesion. Unenhanced images of the kidneys are unremarkable. There is moderate amount of stool in the colon. There is right convexity curvature of the lumbar spine with moderate diffuse lumbar spondylosis. IMPRESSION: No definite acute abnormalities identified. There is mild hiatal hernia with basilar pneumonitis or scarring. Patient is post cholecystectomy without evidence of ductal ectasia or focal inflammation within the abdomen. Dictated by: Dictated on workstation # [id number]
== END ==
LOC: RAD 13:42
PROVIDERS: ATTEND Family Medicine
DX: K44.9 Diaphragmatic hernia without obstruction or gangrene (principal); Z90.49 Acquired absence of other specified parts of digestive tract
CPT/HCPCS: 74150

== ENCOUNTER → 2020-04-24 | Outpatient (CLI) | payer MEDICARE | LOC: CARD 13:43 | PROVIDERS: ATTEND Physician Assistant | DX: I25.10 Atherosclerotic heart disease of native coronary artery without angina pectoris (principal); I10 Essential (primary) hypertension; I08.3 Combined rheumatic disorders of mitral, aortic and tricuspid valves | CPT/HCPCS: 93306 ==

== ENCOUNTER 2020-05-15 05:32 | Outpatient (RCR) | payer MEDICARE ==
[~2020-05-15] VITALS: Ht 157.5 cm; Wt 58.1 kg
[2020-05-17] MEDS ORDERED: PANT40TA2 PO (10:09)
== END 2020-05-15 10:15 | disposition home or self-care (01) ==
LOC: PREOP 05:32
PROVIDERS: ATTEND Surgery
DX: Z01.812 Encounter for preprocedural laboratory examination (principal); Z12.11 Encounter for screening for malignant neoplasm of colon; R10.13 Epigastric pain; Z80.0 Family history of malignant neoplasm of digestive organs; Z20.822 Contact with and (suspected) exposure to COVID-19

== ENCOUNTER → 2020-05-15 | Outpatient (CLI) | payer MEDICARE ==
[~2020-05-15] MED LIST changes: +LEVO75CA5 PO
== END ==
LOC: LABNPT 07:09
PROVIDERS: ATTEND Internal Medicine
DX: Z20.822 Contact with and (suspected) exposure to COVID-19 (principal)
CPT/HCPCS: 87635

== ENCOUNTER 2020-05-17 08:09 | Day surgery (SDC) | payer MEDICARE ==
[2020-05-17] VITALS (18 sets, daily range): BP systolic 106–199; BP diastolic 55–91
[~2020-05-17] VITALS: Ht 157.5 cm; Wt 58.1 kg
[2020-05-17] MEDS ORDERED: NS IV 500 ML 500 ML ONE (08:18)
[2020-05-17] MEDS ORDERED: NS IV 500 ML 500 ML IV PRN (08:45)
[2020-05-17] MEDS ORDERED: MIDAZOLAM 5 MG/5 ML (VERSED) VIAL IV ONE (08:45)
[2020-05-17] MEDS ORDERED: LIDOCAINE JELLY 2% 6 ML SYRINGE MM PRN (08:45)
[2020-05-17] MEDS ORDERED: HURRICAINE EXT TUBE (BENZOCAINE) XX PRN (08:45)
[2020-05-17] MEDS ORDERED: fentaNYL INJ 100 MCG/2 ML AMP IVP ONE (08:45)
[2020-05-17] MEDS ORDERED: LIDOCAINE JELLY 2% 6 ML SYRINGE ONE (09:55)
[2020-05-17] MEDS ORDERED: fentaNYL INJ 100 MCG/2 ML AMP ONE ×2 (09:55→09:56)
[2020-05-17] MEDS ORDERED: MIDAZOLAM 5 MG/5 ML (VERSED) VIAL ONE ×2 (09:56)
[2020-05-17] MEDS ORDERED: HURRICAINE EXT TUBE (BENZOCAINE) ONE (09:56)
--- NOTE | 2020-05-17 10:06 | Conscious Sedation/ASA ---
Conscious Sedation Pre-Proced Time 09:30 ASA Score 2 For ASA 3 and 4: Consider anesthesia and medical clearance. Also, for patients with a history of failed moderate sedation consider anesthesia. Airway Lungs Heart ASA score ASA 1: a normal healthy patient ASA 2: a patient with a mild systemic disease (mid diabetes, controlled hypertension, obesity ASA 3: a patient with a severe systemic disease that limits activity (angina, COPD, prior Myocardial infarction) ASA 4: a patient with an incapacitating disease that is a constant threat to life (CHF, renal failure) ASA 5: a moribund patient not expected to survive 24 hrs. (ruptured aneurysm) ASA 6: a declared brain- patient whose organs are being harvested. For emergent operations, add the letter E after the classification Mallampati Classification Grade 2 Sedation Plan Analgesia, Amnesia, Plan communicated to team members, Discussed options with patient/fam, Discussed risks with patient/fam The patient is an appropriate candidate to undergo the planned procedure, sedation, and anesthesia. The patient immediately re-assessed prior to indication. TERE CARVAJAL MD May 17, 2020 10:06
--- NOTE | 2020-05-17 10:07 | Progress Note-Pre Operative ---
Pre-Operative Progress Note H&P Reviewed The H&P was reviewed, patient examined and no changes noted. Date Seen by Provider: May 17, 2020 Time Seen by Provider: : Date H&P Reviewed: May 17, 2020 Time H&P Reviewed: :30 Pre-Operative Diagnosis: GERD, dyshagia, family hx colon ca TERE CARVAJAL MD May 17, 2020 10:07
[2020-05-17] MEDS ORDERED: PANT40TA2 PO (10:09)
--- NOTE | 2020-05-17 10:09 | Discharge Inst-Surgical ---
D/C Lap Instructions-KIDO New, Converted, or Re-Newed RX: RX on Chart Follow Up Activity as tolerated High Fiber Diet 25g or more per day Avoid Alcohol, Caffeine, Spicy [place] and Acid foods. Drink 64 fluid oz or more of fluids per day. Symptoms to Report: Fever over 101 degree F, Nausea/Vomiting If any problems/questions: Contact your physician or go to Emergency Room TERE CARVAJAL MD May 17, 2020 10:09
[2020-05-17] MEDS ORDERED: HYDROcodone/APAP 5 MG/325 MG (LORTAB) TAB PO PRN (10:15)
[2020-05-17] MEDS ORDERED: ACETAMINOPHEN 325 MG TABLET PO PRN (10:15)
[2020-05-17] MEDS ORDERED: morphine INJ 10 MG/ML 1ML (SYR OR VIAL) IVP PRN ×2 (10:15)
[2020-05-17] MEDS ORDERED: ONDANSETRON 4 MG/2 ML (SDV) Z0FRAN IVP PRN (10:15)
--- NOTE | 2020-05-17 12:04 | Progress Note-Post Operative ---
Post-Operative Progess Note Surgeon (s)/Gin Feeder (s) Surgeon TERE CARVAJAL MD Gin Feeder: none Pre-Operative Diagnosis GERD, dyshagia, family hx colon ca Post-Operative Diagnosis reflux esophagitis(stage 2) with mild distal esophageal stricture, moderate gastritis. chronic stage 2 ext and int hemorrhoids, severe sigmoid diverticulosis. Procedure & Operative Findings Date of Procedure 05/17/20 Procedure Performed/Findings EGD with bx and balloon dilatation. Colonoscopy. Anesthesia Type cs Estimated Blood Loss Estimated blood loss (mL): minimal Specimens/Packing Specimens Removed ge jxn, antrum TERE CARVAJAL MD May 17, 2020 12:04
--- NOTE | 2020-05-17 18:47 | OPERATIVE REPORT ---
DATE OF SERVICE: 05/17/2020 ATTENDING PRIMARY CARE PHYSICIAN: Dr. Wilton Wu. PREOPERATIVE DIAGNOSES: Dysphagia, gastroesophageal reflux disease, screening colonoscopy with family history of colon cancer. POSTOPERATIVE DIAGNOSES: Reflux esophagitis stage II with a mild distal esophageal stricture, intact previous hiatal hernia repair and Emeka fundoplication, moderate gastritis. No distal obstructions. Mild chronic stage II external and internal hemorrhoids, severe sigmoid diverticulosis. PROCEDURE PERFORMED: EGD with biopsy and balloon dilatation, colonoscopy. SURGEON: Tere Carvajal MD ANESTHESIA: Conscious sedation. ESTIMATED BLOOD LOSS: Minimal. FINDINGS: Reflux esophagitis stage II with a mild distal esophageal stricture, intact previous hiatal hernia repair and Emeka fundoplication, moderate gastritis. No distal obstructions. Mild chronic stage II external and internal hemorrhoids, severe sigmoid diverticulosis. DISPOSITION: The patient tolerated the procedure well. INDICATIONS: The patient is an 85-year-old female who has had some intermittent episodes of abdominal pain. A CT scan was performed, which did not show any abnormalities. She also does have a history of gastroesophageal reflux disease and underwent a Emeka fundoplication; however, has had some issues with esophageal stricture and dysphagia, which has reoccurred. She also does have a family history of colon cancer with her sister having the disease. DESCRIPTION OF PROCEDURE: The patient was brought to the endoscopy suite, laid in the left lateral decubitus position with the head slightly elevated. After adequate IV pain and sedative medications and conscious sedation anesthesia, the mouthpiece was applied. The endoscope was placed in the mouth, visualizing the pharynx to the hypopharyngeal region. Vocal cords, epiglottis and vallecula identified and appeared to be normal. The endoscope was then gently intubated the esophageal opening. The esophagus was insufflated. The endoscope was then advanced into the first, second, third portion of the esophagus at the level of the GE junction. A reflux esophagitis stage II identified. There was a mild distal esophageal stricture identified as well. Biopsy was taken of the GE junction with visualization of good hemostasis. The endoscope was then advanced in the stomach. An endoscope was retroflexed visualizing an intact previous hiatal hernia repair as well as a Emeka fundoplication. There was a moderate gastritis more towards the stomach antrum. No formal ulcerations, polyps or neoplasms. A biopsy was taken to the antrum to rule out H. pylori with visualization of good hemostasis. The endoscope was then advanced through the pylorus and the first and second portions of the duodenum, which appeared normal with no distal obstructions. The endoscope was then slowly withdrawn while taking a second look and suctioning of residual air. We then proceeded with balloon dilatation of the distal esophageal stricture and the balloon was placed in the stomach and pulled back to the area of the stricture. We then proceeded to 2, then 4, then 6 atmospheres of pressure or 20 mm in luminal diameter with moderate resistance and left this in place for 60 seconds. The balloon was then desufflated and removed with visualization and good hemostasis as well as no mucosal tears. The endoscope was slowly withdrawn while taking a second look and suctioned residual air with no additional findings. We then proceeded with a colonoscopy portion of the procedure. A digital rectal examination was performed, which revealed chronic stage II external and internal hemorrhoids, not actively edematous, no inflamed and no bleeding. Normal sphincter tone was felt and there were no palpable masses. The endoscope was then intubated and the anus and rectum gently insufflated. The endoscope was then advanced through the valves of Joe of the rectum with no polyps or neoplasms identified. In the sigmoid colon, a severe sigmoid diverticulosis was identified with some impacted stool. However, there were no mucosal inflammatory changes to indicate any active diverticulitis. The endoscope was then advanced through the remainder of the descending, transverse and ascending colon to the cecum, which were normal. No other lesions identified. The endoscope was then slowly withdrawn while taking a second look and suctioned residual air with no additional findings. The patient tolerated the procedure well. We will recommend the necessary lifestyle and accommodation for her reflux and stricture with small and more frequent meals, avoidance of eating at night as well as head elevation while lying supine. She also needs to avoid caffeinated beverages, spicy, greasy and acidic foods. We will also start her on Protonix 40 mg daily. From a standpoint of her diverticulosis in her colon, we will recommend the incorporation of a fiber supplement, which should equal of 30 grams daily as well as significant amounts of water to promote soft stools on a daily basis and prevent constipation or harder stools and prevent further propagation of diverticulosis or the complications related to them. We will recommend a followup colonoscopy in 5 years due to family history of colon cancer. Job ID: [id number] DocumentID: [id number] Dictated Date: 05/17/2020 11:14:09 Mold Stripper Date: 05/17/2020 18:46:17 Dictated By: TERE CARVAJAL MD MTDD
== END 2020-05-17 11:48 | disposition home or self-care (01) ==
LOC: ENDO 08:09
PROVIDERS: ATTEND Surgery
DX: Z12.11 Encounter for screening for malignant neoplasm of colon (principal); K21.9 Gastro-esophageal reflux disease without esophagitis; K21.00 Gastro-esophageal reflux disease with esophagitis, without bleeding; K22.2 Esophageal obstruction; K29.50 Unspecified chronic gastritis without bleeding; K64.4 Residual hemorrhoidal skin tags; K64.1 Second degree hemorrhoids; K57.30 Diverticulosis of large intestine without perforation or abscess without bleeding; K44.9 Diaphragmatic hernia without obstruction or gangrene; I10 Essential (primary) hypertension; E78.5 Hyperlipidemia, unspecified; I49.3 Ventricular premature depolarization; J44.9 Chronic obstructive pulmonary disease, unspecified; Z79.890 Hormone replacement therapy; Z79.899 Other long term (current) drug therapy; Z98.890 Other specified postprocedural states; Z85.038 Personal history of other malignant neoplasm of large intestine; Z88.0 Allergy status to penicillin; Z88.8 Allergy status to other drugs, medicaments and biological substances; Z80.1 Family history of malignant neoplasm of trachea, bronchus and lung; Z80.0 Family history of malignant neoplasm of digestive organs; Z80.49 Family history of malignant neoplasm of other genital organs
CPT/HCPCS: 43239; 43249; G0105; 88305

== ENCOUNTER → 2020-05-24 | Outpatient (CLI) | payer MEDICARE ==
[~2020-05-24] VITALS: Ht 157 cm; Wt 58.0 kg
[~2020-05-24] MED LIST changes: +CATHETER FLUSH 10 ML SYR IV PRN; +REGADENOSON 0.4 MG/5 ML SYR (LEXISCAN) IV ONE
[2020-05-24 09:21] VITALS: BP 171/74
--- NOTE | 2020-05-24 14:18 | Cardiology Stress Test Report ---
Stress Test Report Date of Procedure/Referring: Date of Procedure: May 24, 2020 [facility] [facility] Admitting Physician Wilton uW MD Indications: CAD Baseline Heart Rate: 54 Baseline Blood Pressure: Blood Pressure Systolic: 171 Blood Pressure Diastolic: 74 Baseline Vitals Vital Signs Date Time Temp Pulse Resp B/P (MAP) Pulse Ox O2 Delivery O2 Flow Rate FiO2 05/24/20 09:21 84 171/74 (106) Baseline EKG: Baseline EKG: NSR Summary After explaining the procedure to the patient, she signed a consent and then brought to the stress nuclear laboratory. Patient received 0.4 mg Lexiscan for stress test, ECG, heart rate and blood pressure were monitored continuously. Resting and stress dose of radio tracer were injected, imaging was acquired and reviewed in short axis, horizontal long axis and vertical long axis views. TID: 1.07 SSS: 0 SDS: 0 EF: 80 1. Patient tolerated Lexiscan well 2. Baseline sinus bradycardia with occasional PVCs noted during test 3. No significant ischemia or infarction on SPECT images 4. Normal left ventricular size, EF 80% EDIE HANDY MD May 24, 2020 14:18
== END ==
LOC: CARD 08:00
PROVIDERS: ATTEND Physician Assistant
DX: I25.10 Atherosclerotic heart disease of native coronary artery without angina pectoris (principal); I10 Essential (primary) hypertension
CPT/HCPCS: 78452; 93017; A9502

== ENCOUNTER 2020-06-13 09:36 | Observation (INO) | payer MEDICARE ==
[~2020-06-13] VITALS: Ht 158.8 cm; Wt 56.9 kg
[~2020-06-13 09:36] MED LIST changes: -CATHETER FLUSH 10 ML SYR IV PRN; -REGADENOSON 0.4 MG/5 ML SYR (LEXISCAN) IV ONE
[2020-06-13] MEDS ORDERED: fentaNYL INJ 100 MCG/2 ML AMP IVP ONE ×3 (10:15→14:30)
--- NOTE | 2020-06-13 10:19 | ED Fall/Injury ---
General Stated Complaint: FALL, PUI Source: patient Exam Limitations: no limitations History of Present Illness Date Seen by Provider: June 13, 2020 Time Seen by Provider: 09:45 Initial Comments Patient to the ER by EMS from home with chief complaint that she lost her balance fell backwards striking her low back and coccyx. She denies striking her head or being on blood thinners. She is not having any loss of consciousness. She has significant pain 10 out of 10 in her midline low back and sacrum. No numbness or tingling. Allergies and Home Medications Allergies Coded Allergies: duloxetine HCl (Verified Allergy, Intermediate, BLISTERS, 05/04/15) Penicillins (Verified Allergy, Mild, 04/03/11) Home Medications Carvedilol 12.5 Mg Tablet, 12.5 MG PO BID, (Reported) Levothyroxine Sodium 75 Mcg Capsule, 75 MCG PO DAILY, (Reported) Losartan Potassium 100 Mg Tablet, 100 MG PO DAILY, (Reported) Multivitamin 1 Each Tablet, 1 TAB PO DAILY, (Reported) Pantoprazole Sodium 40 Mg Tablet., 40 MG PO DAILY Prescribed by: TERE CARVAJAL on 05/17/20 1009 Patient Home Medication List Home Medication List Reviewed: Yes Review of Systems Review of Systems Constitutional: No chills, No diaphoresis Eyes: Denies Blindness, Denies Drainage Ears, Nose, Mouth, Throat: denies ear pain, denies ear discharge Respiratory: No cough, No short of breath Cardiovascular: No edema, No Hx of Intervention, No palpitations Gastrointestinal: No abdominal pain, No constipation, No diarrhea Genitourinary: No discharge, No dysuria Musculoskeletal: see HPI, back pain; No joint pain Past Ofyrzda-Nwfesd-Hrbjnb Hx Patient Social History Alcohol Use: Denies Use 2nd Hand Smoke Exposure: No Recent Hopitalizations: No Immunizations Up To Date Tetanus Booster (TDap): Unknown PED Vaccines UTD: Yes Date of Pneumonia Vaccine: Jun 01, 2004 Seasonal Allergies Seasonal Allergies: No Past Medical History Surgeries: Yes (KIDNEY STONE REMOVAL, ORAL SX, ANGIOPLASTY RIGHT RENAL ARTERY) Abdominal, Gallbladder, Hysterectomy, Orthopedic, Renal, Thyroidectomy Respiratory: Yes (lung nodules, INFECTIOUS DISEASE FOR LUNG) COPD Currently Using CPAP: No Currently Using BIPAP: No Cardiac: Yes (CAROTID DISEASE; RIGHT RENAL ARTERY STENOSIS--S/P ANGIOPLASTY 2011) Coronary Artery Disease, High Cholesterol, Hypertension, Irregular Heartbeat, Valvular Heart Disease Neurological: No Reproductive Disorders: No Female Reproductive Disorders: Denies [employer]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, 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 Sexually Transmitted Disease: No HIV/AIDS: No Genitourinary: Yes (OVERACTIVE BLADDER; INCONTINENCE) Kidney Stones Gastrointestinal: Yes (S/P HIATAL HERNIA REPAIR, DYSPHAGIA) Gastroesophageal Reflux, Diverticulosis, Hiatal Hernia Musculoskeletal: Yes (CHRONIC LEG PAIN ) Arthritis Endocrine: Yes (BENIGN NODULE ON THYROID, BX ON 03/30/15; THYROIDECTOMY 05/12 016--GOITER) Hypothyroidsim HEENT: Yes Cataract Hearing Impairment: Denies Cancer: No Psychosocial: No Integumentary: Yes (hx of mrsa) Blood Disorders: No Adverse Reaction/Blood Tranf: No Family Medical History Cardiovascular disease G8 SISTER Colon cancer G8 BROTHER Colon cancer G8 BROTHER FH: cancer 19 FATHER (lung) 19 MOTHER G8 SISTER (esophagus) Psychosocial problem 19 MOTHER No Pertinent Family Hx Physical Exam Vital Signs Vital Signs - First Documented 06/13/20 09:38 Temp 37.0 Pulse 73 Resp 20 B/P (MAP) 164/74 (104) Pulse Ox 98 O2 Delivery Room Air Capillary Refill : Height, Weight, BMI Height: 5'2.00" Weight: 122lbs. 0.0oz. 55.512282no; 23.53 BMI Method:Stated General Appearance: WD/WN, mild distress HEENT: PERRL/EOMI, pharynx normal Neck: full range of motion, normal inspection Cardiovascular: normal peripheral pulses, regular rate, rhythm Respiratory: no respiratory distress, no accessory muscle use Back: normal inspection, vertebral tenderness (Midline tenderness in the lumbar sacral area with left worse than right paraspinous vertebral tenderness and spasm.) Extremities: normal range of motion, non-tender, normal inspection, no pedal edema Neurologic/Psychiatric: no motor/sensory deficits, alert, normal mood/affect, oriented x 3 Progress/Results/Core Measures Results/Orders Lab Results Laboratory Tests Test 06/13/20 09:57 06/13/20 10:05 06/13/20 12:38 06/13/20 14:11 Range/Units Coronavirus 2019 (JAYLIN) Not Detected Not Detecte White Blood Count 7.0 4.3-11.0 10^3/uL Red Blood Count 4.38 3.80-5.11 10^6/uL Hemoglobin 13.4 11.5-16.0 g/dL Hematocrit 41 35-52 % Mean Corpuscular Volume 94 80-99 fL Mean Corpuscular Hemoglobin 31 25-34 pg Mean Corpuscular Hemoglobin Concent 32 32-36 g/dL Red Cell Distribution Width 13.9 10.0-14.5 % Platelet Count 205 130-400 10^3/uL Mean Platelet Volume 10.6 9.0-12.2 fL Immature Granulocyte % (Auto) 0 % Neutrophils (%) (Auto) 68 42-75 % Lymphocytes (%) (Auto) 17 12-44 % Monocytes (%) (Auto) 12 0-12 % Eosinophils (%) (Auto) 3 0-10 % Basophils (%) (Auto) 0 0-10 % Neutrophils # (Auto) 4.8 1.8-7.8 10^3/uL Lymphocytes # (Auto) 1.2 1.0-4.0 10^3/uL Monocytes # (Auto) 0.8 0.0-1.0 10^3/uL Eosinophils # (Auto) 0.2 0.0-0.3 10^3/uL Basophils # (Auto) 0.0 0.0-0.1 10^3/uL Immature Granulocyte # (Auto) 0.0 0.0-0.1 10^3/uL Urine Color YELLOW Urine Clarity CLEAR Urine pH 6.5 5-9 Urine Specific [place] 1.020 1.016-1.022 Urine Protein NEGATIVE NEGATIVE Urine Glucose (UA) NEGATIVE NEGATIVE Urine Ketones NEGATIVE NEGATIVE Urine Nitrite POSITIVE H NEGATIVE Urine Bilirubin NEGATIVE NEGATIVE Urine Urobilinogen 1.0 < = 1.0 MG/DL Urine Leukocyte Esterase TRACE H NEGATIVE Urine RBC (Auto) 2+ H NEGATIVE Urine RBC 5-10 H /HPF Urine WBC 2-5 /HPF Urine Squamous Epithelial Cells 2-5 /HPF Urine Crystals NONE /LPF Urine Bacteria MODERATE H /HPF Urine Casts NONE /LPF Urine Mucus NEGATIVE /LPF Urine Culture Indicated YES Sodium Level 142 135-145 MMOL/L Potassium Level 4.0 3.6-5.0 MMOL/L Chloride Level 106 98-107 MMOL/L Carbon Dioxide Level 27 21-32 MMOL/L Anion Gap 9 5-14 MMOL/L Blood Urea Nitrogen 12 7-18 MG/DL Creatinine 0.73 0.60-1.30 MG/DL Estimat Glomerular Filtration Rate > 60 BUN/Creatinine Ratio 16 Glucose Level 99 70-105 MG/DL Calcium Level 8.7 8.5-10.1 MG/DL Corrected Calcium 8.9 8.5-10.1 MG/DL Total Bilirubin 1.1 H 0.1-1.0 MG/DL Aspartate Amino Transf (AST/SGOT) 26 5-34 U/L Alanine Aminotransferase (ALT/SGPT) 17 0-55 U/L Alkaline Phosphatase 58 40-136 U/L Total Protein 6.8 6.4-8.2 GM/DL Albumin 3.8 3.2-4.5 GM/DL My Orders Orders - MARIA ESTHER PANTOJA Ct Lumbar Spine Wo (06/13/20 10:14) Ct Pelvis Wo (06/13/20 10:14) Fentanyl Inj (Sublimaze Injection) (06/13/20 10:15) Cbc With Automated Diff (06/13/20 10:14) Comprehensive Metabolic Panel (06/13/20 10:14) Ua Culture If Indicated (06/13/20 10:14) Ed Iv/Invasive Line Start (06/13/20 10:14) Covid 19 Inhouse Test (06/13/20 10:21) Urine Culture (06/13/20 12:38) Tramadol Tablet (Ultram Tablet) (06/13/20 14:15) Fentanyl Inj (Sublimaze Injection) (06/13/20 14:30) Fentanyl Inj (Sublimaze Injection) (06/13/20 14:30) Ct Head Wo (06/13/20 14:19) Ceftriaxone For Iv Use (Rocephin For I (06/13/20 14:30) Diltiazem Cd 24 Hr Capsule (Cardizem Cd (06/13/20 14:30) Medications Given in ED Current Medications Medications Dose Ordered Sig/Leif Route Start Time Stop Time Status Last Admin Dose Admin Ceftriaxone Sodium 1000 mg/ Sterile Water 10 ml @ 200 mls/hr ONCE ONCE IV 06/13/20 14:30 06/13/20 14:32 DC 06/13/20 14:34 200 MLS/HR Fentanyl Citrate 25 mcg ONCE ONCE IVP 06/13/20 10:15 06/13/20 10:17 DC 06/13/20 10:23 25 MCG Fentanyl Citrate 25 mcg ONCE ONCE IVP 06/13/20 14:30 06/13/20 14:31 DC 06/13/20 14:32 25 MCG Tramadol HCl 50 mg ONCE ONCE PO 06/13/20 14:15 06/13/20 14:17 DC 06/13/20 14:31 50 MG Vital Signs/I&O 06/13/20 06/13/20 09:38 09:50 Temp 37.0 Pulse 73 73 Resp 20 20 B/P (MAP) 164/74 (104) Pulse Ox 98 98 O2 Delivery Room Air Progress Progress Note #1: Time: 10:18 Progress Note Plan to do a CT of her lumbar spine and pelvis. 25 mcg of fentanyl initially. We will get some blood and urine. Progress Note #2: Time: 14:09 Progress Note 25 mcg of fentanyl took away the patient's pain made her comfortable however no fractures were found. They did however notice several episodes of paroxysmal atrial fibrillation with rapid ventricular response upwards of 140 bpm during her ER stay. This is a novel onset atrial fibrillation. Diagnostic Imaging Diagonstic Imaging: CT Plain Films/CT/US/NM/MRI: other (Lumbosacral spine) Comments NAME: WILBERTO IRVIN [facility] REC#: [id number] PT STATUS: REG ER : 1935 PHYSICIAN: MARIA ESTHER PANTOJA MD ADMIT DATE: 06/13/20/ER Draft Date of Exam:06/13/20 CT LUMBAR SPINE WO PROCEDURE: CT lumbar spine without contrast. TECHNIQUE: Multiple contiguous axial images were obtained through the lumbar spine without the use of intravenous contrast. Sagittal and coronal reformations were then performed. Auto Exposure Controls were utilized during the CT exam to meet ALARA standards for radiation dose reduction. INDICATION: Fall with low back pain and hip pain. FINDINGS: Sagittal and coronal images show good alignment of the lumbosacral spine. Body height is well-maintained. Disc spaces are relatively well preserved throughout. Facets show good alignment with no pars defect. There is considerable hypertrophic change along the facets bilaterally throughout the lower lumbosacral spine. No cortical bony fractures are demonstrated. The paraspinal soft tissues appear normal. 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 No acute abnormalities demonstrated. No significant spinal stenosis noted. Dictated on workstation # [id number] Dict: 06/13/20 1054 Trans: 06/13/20 1057 [id number] Interpreted by: ROSA PICKERING MD Electronically signed by: Reviewed: Reviewed by Ga Diagonstic Imaging: CT Plain Films/CT/US/NM/MRI: pelvis (Without) Comments [facility] [place] [place] NAME: WILBERTO IRVIN [facility] REC#: [id number] PT STATUS: REG ER : 1935 PHYSICIAN: MARIA ESTHER PANTOJA MD ADMIT DATE: 06/13/20/ER Draft Date of Exam:06/13/20 CT PELVIS WO PROCEDURE: CT pelvis without contrast. TECHNIQUE: Multiple contiguous axial images were obtained through the pelvis without the use of intravenous contrast. Sagittal and coronal reformations were performed. Auto Exposure Controls were utilized during the CT exam to meet ALARA standards for radiation dose reduction. INDICATION: Fall yesterday with bilateral hip pain. FINDINGS: SI joints are symmetrical. No evidence of sacral alar fractures. Pubic symphysis is in good alignment. No evidence of pelvic fractures. Femoral heads are in normal articulation with the acetabula. There is rather advanced arthritic disease bilaterally. Mild hypertrophic changes noted. Articulating surfaces of the femoral heads are smooth. No evidence of cortical fracture. The femoral neck and trochanter appear intact bilaterally. The surrounding soft tissues appear normal. IMPRESSION: Advanced arthritic changes noted throughout the pelvis and hips with no acute abnormalities demonstrated. Dictated on workstation # [id number] Dict: 06/13/20 1052 Trans: 06/13/20 1056 [facility] [id number] Interpreted by: ROSA PICKERING MD Electronically signed by: Reviewed: Reviewed by Ga Diagonstic Imaging: CT Plain Films/CT/US/NM/MRI: head Comments NAME: WILBERTO IRVIN [facility] REC#: [id number] PT STATUS: REG ER : 1935 PHYSICIAN: MARIA ESTHER PANTOJA MD ADMIT DATE: 06/13/20/ER Draft Date of Exam:06/13/20 CT HEAD WO PROCEDURE: CT head without contrast. TECHNIQUE: Multiple contiguous axial images were obtained through the brain without the use of intravenous contrast. Auto Exposure Controls were utilized during the CT exam to meet ALARA standards for radiation dose reduction. INDICATION: Status post fall with amnesia. On anticoagulation. CORRELATION: 05/30/2010 FINDINGS: There are diffuse atrophic changes with prominence of the ventricles and sulci. There are scattered areas of decreased attenuation, nonspecific but likely changes of chronic small vessel ischemic disease. There is otherwise normal stock-white differentiation. No abnormal areas of attenuation to suggest edema from ischemia. There is no midline shift or mass effect. No evidence for acute intracranial hemorrhage or abnormal extra-axial fluid collection. Bony calvarium is intact. Paranasal sinuses are clear. Mastoid air cells also appear clear. IMPRESSION: 1. No CT evidence for acute intracranial abnormality. 2. Age-related atrophic changes with changes of small vessel ischemic disease. Dictated on workstation # [id number] Dict: 06/13/20 1443 Trans: 06/13/20 1445 DO [id number] Interpreted by: BELINDA LOPEZ DO Electronically signed by: Reviewed: Reviewed by Me Departure Communication (Admissions) Time/Spoke to Admitting Phy: 14:30 Discussed the case with Wilton Montano and he agrees to treat UTI, back pain and A. fib RVR with consult cardiology Time/Spoke to Consulting Phy: 14:15 Discussed the case with Dr. Scott, cardiology and he agrees if the CT of the head is cleared to do Travis Raym 120 daily continued release and he will see the patient. Telemetry. Impression Primary Impression: Fall Qualified Codes: W19.XXXA - Unspecified fall, initial encounter Additional Impressions: Back pain Qualified Codes: M54.42 - Lumbago with sciatica, left side Atrial fibrillation by electrocardiogram Disposition: ADMITTED INPATIENT Condition: Stable Admissions Decision to Admit Reason: Admit from ER (General) Decision to Admit/Date: June 13, 2020 Time/Decision to Admit Time: 11:30 Departure-Patient Inst. Referrals: WILTON MONTANO MD (PCP/Family) Primary Care Physician MARIA ESTHER PANTOJA June 13, 2020 10:19
[2020-06-13 10:21] LABS: BASOPHILS % (AUTO) 0 % (0-10); EOSINOPHILS # (AUTO) 0.2 10^3/uL (0.0-0.3); EOSINOPHILS % (AUTO) 3 % (0-10); HEMATOCRIT 41 % (35-52); HEMOGLOBIN 13.4 g/dL (11.5-16.0); LYMPHOCYTES # (AUTO) 1.2 10^3/uL (1.0-4.0); LYMPHOCYTES % (AUTO) 17 % (12-44); MEAN CORPUSCULAR HEMOGLOBIN 31 pg (25-34); MEAN CORPUSCULAR HGB CONC 32 g/dL (32-36); MEAN CORPUSCULAR VOLUME 94 fL (80-99); MEAN PLATELET VOLUME 10.6 fL (9.0-12.2); MONOCYTES # (AUTO) 0.8 10^3/uL (0.0-1.0); MONOCYTES % (AUTO) 12 % (0-12); NEUTROPHILS # (AUTO) 4.8 10^3/uL (1.8-7.8); NEUTROPHILS % (AUTO) 68 % (42-75); PLATELET COUNT 205 10^3/uL (130-400)
--- NOTE | 2020-06-13 10:56 | Diagnostic Imaging Report ---
PROCEDURE: CT pelvis without contrast. TECHNIQUE: Multiple contiguous axial images were obtained through the pelvis without the use of intravenous contrast. Sagittal and coronal reformations were performed. Auto Exposure Controls were utilized during the CT exam to meet ALARA standards for radiation dose reduction. INDICATION: Fall yesterday with bilateral hip pain. FINDINGS: SI joints are symmetrical. No evidence of sacral alar fractures. Pubic symphysis is in good alignment. No evidence of pelvic fractures. Femoral heads are in normal articulation with the acetabula. There is rather advanced arthritic disease bilaterally. Mild hypertrophic changes noted. Articulating surfaces of the femoral heads are smooth. No evidence of cortical fracture. The femoral neck and trochanter appear intact bilaterally. The surrounding soft tissues appear normal. IMPRESSION: Advanced arthritic changes noted throughout the pelvis and hips with no acute abnormalities demonstrated. Dictated by: Dictated on workstation # [id number]
--- NOTE | 2020-06-13 10:57 | Diagnostic Imaging Report ---
PROCEDURE: CT lumbar spine without contrast. TECHNIQUE: Multiple contiguous axial images were obtained through the lumbar spine without the use of intravenous contrast. Sagittal and coronal reformations were then performed. Auto Exposure Controls were utilized during the CT exam to meet ALARA standards for radiation dose reduction. INDICATION: Fall with low back pain and hip pain. FINDINGS: Sagittal and coronal images show good alignment of the lumbosacral spine. Body height is well-maintained. Disc spaces are relatively well preserved throughout. Facets show good alignment with no pars defect. There is considerable hypertrophic change along the facets bilaterally throughout the lower lumbosacral spine. No cortical bony fractures are demonstrated. The paraspinal soft tissues appear normal. 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 No acute abnormalities demonstrated. No significant spinal stenosis noted. Dictated by: Dictated on workstation # [id number]
[2020-06-13 12:43] LABS: BILIRUBIN,URINE NEGATIVE (NEGATIVE); CLARITY,URINE CLEAR; COLOR,URINE YELLOW; GLUCOSE, URINE (UA) NEGATIVE (NEGATIVE); KETONES,URINE NEGATIVE (NEGATIVE); LEUKOCYTE ESTERASE ,URINE TRACE (NEGATIVE); NITRITE,URINE POSITIVE (NEGATIVE); PH,URINE 6.5 (5-9); PROTEIN,URINE NEGATIVE (NEGATIVE)
[2020-06-13 12:52] LABS: BACTERIA,URINE MODERATE /HPF
[2020-06-13] MEDS ORDERED: dilTIAZem120 MG (CARDIZEM CD) CAP PO SCH (14:30)
[2020-06-13] MEDS ORDERED: cefTRIAXone FOR IV USE 1,000 MG in WATER (STERILE) FOR INJECTION 10 ML IV ONE (14:30)
[2020-06-13 14:37] LABS: ALBUMIN 3.8 GM/DL (3.2-4.5)
[2020-06-13 14:38] LABS: CHLORIDE 106 MMOL/L (98-107); SODIUM 142 MMOL/L (135-145)
[2020-06-13 14:39] LABS: CALCIUM 8.7 MG/DL (8.5-10.1)
[2020-06-13 14:40] LABS: GLUCOSE 99 MG/DL (70-105); TOTAL PROTEIN 6.8 GM/DL (6.4-8.2)
[2020-06-13 14:41] LABS: CARBON DIOXIDE 27 MMOL/L (21-32)
[2020-06-13 14:42] LABS: BILIRUBIN,TOTAL 1.1 MG/DL (0.1-1.0)
[2020-06-13 14:44] LABS: ALKALINE PHOSPHATASE 58 U/L (40-136); CREATININE SERUM 0.73 MG/DL (0.60-1.30); GFR ESTIMATED > 60
[2020-06-13 14:45] LABS: BUN/CREATININE RATIO 16
--- NOTE | 2020-06-13 14:46 | Diagnostic Imaging Report ---
PROCEDURE: CT head without contrast. TECHNIQUE: Multiple contiguous axial images were obtained through the brain without the use of intravenous contrast. Auto Exposure Controls were utilized during the CT exam to meet ALARA standards for radiation dose reduction. INDICATION: Status post fall with amnesia. On anticoagulation. CORRELATION: 05/30/2010 FINDINGS: There are diffuse atrophic changes with prominence of the ventricles and sulci. There are scattered areas of decreased attenuation, nonspecific but likely changes of chronic small vessel ischemic disease. There is otherwise normal stock-white differentiation. No abnormal areas of attenuation to suggest edema from ischemia. There is no midline shift or mass effect. No evidence for acute intracranial hemorrhage or abnormal extra-axial fluid collection. Bony calvarium is intact. Paranasal sinuses are clear. Mastoid air cells also appear clear. IMPRESSION: 1. No CT evidence for acute intracranial abnormality. 2. Age-related atrophic changes with changes of small vessel ischemic disease. Dictated by: Dictated on workstation # [id number]
[2020-06-13 14:47] LABS: ALANINE AMINOTRANSFERASE 17 U/L (0-55)
[2020-06-13] MEDS ORDERED: APIXABAN 5 MG (ELIQUIS) TABLET PO ONE (15:00)
--- NOTE | 2020-06-13 15:58 | Consultation-Cardiology ---
HPI-Cardiology Cardiology Consultation: Date of Consultation 06/13/20 Time Seen by a Provider: 16:00 Date of Admission 06-13-20 Attending Physician Wilton Wu MD Admitting Physician Wilton Wu MD Consulting Physician Evan Scott MD Primary Cattle Trader: Dr. Mcgraw HPI: Chief Complaint: Newly diagnosed PAF Ms. Mckeon is an 85 yr old female who has been admitted to ICU 8 from the ED with newly diagnosed PAF with RVR. She reports yesterday she got her foot caught and fell backwards on her front porch. She denies any syncope or near syncope. She denies any c/o CP or SOB. She denies any LE swelling. She reports she has had occ episodes of palpitations over the last few years that she has been following with Dr. Mcgraw. She reports it as a feeling of a fast heartbeat that lasts a few seconds. No assoc symptoms. States it goes away on its own. No c/o n/v//d. No c/o fever or chills. Review of Systems-Cardiology Review of Systems Constitutional: No chills, No fever, No lightheadedness Eyes: No vision change Ears/Nose/Throat: No epistaxis, No recent hearing loss Respiratory: As described under HPI Cardiovascular: As described under HPI PWV-Tznhin-Xemgdp Hx Patient Social History Smoking Status: Never a Smoker 2nd Hand Smoke Exposure: No Immunizations Up To Date Tetanus Booster (TDap): Unknown Date of Pneumonia Vaccine: Jun 01, 2004 Past Medical History PMH As described under Assessment. Family Medical History Family Medical History: Reported family h/o a sister having CAD. Family History: 19 FATHER FH: cancer (lung) 19 MOTHER FH: cancer Psychosocial problem G8 BROTHER Colon cancer G8 SISTER FH: cancer (esophagus) Cardiovascular disease Relation not specified for: Colon cancer Allergies and Home Medications Allergies Coded Allergies: duloxetine HCl (Verified Allergy, Intermediate, BLISTERS, 05/04/15) Penicillins (Verified Allergy, Mild, 04/03/11) Home Medications Carvedilol 12.5 Mg Tablet, 12.5 MG PO BID, (Reported) Levothyroxine Sodium 75 Mcg Capsule, 75 MCG PO DAILY, (Reported) Losartan Potassium 100 Mg Tablet, 100 MG PO DAILY, (Reported) Multivitamin 1 Each Tablet, 1 TAB PO DAILY, (Reported) Pantoprazole Sodium 40 Mg Tablet.dr, 40 MG PO DAILY Prescribed by: TERE CARVAJAL on 05/17/20 1009 Physical Exam-Cardiology Physical Exam Vital Signs/I&O 06/13/20 06/13/20 06/13/20 06/13/20 09:38 09:50 15:26 15:42 Temp 37.0 Pulse 73 73 64 75 Resp 20 20 20 B/P (MAP) 164/74 (104) 164/79 (104) Pulse Ox 98 98 98 O2 Delivery Room Air 06/13/20 15:52 Temp 37.0 Capillary Refill : Less Than 3 Seconds Constitutional: AAO x 3, well-developed, well-nourished HEENT: PERRL, hearing is well preserved, oral hygience is good Neck: No carotid bruit; carotid pulses are 2 + bilaterally Respiratory: No accessory muscle use, No respiratory distress; chest expansion is symmetric, chest is bilaterally symmetric, lungs clear to auscultation Cardiovascular: irregularly irregular; No JVD; S1 and S2, systolic murmur Gastrointestinal: No tender; soft, round, audible bowel sounds Extremities: no lower extremity edema bilateral Neurologic/Psychiatric: grossly intact (moves all extremities) Skin: No rash on exposed areas, No ulcerations on exposed areas Data Review Labs Laboratory Tests 06/13/20 09:57: Coronavirus 2019 (JAYLIN) Not Detected 06/13/20 10:05: White Blood Count 7.0, Red Blood Count 4.38, Hemoglobin 13.4, Hematocrit 41, Mean Corpuscular Volume 94, Mean Corpuscular Hemoglobin 31, Mean Corpuscular Hemoglobin Concent 32, Red Cell Distribution Width 13.9, Platelet Count 205, Mean Platelet Volume 10.6, Immature Granulocyte % (Auto) 0, Neutrophils (%) (Auto) 68, Lymphocytes (%) (Auto) 17, Monocytes (%) (Auto) 12, Eosinophils (%) (Auto) 3, Basophils (%) (Auto) 0, Neutrophils # (Auto) 4.8, Lymphocytes # (Auto) 1.2, Monocytes # (Auto) 0.8, Eosinophils # (Auto) 0.2, Basophils # (Auto) 0.0, Immature Granulocyte # (Auto) 0.0 06/13/20 12:38: Urine Color YELLOW, Urine Clarity CLEAR, Urine pH 6.5, Urine Specific Blanca 1.020, Urine Protein NEGATIVE, Urine Glucose (UA) NEGATIVE, Urine Ketones NEGATIVE, Urine Nitrite POSITIVEH, Urine Bilirubin NEGATIVE, Urine Urobilinogen 1.0, Urine Leukocyte Esterase TRACEH, Urine RBC (Auto) 2+H, Urine RBC 5-10H, Urine WBC 2-5, Urine Squamous Epithelial Cells 2-5, Urine Crystals NONE, Urine Bacteria MODERATEH, Urine Casts NONE, Urine Mucus NEGATIVE, Urine Culture Indicated YES 06/13/20 14:11: Sodium Level 142, Potassium Level 4.0, Chloride Level 106, Carbon Dioxide Level 27, Anion Gap 9, Blood Urea Nitrogen 12, Creatinine 0.73, Estimat Glomerular Filtration Rate > 60, BUN/Creatinine Ratio 16, Glucose Level 99, Calcium Level 8.7, Corrected Calcium 8.9, Total Bilirubin 1.1H, Aspartate Amino Transf (AST/SGOT) 26, Alanine Aminotransferase (ALT/SGPT) 17, Alkaline Phosphatase 58, Total Protein 6.8, Albumin 3.8 Radiology NAME: WILBERTO MCKEON [facility] REC#: [id number] PT STATUS: REG ER : 1935 PHYSICIAN: MARIA ESTHER PANTOJA MD ADMIT DATE: 06/13/20/ER Draft Date of Exam:06/13/20 CT HEAD WO PROCEDURE: CT head without contrast. TECHNIQUE: Multiple contiguous axial images were obtained through the brain without the use of intravenous contrast. Auto Exposure Controls were utilized during the CT exam to meet ALARA standards for radiation dose reduction. INDICATION: Status post fall with amnesia. On anticoagulation. CORRELATION: 05/30/2010 FINDINGS: There are diffuse atrophic changes with prominence of the ventricles and sulci. There are scattered areas of decreased attenuation, nonspecific but likely changes of chronic small vessel ischemic disease. There is otherwise normal stock-white differentiation. No abnormal areas of attenuation to suggest edema from ischemia. There is no midline shift or mass effect. No evidence for acute intracranial hemorrhage or abnormal extra-axial fluid collection. Bony calvarium is intact. Paranasal sinuses are clear. Mastoid air cells also appear clear. IMPRESSION: 1. No CT evidence for acute intracranial abnormality. 2. Age-related atrophic changes with changes of small vessel ischemic disease. Dictated on workstation # [id number] Dict: 06/13/20 1443 Trans: 06/13/20 1445 DO [id number] Interpreted by: BELINDA LOPEZ DO Electronically signed by: ECG Impression ECG Initial ECG Impression: Atrial Fibrillation w/RVR A/P-Cardiology Assessment/Admission Diagnosis UTI - managment per medical services PAF, first diagnosed in [facility] ED on 06-13-20 Mild nonobstructive coronary artery disease per cardiac catheterization March 2011 MPI of 05-24-[address] Mcgraw showed baseline SB with occ PVC's. No evidence of ischemia or infarction. LVEF 80%. Hypertensive heart disease Echocardiogram was done April 24, [address] Mcgraw showing LVEF 55-65%. Grade 1 diastolic dysfunction. Severe MR. Mod TR. Mod AoR. PASP 40-45 mmHg Hypertension Hyperlipidemia Holter monitor done in November 2017 showing sinus rhythm with short episode of nonsustained ventricular tachycardia, 1 episode of 6 beats and one episode of 3 beats. Frequent atrial premature contractions and atrial bigeminy and occasional PVCs. Renal artery stenosis status post renal artery angioplasty using Deangelo balloon 620 mm to the right renal artery done in 2011. Angiogram done November 06, 2016 revealed no renal artery stenosis. Continue to monitor. Mild bilateral nonobstructive carotid artery stenosis per carotid duplex done in November 2018 Lower extremities cramp and pain. EVER was normal in September 2016. COPD, has been followed by Dr. Rubin H/O thyroidectomy - taking thyroid replacement Discussion and Recomendations Newly diagnosed PAF with RVR - start Cardizem CD for ventricular rate control during episodes of a-fib OAC for stroke prophylaxis with Eliquis We have reviewed her records from Dr. Mcgraw Check TSH Monitor lab Replace electrolytes as indicated Management of UTI is per medical services We would like to thank medical services for this consult Further recs will be based on her hospital course SARKIS SANDOVAL June 13, 2020 15:58
[2020-06-13 16:00] VITALS: BP 161/95
[2020-06-13] MEDS ORDERED: ONDANSETRON 4 MG (ZOFRAN) ORAL DISSOLVE TAB PO PRN (16:15)
[2020-06-13] MEDS ORDERED: ACETAMINOPHEN 325 MG TABLET PO PRN (16:15)
[2020-06-13] MEDS: fentaNYL INJ 100 MCG/2 ML AMP IVP PRN ×2 (16:45→23:54)
--- NOTE | 2020-06-13 17:16 | Consultation-Cardiology ---
HPI-Cardiology Cardiology Consultation: Date of Consultation 06/13/20 Time Seen by a Provider: 16:30 Date of Admission Attending Physician Wilton Wu MD Admitting Physician Wilton Wu MD Consulting Physician DIANE MURRELL MD, FACP, FACC HPI: Chief Complaint: Reason for Cardiolgy consult: Newly diagnosed PAF HPI Ms. Mckeon is an 85 yr old female who has been admitted to ICU 8 from the ED with newly diagnosed PAF with RVR. She reports yesterday she got her foot caught and fell backwards on her front porch. She denies any syncope or near syncope. She denies any c/o CP or SOB. She denies any LE swelling. She reports she has had occ episodes of palpitations over the last few years that she has been following with Dr. Mcgraw. She reports it as a feeling of a fast heartbeat that lasts a few seconds. No assoc symptoms. States it goes away on its own. No c/o n/v//d. No c/o fever or chills. Review of Systems-Cardiology Review of Systems Constitutional: No chills, No fever, No lightheadedness Eyes: No vision change Ears/Nose/Throat: No epistaxis, No recent hearing loss Respiratory: As described under HPI Cardiovascular: As described under HPI JTR-Humqfr-Wzlzcr Hx Patient Social History Smoking Status: Never a Smoker 2nd Hand Smoke Exposure: No Have you traveled recently?: No Alcohol Use?: No Pt feels they are or have been: No Immunizations Up To Date Tetanus Booster (TDap): Unknown Date of Pneumonia Vaccine: Jun 01, 2004 Past Medical History PMH As described under Assessment. Family Medical History Family Medical History: Reported family h/o a sister having CAD. Family History: Cardiovascular disease G8 SISTER Colon cancer G8 BROTHER Colon cancer G8 BROTHER FH: cancer 19 FATHER (lung) 19 MOTHER G8 SISTER (esophagus) Psychosocial problem 19 MOTHER Allergies and Home Medications Allergies Coded Allergies: duloxetine HCl (Verified Allergy, Intermediate, BLISTERS, 05/04/15) Penicillins (Verified Allergy, Mild, 04/03/11) Home Medications Carvedilol 12.5 Mg Tablet, 12.5 MG PO BID, (Reported) Last Action: Continued Levothyroxine Sodium 75 Mcg Capsule, 75 MCG PO DAILY, (Reported) Last Action: Converted Losartan Potassium 100 Mg Tablet, 100 MG PO DAILY, (Reported) Last Action: Continued Multivitamin 1 Each Tablet, 1 TAB PO DAILY, (Reported) Last Action: Converted Pantoprazole Sodium 40 Mg Tablet.dr, 40 MG PO DAILY Prescribed by: TERE CARVAJAL on 05/17/20 1009 Last Action: Continued Patient Home Medication List Home Medication List Reviewed: Yes Physical Exam-Cardiology Physical Exam Vital Signs/I&O 06/13/20 06/13/20 06/13/20 06/13/20 09:38 09:50 15:26 15:42 Temp 37.0 Pulse 73 73 64 75 Resp 20 20 20 B/P (MAP) 164/74 (104) 164/79 (104) Pulse Ox 98 98 98 O2 Delivery Room Air 06/13/20 06/13/20 06/13/20 06/13/20 15:52 16:00 16:19 16:55 Temp 37.0 Pulse 81 Resp 7 B/P (MAP) 161/95 (117) Pulse Ox 97 96 O2 Delivery Room Air Room Air Nasal Cannula O2 Flow Rate 2.00 Capillary Refill : Less Than 3 Seconds Constitutional: AAO x 3, well-developed, well-nourished HEENT: PERRL, hearing is well preserved, oral hygience is good Neck: No carotid bruit; carotid pulses are 2 + bilaterally Respiratory: No accessory muscle use, No respiratory distress; chest expansion is symmetric, chest is bilaterally symmetric, lungs clear to auscultation Cardiovascular: irregularly irregular; No JVD; S1 and S2, systolic murmur Gastrointestinal: No tender; soft, round, audible bowel sounds Extremities: no lower extremity edema bilateral Neurologic/Psychiatric: grossly intact (moves all extremities) Skin: No rash on exposed areas, No ulcerations on exposed areas Data Review Labs Laboratory Tests 06/13/20 09:57: Coronavirus 2019 (JAYLIN) Not Detected 06/13/20 10:05: White Blood Count 7.0, Red Blood Count 4.38, Hemoglobin 13.4, Hematocrit 41, Mean Corpuscular Volume 94, Mean Corpuscular Hemoglobin 31, Mean Corpuscular Hemoglobin Concent 32, Red Cell Distribution Width 13.9, Platelet Count 205, Mean Platelet Volume 10.6, Immature Granulocyte % (Auto) 0, Neutrophils (%) (Auto) 68, Lymphocytes (%) (Auto) 17, Monocytes (%) (Auto) 12, Eosinophils (%) (Auto) 3, Basophils (%) (Auto) 0, Neutrophils # (Auto) 4.8, Lymphocytes # (Auto) 1.2, Monocytes # (Auto) 0.8, Eosinophils # (Auto) 0.2, Basophils # (Auto) 0.0, Immature Granulocyte # (Auto) 0.0 06/13/20 12:38: Urine Color YELLOW, Urine Clarity CLEAR, Urine pH 6.5, Urine Specific Collins 1.020, Urine Protein NEGATIVE, Urine Glucose (UA) NEGATIVE, Urine Ketones NEGATIVE, Urine Nitrite POSITIVEH, Urine Bilirubin NEGATIVE, Urine Urobilinogen 1.0, Urine Leukocyte Esterase TRACEH, Urine RBC (Auto) 2+H, Urine RBC 5-10H, Urine WBC 2-5, Urine Squamous Epithelial Cells 2-5, Urine Crystals NONE, Urine Bacteria MODERATEH, Urine Casts NONE, Urine Mucus NEGATIVE, Urine Culture Indicated YES 06/13/20 14:11: Sodium Level 142, Potassium Level 4.0, Chloride Level 106, Carbon Dioxide Level 27, Anion Gap 9, Blood Urea Nitrogen 12, Creatinine 0.73, Estimat Glomerular Filtration Rate > 60, BUN/Creatinine Ratio 16, Glucose Level 99, Calcium Level 8.7, Corrected Calcium 8.9, Total Bilirubin 1.1H, Aspartate Amino Transf (AST/SGOT) 26, Alanine Aminotransferase (ALT/SGPT) 17, Alkaline Phosphatase 58, Total Protein 6.8, Albumin 3.8 A/P-Cardiology Assessment/Admission Diagnosis UTI - managment per medical services PAF, first diagnosed in [facility] ED on 06-13-20 Mild nonobstructive coronary artery disease per cardiac catheterization March 2011 MPI of 05-24-[address] Mcgraw showed baseline SB with occ PVC's. No evidence of ischemia or infarction. LVEF 80%. Hypertensive heart disease Echocardiogram was done April 24, [address] Mcgraw showing LVEF 55-65%. Grade 1 diastolic dysfunction. Severe MR. Mod TR. Mod AoR. PASP 40-45 mmHg Hypertension Hyperlipidemia Holter monitor done in November 2017 showing sinus rhythm with short episode of nonsustained ventricular tachycardia, 1 episode of 6 beats and one episode of 3 beats. Frequent atrial premature contractions and atrial bigeminy and occasional PVCs. Renal artery stenosis status post renal artery angioplasty using Deangelo balloon 620 mm to the right renal artery done in 2011. Angiogram done November 06, 2016 revealed no renal artery stenosis. Continue to monitor. Mild bilateral nonobstructive carotid artery stenosis per carotid duplex done in November 2018 Lower extremities cramp and pain. EVER was normal in September 2016. COPD, has been followed by Dr. Rubin H/O thyroidectomy - taking thyroid replacement Discussion and Recomendations start Cardizem CD for ventricular rate control during episodes of a-fib OAC for stroke prophylaxis with Eliquis We have reviewed her records from Dr. Mcgraw Check TSH Monitor lab Replace electrolytes as indicated Management of UTI is per medical services We would like to thank medical services for this consult Further recs will be based on her hospital course DIANE MURRELL MD FACP FACC CCDS June 13, 2020 17:16
[2020-06-13 18:00] VITALS: BP 132/68
--- NOTE | 2020-06-13 18:07 | History & Physical ---
History of Present Illness History of Present Illness Reason for visit/HPI 85 yo F admitted with atrial fibrillation with RVR. She came to the ER because her foot caught on the porch mat and she fell onto her butt. She waited one day and felt sore and achy so she had EMS bring her to the ER to get xrays and make sure nothing was broken. Denies head trauma. Denies loss of consciousness. Pain medication helped with the pain. While in the ER she would go in/out of afib with rvr. She was started on diltiazem. She is not anticoagulated, Eliquis was started on this admission. Patient has gastritis and GERD symptoms with an EGD done May 2020 and had a lower esophageal stricture dilated. Patient is very independent and takes care of her more recently since he was diagnosed with esophageal cancer last year. Also has COVID, diagnosed 06/09/20. Date of Admission June 13, 2020 at 14:35 Date Seen by a Provider: June 13, 2020 Time Seen by a Provider: 18:05 I consulted on this patient on 06/13/20 18:00 Attending Physician Wilton Montano MD Admitting Physician Wilton Montano MD Consult Allergies and Home Medications Allergies Coded Allergies: duloxetine HCl (Verified Allergy, Intermediate, BLISTERS, 05/04/15) Penicillins (Verified Allergy, Mild, 04/03/11) Home Medications Carvedilol 12.5 Mg Tablet, 12.5 MG PO BID, (Reported) Last Action: Continued Levothyroxine Sodium 75 Mcg Capsule, 75 MCG PO DAILY, (Reported) Last Action: Converted Losartan Potassium 100 Mg Tablet, 100 MG PO DAILY, (Reported) Last Action: Continued Multivitamin 1 Each Tablet, 1 TAB PO DAILY, (Reported) Last Action: Converted Pantoprazole Sodium 40 Mg Tablet.dr, 40 MG PO DAILY Prescribed by: TERE CARVAJAL on 05/17/20 1009 Last Action: Continued Patient Home Medication List Home Medication List Reviewed: Yes Past [id number]-Nlbucb Hx Patient Social History Marrital Status: Smoking Status: Never a Smoker 2nd Hand Smoke Exposure: No Recent Hopitalizations: No Have you traveled recently?: No Alcohol Use?: No Pt feels they are or have been: No Immunizations Up To Date Tetanus Booster (TDap): Unknown Pediatric: Yes Date of Pneumonia Vaccine: Jun 01, 2004 Seasonal Allergies Seasonal Allergies: No Surgeries Yes (KIDNEY STONE REMOVAL, ORAL SX, ANGIOPLASTY RIGHT RENAL ARTERY) Abdominal, Gallbladder, Hysterectomy, Orthopedic, Renal, Thyroidectomy Respiratory Yes (lung nodules, INFECTIOUS DISEASE DR FOR LUNG) Currently Using CPAP: No Currently Using BIPAP: No Cardiovascular Yes (CAROTID DISEASE; RIGHT RENAL ARTERY STENOSIS--S/P ANGIOPLASTY 2011) Coronary Artery Disease, High Cholesterol, Hypertension, Irregular Heartbeat, Valvular Heart Disease Neurological No Reproductive System Hx Reproductive Disorders: No Sexually Transmitted Disease: No HIV/AIDS: No Female Reproductive Disorders: Denies 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 [employer]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[place]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 History: Hysterectomy, Menopausal Genitourinary Yes (OVERACTIVE BLADDER; INCONTINENCE) Kidney Stones Gastrointestinal Yes (S/P HIATAL HERNIA REPAIR, DYSPHAGIA) Gastroesophageal Reflux, Diverticulosis, Hiatal Hernia Musculoskeletal Yes (CHRONIC LEG PAIN ) Arthritis Endocrine History of Endocrine Disorders: Yes (BENIGN NODULE ON THYROID, BX ON 03/30/15; THYROIDECTOMY 05/2015--GOITER) Endocrine Disorders: Hypothyroidsim HEENT History of HEENT Disorders: Yes HEENT Disorders: Cataract Hearing Impairment: Denies Cancer No Psychosocial History of Psychiatric Problem: No Integumentary History of Skin or Integumenta: Yes (hx of mrsa) Blood Transfusions History of Blood Disorders: No Adverse Reaction to a Blood Tr: No Family Medical History Significant Family History: No Pertinent Family Hx Family Hx: Cardiovascular disease G8 SISTER Colon cancer G8 BROTHER Colon cancer G8 BROTHER FH: cancer 19 FATHER (lung) 19 MOTHER G8 SISTER (esophagus) Psychosocial problem 19 MOTHER Review of Systems Review of Systems General: No Chills, No Night Sweats HEENT: No Head Aches, No Visual Changes Pulmonary: No Dyspnea, No Cough Cardiovascular: Palpitations; No: Chest Pain Gastrointestinal: No: Nausea, Vomiting Genitourinary: No Dysuria, No Frequency Musculoskeletal: other (pain in legs, butt, back) Neurological: No: Weakness Physical Exam Vital Signs Vital Signs - First Documented 06/13/20 06/13/20 09:38 16:55 Temp 37.0 Pulse 73 Resp 20 B/P (MAP) 164/74 (104) Pulse Ox 98 O2 Delivery Room Air O2 Flow Rate 2.00 Capillary Refill : Less Than 3 Seconds Height, Weight, BMI Height: 5'2.00" Weight: 122lbs. 0.0oz. [id number]; 22.56 BMI Method:Stated General Appearance: No Apparent Distress HEENT: PERRL/EOMI Neck: Non Tender, Supple Respiratory: Chest Non Tender, Lungs Clear Cardiovascular: Regular Rate, Rhythm, Systolic Murmur Gastrointestinal: Non Tender, Soft Rectal: Deferred Back: Normal Inspection, No CVA Tenderness, No Vertebral Tenderness Extremity: Non Tender, No Calf Tenderness Neurologic/Psychiatric: Alert, Oriented x3 Skin: Warm/Dry Assessment/Plan Assessment/Plan Admission Dx afib with RVR fall Admission Status: Observation Assessment and Plan admitted observation 06/13/20 - checking TSH, T4 since she has paroxysmal atrial fibrillation. last ECHO 55-65% April [address] Mcgraw. -rate controlling her afib with rvr. -diltiazem -cardiology has started her on eliquis. CHADSVASC score 4. ( points from age (2), female gender (1), HTN (1)) -monitor mental status - no sign of significant injury from the fall. Recommend she remove the door entry mat from her porch. -awaiting urine culture results. Dispo: will monitor overnight. Likely d/c to home tomorrow. Question of continuing eliquis- cost?, also risk of falling again-she could hit her head and have an increased risk of brain bleed with eliquis. Cardiology to weigh in and we will use informed shared decision making skills with the patient. Patient wants to be a DNR because she feels like when her heart stops/she codes it is time to go and does not want to resuscitated. She and her had this talk recently. Problems: (1) Paroxysmal atrial fibrillation (2) UTI (urinary tract infection) Qualifiers: (3) Hypothyroidism associated with surgical procedure (4) Hiatal hernia with GERD (5) HTN (hypertension) (6) Fall on same level Qualifiers: Qualified Codes: W18.30XA - Fall on same level, unspecified, initial encounter WILTON MONTANO MD June 13, 2020 18:07
[2020-06-13 19:01] LABS: FREE T4 (FREE THYROXINE) 1.1 NG/DL (0.70-1.48)
[2020-06-13] MEDS: APIXABAN 5 MG (ELIQUIS) TABLET PO SCH (19:49)
[2020-06-13 20:04] VITALS: BP 149/70
[2020-06-13 23:54] VITALS: BP 140/62
[2020-06-14 03:15] LABS: BASOPHILS % (AUTO) 0 % (0-10); EOSINOPHILS # (AUTO) 0.3 10^3/uL (0.0-0.3); EOSINOPHILS % (AUTO) 3 % (0-10); HEMATOCRIT 40 % (35-52); HEMOGLOBIN 13.4 g/dL (11.5-16.0); LYMPHOCYTES # (AUTO) 1.3 10^3/uL (1.0-4.0); LYMPHOCYTES % (AUTO) 15 % (12-44); MEAN CORPUSCULAR HEMOGLOBIN 31 pg (25-34); MEAN CORPUSCULAR HGB CONC 33 g/dL (32-36); MEAN CORPUSCULAR VOLUME 94 fL (80-99); MEAN PLATELET VOLUME 9.4 fL (9.0-12.2); MONOCYTES % (AUTO) 11 % (0-12); NEUTROPHILS # (AUTO) 6.2 10^3/uL (1.8-7.8); NEUTROPHILS % (AUTO) 71 % (42-75); PLATELET COUNT 172 10^3/uL (130-400); WHITE BLOOD COUNT 8.8 10^3/uL (4.3-11.0)
[2020-06-14 03:29] LABS: ALBUMIN 3.6 GM/DL (3.2-4.5); CHLORIDE 105 MMOL/L (98-107); SODIUM 140 MMOL/L (135-145)
[2020-06-14 03:30] LABS: CALCIUM 8.5 MG/DL (8.5-10.1)
[2020-06-14 03:31] LABS: GLUCOSE 108 MG/DL (70-105); TOTAL PROTEIN 6.5 GM/DL (6.4-8.2)
[2020-06-14 03:32] LABS: CARBON DIOXIDE 24 MMOL/L (21-32)
[2020-06-14 03:33] LABS: BILIRUBIN,TOTAL 0.9 MG/DL (0.1-1.0)
[2020-06-14 03:35] LABS: ALKALINE PHOSPHATASE 53 U/L (40-136); CREATININE SERUM 0.69 MG/DL (0.60-1.30); GFR ESTIMATED > 60
[2020-06-14 03:36] LABS: BUN/CREATININE RATIO 19
[2020-06-14 03:38] LABS: ALANINE AMINOTRANSFERASE 16 U/L (0-55)
[2020-06-14 04:00] VITALS: BP 115/42
[2020-06-14 08:00] VITALS: BP 141/72
[2020-06-14] MEDS: APIXABAN 5 MG (ELIQUIS) TABLET PO SCH (08:10)
[2020-06-14] MEDS ORDERED: PANTOPRAZOLE 40 MG (PROTONIX) TAB PO SCH (09:00)
[2020-06-14] MEDS ORDERED: LEVOTHYROXINE 75 MCG (LEVOTHROID) TABLET PO SCH (09:00)
[2020-06-14] MEDS ORDERED: dilTIAZem120 MG (CARDIZEM CD) CAP PO SCH (09:00)
[2020-06-14] MEDS ORDERED: LOSARTAN 100 MG (COZAAR) TABLET PO SCH (09:00)
[2020-06-14] MEDS ORDERED: MULTIVIT W/MINERALS TAB (THERAGRAN M) PO SCH (09:00)
--- NOTE | 2020-06-14 09:26 | Cardiology Progress Note ---
Subjective Date Seen by Provider: June 14, 2020 Time Seen by Provider: 08:55 Subjective/Events-last exam Patient sitting up in bed, denies any chest pain or dyspnea. Reports low back pain. Review of Systems General: No Chills, No Night Sweats, No Fatigue, No Malaise, No Appetite, No Other HEENT: No Head Aches, No Visual Changes, No Eye Pain, No Ear Pain, No Dysphasia, No Sinus Congestion, No Post Nasal Drip, No Sore Throat, No Other Pulmonary: No Dyspnea, No Cough, No Pleuritic Chest Pain, No Other Cardiovascular: No: Chest Pain, Palpitations, Orthopnea, Paroxysmal Noc. Dyspnea, Edema, Lt Headedness, Other Objective-Cardiology Exam Last Set of Vital Signs Vital Signs 06/14/20 06/14/20 06/14/20 06/14/20 04:00 06:43 07:38 08:08 Temp 36.7 Pulse 58 Resp 19 B/P (MAP) 115/42 (66) Pulse Ox 97 O2 Delivery Room Air O2 Flow Rate 2.00 Capillary Refill : Less Than 3 Seconds I&O Intake and Output 06/14/20 00:00 Intake Total 130 ml Output Total 150 ml Balance -20 ml Intake Oral 120 ml IV Total 10 ml Output Urine Total 150 ml Daily Weight Change No General: Alert, Oriented X3, Cooperative HEENT: Atraumatic, PERRLA Neck: Supple, No JVD, No Thyromegaly Lungs: Clear to Auscultation, Normal Air Movement Heart: Regular Rate, Normal S1, Normal S2, No Murmurs Abdomen: Normal Bowel Sounds, Soft, No Tenderness, No Hepatosplenomegaly, No Masses Extremities: No Clubbing, No Cyanosis, No Edema, Normal Pulses, No Tenderness/Swelling Skin: No Rashes, No Breakdown, No Significant Lesion Neuro: Normal Gait, Normal Speech, Strength at 5/5 X4 Ext, Normal Tone, Sensation Intact Psych/Mental Status: Mental Status NL, Mood NL Results Lab Laboratory Tests 06/13/20 10:05 06/13/20 14:11 06/14/20 03:00 A/P-Cardiology Admission Diagnosis UTI PAF HTN HLP Assessment/Plan UTI - managment per medical services PAF, first diagnosed in [facility] ED on 06-13-20, converted on Cardizem. Currently maintained on diltiazem, Coreg, Eliquis, I will start Flecainide 50 mg BID. [id number] score of 4, yearly risk of stroke without OAC is 4.0%. Started on Eliquis. Mild nonobstructive coronary artery disease per cardiac catheterization March 2011. Stress test done April 2020 showed baseline SB with occ PVC's. No evidence of ischemia or infarction. LVEF 80%. Hypertensive heart disease, Echocardiogram was done April 24, 2020 showing LVEF 55-65%. Grade 1 diastolic dysfunction. Severe MR. Mod TR. Mod AoR. PASP 40- 45 mmHg Hypertension, controlled, continue to monitor Hyperlipidemia, continue to monitor. s/p nonsyncopal fall with contusion to coccyx. Holter monitor done in November 2017 showing sinus rhythm with short episode of nonsustained ventricular tachycardia, 1 episode of 6 beats and one episode of 3 beats. Frequent atrial premature contractions and atrial bigeminy and occasional PVCs, maintained on beta ruthy. Renal artery stenosis status post renal artery angioplasty using Deangelo balloon 620 mm to the right renal artery done in 2011. Angiogram done November 06, 2016 revealed no renal artery stenosis. Continue to monitor. Mild bilateral nonobstructive carotid artery stenosis per carotid duplex done in November 2018 Lower extremities cramp and pain. EVER was normal in September 2016. COPD, has been followed by Dr. Rubin H/O thyroidectomy - taking thyroid replacement Patient was seen and evaluated with [facility], has been doing well, still having frequent PVCs/PACs. Feeling better Receiving treatment for her UTI Converted spontaneously on Cardizem drip to sinus rhythm. Patient has been having recurrent palpitation. I am starting flecainide and Eliquis and follow-up as an outpatient Okay for discharge from cardiology standpoint Supervisory-Addendum Brief Supervisory Addendum Participated in pt care: history, MDM, physical Personally performed: exam, history, MDM Care discussed with: FLOWER DELACRUZ June 14, 2020 9:26 am EDIE HANDY MD June 14, 2020 9:57 am
[2020-06-14] MEDS ORDERED: DILT-27 PO (10:00)
[2020-06-14] MEDS ORDERED: FLEC50TA PO (10:00)
[2020-06-14] MEDS ORDERED: APIX2.5T PO (10:00)
[2020-06-14] MEDS ORDERED: FLECAINIDE 100 MG (TAMBOCOR) TAB PO SCH (10:00)
[2020-06-14] MEDS ORDERED: ASPI-1238 PO (10:16)
[2020-06-14] MEDS ORDERED: AMLO2.5T4 PO (10:16)
[2020-06-14] MEDS ORDERED: OMEG-213 PO (10:16)
[2020-06-14 12:00] VITALS: BP 131/64
[2020-06-14] MEDS ORDERED: CEFD300C3 PO (13:45)
--- NOTE | 2020-06-14 13:51 | D/C HH Face to Face Order ---
D/C Face to Face Orders Reconcile Patient Problems Problems Reviewed?: Yes Instructions for Patient [employer], Patient Instructions/FollowUp: Follow up with Dr. Mcgraw Cardiology Follow up at [facility] in 7-10days Complete cefdinir for your urinary tract infection Eliquis, flecainide stop amlodipine 2.5mg Physician to follow Patient: Wilton Wu MD Discharge Diet for Home: Regular Diet Patient Problems: afib rvr weakness recent fall. Patient Data-Allergies,Ht & Wt Patient Allergies: Coded Allergies: duloxetine HCl (Verified Allergy, Intermediate, BLISTERS, 05/04/15) Penicillins (Verified Allergy, Mild, 04/03/11) Height (Feet): 5 Height (Inches): 2.00 Weight (Pounds): 122 Weight (Ounces): 0.0 Home Health Need/Face to Face Date of Face to Face: June 14, 2020 Clinical Findings: Generalized weakness and fatigue, Instability, Unsteady gait I have seen Pt [id number]: Yes Discharged To: Home Diagnosis/Conditions: atrial fibrillation with RVR weakness recent fall Patient is Homebound due to: Muscle weakness, Pain w/ambulation evaluate the home and make it safer for her to walk as well as assess her functioning. She was started on Eliquis which will help with preventing a stroke but also will make a future fall damaging (could cause if a brain bleed occurs) Homebound Status Due to the above stated illness, injury or surgical procedure (medical condition or diagnosis) and associated clinical findings, the patient is homebound because of his/her inability to leave home except with aid of a supportive device and/or person AND leaving the home requires a considerable and taxing effort or is medically contraindicated. Pt req the following assistanc: Medically contraindicated Home Health Nursing Orders Home Health Services Order: Nursing Services, Physical Therapy-Evaluate & Treat Home Health Infusion Therapy Line Start Date: June 13, 2020 Therapy Orders Therapy Orders: Physical Therapy Therapy Specific Orders: Teach enviro modifications/safety, Increase strength/endurance Certify Stmt I certify that this patient is under my care and that I, a nurse practitioner or a physician; a registered dental assistant rda working with me, had a face to face encounter that - meets the physician face to face encounter requirements with this patient as dated. WILTON WU MD June 14, 2020 13:51
--- NOTE | 2020-06-14 13:51 | Discharge Summary ---
Discharge Summary Hospital Course Problems/Dx: (1) Paroxysmal atrial fibrillation (2) UTI (urinary tract infection) Qualifiers: (3) Hypothyroidism associated with surgical procedure (4) Hiatal hernia with GERD Status: Acute (5) HTN (hypertension) (6) Fall on same level Qualifiers: Qualified Codes: W18.30XA - Fall on same level, unspecified, initial encounter Hospital Course Date of Admission: June 13, 2020 at 14:35 Admission Diagnosis : Family Physician/Provider: Wilton Montano MD Date of Discharge: 06/14/20 Discharge Diagnosis: [ ] Hospital Course: [ ] Labs and Pending Lab Test: Laboratory Tests 06/13/20 14:11: Sodium Level 142, Potassium Level 4.0, Chloride Level 106, Carbon Dioxide Level 27, Anion Gap 9, Blood Urea Nitrogen 12, Creatinine 0.73, Estimat Glomerular Filtration Rate > 60, BUN/Creatinine Ratio 16, Glucose Level 99, Calcium Level 8.7, Corrected Calcium 8.9, Total Bilirubin 1.1H, Aspartate Amino Transf (AST/SGOT) 26, Alanine Aminotransferase (ALT/SGPT) 17, Alkaline Phosphatase 58, Total Protein 6.8, Albumin 3.8, Thyroid Stimulating Hormone (TSH) 0.57, Free Thyroxine 1.10 06/14/20 03:00: Sodium Level 140, Potassium Level 4.0, Chloride Level 105, Carbon Dioxide Level 24, Anion Gap 11, Blood Urea Nitrogen 13, Creatinine 0.69, Estimat Glomerular Filtration Rate > 60, BUN/Creatinine Ratio 19, Glucose Level 108H, Calcium Level 8.5, Corrected Calcium 8.8, Total Bilirubin 0.9, Aspartate Amino Transf (AST/SGOT) 25, Alanine Aminotransferase (ALT/SGPT) 16, Alkaline Phosphatase 53, Total Protein 6.5, Albumin 3.6, White Blood Count 8.8, Red Blood Count 4.31, Hemoglobin 13.4, Hematocrit 40, Mean Corpuscular Volume 94, Mean Corpuscular Hemoglobin 31, Mean Corpuscular Hemoglobin Concent 33, Red Cell Distribution Width 13.8, Platelet Count 172, Mean Platelet Volume 9.4, Immature Granulocyte % (Auto) 0, Neutrophils (%) (Auto) 71, Lymphocytes (%) (Auto) 15, Monocytes (%) (Auto) 11, Eosinophils (%) (Auto) 3, Basophils (%) (Auto) 0, Neutrophils # (Auto) 6.2, Lymphocytes # (Auto) 1.3, Monocytes # (Auto) 1.0, Eosinophils # (Auto) 0.3, Basophils # (Auto) 0.0, Immature Granulocyte # (Auto) 0.0 Microbiology 06/13/20 Urine Culture - Preliminary, Resulted Escherichia coli Home Meds Active Cefdinir 300 Mg Capsule 300 Mg PO BID 7 Days Flecainide Acetate 50 Mg Tablet 50 Mg PO BID Eliquis (Apixaban) 2.5 Mg Tablet 2.5 Mg PO BID Diltiazem 24Hr ER (Diltiazem HCl) 120 Mg Cap.er.24h 120 Mg PO DAILY@0900 Protonix (Pantoprazole Sodium) 40 Mg Tablet.dr 40 Mg PO DAILY Reported Fish Oil 1,200 mg Softgel ([place]-3S/Dha/Epa/Fish Oil) 1 Each Capsule 1 Each PO DAILY Aspirin EC (Aspirin) 81 Mg Tablet.dr 81 Mg PO HS Amlodipine Besylate 2.5 Mg Tablet 2.5 Mg PO DAILY Levothyroxine (Levothyroxine Sodium) 75 Mcg Capsule 75 Mcg PO DAILY Losartan Potassium 100 Mg Tablet 100 Mg PO DAILY Coreg (Carvedilol) 12.5 Mg Tablet 12.5 Mg PO BID Multiple Vitamins (Multivitamin) 1 Each Tablet 1 Tab PO DAILY Discharge Physical Examination Vital Signs Vital Signs Date Time Temp Pulse Resp B/P (MAP) Pulse Ox O2 Delivery O2 Flow Rate FiO2 06/14/20 12:00 61 17 131/64 (86) 94 Nasal Cannula 2.00 06/14/20 07:38 36.7 Allergies: Coded Allergies: duloxetine HCl (Verified Allergy, Intermediate, BLISTERS, 05/04/15) Penicillins (Verified Allergy, Mild, 04/03/11) Discharge Summary Date of Admission June 13, 2020 at 14:35 Date of Discharge Discharge Date: June 14, 2020 Discharge Diagnosis (1) Paroxysmal atrial fibrillation (2) UTI (urinary tract infection) Qualifiers: (3) Hypothyroidism associated with surgical procedure (4) Hiatal hernia with GERD Status: Acute (5) HTN (hypertension) (6) Fall on same level Qualifiers: Qualified Codes: W18.30XA - Fall on same level, unspecified, initial encounter WILTON MONTANO MD June 14, 2020 13:51
--- NOTE | 2020-06-14 14:27 | Physical Therapy Evaluation ---
PT Evaluation-General Medical Diagnosis Admission Date June 13, 2020 at 14:35 Medical Diagnosis: A-fib Onset Date: June 13, 2020 Therapy Diagnosis Therapy Diagnosis: debility Height/Weight Height (Feet): 5 Height (Inches): 2.00 Weight (Pounds): 122 Weight (Ounces): 0.0 Precautions Precautions/Isolations: Fall Prevention, Standard Precautions Referral Physician: Bryce Reason for Referral: Evaluation/Treatment Medical History Pertinent Medical History: Atrial Fib Additional Medical History Surgeries: Yes (KIDNEY STONE REMOVAL, ORAL SX, ANGIOPLASTY RIGHT RENAL ARTERY) Abdominal, Gallbladder, Hysterectomy, Orthopedic, Renal, Thyroidectomy Respiratory: Yes (lung nodules, INFECTIOUS DISEASE DR FOR LUNG) COPD Currently Using CPAP: No Currently Using BIPAP: No Cardiac: Yes (CAROTID DISEASE; RIGHT RENAL ARTERY STENOSIS--S/P ANGIOPLASTY 2011) Coronary Artery Disease, High Cholesterol, Hypertension, Irregular Heartbeat, Valvular Heart Disease Neurological: No Reproductive Disorders: No Female Reproductive Disorders: Denies FAMILY INDEPENDENCE CASE MANAGER History: Hysterectomy, Menopausal Sexually Transmitted Disease: No HIV/AIDS: No Genitourinary: Yes (OVERACTIVE BLADDER; INCONTINENCE) Kidney Stones Gastrointestinal: Yes (S/P HIATAL HERNIA REPAIR, DYSPHAGIA) Gastroesophageal Reflux, Diverticulosis, Hiatal Hernia Musculoskeletal: Yes (CHRONIC LEG PAIN ) Arthritis Endocrine: Yes (BENIGN NODULE ON THYROID, BX ON 03/30/15; THYROIDECTOMY 05/2015--GOITER) Hypothyroidsim HEENT: Yes Cataract Hearing Impairment: Denies Cancer: No Psychosocial: No Integumentary: Yes (hx of mrsa) Current History EMS to ED from fall on bottom Reviewed History: Yes Social History Home: Single Level Current Living Status: Spouse Entry Into Home: Stairs With Railing PT Steps Into Home: 2 Prior Prior Level of Function SCALE: Activities may be completed with or without assistive devices. 1-Pucqtawqst-wgqubdh completes the activity by him/herself with no assistance from a helper. 5-Set-up or Clean-up Assistance-helper sets up or cleans up; patient completes activity. [place] assists only prior to or following the activity. 4-Supervision or Touching Assistance-helper provides verbal cues and/or touching/steadying and/or contact guard assistance as patient completes activity. Assistance may be provided throughout the activity or intermittently. 3-Partial/Moderate Assistance-helper does LESS THAN HALF the effort. [place] lifts, holds or supports trunk or limbs, but provides less than half the effort. 2-Substantial/Maximal Assistance-helper does MORE THAN HALF the effort. [place] lifts or holds trunk or limbs and provides more than half the effort. 5-Alooykwna-gnbkky does ALL the effort. Patient does none of the effort to complete the activity. Or, the assistance of 2 or more helpers is required for the patient to complete the activity. If activity was not attempted, code reason: 7-Patient Refused. 9-Not Applicable-not attempted and the patient did not perform the activity before the current illness, exacerbation or injury. 10-Not Attempted due to Environmental Limitations-(lack of equipment, weather restraints, etc.). 88-Not Attempted due to Medical Conditions or Safety Concerns. Bed Mobility: 6 Transfers (B,C,W/C): 6 Gait: 6 Stairs: 6 Indoor Mobility (Ambulation): Independent Stairs: Independent Prior Devices Use: None Patient has walker she can use at home PT Evaluation-Current Subjective Patient reports moderate, unrated pain in her low back. Patient consents to tx, laying supine in bed eating lunch pre tx. Pt/Family Goals Return home with PLOF Objective Patient Orientation: Person, Place, Time, Normal For Age Attachments: SCD's, Oxygen telemetry, purewick ROM/Strength ROM Lower Extremities WFL Strength Lower Extremities RLE (hip not tested secondary to pain from Low Back, knee extension/flexion 4- /5, DF 4-/5) LLE (hip not tested secondary to pain from Low Back, knee extension/flexion 4-/5, DF 4-/5) Integumentary/Posture Integumentary see nursing report Bowel Incontinence: No Bladder Incontinence: Yes Posture mild kyphosis Sensory Hearing: Functional Sensation Right Lower Extremit: Intact Sensation Left Lower Extremity: Intact Transfers Roll Left to Right (QC): 6 Sit to Lying (QC): 6 Lying to Sitting/Side of Bed(Q: 6 Sit to Stand (QC): 4 SBA with sit <-> stand. Patient performed all bed mobility independently with grimacing/pain reports from low back. Was able to sit EOB without pain Gait Does the Patient Walk?: Yes Mode of Locomotion: Walk Anticipated Mode of Locomotion: Walk Walk 10 feet (QC): 4 (SBA) Distance: 10' Gait Assistive Device: FWW Comments/Gait Description Patient took small steps, was able to navigate 10' with steadiness. Patient reports she felt stronger than yesterday, was happy with how ambulation felt. Balance Sitting Static: Good Sitting Dynamic: Good Standing Static: Good Standing Dynamic: Good Treatment LE strengthening (15 reps AP, LAQ) , gait, transfer Assessment/Needs Decreased mobility, weakness Rehab Potential: Good PT Information Technology Technician Goals Nursing Home Goals PT Nursing Home Goals Time Frame: June 21, 2020 Roll Left & Right (QC): 6 Sit to Lying (QC): 6 Lying-Sitting on Side/Bed(QC): 6 Sit to Stand (QC): 6 Chair/Crc-wz-Phqbj Xfer(QC): 6 Does the Patient Walk: Yes Walk 10 feet (QC): 6 Walk 50ft with 2 Turns (QC): 6 PT Plan Problem List Problem List: Activity Tolerance, Functional Strength, Safety, Balance, Gait, Transfer, Bed Mobility, ROM Treatment/Plan Treatment Plan: Continue Plan of Care Treatment Plan: Bed Mobility, Education, Functional Activity Chun, Functional Strength, Gait, Safety, Therapeutic Exercise, Transfers Treatment Duration: June 21, 2020 Frequency: 6 times per week Estimated Hrs Per Day: .25 hour per day Patient and/or Family Agrees t: Yes Safety Risks/Education Patient Education: Gait Training, Transfer Techniques, Correct Positioning, Safety Issues Teaching Recipient: Patient Teaching Methods: Demonstration, Discussion Response to Teaching: Verbalize Understanding, Return Demonstration Discharge Recommendations Plan Incorporate strengthening, gait training, and transfers for optimal functional independence and safe return home. Therapy Discharge Recommendati: Home & Family, Post Acute PT Time/GCodes Time In: 1316 Time Out: 1336 Total Billed Treatment Time: 20 Total Billed Treatment 1 visit: EVM: 20' DARRICK LARA PT June 14, 2020 14:27
[2020-06-14] MEDS ORDERED: cefTRIAXone 1,000 MG/SWFI 10 ML IV PUSH IV SCH ×2 (15:00)
[2020-06-14] MEDS ORDERED: APIXABAN 2.5 MG (ELIQUIS) TABLET PO SCH (21:00)
== END 2020-06-14 14:25 | disposition home health service (06) ==
LOC: EDUNIT# 09:36 → ER 09:37 → ICU 14:35
PROVIDERS: ADMIT Family Medicine; ATTEND Family Medicine
DX: M54.42 Lumbago with sciatica, left side (principal); I48.0 Paroxysmal atrial fibrillation; I48.20 Chronic atrial fibrillation, unspecified; N39.0 Urinary tract infection, site not specified; K44.9 Diaphragmatic hernia without obstruction or gangrene; E78.5 Hyperlipidemia, unspecified; J44.9 Chronic obstructive pulmonary disease, unspecified; E78.00 Pure hypercholesterolemia, unspecified; I11.9 Hypertensive heart disease without heart failure; I25.10 Atherosclerotic heart disease of native coronary artery without angina pectoris; E89.0 Postprocedural hypothyroidism; K57.90 Diverticulosis of intestine, part unspecified, without perforation or abscess without bleeding; W18.30XA Fall on same level, unspecified, initial encounter; Z20.822 Contact with and (suspected) exposure to COVID-19; Z88.0 Allergy status to penicillin; Z88.8 Allergy status to other drugs, medicaments and biological substances; Z79.01 Long term (current) use of anticoagulants; Z79.82 Long term (current) use of aspirin; Z79.890 Hormone replacement therapy; Z79.899 Other long term (current) drug therapy; Z80.0 Family history of malignant neoplasm of digestive organs; Z98.890 Other specified postprocedural states; Z90.710 Acquired absence of both cervix and uterus
CPT/HCPCS: 70450; 72131; 72192; 80053 ×2; 81000; 84439; 84443; 85025 ×2; 87077; 87088; 87186; 97162; 99284; U0002; 36415; 87635

== ENCOUNTER 2020-07-07 01:31 | Emergency (ER) | payer MEDICARE ==
[~2020-07-07] VITALS: Ht 162.5 cm; Wt 56.9 kg
[~2020-07-07 01:31] MED LIST changes: +AMLO2.5T4 PO; +APIX2.5T PO; +CEFD300C3 PO; +DILT-27 PO; +FLEC50TA PO; +OMEG-213 PO
[2020-07-07 01:46] VITALS: BP 184/73
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
[2020-07-07] MEDS ORDERED: ANTACID SUSP 30 ML UDC (MYLANTA) PO ONE (02:00)
[2020-07-07] MEDS ORDERED: TETRACAINE 0.5% OPHTH SOLN 4 ML BTL (SINGLE DOSE ONLY) OP ONE (02:00)
[2020-07-07] MEDS ORDERED: LIDOCAINE 2% VISCOUS 15 ML UDC PO ONE (02:00)
== END 2020-07-07 02:15 | disposition home or self-care (01) ==
LOC: EDUNIT# 01:31 → ER 01:37
DX: T59.811A Toxic effect of smoke, accidental (unintentional), initial encounter (principal); H57.89 Other specified disorders of eye and adnexa; J39.2 Other diseases of pharynx; I10 Essential (primary) hypertension; I25.10 Atherosclerotic heart disease of native coronary artery without angina pectoris; I48.91 Unspecified atrial fibrillation; E89.0 Postprocedural hypothyroidism; K21.9 Gastro-esophageal reflux disease without esophagitis; J44.9 Chronic obstructive pulmonary disease, unspecified; Z79.890 Hormone replacement therapy; Z79.82 Long term (current) use of aspirin; Z79.01 Long term (current) use of anticoagulants
CPT/HCPCS: 99281

== ENCOUNTER → 2020-10-19 | Outpatient (CLI) | payer MEDICARE ==
--- NOTE | 2020-10-19 14:20 | Diagnostic Imaging Report ---
Indication: Pain. Findings: There is arthritic narrowing of the right hip. No fracture or dislocation. No acute appearing abnormality. Impression: Osteoarthritic changes but no fracture or acute-appearing bony pathology. Dictated by: Dictated on workstation # [id number]
--- NOTE | 2020-10-19 14:25 | Diagnostic Imaging Report ---
Indication: Back pain and sciatica, fall. Correlated with lumbar CT 06/13/2020. Findings: When correlated with previous exam, there has probably been some progressive stature loss of the T12 level. There is some rightward convexity, degenerative rotoscoliotic curvature is also somewhat more pronounced. The lumbar statures themselves are within normal limits. There is bony demineralization. There is grade 1 anterolisthesis L3 on L4, L4 on L5, unchanged from prior CT. There is facet arthrosis throughout the lumbar spine. Impression: Some stature loss and irregularity at T12 reflects a change in appearance from previous CT, underlying bony demineralization, consider repeat CT to include the T12 level as further evaluation. Stable spondylosis, facet arthrosis, multilevel grade 1 lower lumbar degenerative listheses but rotoscoliotic curvature slightly more pronounced, this may be on a positional basis. Dictated by: Dictated on workstation # [id number]
--- NOTE | 2020-10-19 14:28 | Diagnostic Imaging Report ---
Indication: Pain. Findings: A study interpreted in correlation with lumbar CT performed 09/13/2020. Findings: There is new stature loss of the superior endplate of T12 down about 30-40%, this is much better visualized than on earlier performed lumbar radiographs. The bones are demineralized remaining thoracic statures are normal and aligned anatomically. There is lower cervical degenerative disease, chronic. Impression: Wedging and stature loss at T12. There is a new finding from prior followup with a CT to include the T12 level recommended, superior end plate may be slightly retropulsed. Dictated by: Dictated on workstation # [id number]
== END ==
LOC: RAD 11:15
PROVIDERS: ATTEND Family Medicine
DX: M48.54XA Collapsed vertebra, not elsewhere classified, thoracic region, initial encounter for fracture (principal); M51.34 Other intervertebral disc degeneration, thoracic region; M47.816 Spondylosis without myelopathy or radiculopathy, lumbar region; M43.16 Spondylolisthesis, lumbar region; M16.11 Unilateral primary osteoarthritis, right hip; W19.XXXA Unspecified fall, initial encounter
CPT/HCPCS: 72072; 72100; 73502

== ENCOUNTER → 2021-02-27 | Outpatient (CLI) | payer MEDICARE ==
--- NOTE | 2021-02-27 09:51 | Diagnostic Imaging Report ---
PROCEDURE: MRI lumbar spine. TECHNIQUE: Multiplanar, multisequence MRI of the lumbar spine was performed without contrast. INDICATION: Back pain, lumbar radiculopathy Its correlated with the CT dated 06/13/2020 and with plain films 10/19/2020. A nonedematous wedge compression deformity of the middle and anterior thirds of T12 has occurred from the previous CT. There is slight retropulsion of the superior endplate by about 1 to 2 mm without significant stenosis or compression of the lower cord or conus. While new from the prior CT this is a nonacute finding. Lumbar statures themselves are stable and rightward convexity degenerative rotoscoliotic curvature is unchanged. There is grade 1 degenerative anterolisthesis L3 on 4 and L4 on L5 unchanged from CT. No endplate Modic changes. The conus normal. There is normal dispersal of the nerves of the cauda equina and no paravertebral mass, hemorrhage or fluid collection is found. T12-L1: Disc desiccation and bulge result in no substantial canal or foraminal stenosis. Mild superior endplate retropulsion at T12 results in no significant stenosis. L1-L2: Disc desiccation, bulge, endplate osteophytes and facet arthrosis result in mild spinal canal stenosis with mild right and moderate left foraminal narrowing. L2-L3: Ligament flava thickening, disc bulge, endplate osteophytes and facet arthrosis result in mild to moderate spinal canal stenosis with mild right greater than left foraminal stenoses. L3-L4: Buckle thickened ligamenta flava, facet arthrosis, disc bulge and endplate osteophytes are present. The findings result in moderate to severe central canal stenosis with moderate bi-foraminal narrowing. L4-L5: Ligamenta flava thickening and facet arthrosis with disc bulge and endplate osteophytes result in moderate to severe canal stenosis with moderate right greater than left foraminal narrowing. L5-S1: Endplate osteophytes eccentric to the right are present. The canal, the foramen and the recesses however widely patent. IMPRESSION: Nonedematous compression deformity mildly retropulsed at T12 while new from the comparison CT this is not an acute finding. Stable multilevel grade 1 degenerative lumbar listheses in the lower spine. Multifactorial degenerative changes involving the discs, endplates, facets and ligamenta flava result in substantial degrees of multilevel spinal canal and foraminal stenoses detailed level by level above. 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 Dictated by: Dictated on workstation # [id number]
== END ==
LOC: RAD 08:45
PROVIDERS: ATTEND Physician Assistant
DX: M47.26 Other spondylosis with radiculopathy, lumbar region (principal); M51.25 Other intervertebral disc displacement, thoracolumbar region; M51.35 Other intervertebral disc degeneration, thoracolumbar region; M51.16 Intervertebral disc disorders with radiculopathy, lumbar region; M48.05 Spinal stenosis, thoracolumbar region; M48.061 Spinal stenosis, lumbar region without neurogenic claudication; M43.16 Spondylolisthesis, lumbar region; M41.86 Other forms of scoliosis, lumbar region; M25.78 Osteophyte, vertebrae; M43.8X4 Other specified deforming dorsopathies, thoracic region
CPT/HCPCS: 72148

== ENCOUNTER → 2021-06-25 | Outpatient (CLI) | payer MEDICARE | LOC: CARD 12:00 | PROVIDERS: ATTEND Physician Assistant | DX: I11.9 Hypertensive heart disease without heart failure (principal); I08.3 Combined rheumatic disorders of mitral, aortic and tricuspid valves | CPT/HCPCS: 93306 ==

== ENCOUNTER 2021-12-21 10:53 | Emergency (ER) | payer MEDICARE ==
[~2021-12-21] VITALS: Ht 157.5 cm; Wt 53.8 kg
--- NOTE | 2021-12-21 11:51 | ED General ---
General Chief Complaint: General Problems/Pain Stated Complaint: LIGHTHEADED|WEAK Nursing Triage Note: PT AMB TO TRIAGE W C/O LIGHTHEADEDNESS, WEAKNESS, DIZZINESS, AND INTERMITTENT CP FOR THE PAST FEW DAYS. PT A&OX4, DENIES PAIN. Source of Information: Patient Exam Limitations: No Limitations History of Present Illness Date Seen by Provider: Dec 21, 2021 Time Seen by Provider: 11:49 Initial Comments To ER with lightheadedness general weakness dizziness and intermittent sharp chest pain lasting only a few seconds at a time for the past few days. She denies any pain. She has a bulging disc in her neck and wonders if this may be part of her symptoms though she denies any unilateral upper or lower extremity weakness, difficulty with walking, denies any pain in her neck or upper back or down her arms. She occasionally has numbness in bilateral hands during the night. She has intermittent shortness of breath none currently. She just finished building a 100 foot picket fence. She was bowling this morning but had to stop because of fatigue. She follows with Dr. Mcgraw. Primary care is Dr. Montano and urologist Dr Laws Timing/Duration: 1-2 Days Severity: Moderate Associated Systoms: Weakness Allergies and Home Medications Allergies Coded Allergies: duloxetine HCl (Verified Allergy, Intermediate, BLISTERS, 05/04/15) Penicillins (Verified Allergy, Mild, 04/03/11) Patient Home Medication List Home Medication List Reviewed: Yes Apixaban (Eliquis) 2.5 Mg Tablet, 2.5 MG PO BID Prescribed by: EDIE MCGRAW on 06/14/20 1000 Aspirin (Aspirin EC) 81 Mg Tablet.dr, 81 MG PO HS, (Reported) Entered as Reported by: KERRI HINES on 06/14/20 1016 Carvedilol (Coreg) 12.5 Mg Tablet, 12.5 MG PO BID, (Reported) Entered as Reported by: BINDU CLOUD on 10/15/16 1500 Cefdinir (Cefdinir) 300 Mg Capsule, 300 MG PO BID Prescribed by: IVETT MONTANO on 06/14/20 1345 Diltiazem HCl (Diltiazem 24Hr ER) 120 Mg Cap.er.24h, 120 MG PO DAILY@0900 Prescribed by: EDIE MCGRAW on 06/14/20 1000 Flecainide Acetate (Flecainide Acetate) 50 Mg Tablet, 50 MG PO BID Prescribed by: EDIE MCGRAW on 06/14/20 1000 Levothyroxine Sodium (Levothyroxine) 75 Mcg Capsule, 75 MCG PO DAILY, (Reported) Entered as Reported by: DAYLIN BREWER on 05/11/20 1132 Losartan Potassium (Losartan Potassium) 100 Mg Tablet, 100 MG PO DAILY, (Report ed) Entered as Reported by: TERRELL SPIVEY on 03/07/17 0935 Multivitamin (Multiple Vitamins) 1 Each Tablet, 1 TAB PO DAILY, (Reported) Entered as Reported by: TERRELL SPIVEY on 03/28/15 1308 [place]-3S/Dha/Epa/Fish Oil (Fish Oil 1,200 mg Softgel) 1 Each Capsule, 1 EACH PO DAILY, (Reported) Entered as Reported by: KERRI HINES on 06/14/20 1016 Pantoprazole Sodium (Protonix) 40 Mg Tablet.dr, 40 MG PO DAILY Prescribed by: TERE CARVAJAL on 05/17/20 1009 Review of Systems Review of Systems Constitutional: see HPI EENTM: see HPI Respiratory: no symptoms reported Cardiovascular: no symptoms reported Genitourinary: no symptoms reported Musculoskeletal: see HPI Skin: no symptoms reported Psychiatric/Neurological: No Symptoms Reported Hematologic/Lymphatic: No Symptoms Reported Past Abvipzc-Ixadgv-Bdpzvm Hx Patient Social History Tobacco Use?: No Use of E-Cig and/or Vaping dev: No Substance use?: No Alcohol Use?: No Immunizations Up To Date Tetanus Booster (TDap): Unknown PED Vaccines UTD: Yes First/Initial COVID19 Vaccinat: NONE Second COVID19 Vaccination Rohit: NONE Third COVID19 Vaccination Date: NONE COVID19 Vaccine Old Testament Professor: NONE Seasonal Allergies Seasonal Allergies: No Past Medical History Surgeries: Yes (KIDNEY STONE REMOVAL, ORAL SX, ANGIOPLASTY RIGHT RENAL ARTERY;HIATAL HERNIA) Abdominal, Gallbladder, Hysterectomy, Orthopedic, Renal, Thyroidectomy, Vascular Surgery Respiratory: Yes (lung nodules, INFECTIOUS DISEASE FOR LUNG) COPD Currently Using CPAP: No Currently Using BIPAP: No Cardiac: Yes (CAROTID DISEASE;R RENAL ARTERY STENOSIS-S/P ANGIOPLASTY 2011; AFIB 06/2020 ) Atrial Fibrillation, Coronary Artery Disease, High Cholesterol, Hypertension, Irregular Heartbeat, Valvular Heart Disease Neurological: No Reproductive Disorders: No 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, 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 Sexually Transmitted Disease: No HIV/AIDS: No Genitourinary: Yes (OVERACTIVE BLADDER; INCONTINENCE) Kidney Stones Gastrointestinal: Yes (S/P HIATAL HERNIA REPAIR, DYSPHAGIA) Gastroesophageal Reflux, Diverticulosis, Hiatal Hernia Musculoskeletal: Yes (CHRONIC LEG PAIN ) Arthritis Endocrine: Yes (BENIGN NODULE ON THYROID, BX ON 03/30/15; THYROIDECTOMY 05/2015--GOITER) Hypothyroidsim HEENT: Yes Cataract Hearing Impairment: Denies Cancer: No Psychosocial: No Integumentary: Yes (hx of mrsa) Blood Disorders: No Adverse Reaction/Blood Tranf: No Family Medical History Cardiovascular disease G8 SISTER Colon cancer G8 BROTHER Colon cancer G8 BROTHER FH: cancer 19 FATHER (lung) 19 MOTHER G8 SISTER (esophagus) Psychosocial problem 19 MOTHER No Pertinent Family Hx Physical Exam Vital Signs Vital Signs - First Documented 12/21/21 11:10 Temp 36.4 Pulse 67 Resp 20 B/P (MAP) 104/62 (76) Pulse Ox 96 O2 Delivery Room Air Capillary Refill : Less Than 3 Seconds Height, Weight, BMI Height: 5'2.00" Weight: 122lbs. 0.0oz. 55.345129zy; 21.00 BMI Method:Stated General Appearance: No Apparent Distress, WD/WN HEENT: PERRL/EOMI, TMs Normal Neck: Full Range of Motion, Normal Inspection Respiratory: Lungs Clear, Normal Breath Sounds, No Accessory Muscle Use, No Respiratory Distress Cardiovascular: Regular Rate, Rhythm, Normal Peripheral Pulses Gastrointestinal: Normal Bowel Sounds, Non Tender, Soft Extremity: Normal Capillary Refill, Normal Inspection Neurologic/Psychiatric: Alert, Oriented x3 Skin: Normal Color, Warm/Dry Progress/Results/Core Measures Suspected Sepsis SIRS Temperature: Pulse: 67 Respiratory Rate: 20 Laboratory Tests 12/21/21 11:45: White Blood Count 6.3 Blood Pressure 104 /62 Mean: 76 Laboratory Tests 12/21/21 11:45: Creatinine 0.99, INR Comment 1.2, Platelet Count 245, Total Bilirubin 0.5 Results/Orders Lab Results Laboratory Tests Test 12/21/21 11:45 12/21/21 13:10 Range/Units White Blood Count 6.3 4.3-11.0 10^3/uL Red Blood Count 3.83 3.80-5.11 10^6/uL Hemoglobin 11.7 11.5-16.0 g/dL Hematocrit 36 35-52 % Mean Corpuscular Volume 93 80-99 fL Mean Corpuscular Hemoglobin 31 25-34 pg Mean Corpuscular Hemoglobin Concent 33 32-36 g/dL Red Cell Distribution Width 14.0 10.0-14.5 % Platelet Count 245 130-400 10^3/uL Mean Platelet Volume 9.1 9.0-12.2 fL Immature Granulocyte % (Auto) 0 % Neutrophils (%) (Auto) 66 42-75 % Lymphocytes (%) (Auto) 21 12-44 % Monocytes (%) (Auto) 10 0-12 % Eosinophils (%) (Auto) 2 0-10 % Basophils (%) (Auto) 1 0-10 % Neutrophils # (Auto) 4.2 1.8-7.8 10^3/uL Lymphocytes # (Auto) 1.3 1.0-4.0 10^3/uL Monocytes # (Auto) 0.6 0.0-1.0 10^3/uL Eosinophils # (Auto) 0.2 0.0-0.3 10^3/uL Basophils # (Auto) 0.1 0.0-0.1 10^3/uL Immature Granulocyte # (Auto) 0.0 0.0-0.1 10^3/uL Prothrombin Time 15.7 H 12.2-14.7 SEC INR Comment 1.2 0.8-1.4 Sodium Level 142 135-145 MMOL/L Potassium Level 4.1 3.6-5.0 MMOL/L Chloride Level 108 H 98-107 MMOL/L Carbon Dioxide Level 26 21-32 MMOL/L Anion Gap 8 5-14 MMOL/L Blood Urea Nitrogen 21 H 7-18 MG/DL Creatinine 0.99 0.60-1.30 MG/DL Estimat Glomerular Filtration Rate 56 BUN/Creatinine Ratio 21 Glucose Level 107 H 70-105 MG/DL Calcium Level 8.7 8.5-10.1 MG/DL Corrected Calcium 9.0 8.5-10.1 MG/DL Magnesium Level 2.2 1.6-2.4 MG/DL Total Bilirubin 0.5 0.1-1.0 MG/DL Aspartate Amino Transf (AST/SGOT) 19 5-34 U/L Alanine Aminotransferase (ALT/SGPT) 17 0-55 U/L Alkaline Phosphatase 62 40-136 U/L Troponin I < 0.028 <0.028 NG/ML B-Type Natriuretic Peptide 139.2 H <100.0 PG/ML Total Protein 6.4 6.4-8.2 GM/DL Albumin 3.6 3.2-4.5 GM/DL Thyroid Stimulating Hormone (TSH) 0.92 0.35-4.94 UIU/ML Free Thyroxine 1.11 0.70-1.48 NG/DL Urine Color YELLOW Urine Clarity CLEAR Urine pH 6.0 5-9 Urine Specific Ebony >=1.030 1.016-1.022 Urine Protein NEGATIVE NEGATIVE Urine Glucose (UA) NEGATIVE NEGATIVE Urine Ketones NEGATIVE NEGATIVE Urine Nitrite POSITIVE H NEGATIVE Urine Bilirubin NEGATIVE NEGATIVE Urine Urobilinogen 1.0 < = 1.0 MG/DL Urine Leukocyte Esterase NEGATIVE NEGATIVE Urine RBC (Auto) 2+ H NEGATIVE Urine RBC 5-10 H /HPF Urine WBC 2-5 /HPF Urine Squamous Epithelial Cells 2-5 /HPF Urine Crystals NONE /LPF Urine Bacteria LARGE H /HPF Urine Casts NONE /LPF Urine Mucus NEGATIVE /LPF Urine Culture Indicated YES My Orders Orders - ROBBIE MELISSA APRN Cbc With Automated Diff (12/21/21 11:20) Comprehensive Metabolic Panel (12/21/21 11:20) Protime With Inr (12/21/21 11:20) Troponin I Russell (12/21/21 11:20) Ekg Tracing (12/21/21 11:20) Ed Iv/Invasive Line Start (12/21/21 11:20) Ua Culture If Indicated (12/21/21 11:48) Thyroid Stimulating Hormone (12/21/21 11:48) Free T4 (Free Thyroxine) (12/21/21 11:48) Magnesium (12/21/21 11:48) Chest 1 View, Ap/Pa Only (12/21/21 11:48) Bnp Russell (12/21/21 11:48) Urine Culture (12/21/21 13:10) Vital Signs/I&O 12/21/21 11:10 Temp 36.4 Pulse 67 Resp 20 B/P (MAP) 104/62 (76) Pulse Ox 96 O2 Delivery Room Air Capillary Refill : Less Than 3 Seconds Blood Pressure Mean: 76 Departure Communication (Admissions) NAME: WILBERTO IRVIN MED REC#: [id number] PT STATUS: REG ER : 1935 PHYSICIAN: ROBBIE MELISSA APRN ADMIT DATE: 12/21/21/ER Signed Date of Exam:12/21/21 CHEST 1 VIEW, AP/PA ONLY EXAMINATION: Chest 1 view HISTORY: dyspnea COMPARISON: 11/06/2016 FINDINGS: Heart size and pulmonary vasculature are stable. Mild interstitial opacities in the perihilar lungs and lung bases. No pleural effusion or pneumothorax. The osseous structures are intact. IMPRESSION: 1. Mild interstitial opacities within the mid and lower lungs could be seen with atelectasis, pulmonary edema, or atypical infection. Dictated by: Dictated on workstation # [id number] Dict: 12/21/21 1219 Trans: 12/21/21 1224 [id number] Interpreted by: KINGA PONCE DO Electronically signed by: KINGA PONCE DO 12/21/21 1224 Impression Primary Impression: UTI (urinary tract infection) Additional Impression: General weakness Disposition: 01 HOME, SELF-CARE Condition: Stable Departure-Patient Inst. Decision time for Depature: 13:41 Referrals: IVETT MONTANO MD (PCP/Family) Primary Care Physician Patient Instructions: Generalized Weakness, Urinary Tract Infection, Adult ED Add. Discharge Instructions: 1. Antibiotics as directed. Return to ER for any concerns. Follow-up with your doctor next week. All discharge instructions reviewed with patient and/or family. Voiced understanding. Scripts Cefuroxime Axetil (Cefuroxime) 250 Mg Tablet 250 MG PO BID, #10 TAB Prov: ROBBIE MELISSA APRN 12/21/21 ROBBIE MELISSA APRN Dec 21, 2021 11:51
[2021-12-21 11:54] LABS: BASOPHILS # (AUTO) 0.1 10^3/uL (0.0-0.1); BASOPHILS % (AUTO) 1 % (0-10); EOSINOPHILS # (AUTO) 0.2 10^3/uL (0.0-0.3); EOSINOPHILS % (AUTO) 2 % (0-10); HEMATOCRIT 36 % (35-52); HEMOGLOBIN 11.7 g/dL (11.5-16.0); LYMPHOCYTES # (AUTO) 1.3 10^3/uL (1.0-4.0); LYMPHOCYTES % (AUTO) 21 % (12-44); MEAN CORPUSCULAR HEMOGLOBIN 31 pg (25-34); MEAN CORPUSCULAR HGB CONC 33 g/dL (32-36); MEAN CORPUSCULAR VOLUME 93 fL (80-99); MEAN PLATELET VOLUME 9.1 fL (9.0-12.2); MONOCYTES # (AUTO) 0.6 10^3/uL (0.0-1.0); MONOCYTES % (AUTO) 10 % (0-12); NEUTROPHILS # (AUTO) 4.2 10^3/uL (1.8-7.8); NEUTROPHILS % (AUTO) 66 % (42-75); PLATELET COUNT 245 10^3/uL (130-400); WHITE BLOOD COUNT 6.3 10^3/uL (4.3-11.0)
[2021-12-21 12:10] LABS: ALBUMIN 3.6 GM/DL (3.2-4.5)
[2021-12-21 12:11] LABS: CHLORIDE 108 MMOL/L (98-107); POTASSIUM 4.1 MMOL/L (3.6-5.0); SODIUM 142 MMOL/L (135-145)
[2021-12-21 12:12] LABS: CALCIUM 8.7 MG/DL (8.5-10.1); INR 1.2 (0.8-1.4); PROTHROMBIN TIME PATIENT 15.7 SEC (12.2-14.7)
[2021-12-21 12:13] LABS: GLUCOSE 107 MG/DL (70-105); TOTAL PROTEIN 6.4 GM/DL (6.4-8.2)
[2021-12-21 12:14] LABS: CARBON DIOXIDE 26 MMOL/L (21-32)
[2021-12-21 12:15] LABS: BILIRUBIN,TOTAL 0.5 MG/DL (0.1-1.0)
[2021-12-21 12:16] LABS: ALKALINE PHOSPHATASE 62 U/L (40-136)
[2021-12-21 12:17] LABS: CREATININE SERUM 0.99 MG/DL (0.60-1.30); GFR ESTIMATED 56
[2021-12-21 12:18] LABS: BUN/CREATININE RATIO 21
[2021-12-21 12:20] LABS: ALANINE AMINOTRANSFERASE 17 U/L (0-55); MAGNESIUM 2.2 MG/DL (1.6-2.4)
--- NOTE | 2021-12-21 12:20 | Diagnostic Imaging Report ---
EXAMINATION: Chest 1 view HISTORY: dyspnea COMPARISON: 11/06/2016 FINDINGS: Heart size and pulmonary vasculature are stable. Mild interstitial opacities in the perihilar lungs and lung bases. No pleural effusion or pneumothorax. The osseous structures are intact. IMPRESSION: 1. Mild interstitial opacities within the mid and lower lungs could be seen with atelectasis, pulmonary edema, or atypical infection. Dictated by: Dictated on workstation # [id number]
[2021-12-21 12:43] LABS: FREE T4 (FREE THYROXINE) 1.11 NG/DL (0.70-1.48)
[2021-12-21 13:21] LABS: BILIRUBIN,URINE NEGATIVE (NEGATIVE); CLARITY,URINE CLEAR; COLOR,URINE YELLOW; GLUCOSE, URINE (UA) NEGATIVE (NEGATIVE); KETONES,URINE NEGATIVE (NEGATIVE); LEUKOCYTE ESTERASE ,URINE NEGATIVE (NEGATIVE); NITRITE,URINE POSITIVE (NEGATIVE); PROTEIN,URINE NEGATIVE (NEGATIVE)
[2021-12-21 13:36] LABS: BACTERIA,URINE LARGE /HPF
[2021-12-21] MEDS ORDERED: CEFU250T80 PO (13:42)
[2021-12-21] MEDS ORDERED: CEFDINIR 300 MG (OMNICEF) CAP PO ONE (13:45)
[2021-12-21 14:01] VITALS: BP 122/59
== END 2021-12-21 14:01 | disposition home or self-care (01) ==
LOC: EDUNIT# 10:53 → ER 10:55
DX: N39.0 Urinary tract infection, site not specified (principal); R53.1 Weakness; Z87.442 Personal history of urinary calculi; Z88.0 Allergy status to penicillin; Z28.310 Unvaccinated for COVID-19
CPT/HCPCS: 36415; 71045; 80053; 81000; 83735; 83880; 84439; 84443; 84484; 85025; 85610; 87077; 87088; 87186; 93005

== ENCOUNTER → 2022-06-03 | Outpatient (CLI) | payer MEDICARE ==
[~2022-06-03] MED LIST changes: +CEFU250T80 PO
== END ==
LOC: CARD 14:12
PROVIDERS: ATTEND Internal Medicine Cardiovascular Disease
DX: I11.9 Hypertensive heart disease without heart failure (principal); I08.3 Combined rheumatic disorders of mitral, aortic and tricuspid valves; I25.10 Atherosclerotic heart disease of native coronary artery without angina pectoris
CPT/HCPCS: 93306

== ENCOUNTER → 2022-06-12 | Outpatient (CLI) | payer MEDICARE ==
[~2022-06-12] MED LIST changes: +CATHETER FLUSH 10 ML SYR IVP PRN; +REGADENOSON 0.4 MG/5 ML SYR (LEXISCAN) IV ONE
[2022-06-12 15:50] VITALS: BP 146/78
--- NOTE | 2022-06-12 15:50 | Cardiology Stress Test Report ---
Stress Test Report Date of Procedure/Referring: Date of Procedure: June 12, 2022 PCP Wilton Montano MD Admitting Physician Admitting Physician: Attending Physician: Carolina Mcgraw MD Baseline Heart Rate: 67 Baseline Blood Pressure: Blood Pressure Systolic: 146 Blood Pressure Diastolic: 78 Baseline Vitals NSR Baseline EKG: Baseline EKG: NSR Summary After explaining the procedure to the patient, she signed a consent and then brought to the stress nuclear laboratory. Patient received 0.4 mg Lexiscan for stress test, ECG, heart rate and blood pressure were monitored continuously. Resting and stress dose of radio tracer were injected, imaging was acquired and reviewed in short axis, horizontal long axis and vertical long axis views. TID: 1.18 SSS: 5 SDS: 5 EF: 78 Patient tolerated Lexiscan well Typical female pattern with no significant ischemia or infarction noted on SPECT images Normal left ventricular size, ejection fraction 78% Copy Copies To 1: WILTON MONTANO MD, BASHAR J MD June 12, 2022 15:50
== END ==
LOC: CARD 08:24
PROVIDERS: ATTEND Internal Medicine Cardiovascular Disease
DX: I25.10 Atherosclerotic heart disease of native coronary artery without angina pectoris (principal); I10 Essential (primary) hypertension
CPT/HCPCS: 78452; 93017; A9502